=== PATIENT | male | born 1950 | race Caucasian/White ===

== ENCOUNTER → 2024-08-03 | Outpatient (CLI) | payer MEDICARE ==
[2024-08-03 11:01] LABS: African American GFR (CKD) 61 (>60 ml/min/1.73 sqM); Blood Urea Nitrogen 15 mg/dL (9-20); Non-African American GFR(CKD) 53 (>60 ml/min/1.73 sqM)
--- NOTE | 2024-08-03 13:19 | CT ---
CTA abdomen, pelvis with runoff. HISTORY: PAD and abdominal aneurysm repair. COMPARISON: None. TECHNIQUE: Multiple axial images are obtained through the abdomen and pelvis and lower extremities ac cording to the CTA protocol. Nonionic IV contrast was given without complication. FINDINGS: Inflow CTA: There is an abdominal aortic and iliac stent graph repair which extends proximally above the origins of the renal arteries and there are 2 patent renal artery stents. The [place] aneurysm is 6.0 x 6.7 cm in size. There is a calcified mural thrombus within it. There is no definite evidence of a endoleak. There is no retroperitoneal adenopathy or hemorrhage. There are iliac stents are widely patent is no evidence of aneurysm or stenosis is. Mesenteric origin s are patent. Outflow CTA: On the right, there is a severe focal stenosis of the distal right common femoral artery at the bifur cation with the profunda artery. There are scattered arteriosclerotic plaques and multiple mild-to-mo derate stenoses within the right superficial femoral artery. 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 There is three-vessel runoff. The dominant runoff vessel in the posterior tib ial artery. There are mild scattered plaques within the runoff vessels. On the left, the left superfi cial femoral artery is occluded at its origin. It is reconstituted in the region of the adductor praneeth l via numerous profunda femoral artery collaterals. The popliteal artery is diminutive throughout its course with scattered plaque but appears patent without definite focal stenosis. Runoff CTA: On the right, there is three-vessel runoff and the dominant runoff vessel is the posterior tibial art zeke. There are scattered arteriosclerotic plaques. On the left, there is two-vessel runoff via the peroneal artery and posterior tibial artery. The prox imal third of the posterior tibial artery is not well opacified but is well opacified distally into t he ankle. The anterior tibial artery is occluded proximally. The peroneal artery is the dominant runo ff vessel. Nonvascular findings: The gallbladder is normal. There is no focal mass or organomegaly involving liver, pancreas, spleen or adrenal glands. There is no solid renal mass. The bowel loops are normal in caliber. There is no free intraperitoneal air or fluid. There is marked prosthetic hypertrophy with marked thickening of the urinary bladder wall consistent with chronic bladder outlet obstruction. The osseous structures are intact. IMPRESSION: 1. Aortic iliac stent graft for abdominal aortic aneurysm as described above. [place] aneurysm is 6.0 x 6.7 cm. There is no definite evidence of endoleak. 2 patent bilateral renal artery stents. 3. Severe outflow disease on the right as described above. Large right popliteal artery aneurysm. 4. Severe outflow disease on the left involving the superficial femoral artery. 5. Three-vessel runoff disease on the right and 2 vessel runoff disease on the left as described. 6. Marked prosthetic hypertrophy and marked thickening of the urinary bladder wall consistent with ch ronic lateral obstruction.
== END | disposition home or self-care (01) ==
LOC: RADCTMAIN 09:59
PROVIDERS: ATTEND Surgery
DX: I70.213 Atherosclerosis of native arteries of extremities with intermittent claudication, bilateral legs (principal); I71.40 Abdominal aortic aneurysm, without rupture, unspecified; I72.4 Aneurysm of artery of lower extremity; N32.0 Bladder-neck obstruction
CPT/HCPCS: 82565; 84520; 75635; Q9967

== ENCOUNTER 2024-09-03 21:43 | Inpatient (IN) | payer MEDICARE ==
--- NOTE | 2024-09-03 22:07 | ED ---
General Adult HPI - General Chief complaint: Chest Pain Stated complaint: Chest Pain Time Seen by Provider: 09/03/24 21:57 Source: patient, family Mode of arrival: wheelchair Limitations: no limitations - History of Present Illness Initial comments: Dictation was produced using [employer] dictation software. please excuse any grammatical, word or spelling errors. Chief Complaint: 74-year-old male presents emergency department chest pain History of Present Illness: Patient 74-year-old male with known history of atherosclerotic coronary artery vascular disease presents to the ER for chest pressure. He has been having symptoms for the last couple days. States that it feels like a pressure that radiates to both of his arms. Denies any associate diaphoresis or nausea. He does have multiple coronary artery stents states that his symptoms today remind of of a heart attack is had in the past. Patient rates his pain as a 3 out of 10. Not pleuritic in nature. Rating her mitigating factors. The ROS documented in this emergency department record has been reviewed and confirmed by me. Those systems with pertinent positive or negative responses have been documented in the HPI. All other systems are other negative and/or noncontributory. - Related Data Allergies Allergy/AdvReac Type Severity Reaction Status Date / Time No Known Allergies Allergy Verified 09/03/24 21:53 Review of Systems ROS Statement: Those systems with pertinent positive or pertinent negative responses have been documented in the HPI. ROS Other: All systems not noted in ROS Statement are negative. 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 Past Surgical History: Heart Catheterization With Stent, Orthopedic Surgery Additional Past Surgical History / Comment(s): ATHERECTOMY TO BOTH LEGS Smoking Status: Current every day smoker General Exam - General Exam Comments Initial Comments: PHYSICAL EXAM: General Impression: Alert and oriented x3, not in acute distress HEENT: Normocephalic atraumatic, extra-ocular movements intact, pupils equal and reactive to light bilaterally, mucous membranes moist. Cardiovascular: Heart regular rate and rhythm Chest: Able to complete full sentences, no retractions, no tachypnea Abdomen: abdomen soft, non-tender, non-distended, no organomegaly Musculoskeletal: Pulses present and equal in all extremities, no peripheral edema Motor: no focal deficits noted Neurological: CN II-XII grossly intact, no focal motor or sensory deficits noted Skin: Intact with no visualized rashes Psych: Normal affect and mood Limitations: no limitations Course Vital Signs 09/03/24 09/03/24 09/03/24 21:49 23:13 23:25 Temperature 98 F Pulse Rate 70 71 84 Respiratory 20 18 18 Rate Blood Pressure 199/77 188/74 165/72 O2 Sat by Pulse 96 94 L 97 Oximetry EKG Findings - EKG Comments: EKG Findings:: My EKG interpretation: Ventricular rate 75, sinus rhythm,. 159, QRS 104, QTc 432. No CO prolongation, no QTC prolongation, no ST or T-wave changes noted. Overall, this EKG is unremarkable Medical Decision Making - Medical Decision Making Was pt. sent in by a medical professional or institution (, PA, HAMPER MAKER MACHINE, urgent care, hospital, or alf...) When possible be specific @ -No Did you speak to anyone other than the patient for history (EMS, parent, family, police, friend...)? What history was obtained from this source @ - at the bedside as described above Did you review nursing and triage notes (agree or disagree)? Why? @ -I reviewed and agree with nursing and triage notes Were old charts reviewed (outside hosp., previous admission, EMS record, old EKG, old radiological studies, urgent care reports/EKG's, alf records)? Report findings @ -No old charts were reviewed Differential Diagnosis (chest pain, altered mental status, abdominal pain women, abdominal pain men, vaginal bleeding, musculoskeletal, weakness, fever, dyspnea, syncope, headache, dizziness, GI bleed, back pain, seizure, CVA, palpatations, mental health)? @ -Differential Chest Pain: Stable Angina, Unstable Angina, STEMI, NSTEMI Aortic Dissection, Pneumothorax, Musculoskeletal, Esophageal Spasm GERD, Cholecystitis, Pancreatitis, Zoster, this is not meant to be an all-inclusive list. EKG interpreted by me (3pts min.). @ -See above EKG performed at 1131 shows no dynamic changes X-rays interpreted by me (1pt min.). @ -Pending CT interpreted by me (1pt min.). @ -None done U/S interpreted by me (1pt. min.). @ -None done What testing was considered but not performed or refused? (CT, X-rays, U/S, labs)? Why? @ -None What meds were considered but not given or refused? Why? @ -None Was smoking cessation discussed for >3mins.? @ -No Were there social determinants of health that impacted care today? How? (Homelessness, low income, unemployed, alcoholism, drug addiction, transporta tion, low edu. Level, literacy, decrease access to med. care, usp, rehab)? @ -No Was there de-escalation of care discussed even if they declined (Discuss DNR or withdrawal of care, Hospice)? DNR status @ -No What co-morbidities impacted this encounter? (DM, HTN, Smoking, COPD, CAD, Cancer, CVA, ARF, Chemo, Hep., AIDS, mental health diagnosis, sleep apnea, morbid obesity)? @ -Coronary artery disease, coronary artery stents Was patient admitted / discharged? Hospital course, mention meds given and route, prescriptions, significant lab abnormalities, going to OR and other pertinent info. @ -74-year-old male presents emergency department with chest pain. Symptoms concerning for unstable angina. Patient has coronary artery disease. Vital signs stable. EKG shows no STEMI or ischemic changes. Laboratory evaluation obtained. Troponin is 0.023. Normal troponin for comparison. Repeat EKG shows no dynamic changes. Patient's pain improved with nitroglycerin. Patient started on heparin will be admitted. Case discussed with Dr. Kaminski for admission. Did you discuss the management of the patient with other professionals (professionals i.e. , PA, HAMPER MAKER MACHINE, lab, RT, psych nurse, social insurance analyst, graining operator, teacher, first aid officer, case supervisor)? Give summary @ -As above Was critical care preformed (if so, how long)? @ -Yes, 33 minutes Undiagnosed new problem with uncertain prognosis? @ -No Drug Therapy requiring intensive monitoring for toxicity (Heparin, Nitro, Insulin, Cardizem)? @ -No Were any procedures done? @ -No Diagnosis/symptom? Acute, or Chronic, or Acute on Chronic? Uncomplicated (without systemic symptoms) or Complicated (systemic symptoms)? @ -Unstable angina Side effects of treatment? @ -No Exacerbation, Progression, or Severe Exacerbation? @ -No Poses a threat to life or bodily function? How? (Chest pain, [place], NM, pneumonia, PE, COPD, DKA, ARF, appy, cholecystitis, CVA, Diverticulitis, Homicidal, Suicidal, threat to staff... and all critical care pts) @ -yes - Lab Data Result diagrams: 09/03/24 22:17 09/03/24 22:17 Lab Results 09/03/24 09/03/24 09/03/24 Range/Units 22:17 22:17 22:17 WBC 6.1 (3.8-10.6) k/uL RBC 3.90 L (4.30-5.90) m/uL Hgb 11.3 L (13.0-17.5) gm/dL Hct 35.6 L (39.0-53.0) % MCV 91.3 (80.0-100.0) fL MCH 28.9 (25.0-35.0) pg MCHC 31.7 (31.0-37.0) g/dL RDW 15.7 H (11.5-15.5) % Plt Count 180 (150-450) k/uL MPV 7.3 Neutrophils % 64 % Lymphocytes % 25 % Monocytes % 5 % Eosinophils % 3 % Basophils % 1 % Neutrophils # 3.9 (1.3-7.7) k/uL Lymphocytes # 1.5 (1.0-4.8) k/uL Monocytes # 0.3 (0-1.0) k/uL Eosinophils # 0.2 (0-0.7) k/uL Basophils # 0.0 (0-0.2) k/uL Hypochromasia Moderate PT 10.2 (10.0-12.5) sec INR 0.9 (<1.2) APTT 26.5 (22.0-30.0) sec Sodium 139 (137-145) mmol/L Potassium 3.3 L (3.5-5.1) mmol/L Chloride 103 (98-107) mmol/L Carbon Dioxide 35 H (22-30) mmol/L Anion Gap 1 mmol/L BUN 15 (9-20) mg/dL Creatinine 1.35 H (0.66-1.25) mg/dL Est GFR (CKD-EPI)AfAm 60 (>60 ml/min/1.73 sqM) Est GFR (CKD-EPI)NonAf 52 (>60 ml/min/1.73 sqM) Glucose 142 H (74-99) mg/dL Calcium 9.0 (8.4-10.2) mg/dL Magnesium 2.2 (1.6-2.3) mg/dL Total Bilirubin 0.4 (0.2-1.3) mg/dL AST 21 (17-59) U/L ALT 12 (4-49) U/L Alkaline Phosphatase 83 (38-126) U/L Troponin I (0.000-0.034) ng/mL Total Protein 7.1 (6.3-8.2) g/dL Albumin 3.9 (3.5-5.0) g/dL 09/03/24 Range/Units 22:17 WBC (3.8-10.6) k/uL RBC (4.30-5.90) m/uL Hgb (13.0-17.5) gm/dL Hct (39.0-53.0) % MCV (80.0-100.0) fL MCH (25.0-35.0) pg MCHC (31.0-37.0) g/dL RDW (11.5-15.5) % Plt Count (150-450) k/uL MPV Neutrophils % % Lymphocytes % % Monocytes % % Eosinophils % % Basophils % % Neutrophils # (1.3-7.7) k/uL Lymphocytes # (1.0-4.8) k/uL Monocytes # (0-1.0) k/uL Eosinophils # (0-0.7) k/uL Basophils # (0-0.2) k/uL Hypochromasia PT (10.0-12.5) sec INR (<1.2) APTT (22.0-30.0) sec Sodium (137-145) mmol/L Potassium (3.5-5.1) mmol/L Chloride (98-107) mmol/L Carbon Dioxide (22-30) mmol/L Anion Gap mmol/L BUN (9-20) mg/dL Creatinine (0.66-1.25) mg/dL Est GFR (CKD-EPI)AfAm (>60 ml/min/1.73 sqM) Est GFR (CKD-EPI)NonAf (>60 ml/min/1.73 sqM) Glucose (74-99) mg/dL Calcium (8.4-10.2) mg/dL Magnesium (1.6-2.3) mg/dL Total Bilirubin (0.2-1.3) mg/dL AST (17-59) U/L ALT (4-49) U/L Alkaline Phosphatase (38-126) U/L Troponin I 0.023 (0.000-0.034) ng/mL Total Protein (6.3-8.2) g/dL Albumin (3.5-5.0) g/dL Disposition Clinical Impression: Unstable angina Disposition: ADMITTED IP TO THIS HOSP Condition: Serious Referrals: John Faulkner MD [Primary Care Provider] - 1-2 days Decision Time: 00:23
[2024-09-03 22:36] LABS: Basophils % (A) 1 %; Eosinophils # (A) 0.2 k/uL (0-0.7); Eosinophils % (A) 3 %; HCT 35.6 % (39.0-53.0); HGB 11.3 gm/dL (13.0-17.5); Hypochromasia Moderate; Lymphocytes # (A) 1.5 k/uL (1.0-4.8); Lymphocytes % (A) 25 %; MCH 28.9 pg (25.0-35.0); MCHC 31.7 g/dL (31.0-37.0); MCV 91.3 fL (80.0-100.0); Mean Platelet Volume 7.3; Monocytes # (A) 0.3 k/uL (0-1.0); Monocytes % (A) 5 %; Neutrophils # (A) 3.9 k/uL (1.3-7.7); Neutrophils % (A) 64 %; Platelet Count 180 k/uL (150-450); RDW 15.7 % (11.5-15.5); WBC 6.1 k/uL (3.8-10.6)
[2024-09-03 22:45] LABS: ALT 12 U/L (4-49); AST 21 U/L (17-59); African American GFR (CKD) 60 (>60 ml/min/1.73 sqM); Albumin 3.9 g/dL (3.5-5.0); Alkaline Phosphatase 83 U/L (38-126); Anion Gap 1 mmol/L; Blood Urea Nitrogen 15 mg/dL (9-20); Carbon Dioxide 35 mmol/L (22-30); Chloride 103 mmol/L (98-107); Glucose 142 mg/dL (74-99); Magnesium 2.2 mg/dL (1.6-2.3); Non-African American GFR(CKD) 52 (>60 ml/min/1.73 sqM); Potassium 3.3 mmol/L (3.5-5.1); Sodium 139 mmol/L (137-145); Total Bilirubin 0.4 mg/dL (0.2-1.3); Total Protein 7.1 g/dL (6.3-8.2)
[2024-09-03 22:51] LABS: INR 0.9 (<1.2); Partial Thromboplastin Time 26.5 sec (22.0-30.0); Prothrombin Time 10.2 sec (10.0-12.5)
[2024-09-03] MEDS: ASPIRIN 81 MG PO STA (23:11)
[2024-09-03] MEDS: NITROGLYCERIN SL TABS 0.4 MG TAB SUBLINGUAL STA (23:12)
[2024-09-03] MEDS ORDERED: HEPARIN SODIUM 1,000 UN/ML (10ML VL) IV PRN (23:51)
[2024-09-04] MEDS: HEPARIN SODIUM 1,000 UN/ML (10ML VL) IV ONE (00:09)
[2024-09-04] MEDS: HEPARIN SOD,PORK IN 0.45% NACL 25,000 UNIT in 0.45% NACL 1 250ML.BAG IV SCH (00:10)
--- NOTE | 2024-09-04 01:48 | XR ---
EXAM: XR Chest, 2 Views CLINICAL HISTORY: XR Reason: Chest Pain TECHNIQUE: Frontal and lateral views of the chest. COMPARISON: No relevant prior studies available. FINDINGS: Lungs: Slightly coarse interstitial markings in the lungs suggesting mild emphysema. No acute infiltrate is identified. Pleural space: Unremarkable. No pneumothorax. Heart: Unremarkable. No cardiomegaly. Mediastinum: Unremarkable. Normal mediastinal contour. Bones/joints: Mild to moderate osteophytosis throughout the mid to lower thoracic spine. No acute fracture. Upper abdomen: Previous stent graft repair of the abdominal aorta. No pneumoperitoneum under the diaphragm. IMPRESSION: Slightly coarse interstitial markings in the lungs suggesting mild emphysema. No acute infiltrate is identified.
--- NOTE | 2024-09-04 02:54 | P.HPIM ---
History of Present Illness H&P Date: 09/04/24 Patient is a 74-year-old male with a history of CAD x 3 stent placement, DVT, hyperlipidemia, and is a current smoker that came in for chest pain that began on Tuesday evening 09/02. He reported that chest pain was substernal, episodic, with an intensity of 6-7/10, pressure-like in nature (similar to his prior MIs), that radiated to both arms and the back. The pain initially occured on late night Tuesday but had resolved by Tuesday upon waking. The pain recurred on Tuesday, which prompted him to come to the ED. He denies shortness of breath, nausea, diaphoresis, palpitations, dizziness, new onset cough, abdominal pain, facial asymmetry, changes in vision, or loss of consciousness. Denies pleuritic pain. Also denying lower extremity swelling or pain. Denies pain that is tearing in nature. Patient also notes that he doesn't believe that most medications work for him and thereby hadn't been taking them for some time now. In the emergency room, EKG showed sinus rhythm with a rate of [address]-T changes with good R wave progression and QTc of 439 MS. Chest x-ray showed no acute processes. Laboratory evaluation revealed WBC 6.1, hemoglobin 11.3, platelet count 180 PT 10.2 INR 0.9 PTT 26.5 sodium potassium 3.3 bicarb 35 BUN 15 creatinine 1.35 glucose 142 troponin 0.023 calcium 9 magnesium 2.2. On admission, patient was afebrile at 98 Fahrenheit heart rate of 70 respiratory rate 20 blood pressure 199/77 O2 saturation 96% on room air ED documentation reviewed. Review of systems: Pertinent positives and negatives as discussed in HPI, a complete review of systems was performed and all other systems are negative. Family history: Mother had bone cancer and is . Father had brain cancer and is Social history: Tobacco: Current smoker half a pack per day for 50 years Alcohol: Denies alcohol use Recreational drugs: Denies illicit drug use Travel: No recent travel Occupation: Retired Physical examination: Vital signs reviewed General: non toxic, no distress, appears older then stated age, underweight Derm: no unusual rashes/lesions, warm Head: atraumatic, normocephalic, symmetric Eyes: EOMI, no lid lag, anicteric sclera, pupils equal round reactive to light ENT: Nose and ears atraumatic Neck: No cervical lymphadenopathy, trachea midline, supple Mouth: no lip lesion, mucus membranes moist Cardiovascular: S1S2 reg, 3 out of 6 holosystolic murmur best heard on the right second ICS Lungs: CTA bilateral, no rhonchi, no rales, no accessory muscle use Abdominal: soft, nontender to palpation, no guarding Ext: muscle strength 5 out of 5 in all 4 extremities grossly, no gross muscle atrophy, no contractures, positive dorsalis pedis pulse bilateral, no edema Neuro: CN II-XI grossly intact, no gross focal neuro deficits Psych: Alert, oriented, appropriate affect and mood Assessment/Plan: #. Unstable angina Patient has significant history of prior [place]. Troponin 0.023 -Continue with cardiac monitoring -Aspirin 325 p.o. OD and Lipitor 80 mg -Resume Heparin IV 12 units/h -Continue with nitroglycerin 0.4 mg lingual as needed for chest pain -Trend troponin -Consult cardiology -Discussed smoking cessation -Echocardiogram #. Hypokalemia Potassium 3.3. EKG unremarkable -Replete with potassium chloride 20 mEQ p.o. -BMP at AM #. Hyperglycemia Glucose 142. No Hx of DM. -A1c and BMP in the a.m. 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 Past Surgical History: Heart Catheterization With Stent, Orthopedic Surgery Additional Past Surgical History / Comment(s): ATHERECTOMY TO BOTH LEGS Smoking Status: Current every day smoker Medications and Allergies Allergies Allergy/AdvReac Type Severity Reaction Status Date / Time No Known Allergies Allergy Verified 09/03/24 21:53 Physical Exam Vitals: Vital Signs Temp Pulse Resp BP Pulse Ox 09/04/24 00:25 74 16 165/82 97 09/03/24 23:25 84 18 165/72 97 09/03/24 23:13 71 18 188/74 94 L 09/03/24 21:49 98 F 70 20 199/77 96 Intake and Output 09/03/24 09/03/24 09/04/24 14:59 22:59 06:59 Other: Weight 62.142 kg Results CBC & Chem 7: 09/03/24 22:17 09/03/24 22:17 Labs: Abnormal Lab Results - Last 24 Hours (Table) 09/03/24 09/03/24 Range/Units 22:17 22:17 RBC 3.90 L (4.30-5.90) m/uL Hgb 11.3 L (13.0-17.5) gm/dL Hct 35.6 L (39.0-53.0) % RDW 15.7 H (11.5-15.5) % Potassium 3.3 L (3.5-5.1) mmol/L Carbon Dioxide 35 H (22-30) mmol/L Creatinine 1.35 H (0.66-1.25) mg/dL Glucose 142 H (74-99) mg/dL
[2024-09-04] MEDS ORDERED: Potassium Replacement Protocol 1 EACH MISC MISCELLANE PRN ×2 (02:55→02:56)
[2024-09-04] MEDS: POTASSIUM CHLORIDE ER 20 MEQ TAB.ER PO SCH (04:00)
[2024-09-04] MEDS: ATORVASTATIN 80 MG TAB PO STA ×2 (05:00→11:57)
[2024-09-04 08:39] LABS: Blood Urea Nitrogen 14.4 mg/dL (9.0-27.0); Calcium 8.6 mg/dL (8.7-10.3); Carbon Dioxide 27.4 mmol/L (21.6-31.8); Chloride 104 mmol/L (96-109); Glucose 90 mg/dL (70-110); Potassium 3.4 mmol/L (3.5-5.5); Sodium 141 mmol/L (135-145)
[2024-09-04] MEDS: SODIUM CHLORIDE 0.9% 1,000 ML in EMPTY BAG 1 BAG IV SCH (11:55)
[2024-09-04] MEDS: ASPIRIN 81 MG PO STA (11:57)
[2024-09-04] MEDS: IV FLUID CONTINUATION 950 ML IV ONE (12:01)
[2024-09-04] MEDS: fentaNYL (PF) 50 MCG/ML 2 ML AMP IVP ONE (12:19)
[2024-09-04] MEDS: LIDOCAINE 1% INJ 10MG/ML (20 ML MDV) SQ ONE (12:30)
[2024-09-04] MEDS: MIDAZOLAM 2 MG/2 ML VIAL IVP ONE (12:47)
[2024-09-04] MEDS: VERAPAMIL SYRINGE (5 MG/10 ML) INTRAARTER ONE (12:47)
[2024-09-04] MEDS: HEPARIN SODIUM 1,000 UN/ML (10ML VL) IVP ONE (12:51)
[2024-09-04] MEDS: IOPAMIDOL-370 125ML BTL INJ ONE (13:03)
[2024-09-04] MEDS ORDERED: RX INFO: IV CONTRAST WAS GIVEN 1 EACH MISC MISCELLANE PRN (13:15)
--- NOTE | 2024-09-04 13:25 | P.CARDCATH ---
Date of Procedure: 09/04/24 Description of Procedure: Cardiac Catheterization: The patient is a 74-year-old male with a known history of CAD status post PCI of the LAD over 10 years ago, history of peripheral vascular disease status post percutaneous repair of abdominal aortic aneurysm, history of aortic valve disease, chronic tobacco use, noncompliance who presented with symptoms of chest discomfort and had mild troponin elevation. He was evaluated by Dr. Guido. Recommendations were made regarding cardiac catheterization, the risks and the complications were discussed with the patient who is in full understanding and agreement. Procedure Description: Patient was brought to collaborating supervising physician in fasting semi-sedated state after receiving Fentanyl and Benadryl achieiving moderate conscious sedated state. Using Xylocaine Anesthesia and modified Seldinger technique, a 6-[place] sheath was introduced in the left radial artery . Attempt to advance the wire in the right radial artery were unsuccessful. Subsequently, selective coronary angiography was performed using a 5-[place] 4 bend Jose Francisco catheter. Multiple views of the coronary artery including hemiaxial views were obtained. The right Jose Francisco catheter was used to cross the aortic valve and LVEDP was calculated. The 6 [place] pigtail was positioned in the ascending aorta and an MEDHAT aortogram was performed. Following that, catheter and sheath were removed. Hemostasis was obtained with deployment of vascular band . There was no immediate complication. Patient was returned to room in stable condition. Of note, the patient received a total of 3500 units of intravenous heparin as well as intra-arterial verapamil. Findings: Fluoroscopy: Severe calcification of the aortic valve was noted Left main: This is a large size vessel, bifurcating into LAD and left circumflex, left main has no obstructive disease LAD: This is a large size vessel, giving rise to a large diagonal branch. The LAD proximally has a stent that is patent there is a stent into the diagonal branch and extending in the LAD beyond the diagonal branch. The ostium of the diagonal branch and proximal segment has a 99% in-stent restenosis, the LAD at the bifurcation has a 95% stenosis. The distal vessel has no high-grade stenosis. Left circumflex: This is a large nondominant vessel giving rise to 3 obtuse marginal branch, the second and third 1 are the largest. The left circumflex after the takeoff of the first obtuse marginal branch has a 90% eccentric lesion, there is another plaque before the takeoff of the second obtuse marginal branch of 70%, the rest of the vessel has no high-grade stenosis. RCA: This is a large dominant vessel, bifurcating distally to PDA and PLV. Ectatic throughout its course with a 99% stenosis in the proximal segment and a 99% stenosis at the ostium of the PLV. Left Ventriculogram: Not performed. The aortogram showed a 4+ aortic regurgitation with visualization of the abdominal aortic stent extending into the iliac artery bilaterally with suggestion of obstructive disease in the right iliac Hemodynamics: There was a peak to peak gradient across the aortic valve of 56 mmHg with a mean of 54 mmHg, LVEDP was 18-20 mmHg Conclusion: 1. Severe triple-vessel disease 2. Severe aortic stenosis 3. Severe aortic regurgitation 4. Right dominance Recommendations: The patient will need to be evaluated for coronary artery bypass grafting and aortic valve replacement, the importance of compliance was discussed with the patient including smoking cessation. The findings and the recommendations were discussed with the patient and the family and they were in full understanding and agreement. Duration of sedation is 35 minutes.
[2024-09-04] MEDS: SODIUM CHLORIDE 0.9% 1,000 ML IV SCH (13:27)
--- NOTE | 2024-09-04 14:01 | P.CRDCN ---
History of Present Illness Consult date: 09/04/24 Reason for Consult (text): NSTEMI Chief complaint: NSTEMI History of present illness: Dr. Guido's addendum NSTEMI Severe aortic regurgitation Suspect severe aortic stenosis Prior CAD status post PCI 15 years ago Prior PAD status post bilateral renal artery stenting and infrarenal EVAR repair for aortic aneurysm. Plan Continue aspirin, Lipitor Plan for cardiac catheterization. Obtain echocardiogram Apparently patient is scheduled for below-knee bypass surgery for severe PAD. Would be further recommendations on surgical clearance after evaluate him for obstructive CAD and valvular heart disease. HPI Patient is a 74 year old male with past medical history of CAD X3 stent placement, DVT, HLD, current smoker started having chest pain on 09/02 evening. He reported he was feeling pressure like chest pain which radiated toward his arms and back. The chest pain went away on Tuesday morning but recurred on Tuesday evening. He tried taking some aspirin but the chest pain did not go away. After he came to the ED, he was given nitrogycerin which he reported relieved his chest pain. He denies any shortness of breath, nausea, vomiting, abdominal pain. In the ED, EKG showed sinus rhythm with rate in the 70s. No ST changes noted. Chest X ray showed no acute infiltrates. Morning labs showed WBC count of 6.1, hemoglobin 11.3, hematocrit 35.6, platelet 180, sodium 139, potassium 3.3, chlo ride 103, carbon dioxide 35, BUN 15, creatinine 1.35. Troponin has increased from 0.023 to 0.041. His blood pressure is elevated. He is saturating at 97% on room air. Review of Systems Per [facility] Past Medical History Past Medical History: Coronary Artery Disease (CAD), Deep Vein Thrombosis (DVT), Hyperlipidemia, Hypertension, Myocardial Infarction ([place]) Additional Past Medical History / Comment(s): 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 Past Surgical History: Heart Catheterization With Stent, Orthopedic Surgery Additional Past Surgical History / Comment(s): ATHERECTOMY TO BOTH LEGS Smoking Status: Current every day smoker - Past Family History Mother Family Medical History: Cancer Additional Family Medical History / Comment(s): from bone cancer Father Family Medical History: Cancer Additional Family Medical History / Comment(s): from brain cancer Medications and Allergies Home Medications Medication Instructions Recorded Confirmed Type Aspirin EC [Ecotrin Low Dose] 81 mg PO DAILY 09/04/24 09/04/24 History Metoprolol Tartrate [Lopressor] 50 mg PO DAILY 09/04/24 09/04/24 History Allergies Allergy/AdvReac Type Severity Reaction Status Date / Time No Known Allergies Allergy Verified 09/04/24 11:04 Physical Exam Vitals: Vital Signs Temp Pulse Resp BP Pulse Ox 09/04/24 08:48 98.2 F 61 18 124/56 96 09/04/24 06:58 58 L 16 154/61 94 L 09/04/24 05:16 65 18 135/86 95 09/04/24 02:45 63 14 145/75 94 L 09/04/24 00:25 74 16 165/82 97 09/03/24 23:25 84 18 165/72 97 09/03/24 23:13 71 18 188/74 94 L 09/03/24 21:49 98 F 70 20 199/77 96 Intake and Output 09/03/24 09/04/24 09/04/24 22:59 06:59 14:59 Intake Total 56.922 Balance 56.922 Intake: Intake, IV Titration 56.922 Amount Heparin Sod,Pork in 0.45% 56.922 NaCl 25,000 unit In 0.45 % NaCl 1 250ml.bag @ 12 UNITS/KG/HR 7.457 mls/hr IV .Q24H [facility] Rx#: [id number] Other: Weight 62.142 kg General: Alert and oriented, not in acute distress Cardiovascular: Holosystolic murmur grade 3, regular heart rate Respiratory: CTAB, no wheezing/rhonchi/stridor Abdominal: Non tender, nondistended, soft, normoactive bowel sounds Extremity: No LE swelling bilaterally Results 09/03/24 22:17 09/04/24 16:00 Cardiac Enzymes 09/03/24 09/03/24 09/04/24 Range/Units 22:17 22:17 00:55 AST 21 (17-59) U/L Troponin I 0.023 0.033 (0.000-0.034) ng/mL 09/04/24 Range/Units 03:55 AST (17-59) U/L Troponin I 0.041 H* (0.000-0.034) ng/mL Coagulation 09/03/24 09/04/24 Range/Units 22:17 05:58 PT 10.2 (10.0-12.5) sec APTT 26.5 44.0 H (22.0-30.0) sec CBC 09/03/24 Range/Units 22:17 WBC 6.1 (3.8-10.6) k/uL RBC 3.90 L (4.30-5.90) m/uL Hgb 11.3 L (13.0-17.5) gm/dL Hct 35.6 L (39.0-53.0) % Plt Count 180 (150-450) k/uL Comprehensive Metabolic Panel 09/03/24 09/04/24 Range/Units 22:17 03:55 Sodium 139 141 (137-145) mmol/L Potassium 3.3 L 3.4 L (3.5-5.1) mmol/L Chloride 103 104 (98-107) mmol/L Carbon Dioxide 35 H 27.4 (22-30) mmol/L BUN 15 14.4 (9-20) mg/dL Creatinine 1.35 H 1.2 (0.66-1.25) mg/dL Glucose 142 H 90 (74-99) mg/dL Calcium 9.0 8.6 L (8.4-10.2) mg/dL AST 21 (17-59) U/L ALT 12 (4-49) U/L Alkaline Phosphatase 83 (38-126) U/L Total Protein 7.1 (6.3-8.2) g/dL Albumin 3.9 (3.5-5.0) g/dL Current Medications Generic Name Dose Route Start Last Admin Trade Name Shantq PRN Reason Stop Dose Admin Aspirin 81 mg 09/05/24 09:00 Aspirin 81 Mg PO DAILY [facility] Atorvastatin Calcium 80 mg 09/04/24 21:00 Atorvastatin 80 Mg Tab PO HS [facility] Heparin Sodium (Porcine) 0 unit 09/03/24 23:51 Heparin Sodium 1,000 Un/Ml (10ml Vl) IV PER PROTOCOL PRN Low PTT Protocol Heparin Sodium/Sodium Chloride 250 mls @ 7.457 mls/hr 09/04/24 00:00 09/04/24 07:48 25,000 unit/ Sodium Chloride IV 12 units/kg/hr .Q24H [facility] 7.457 mls/hr Titration Protocol 12 UNITS/KG/HR Miscellaneous Information 1 each 10/08/24 02:55 Potassium Replacement Protocol 1 Each [facility] MISCELLANE DAILY PRN Per Protocol Protocol Miscellaneous Information 1 each 09/04/24 02:56 Potassium Replacement Protocol 1 Each [facility] MISCELLANE DAILY PRN Per Protocol Protocol Nitroglycerin 0.4 mg 09/04/24 00:17 Nitroglycerin Sl Tabs 0.4 Mg Tab SUBLINGUAL Q5M PRN Chest Pain Intake and Output 09/03/24 09/04/24 09/04/24 22:59 06:59 14:59 Intake Total 56.922 Balance 56.922 Intake: Intake, IV Titration 56.922 Amount Heparin Sod,Pork in 0.45% 56.922 NaCl 25,000 unit In 0.45 % NaCl 1 250ml.bag @ 12 UNITS/KG/HR 7.457 mls/hr IV .Q24H [facility] Rx#: [id number] Other: Weight 62.142 kg 09/03/24 22:17 09/04/24 03:55 Assessment and Plan Assessment: 1. NSTEMI - Patient's troponin elevated - Previous heart catheterization was done many years ago, facility unknown. - Patient will get a heart catheterization this afternoon by Dr. Byrd. - Order echocardiogram - Order lipid panel 2. Severe Aortic regurgitation - Holosystolic murmur noted on exam - Pending echocardiogram results 3. Peripheral vascular disease - Patient stated that he will get LE bypass vascular surgery next month 4. Hypertension - Losartan 25 mg once daily Time with Patient: Greater than 30
--- NOTE | 2024-09-04 14:58 | P.GSCN ---
History of Present Illness Consult date: 09/04/24 Reason for Consult: Triple vessel coronary artery disease, aortic stenosis/insufficiency Requesting physician: Pawel Byrd History of present illness: This is a 74-year-old gentleman who follows outpatient with Dr. Faulkner for primary care, Dr. Byrd for cardiology, and Dr. Rawls for vascular. He has a previous history of coronary artery disease with myocardial infarction and multiple stenting with the last stent greater than 10 years ago, peripheral arterial disease with endovascular abdominal aneurysm repair approximately 2 years ago at [facility], angioplasty in the right leg, hypertension, hyperlipi demia, remote history of pneumonia, current chronic tobacco dependence, occasional marijuana use, and medication noncompliance. He presented to [facility] with complaints of intermittent chest pressure with radiation to his arms and back, denies of breath, nausea, diaphoresis, or any other symptomatology. He did self administer aspirin prior to arrival, his chest pain was relieved with sublingual nitro in the emergency department. EKG demonstrated sinus rhythm. Chest x-ray demonstrated no acute process. Lab work revealed WBC 6.1, hemoglobin 11.3, creatinine 1.35 Review of Systems - Cardiovascular Reports chest pain Past Medical History Past Medical History: Coronary Artery Disease (CAD), Deep Vein Thrombosis (DVT), Hyperlipidemia, Hypertension, Myocardial Infarction ([place]), Pneumonia Additional Past Medical History / Comment(s): 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 Legally blind Past Surgical History: Heart Catheterization With Stent, Orthopedic Surgery Additional Past Surgical History / Comment(s): ATHERECTOMY TO BOTH LEGS; endovascular abdominal aneurysm repair at [facility], angioplasty to the right leg at [facility] Date of Last Stent Placement:: Greater than 10 years ago Past Psychological History: No Psychological Hx Reported Smoking Status: Current every day smoker Past Alcohol Use History: None Reported Past Drug Use History: Marijuana - Past Family History Mother Family Medical History: Cancer Additional Family Medical History / Comment(s): from bone cancer Father Family Medical History: Cancer Additional Family Medical History / Comment(s): from brain cancer Medications and Allergies Home Medications Medication Instructions Recorded Confirmed Type Aspirin EC [Ecotrin Low Dose] 81 mg PO DAILY 09/04/24 09/04/24 History Metoprolol Tartrate [Lopressor] 50 mg PO DAILY 09/04/24 09/04/24 History Allergies Allergy/AdvReac Type Severity Reaction Status Date / Time No Known Allergies Allergy Verified 09/04/24 11:04 Surgical - Exam Vital Signs Temp Pulse Resp BP Pulse Ox 98 F 70 20 199/77 96 09/03/24 21:49 09/03/24 21:49 09/03/24 21:49 09/03/24 21:49 09/03/24 21:49 CONSTITUTIONAL: Awake and alert, appears comfortable, cooperative, well- developed, well-nourished, no pain, no acute distress EYES: Pupils equal, round, reactive to light, normal ocular movement ENT: Moist mucous membranes without oral lesions present NECK: No masses, no bruits, trachea midline RESPIRATORY: Lungs sounds diminished in the bases bilaterally bilaterally. Respirations even, nonlabored. Currently on room air with oxygen saturation 96%. Strong cough. No chest wall deformities. No clubbing or cyanosis present CARDIOVASCULAR: S1, S2 present. Regular rate and rhythm, sinus rhythm on telemetry. No edema present. No calf pain or tenderness noted. No significant lower extremity varicosities noted GASTROINTESTINAL: Abdomen soft, nontender, nondistended without masses or organomegaly noted. There is no rebound or guarding present. Active bowel sounds present 4 quadrants. GENITOURINARY: Deferred INTEGUMENTARY: Skin is warm and dry NEUROLOGIC: Cranial nerves II through XII intact, normal coordination, no obvious motor or sensory deficits, speech is normal MUSKULOSKELETAL: Able to move all extremities, strength equal bilaterally, normal posture PSYCHIATRIC: Alert and oriented to person place and time CLINICAL FRAILTY SCORE 4 Results - Labs 09/03/24 22:17 09/04/24 03:55 Abnormal Lab Results - Last 24 Hours (Table) 09/03/24 09/03/24 09/04/24 Range/Units 22:17 22:17 03:55 RBC 3.90 L (4.30-5.90) m/uL Hgb 11.3 L (13.0-17.5) gm/dL Hct 35.6 L (39.0-53.0) % RDW 15.7 H (11.5-15.5) % APTT (22.0-30.0) sec Potassium 3.3 L (3.5-5.1) mmol/L Carbon Dioxide 35 H (22-30) mmol/L Creatinine 1.35 H (0.66-1.25) mg/dL Glucose 142 H (74-99) mg/dL Calcium (8.7-10.3) mg/dL Troponin I 0.041 H* (0.000-0.034) ng/mL TSH (0.465-4.680) mIU/L 09/04/24 09/04/24 09/04/24 Range/Units 03:55 03:55 05:58 RBC (4.30-5.90) m/uL Hgb (13.0-17.5) gm/dL Hct (39.0-53.0) % RDW (11.5-15.5) % APTT 44.0 H (22.0-30.0) sec Potassium 3.4 L (3.5-5.1) mmol/L Carbon Dioxide (22-30) mmol/L Creatinine (0.66-1.25) mg/dL Glucose (74-99) mg/dL Calcium 8.6 L (8.7-10.3) mg/dL Troponin I (0.000-0.034) ng/mL TSH 14.600 H (0.465-4.680) mIU/L Diabetes panel 09/03/24 09/04/24 09/04/24 Range/Units 22:17 03:55 03:55 Sodium 139 141 (137-145) mmol/L Potassium 3.3 L 3.4 L (3.5-5.1) mmol/L Chloride 103 104 (98-107) mmol/L Carbon Dioxide 35 H 27.4 (22-30) mmol/L BUN 15 14.4 (9-20) mg/dL Creatinine 1.35 H 1.2 (0.66-1.25) mg/dL Glucose 142 H 90 (74-99) mg/dL Hemoglobin A1c 6.0 (<=6.0) % Calcium 9.0 8.6 L (8.4-10.2) mg/dL AST 21 (17-59) U/L ALT 12 (4-49) U/L Alkaline Phosphatase 83 (38-126) U/L Total Protein 7.1 (6.3-8.2) g/dL Albumin 3.9 (3.5-5.0) g/dL Thyroid panel 09/04/24 Range/Units 03:55 TSH 14.600 H (0.465-4.680) mIU/L Calcium panel 09/03/24 09/04/24 Range/Units 22:17 03:55 Calcium 9.0 8.6 L (8.4-10.2) mg/dL Albumin 3.9 (3.5-5.0) g/dL Pituitary panel 09/03/24 09/04/24 09/04/24 Range/Units 22:17 03:55 03:55 Sodium 139 141 (137-145) mmol/L Potassium 3.3 L 3.4 L (3.5-5.1) mmol/L Chloride 103 104 (98-107) mmol/L Carbon Dioxide 35 H 27.4 (22-30) mmol/L BUN 15 14.4 (9-20) mg/dL Creatinine 1.35 H 1.2 (0.66-1.25) mg/dL Glucose 142 H 90 (74-99) mg/dL Calcium 9.0 8.6 L (8.4-10.2) mg/dL TSH 14.600 H (0.465-4.680) mIU/L Adrenal panel 09/03/24 09/04/24 Range/Units 22:17 03:55 Sodium 139 141 (137-145) mmol/L Potassium 3.3 L 3.4 L (3.5-5.1) mmol/L Chloride 103 104 (98-107) mmol/L Carbon Dioxide 35 H 27.4 (22-30) mmol/L BUN 15 14.4 (9-20) mg/dL Creatinine 1.35 H 1.2 (0.66-1.25) mg/dL Glucose 142 H 90 (74-99) mg/dL Calcium 9.0 8.6 L (8.4-10.2) mg/dL Total Bilirubin 0.4 (0.2-1.3) mg/dL AST 21 (17-59) U/L ALT 12 (4-49) U/L Alkaline Phosphatase 83 (38-126) U/L Total Protein 7.1 (6.3-8.2) g/dL Albumin 3.9 (3.5-5.0) g/dL - Imaging Chest x-ray: report reviewed, image reviewed Additional studies: Heart catheterization films reviewed Assessment and Plan Assessment: Coronary artery disease with myocardial infarction and multiple stenting with the last stent greater than 10 years ago, non-STEMI this admission Chest pain secondary to above Severe aortic stenosis with severe aortic insufficiency on heart catheterization as well as echocardiogram in 2021 History of peripheral arterial disease with endovascular abdominal aneurysm repair approximately 2 years ago at [facility] Angioplasty in the right leg Hypertension although patient denies Hyperlipidemia Remote history of pneumonia Current chronic tobacco dependence Occasional marijuana use Medication noncompliance Addendum: 74-year-old male with known history of aortic stenosis presents with chest pain. Initial 2 troponins were negative but the third 1 was mildly elevated. He went for cardiac catheterization today. This reveals severe triple-vessel disease. Echocardiogram is pending at this time. Patient has history of noncompliance with medical therapy. His TSH is 14. He will require medical optimization including treatment of his hypothyroidism prior to undergoing CABG and presumed valvular surgery. Again, presuming his valve needs operation he will also require dental clearance. Thank you for this consult, we look forward to working with you in the care of your patient. The patient was seen and examined; hIS chart/diagnostics were reviewed in great detail. I agree with the assessment and plan as documented by the nurse practitioner. Spent 40 minutes reviewing data and discussing the plan of care with the team. Vitaliy Deluna MD Plan: The patient was seen and examined in the Extended Stay unit waiting for a bed on the third floor. Chart/diagnostics reviewed. The usual perioperative course of open-heart surgery was discussed in detail with the patient and his , risks and benefits were reviewed, all questions were answered. Had long discussion with patient about the need for complete smoking cessation as well as compliance with medications. Patient denies history of hypertension although his blood pressures have been elevated this entire admission, and looking back at note from Dr. Rawls's office his blood pressure was elevated then as well. Preoperative testing was initiated. Echocardiogram still yet to be completed, on heart catheterization Dr. Byrd noted 4+ AI, mean gradient of 56, LVEDP 18 to 20 mmHg. Transthoracic echocardiogram done at [facility] in August 2022 demonstrated normal left ventricular systolic function with EF 60 to 65%, severe aortic stenosis with aortic valve area 0.88 cm, max velocity 4.1 m/s, peak/mean gradient 67/45 mmHg, severe aortic insufficiency and mild to moderate mitral regurgitation. The patient does report he has no teeth and in fact has complete dental implants. Recommend maximizing medical therapy with aspirin, statin, beta-aidan. Patient states he does not feel he needs to take a statin medication since his cholesterol has always been under 150. Discussed the need with significant arterial disease. Case discussed in detail with Dr. Deluna who will see the patient today. More recommendations to follow once Dr. Deluna has seen the patient. Of note the patient's TSH level is 14.6 which is quite elevated and needs to be addressed prior to any surgical intervention. Thank you Dr. Byrd for this consult. I have personally seen and examined the patient, performed the documentation and the assessment and plan as written. Number of minutes spent on the visit: 30. SERGIO AtkinsonC
[2024-09-04] MEDS: lisinopriL 5 MG TAB PO SCH (15:07)
--- NOTE | 2024-09-04 16:00 | US ---
EXAMINATION TYPE: US arterial LE multi level DATE OF EXAM: 09/04/2024 3:48 PM CLINICAL INDICATION: Male, 74 years old with history of Ankle Brachial Index (SARAH); Pre op cardiac morris rgery History of: Smoker: Current Hypertension: No Diabetic: No Hyperlipidemia: No TIA/CVA: No NC: Yes Doppler Waveforms: Right: Monophasic Left: Monophasic Right Brachial Pressure: 178 Left Brachial Pressure: deferred due to heart cath Ankle-Brachial Indices: Right: 0.92 Left: 0.59 (Vessel hardening > 1.4; Normal 0.9 - 1.4, Moderate 0.7 - 0.9, Severe 0.5-0.7) IMPRESSION: 1. Bilateral lower extremity monophasic waveforms with severe stenosis within the left posterior tibi al and dorsalis pedis arteries and moderate narrowing of the right dorsalis pedis artery [facility], Workstation: [facility], 09/04/2024 3:58 PM
--- NOTE | 2024-09-04 16:25 | US ---
EXAMINATION TYPE: US carotid duplex BILAT DATE OF EXAM: 09/04/2024 COMPARISON: NONE CLINICAL INDICATION: Male, 74 years old with history of preop cardiac surgery; preop TECHNIQUE: Grayscale, color Doppler and spectral Doppler evaluation of the bilateral carotid systems and vertebral arteries.Indirect Doppler criteria was utilized. FINDINGS: EXAM MEASUREMENTS: RIGHT: Peak Systolic Velocity (PSV) cm/sec ----- Right CCA: 66.3 ----- Right ICA: 121 ----- Right ECA: 61.9 ICA/CCA ratio: 1.8 RIGHT: End Diastole cm/sec ----- Right CCA: 11.4 ----- Right ICA: 20.1 ----- Right ECA: 4.7 LEFT: Peak Systolic Velocity (PSV) cm/sec ----- Left CCA: 93.2 ----- Left ICA: 74.2 ----- Left ECA: 48.9 ICA/CCA ratio: 0.8 LEFT: End Diastole cm/sec ----- Left CCA: 11.3 ----- Left ICA: 15.4 ----- Left ECA: 5.1 VERTEBRALS (direction of flow): Right Vertebral: Antegrade Left Vertebral: Antegrade Rhythm: Normal NERVE SPECIALIST NOTES: moderate plaque seen in bilateral CCA's, bulbs, and ICA's. IMPRESSION: 1. Moderate atheromatous plaquing present bilaterally. No significant flow-limiting stenosis based on velocities. Criteria for Assigning % of Stenosis / Diameter reduction (Estimation based on the indirect measurements of the internal carotid artery velocities (ICA PSV). 1. Normal (no stenosis)=ICA PSV < 125 cm/s: ratio < 2.0: ICA EDV<40 cm/s. 2. Less than 50% stenosis=ICA PSV < 125 cm/s: ratio < 2.0: ICA EDV<40 cm/s. 3. 50 to 69% stenosis=ICA PSV of 125 to 230 cm/s: ration 2.0 ? 4.0: ICA EDV 40-100 cm/s. 4. Greater than 70% stenosis to near occlusion= ICA PSV > 230 cm/s: ratio > 4.0: ICA EDV > 100 cm/s. 5. Near occlusion= ICA PSV velocities may be low or undetectable: variable ratio and ICA EDV. 6. Total occlusion=unable to detect flow. [facility], , 09/04/2024 4:22 PM
--- NOTE | 2024-09-04 16:25 | US ---
EXAMINATION TYPE: US vein mapping BILAT DATE OF EXAM: 09/04/2024 3:04 PM COMPARISON: NONE CLINICAL INDICATION: Male, 74 years old with history of preop cardiac surgery; preop TECHNIQUE: Grayscale and color Doppler imaging of the lower extremity venous system. SIDE PERFORMED: Bilateral FINDINGS: DUPLEX FINDINGS: Greater Saphenous: Color flow seen Lesser Saphenous: Color flow seen Measurements in mm: Right Greater Saphenous: Groin: 6.1 x 4.3 mm High Thigh: 4.2 x 3.2 mm Mid Thigh: 4.6 x 3.5 mm Above Knee: 4.0 x 2.7 mm Knee: 2.4 x 2.1 mm Below Knee: 2.4 x 1.9 mm Mid Calf: 1.6 x 1.0 mm At Ankle: 3.0 x 1.7 mm Left Greater Saphenous: Groin: 5.6 x 4.7 mm High Thigh: 4.1 x 3.2 mm Mid Thigh: 3.9 x 3.5 mm Above Knee: 2.6 x 2.2 mm Knee: 3.5 x 2.7 mm Below Knee: 2.5 x 1.9 mm Mid Calf: 2.1 x 1.3 mm At Ankle: 2.5 x 1.5 mm IMPRESSION: 1. No evidence for occlusion. 2. GSV measurements listed above. 3. Performing surgeon to determine viability as conduit. [facility], Workstation: [facility], 09/04/2024 4:23 PM
[2024-09-04 16:43] LABS: African American GFR (CKD) 69 (>60 ml/min/1.73 sqM); Anion Gap 1 mmol/L; Blood Urea Nitrogen 14 mg/dL (9-20); Calcium 8.9 mg/dL (8.4-10.2); Carbon Dioxide 35 mmol/L (22-30); Chloride 104 mmol/L (98-107); Glucose 131 mg/dL (74-99); Non-African American GFR(CKD) 59 (>60 ml/min/1.73 sqM); Potassium 3.6 mmol/L (3.5-5.1); Sodium 140 mmol/L (137-145)
[2024-09-04] MEDS: NITROGLYCERIN OINT 1 INCH/GM PACKET TOPICAL SCH (16:46)
[2024-09-04] MEDS: ALPRAZolam 0.25 MG TAB PO PRN (16:46)
[2024-09-04 16:50] LABS: NT-Pro-B-Type Natriuretic Pept 1330 pg/mL
[2024-09-04] MEDS: hydroCHLOROthiazide 25 MG TAB PO SCH (20:29)
[2024-09-04] MEDS: lisinopriL 10 MG TAB PO SCH (20:29)
[2024-09-04] MEDS: METOPROLOL TARTRATE 25 MG TAB PO SCH (20:29)
[2024-09-04] MEDS: ATORVASTATIN 80 MG TAB PO SCH (20:29)
[2024-09-04 21:36] LABS: Chol/HDL Ratio 4.51 Ratio; LDL Cholesterol,Calculated 122.3 mg/dL (0.0-131.0)
--- NOTE | 2024-09-05 06:06 | CT ---
EXAMINATION TYPE: CT chest wo con CT DLP: 224.4 mGycm, Automated exposure control for dose reduction was used. DATE OF EXAM: 09/05/2024 12:00 AM COMPARISON: No direct comparisons. CLINICAL INDICATION:Male, 74 years old with history of eval aorta for clampability; PHH, eval aorta f or clampability/ACS TECHNIQUE: Multiple axial images were obtained through the chest without IV contrast. Lack of IV or o ral contrast limits evaluation of solid and hollow organ viscera. . Coronal and sagittal reformats re viewed. FINDINGS: LUNGS/ PLEURA: No pleural effusion, pneumothorax, or focal consolidation. Minimal right lower lobe morris bsegmental linear atelectasis. Mild centrilobular and paraseptal emphysematous changes. AIRWAY: Patent and unremarkable.. HEART: Size within normal limits. No pericardial effusion. Moderate coronary arterial calcifications which is most prominent along the LAD. MEDIASTINUM: No gross evidence of adenopathy. VASCULATURE: No thoracic aortic aneurysm. Mild atherosclerotic calcification of the thoracic aorta w ith minimal calcification of the aortic branches. Conventional three-vessel aortic arch. Ascending th oracic aorta measures up to 3.7 cm. Descending thoracic aorta measures up to 2.8 cm. MUSCULOSKELETAL: Mild disc degeneration changes are present throughout the thoracolumbar spine. No ac augustus osseous and amounted. Partial anterior fusion of the T10 and T11 vertebral bodies. SOFT TISSUES/LYMPH NODES: Unremarkable. LOWER NECK: No significant findings. UPPER ABDOMEN: Partial visualization of abdominal aortic cyst stent graft with bilateral renal artery stents. Contrast is demonstrated within both renal collecting systems from prior catheterization. Le ft renal 2.9 cm cyst. IMPRESSION: 1. No acute thoracic process. 2. Mild atherosclerotic calcification of the thoracic aorta with moderate coronary arterial calcifica tions most prominent along the LAD. 3. Mild COPD changes. [facility], , 09/05/2024 6:04 AM
[2024-09-05] MEDS ORDERED: HEPARIN SODIUM,PORCINE 10,000 UNIT in SODIUM CHLORIDE 0.9% 1,000 ML IRRIGATION PRN (07:00)
[2024-09-05] MEDS ORDERED: HEPARIN SODIUM,PORCINE (1 ML) 2,500 UNIT in SODIUM CHLORIDE 0.9% 250 ML IRRIGATION PRN (07:00)
[2024-09-05 07:31] LABS: Basophils % (A) 1 %; Eosinophils # (A) 0.2 k/uL (0-0.7); Eosinophils % (A) 3 %; HCT 34.2 % (39.0-53.0); HGB 10.8 gm/dL (13.0-17.5); Hypochromasia Moderate; Lymphocytes # (A) 1.5 k/uL (1.0-4.8); Lymphocytes % (A) 26 %; MCH 28.7 pg (25.0-35.0); MCHC 31.5 g/dL (31.0-37.0); Mean Platelet Volume 7.2; Monocytes # (A) 0.3 k/uL (0-1.0); Monocytes % (A) 6 %; Neutrophils # (A) 3.5 k/uL (1.3-7.7); Neutrophils % (A) 62 %; Platelet Count 193 k/uL (150-450); RBC 3.76 m/uL (4.30-5.90); RDW 15.7 % (11.5-15.5); WBC 5.7 k/uL (3.8-10.6)
[2024-09-05 07:52] LABS: African American GFR (CKD) 60 (>60 ml/min/1.73 sqM); Anion Gap 3 mmol/L; Blood Urea Nitrogen 16 mg/dL (9-20); Calcium 9.1 mg/dL (8.4-10.2); Carbon Dioxide 29 mmol/L (22-30); Chloride 105 mmol/L (98-107); Glucose 96 mg/dL (74-99); Non-African American GFR(CKD) 52 (>60 ml/min/1.73 sqM); Potassium 4.1 mmol/L (3.5-5.1); Sodium 137 mmol/L (137-145)
[2024-09-05 07:59] LABS: Partial Thromboplastin Time 26.3 sec (22.0-30.0)
[2024-09-05 08:46] LABS: Prothrombin Time 10.9 sec (10.0-12.5)
[2024-09-05] MEDS: ASPIRIN 81 MG PO SCH (08:47)
[2024-09-05] MEDS: HEPARIN SODIUM 1,000 UN/ML (10ML VL) IV ONE (08:50)
[2024-09-05] MEDS: HEPARIN SOD,PORK IN 0.45% NACL 25,000 UNIT in 0.45% NACL 1 250ML.BAG IV SCH (08:51)
[2024-09-05] MEDS ORDERED: LOSARTAN 25 MG TAB PO SCH (09:00)
[2024-09-05] MEDS ORDERED: ASPIRIN 325 MG TAB PO SCH (09:00)
[2024-09-05 10:40] LABS: Chol/HDL Ratio 3.73 Ratio
[2024-09-05 10:45] LABS: LDL Cholesterol,Calculated 130.6 mg/dL (0.0-131.0); VLDL Calculation 18.72 mg/dL (5.00-40.00)
[2024-09-05 10:57] LABS: Hepatitis A Antibody IgM Nonreactive (Nonreactive); Hepatitis C IgG Antibody Nonreactive (Nonreactive)
[2024-09-05 10:58] LABS: Hepatitis B Core IgM Nonreactive (Nonreactive); Hepatitis B Surface Antigen Nonreactive (Nonreactive)
--- NOTE | 2024-09-05 11:42 | CA ---
Transthoracic Echo Report Name: Leonides Caldwell Age: 74 Gender: M : 1950 Exam Date: 09/05/2024 08:47 Exam Location: [facility] Ht (in): 70 Wt (lb): 137 Ordering Physician: Jonas Zamorano DO Attending/Referring Phys: Convex Grinder Marla Vera RDCS Procedure CPT: Indications: NSTEMI, aortic stenosis Cardiac Hx: Technical Quality: Fair Contrast 1: Total Dose (mL): Contrast 2: Total Dose (mL): MEASUREMENTS (Male / Female) Normal Values 2D ECHO LV Diastolic Diameter PLAX 5.1 cm 4.2 - 5.9 / 3.9 - 5.3 cm LV Systolic Diameter PLAX 3.4 cm IVS Diastolic Thickness 0.9 cm 0.6 - 1.0 / 0.6 - 0.9 cm LVPW Diastolic Thickness 1.0 cm 0.6 - 1.0 / 0.6 - 0.9 cm LV Relative Wall Thickness 0.4 LVOT Diameter 1.9 cm LV Diastolic Volume MOD BP 124.8 cm??? 67 - 155 / 56 - 104 cm??? LV Systolic Volume MOD BP 54.4 cm??? 22 - 58 / 19 - 49 cm??? LV Ejection Fraction MOD BP 56.4 % >= 55 % LV Cardiac Index MOD BP 2586.0 cm???/min???m??? LV Diastolic Volume MOD 4C 132.2 cm??? LV Systolic Volume MOD 4C 59.4 cm??? LV Ejection Fraction MOD 4C 55.1 % LV Cardiac Index MOD 4C 2675.5 cm???/min???m??? LV Diastolic Length 4C 8.8 cm LV Systolic Length 4C 8.4 cm LV Diastolic Volume MOD 2C 117.5 cm??? LV Systolic Volume MOD 2C 46.8 cm??? LV Ejection Fraction MOD 2C 60.2 % LV Cardiac Index MOD 2C 2596.0 cm???/min???m??? LV Diastolic Length 2C 8.9 cm LV Systolic Length 2C 7.8 cm LA Volume 60.9 cm??? 18 - 58 / 22 - 52 cm??? LA Volume Index 34.9 cm???/m??? 16 - 28 cm???/m??? DOPPLER AV Peak Velocity 495.8 cm/s AV Peak Gradient 98.3 mmHg AV Mean Velocity 346.0 cm/s AV Mean Gradient 54.5 mmHg AV Velocity Time Integral 112.7 cm LVOT Peak Velocity 99.3 cm/s LVOT Peak Gradient 3.9 mmHg LVOT Velocity Time Integral 21.6 cm LVOT Stroke Volume 60.4 cm??? LVOT Stroke Volume Index 34.0 ml/m??? LVOT Cardiac Index 2216.3 cm???/min???m??? AV Area Cont Eq vti 0.5 cm??? AV Area Cont Eq pk 0.6 cm??? MV Area PHT 2.5 cm??? Mitral E Point Velocity 44.6 cm/s Mitral A Point Velocity 91.8 cm/s Mitral E to A Ratio 0.5 MV Deceleration Time 308.8 ms FINDINGS Left Ventricle Left ventricular ejection fraction is estimated at 55 to 60 %. Left ventricular cavity size normal. Left ventricular wall thickness normal. No obvious regional wall motion abnormalities. Right Ventricle Normal right ventricular size and function. Unable to estimate the right ventricular systolic pressure. Right Atrium Normal right atrial size. Left Atrium Mildly increased left atrial volume. Mitral Valve Structurally normal mitral valve. No mitral stenosis, regurgitation or prolapse.mitral annular calcification. Aortic Valve Aortic valve not well visualized. Severe aortic stenosis with a mean gradient Tricuspid Valve Structurally normal tricuspid valve. No tricuspid stenosis, or prolapse.trace tricuspid regurgitation. Pulmonic Valve Pulmonic valve not well visualized. No pulmonic stenosis. No pulmonic regurgitation. Pericardium No pericardial effusion. Aorta Aortic root and proximal ascending aorta not well visualized. CONCLUSIONS 1. Normal left ventricular size and systolic function 2. Severe aortic stenosis with a mean gradient of 59 mmHg with moderate aortic regurgitation Previewed by: Dr. Pawel Byrd MD (Electronically Signed) Final Date: 05 September 2024 11:41
--- NOTE | 2024-09-05 11:57 | P.PN ---
Subjective Progress Note Date: 09/05/24 HPI: Patient is a 74-year-old male with a history of CAD x 3 stent placement, DVT, hyperlipidemia, and is a current smoker that came in for chest pain that began on Tuesday evening 09/02. He reported that chest pain was substernal, episodic, with an intensity of 6-7/10, pressure-like in nature (similar to his prior MIs), that radiated to both arms and the back. The pain initially occured on late night Tuesday but had resolved by Tuesday upon waking. The pain recurred on Tuesday evening, which prompted him to come to the ED. He denies shortness of breath, nausea, diaphoresis, palpitations, dizziness, new onset cough, abdominal pain, facial asymmetry, changes in vision, or loss of consciousness. Denies pleuritic pain. Also denying lower extremity swelling or pain. Denies pain that is tearing in nature. Patient also notes that he doesn't believe that most medications work for him and thereby hadn't been taking them for some time now. In the emergency room, EKG showed sinus rhythm with a rate of [address]-T changes with good R wave progression and QTc of 439 MS. Chest x-ray showed no acute processes. Laboratory evaluation revealed WBC 6.1, hemoglobin 11.3, platelet count 180 PT 10.2 INR 0.9 PTT 26.5 sodium potassium 3.3 bicarb 35 BUN 15 creatinine 1.35 glucose 142 troponin 0.023 calcium 9 magnesium 2.2. On admission, patient was afebrile at 98 Fahrenheit heart rate of 70 respiratory rate 20 blood pressure 199/77 O2 saturation 96% on room air Progress note 09/05/2024 patient seen and examined at bedside. No events overnight. This morning while examining the patient the patient complained of new onset centralized chest pain with pressure radiating down left arm, pain 2/10 in severity. Stat EKG and troponins were ordered, EKG sinus rhythm rate 75, no ST elevations or depressions and no T wave changes and initial troponin was measured at 0.016. He is currently being worked up for potential CABG. Review of systems: Pertinent positives and negatives as discussed in HPI, a complete review of systems was performed and all other systems are negative. Physical examination: Vital signs reviewed General: non toxic, no distress, appears older then stated age, underweight Derm: no unusual rashes/lesions, warm Head: atraumatic, normocephalic, symmetric Eyes: EOMI, no lid lag, anicteric sclera, pupils equal round reactive to light ENT: Nose and ears atraumatic Neck: No cervical lymphadenopathy, trachea midline, supple Mouth: no lip lesion, mucus membranes moist Cardiovascular: S1S2 reg, 3 out of 6 holosystolic murmur best heard on the right second ICS Lungs: CTA bilateral, no rhonchi, no rales, no accessory muscle use Abdominal: soft, nontender to palpation, no guarding Ext: muscle strength 5 out of 5 in all 4 extremities grossly, no gross muscle atrophy, no contractures, positive dorsalis pedis pulse bilateral, no edema Neuro: CN II-XI grossly intact, no gross focal neuro deficits Psych: Alert, oriented, appropriate affect and mood Labs reviewed todayWBC 5.7, hemoglobin 10.8, platelets 193, coagulation studies WNL, sodium 137, potassium 4.1, BUN 16, creatinine 1.35, cholesterol 204 Imaging reviewed todayCT chest no acute thoracic process, moderate coronary artery calcification along LAD. US LE findings of severe stenosis within left posterior tibial and dorsal medialis arteries and moderate narrowing of the right dorsalis pedis artery. Carotid ultrasound moderate atheromatous plaquing present bilaterally, no significant flow-limiting stenosis. Echocardiogram finding of normal LV function 55 to 60%, severe aortic stenosis with moderate a ortic regurgitation Assessment/Plan: #Multivessel CAD #Severe aortic stenosis #Severe aortic regurgitation # NSTEMI, type I Hypertension Nicotine dependence Dyslipidemia S/P cardiac catheterization findings of multivessel CAD, no stent placed Completing workup for CABG and aortic valve replacement -Aspirin 81 mg daily and Lipitor 80 mg -Continue heparin IV drip, monitor APTT, monitor for bleeding -Continue with nitroglycerin 0.4 mg lingual as needed for chest pain Peak troponin 0.041 -Echocardiogram findings of normal LV function 55 to 60%, severe aortic stenosis with moderate aortic regurgitation Cardiology following, on lisinopril 10 twice daily, metoprolol 25 twice daily, hydrochlorothiazide 25 daily -On nitro patch 1 inch topical every 8 hours -Discussed smoking cessation and this admission - Cardiothoracic surgery note reviewed, continued preop testing #. Hyperglycemia Prediabetes Glucose 142. No Hx of DM. A1c 6.0 #. Hypokalemia, resolved Hypothyroidism -Started on levothyroxine 100 mcg daily, recheck TSH in 4 to 6 weeks DVT prophylaxis: IV heparin CODE STATUS: Full code Anticipated discharge place: Home, pending clinical course I have seen and evaluated the patient today. Discussed with the resident and agree with the residents finding and plan as documented in the resident's note. Changes highlighted in blue font. Objective - Vital Signs Vital signs: Vital Signs Temp 98.1 F 09/05/24 08:00 Pulse 68 09/05/24 08:00 Resp 16 09/05/24 08:00 BP 126/66 09/05/24 08:00 Pulse Ox 96 09/05/24 08:00 FiO2 Intake & Output 09/04/24 09/05/24 09/05/24 18:59 06:59 18:59 Intake Total 256.922 20 10 Output Total 350 1000 Balance -93.078 -980 10 Weight 62.142 kg Intake: IV 200 20 10 Invasive Line 1 20 10 Intake, IV Titration 56.922 Amount Heparin Sod,Pork in 0.45% 56.922 NaCl 25,000 unit In 0.45 % NaCl 1 250ml.bag @ 12 UNITS/KG/HR 7.457 mls/hr IV .Q24H [facility] Rx#: [id number] Oral 0 Output: Urine 350 1000 Other: Voiding Method Urinal Urinal - Labs CBC & Chem 7: 09/05/24 06:48 09/05/24 06:48 Labs: Abnormal Lab Results - Last 24 Hours (Table) 09/04/24 09/04/24 09/04/24 Range/Units 03:55 03:55 16:00 RBC (4.30-5.90) m/uL Hgb (13.0-17.5) gm/dL Hct (39.0-53.0) % RDW (11.5-15.5) % Carbon Dioxide 35 H (22-30) mmol/L Creatinine (0.66-1.25) mg/dL Glucose 131 H (74-99) mg/dL Triglycerides 272.00 H (0.00-149.00) mg/dL Cholesterol 227.00 H (0.00-200.00) mg/dL VLDL Cholesterol, Calc 54.40 H (5.00-40.00) mg/dL Free T4 0.76 L (0.80-1.80) ng/dL 09/05/24 09/05/24 Range/Units 06:48 06:48 RBC 3.76 L (4.30-5.90) m/uL Hgb 10.8 L (13.0-17.5) gm/dL Hct 34.2 L (39.0-53.0) % RDW 15.7 H (11.5-15.5) % Carbon Dioxide (22-30) mmol/L Creatinine 1.35 H (0.66-1.25) mg/dL Glucose (74-99) mg/dL Triglycerides (0.00-149.00) mg/dL Cholesterol 204.00 H (0.00-200.00) mg/dL VLDL Cholesterol, Calc (5.00-40.00) mg/dL Free T4 (0.80-1.80) ng/dL
[2024-09-05] MEDS: LEVOTHYROXINE 100 MCG TAB PO SCH (12:30)
--- NOTE | 2024-09-05 13:39 | P.PN ---
Subjective Progress Note Date: 09/05/24 Principal diagnosis: Triple vessel coronary artery disease, aortic stenosis/insufficiency. Past medical history significant for coronary artery disease with myocardial infarction and multiple stenting with the last stent greater than 10 years ago, peripheral arterial disease with endovascular abdominal aneurysm repair approximately 2 years ago at [facility], angioplasty in the right leg, hypertension, hyperlipidemia, remote history of pneumonia, current chronic tobacco dependence, occasional marijuana use, and medication noncompliance. The patient was seen and examined in follow-up today September 05, 2024 at his bedside on the third floor cardiac stepdown unit. The patient's is present at his bedside. Patient is currently sitting up to the bedside edge, is awake, alert, oriented x 3 and is in no acute apparent distress. Denies any complaints of chest pressure or chest pain at this time. The patient underwent a cardiac catheterization yesterday which revealed severe triple-vessel disease, severe aortic valve stenosis and severe aortic valve regurgitation. Due to the findings on the cardiac catheterization a consult was placed to Dr. Vitaliy Deluna from cardiothoracic surgery. Preoperative workup has been initiated as well as preoperative teaching. A transthoracic 2D echocardiogram has been completed which shows a left ventricular ejection fraction estimated at 55 to 60%, severe aortic stenosis with a mean gradient of 59 mmHg with moderate aortic valve regurgitation, trace tricuspid valve regurgitation, and no pericardial effusion. A clinical frailty score was calculated yesterday which equaled a score of 4. Once the patient's preoperative testing has been obtained and reviewed a date for surgery will be provided. A 5 m walk test has been completed with the patient, time 1: 3.08 Seconds, time 2: 4.00 Seconds, time 3: 3.26 Seconds. The patient reports he continues to smoke about half a pack of cigarettes per day, and discussed the importance of smoking cessation. Once his preoperative testing has been completed and collected and STS risk or will be calculated and discussed with the patient. Objective - Vital Signs Vital signs: Vital Signs Temp 98.1 F 09/05/24 08:00 Pulse 68 09/05/24 08:00 Resp 16 09/05/24 08:00 BP 126/66 09/05/24 08:00 Pulse Ox 96 09/05/24 08:00 FiO2 Intake & Output 09/04/24 09/05/24 09/05/24 18:59 06:59 18:59 Intake Total 256.922 20 10 Output Total 350 1000 Balance -93.078 -980 10 Weight 62.142 kg Intake: IV 200 20 10 Invasive Line 1 20 10 Intake, IV Titration 56.922 Amount Heparin Sod,Pork in 0.45% 56.922 NaCl 25,000 unit In 0.45 % NaCl 1 250ml.bag @ 12 UNITS/KG/HR 7.457 mls/hr IV .Q24H [facility] Rx#: [id number] Oral 0 Output: Urine 350 1000 Other: Voiding Method Urinal Urinal - Exam CONSTITUTIONAL: Sitting up to the bedside edge, appears comfortable, cooperative, no apparent acute distress. HEENT: Neck is supple, no JVD, no lymphadenopathy. RESPIRATORY: Lungs sounds essentially clear throughout, diminished to his bilateral bases. Respirations are symmetrical and nonlabored. Currently on room air with oxygen saturations 96%. Able to achieve 1500 mL on his incentive spirometry. Strong cough. CARDIOVASCULAR: Regular rhythm and rate. S1 and S2 present, negative for S3, or gallop positive systolic murmur 3/6. Palpable peripheral pulses bilaterally. Right no calf pain or tenderness noted. GASTROINTESTINAL: Abdomen soft, nontender, nondistended. Active bowel sounds present 4 quadrants. Tolerating diet. Passing flatus. No guarding or rigidity. GENITOURINARY: Continues to void. INTEGUMENTARY: Skin is warm and dry with no evidence of clubbing or cyanosis. NEUROLOGIC: Cranial nerves II through XII intact. No focal deficits. MUSKULOSKELETAL: Able to move all extremities, strength equal bilaterally. PSYCHIATRIC: Alert and oriented to person place and time, appropriate affect, intact judgment and insight. - Labs CBC & Chem 7: 09/05/24 06:48 09/05/24 06:48 Labs: Abnormal Lab Results - Last 24 Hours (Table) 09/04/24 09/04/24 09/04/24 Range/Units 03:55 03:55 16:00 RBC (4.30-5.90) m/uL Hgb (13.0-17.5) gm/dL Hct (39.0-53.0) % RDW (11.5-15.5) % Carbon Dioxide 35 H (22-30) mmol/L Creatinine (0.66-1.25) mg/dL Glucose 131 H (74-99) mg/dL Triglycerides 272.00 H (0.00-149.00) mg/dL Cholesterol 227.00 H (0.00-200.00) mg/dL VLDL Cholesterol, Calc 54.40 H (5.00-40.00) mg/dL Free T4 0.76 L (0.80-1.80) ng/dL 09/05/24 09/05/24 Range/Units 06:48 06:48 RBC 3.76 L (4.30-5.90) m/uL Hgb 10.8 L (13.0-17.5) gm/dL Hct 34.2 L (39.0-53.0) % RDW 15.7 H (11.5-15.5) % Carbon Dioxide (22-30) mmol/L Creatinine 1.35 H (0.66-1.25) mg/dL Glucose (74-99) mg/dL Triglycerides (0.00-149.00) mg/dL Cholesterol 204.00 H (0.00-200.00) mg/dL VLDL Cholesterol, Calc (5.00-40.00) mg/dL Free T4 (0.80-1.80) ng/dL - Imaging and Cardiology CT scan - chest: report reviewed, image reviewed Transthoracic 2D echocardiogram reviewed by Dr. Vitaliy Deluna. Assessment and Plan Assessment: Coronary artery disease with myocardial infarction and multiple stenting with the last stent greater than 10 years ago, non-STEMI this admission Chest pain secondary to above Severe aortic stenosis with severe aortic insufficiency on heart catheterization as well as echocardiogram, mean gradient 59 mmHg Hypothyroid, with an admission TSH level of 14.6 and a free T4 hypothyroid 0.76 History of peripheral arterial disease with endovascular abdominal aneurysm repair approximately 2 years ago at [facility] Angioplasty in the right leg Hypertension although patient denies Hyperlipidemia Remote history of pneumonia Current chronic tobacco dependence Occasional marijuana use Medication noncompliance Plan: Preoperative teaching and preoperative testing in progress. Importance of risk modification including smoking cessation has been discussed and reinforced with the patient. Preoperative FEV1 shows a predicted value of 49% 1.53 L. Pulmonary critical care medicine has been consulted for pr eoperative pulmonary evaluation. CT scan facial has been ordered for dental clearance. Once the facial CT scan has been completed we will consult dentist for preoperative clearance. A 5 m walk test was completed with the patient, time 1: 3.08 Seconds, time 2: 4.00 Seconds, time 3: 3.26 Seconds. The patient tolerated the walk well. Once the patient's preoperative testing has been obtained an STS risk or will be calculated and discussed with the patient and timing of surgery will be discussed with the patient. The patient was started on levothyroxine 100 mcg p.o. daily, as his TSH level was 14.6 and his free T4 was 0.76. Continue to maximize medical therapy with aspirin, statin and beta-aidan. Heparin drip management per cardiology recommendations. Medical management and other comorbidities per internal medicine and cardiology recommendations. More recommendations and timing of surgery to follow based on patient's clinical course and as his preoperative testing has been completed. Time with Patient: Greater than 30
--- NOTE | 2024-09-05 13:50 | CT ---
EXAMINATION TYPE: CT facial bones wo con CT DLP: 371.2 mGycm, Automated exposure control for dose reduction was used. DATE OF EXAM: 09/05/2024 1:43 PM COMPARISON: None. CLINICAL INDICATION:Male, 74 years old with history of preop valve surgery; PHH, Pre op valve sx TECHNIQUE: Multiple unenhanced axial CT images were obtained of the facial bones soft tissue and bone windows. Coronal and axial reformatted images were also provided in soft tissue and bone windows an d submitted for interpretation. Panorex was performed. FINDINGS: Dental amalgam creates streak artifact which was violation. There is no evidence of fracture, subluxation, dislocation, or significant soft tissue swelling. Post surgical changes from dental work with no visible teeth identified. No lucency of the mandible or max illa identified to suggest infection. . Bilateral aphakia. Mild nasal septal deviation to the left. T he temporal-mandibular joints appear symmetric. The visualized portion of the paranasal sinuses appea r clear. Bilateral carotid bulb calcifications. IMPRESSION: 1. No acute facial bone fracture. 2. Postsurgical changes from dental work with no visible teeth identified. [facility], , 09/05/2024 1:48 PM
--- NOTE | 2024-09-05 14:33 | P.CNPUL ---
History of Present Illness Consult date: 09/05/24 Requesting physician: Griselda Kaminski Reason for consult: other Chief complaint: Coronary artery disease, aortic stenosis. History of present illness: Pulmonary consult dated September 05, 2024. 74-year-old male who presented to the hospital, on September 03, via the emergency room. The patient presented with complaints of chest pain. The patient does have a history of atherosclerotic cardiovascular disease, and for a couple days prior to admission, was complaining of chest pressure. The chest pain/pressure, apparently radiated to both arms. He did not have any associated diaphoresis, or nausea. The patient apparently has had a heart attack in the past, and the pain that he was having, seemed similar. Today, we talked to Dr. Deluna about this patient, and apparently this patient will stay in the hospital, and have surgery, sometime early next week. The patient also has a history of sig nificant tobacco use for about 50 years. He was smoking up until the time he came into the hospital. His primary care physician is Dr. John Faulkner. He is currently on room air. The patient is getting IV heparin. The cardiac catheterization, showed severe triple-vessel disease, severe aortic stenosis and severe aortic regurgitation. The patient is currently in the process of being evaluated for open heart surgery. Laboratory data includes a white count 5.7, hemoglobin 10.8, macro 34.2, and a platelet count of 193,000. The patient's PTT is 45. Sodium 137, potassium 4.1, chlorides 105, CO2 29, BUN 16, creatinine 1.35. N-terminal proBNP was 1330. His troponin was 0.016. Chest CT showed no acute thoracic process, changes of mild COPD, and atherosclerotic calcification of thoracic aorta, with moderate coronary arterial calcifications, most prominent in the LAD. Review of Systems REVIEW OF SYSTEMS: CONSTITUTIONAL: [Negative.] NEUROLOGIC: [ Negative.] HEENT: [ Negative.] CARDIAC: Chest pain/pressure. PULMONARY: [Negative.] GI: [Negative.] : [Negative.] RHEUMATOLOGIC: [ Negative.] IMMUNOLOGIC: [ Negative.] ENDOCRINE: [Negative. ] DERMATOLOGIC: [Negative.] Past Medical History Past Medical History: Coronary Artery Disease (CAD), Deep Vein Thrombosis (DVT), Hyperlipidemia, Hypertension, Myocardial Infarction ([place]) Additional Past Medical History / Comment(s): 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 Last Myocardial Infarction Date:: 11/28/2013 History of Any Multi-Drug Resistant Organisms: None Reported Past Surgical History: Heart Catheterization With Stent, Orthopedic Surgery Additional Past Surgical History / Comment(s): ATHERECTOMY TO BOTH LEGS Past Anesthesia/Blood Transfusion Reactions: No Reported Reaction Date of Last Stent Placement:: Greater than 10 years ago Smoking Status: Current every day smoker - Past Family History Mother Family Medical History: Cancer Additional Family Medical History / Comment(s): from bone cancer Father Family Medical History: Cancer Additional Family Medical History / Comment(s): from brain cancer Medications and Allergies Home Medications Medication Instructions Recorded Confirmed Type Aspirin EC [Ecotrin Low Dose] 81 mg PO DAILY 09/04/24 09/04/24 History Metoprolol Tartrate [Lopressor] 50 mg PO DAILY 09/04/24 09/04/24 History Allergies Allergy/AdvReac Type Severity Reaction Status Date / Time No Known Allergies Allergy Verified 09/04/24 11:04 Physical Exam Osteopathic Statement: *. No significant issues noted on an osteopathic structural exam other than those noted in the History and Physical/Consult. Vitals: Vital Signs Temp Pulse Resp BP Pulse Ox 09/05/24 08:00 98.1 F 68 16 126/66 96 09/05/24 04:00 97.9 F 56 L 17 174/79 95 09/05/24 02:00 97.6 F 54 L 17 149/69 95 09/04/24 20:00 97.7 F 62 18 160/74 94 L 09/04/24 17:00 65 17 188/74 97 09/04/24 16:00 62 17 175/72 96 09/04/24 15:20 97.5 F L 59 L 17 187/75 97 09/04/24 14:36 62 16 178/76 Intake and Output 09/04/24 09/05/24 09/05/24 22:59 06:59 14:59 Intake Total 10 10 20 Output Total 400 600 150 Balance -390 -590 -130 Intake: IV 10 10 20 Invasive Line 1 10 10 20 Oral 0 Output: Urine 400 600 150 Other: Voiding Method Urinal Urinal Urinal Weight 62.142 kg No acute distress, oriented 3. The patient is currently on room air. HEENT examination is grossly unremarkable. Mucous membranes are moist. No oral lesions. Neck supple. Full range of motion. No adenopathy thyromegaly or neck vein distention. Cardiovascular examination reveals regular rhythm rate. S1-S2 normal. No S3 or S4. A 2/6 systolic murmur is noted, consistent with aortic stenosis. Heart sounds are distant. Lungs reveal clear breath sounds. Breath sounds are equal bilaterally. No adventitious lung sounds including wheezes rhonchi or crackles. Abdomen soft bowel sounds are heard. No masses or tenderness. Extremities are intact. No cyanosis clubbing or edema. Skin is without rash or lesion. Neurologic examination is brief but nonfocal. Results - Laboratory Findings CBC and BMP: 09/05/24 06:48 09/05/24 06:48 PT/INR, D-dimer PT 10.9 sec (10.0-12.5) 09/05/24 06:48 INR 1.0 (<1.2) 09/05/24 06:48 Abnormal lab findings: Abnormal Labs 09/03/24 09/03/24 09/04/24 22:17 22:17 03:55 RBC 3.90 L Hgb 11.3 L Hct 35.6 L RDW 15.7 H APTT Potassium 3.3 L Carbon Dioxide 35 H Creatinine 1.35 H Glucose 142 H Calcium Troponin I 0.041 H* Triglycerides Cholesterol VLDL Cholesterol, Calc TSH Free T4 09/04/24 09/04/24 09/04/24 03:55 03:55 03:55 RBC Hgb Hct RDW APTT Potassium 3.4 L Carbon Dioxide Creatinine Glucose Calcium 8.6 L Troponin I Triglycerides 272.00 H Cholesterol 227.00 H VLDL Cholesterol, Calc 54.40 H TSH 14.600 H Free T4 09/04/24 09/04/24 09/04/24 03:55 05:58 16:00 RBC Hgb Hct RDW APTT 44.0 H Potassium Carbon Dioxide 35 H Creatinine Glucose 131 H Calcium Troponin I Triglycerides Cholesterol VLDL Cholesterol, Calc TSH Free T4 0.76 L 09/05/24 09/05/24 09/05/24 06:48 06:48 13:07 RBC 3.76 L Hgb 10.8 L Hct 34.2 L RDW 15.7 H APTT 45.0 H Potassium Carbon Dioxide Creatinine 1.35 H Glucose Calcium Troponin I Triglycerides Cholesterol 204.00 H VLDL Cholesterol, Calc TSH Free T4 - Diagnostic Findings Chest x-ray: image reviewed CT scan - chest: image reviewed Assessment and Plan Assessment: Severe triple-vessel coronary artery disease. Severe aortic stenosis. Severe aortic regurgitation. Non-ST segment elevation myocardial infarction. History of hypertension. Chronic nicotine dependence, rule out COPD. Hyperlipidemia. Hypothyroidism. Plan: Plan dated September 05, 2024. The patient will likely have open heart surgery, both CABG and aortic valve replacement, sometime early next week according to the cardiothoracic surgeon. The patient will need a pulmonary function test. He was a heavy smoker up until his admission to the hospital. Has been smoking for at least 50 years. Additional recommendations and suggestions are forthcoming. Prognosis is guarded. Time with Patient: Greater than 30
[2024-09-05] MEDS: LEVOTHYROXINE 125 MCG TAB PO SCH (15:21)
--- NOTE | 2024-09-05 15:51 | P.PN ---
Subjective Progress Note Date: 09/05/24 HPI The patient is a 74-year-old male with a known history of CAD status post PCI of the LAD over 10 years ago, history of peripheral vascular disease status post percutaneous repair of abdominal aortic aneurysm, history of aortic valve disease, chronic tobacco use, noncompliance who presented with symptoms of chest discomfort and had mild troponin elevation SUBJECTIVE: Patient is status post chronic catheterization. Right radial access site appears to be intact with good pulse but no swelling or hematoma. Patient denies having any active chest pain chest pressure shortness of breath. He is hemodynamically stable. He denies any lightheadedness dizziness. PHYSICAL EXAMINATION Vital signs reviewed. Head: Normocephalic. Eyes: Sclerae nonicteric. Neck: no jugular venous distention. Lungs: Clear to auscultation. Heart: Regular rate and rhythm, 5/6 systolic murmur, delayed carotid upstrokes. Abdomen: Soft nontender, bowel sounds present, Extremities: No edema, Neuro: Alert, oriented, no focal neurological deficits. Detailed neuro exam was not performed. ASSESSMENT Severe aortic stenosis Severe aortic regurgitation Triple-vessel disease Severe PAD Prior history of infrarenal aortic endovascular repair with EVAR History of bilateral renal stenting PLAN Continue IV heparin drip Continue aspirin, atorvastatin Continue lisinopril 10 mg twice daily. Continue metoprolol 25 mg twice daily On HCTZ 25 mg daily. I will discontinue it because of uptrending creatinine If blood pressure is high tomorrow, would recommend increasing lisinopril instead of adding diuretic. Plan for early cardiothoracic surgery. He awaits dental clearance. As per CT surgery team, the plan is to operate on Tuesday Toby Guido MD, FACC, RPVI Thank you for allowing [facility] to participate in this patient's care. Please contact us in case of any followup questions. Objective - Vital Signs Vital signs: Vital Signs Temp 98.1 F 09/05/24 08:00 Pulse 68 09/05/24 08:00 Resp 16 09/05/24 08:00 BP 126/66 09/05/24 08:00 Pulse Ox 96 09/05/24 08:00 FiO2 Intake & Output 09/04/24 09/05/24 09/05/24 18:59 06:59 18:59 Intake Total 256.922 20 360 Output Total 350 1000 150 Balance -93.078 -980 210 Weight 62.142 kg Intake: IV 200 20 20 Invasive Line 1 20 20 Intake, IV Titration 56.922 100 Amount Heparin Sod,Pork in 0.45% 56.922 NaCl 25,000 unit In 0.45 % NaCl 1 250ml.bag @ 12 UNITS/KG/HR 7.457 mls/hr IV .Q24H [facility] Rx#: [id number] Heparin Sod,Pork in 0.45% 100 NaCl 25,000 unit In 0.45 % NaCl 1 250ml.bag @ 12 UNITS/KG/HR 7.457 mls/hr IV .Q24H [facility] Rx#: [id number] Oral 0 240 Output: Urine 350 1000 150 Other: Voiding Method Urinal Urinal - Labs CBC & Chem 7: 09/05/24 06:48 09/05/24 06:48 Labs: Abnormal Lab Results - Last 24 Hours (Table) 09/04/24 09/04/24 09/04/24 Range/Units 03:55 03:55 16:00 RBC (4.30-5.90) m/uL Hgb (13.0-17.5) gm/dL Hct (39.0-53.0) % RDW (11.5-15.5) % APTT (22.0-30.0) sec Carbon Dioxide 35 H (22-30) mmol/L Creatinine (0.66-1.25) mg/dL Glucose 131 H (74-99) mg/dL Triglycerides 272.00 H (0.00-149.00) mg/dL Cholesterol 227.00 H (0.00-200.00) mg/dL VLDL Cholesterol, Calc 54.40 H (5.00-40.00) mg/dL Free T4 0.76 L (0.80-1.80) ng/dL 09/05/24 09/05/24 09/05/24 Range/Units 06:48 06:48 13:07 RBC 3.76 L (4.30-5.90) m/uL Hgb 10.8 L (13.0-17.5) gm/dL Hct 34.2 L (39.0-53.0) % RDW 15.7 H (11.5-15.5) % APTT 45.0 H (22.0-30.0) sec Carbon Dioxide (22-30) mmol/L Creatinine 1.35 H (0.66-1.25) mg/dL Glucose (74-99) mg/dL Triglycerides (0.00-149.00) mg/dL Cholesterol 204.00 H (0.00-200.00) mg/dL VLDL Cholesterol, Calc (5.00-40.00) mg/dL Free T4 (0.80-1.80) ng/dL
[2024-09-06 06:37] LABS: Basophils % (A) 0 %; Eosinophils # (A) 0.2 k/uL (0-0.7); Eosinophils % (A) 3 %; Hypochromasia Moderate; Lymphocytes # (A) 1.9 k/uL (1.0-4.8); Lymphocytes % (A) 36 %; MCH 28.5 pg (25.0-35.0); MCHC 31.5 g/dL (31.0-37.0); MCV 90.3 fL (80.0-100.0); Mean Platelet Volume 7.4; Monocytes # (A) 0.3 k/uL (0-1.0); Monocytes % (A) 5 %; Neutrophils # (A) 2.7 k/uL (1.3-7.7); Neutrophils % (A) 52 %; Platelet Count 200 k/uL (150-450); RBC 3.87 m/uL (4.30-5.90); RDW 15.5 % (11.5-15.5); WBC 5.2 k/uL (3.8-10.6)
[2024-09-06 06:48] LABS: INR 0.9 (<1.2); Partial Thromboplastin Time 34.8 sec (22.0-30.0); Prothrombin Time 10.3 sec (10.0-12.5)
[2024-09-06] MEDS: HEPARIN SODIUM 1,000 UN/ML (10ML VL) IV PRN (07:00)
[2024-09-06 07:49] LABS: African American GFR (CKD) 55 (>60 ml/min/1.73 sqM); Anion Gap 3 mmol/L; Blood Urea Nitrogen 17 mg/dL (9-20); Calcium 9.4 mg/dL (8.4-10.2); Carbon Dioxide 32 mmol/L (22-30); Chloride 101 mmol/L (98-107); Glucose 98 mg/dL (74-99); Non-African American GFR(CKD) 47 (>60 ml/min/1.73 sqM); Potassium 3.9 mmol/L (3.5-5.1); Sodium 136 mmol/L (137-145)
--- NOTE | 2024-09-06 09:18 | P.PN ---
Subjective Progress Note Date: 09/06/24 Principal diagnosis: Triple vessel coronary artery disease, aortic stenosis/insufficiency. Past medical history significant for coronary artery disease with myocardial infarction and multiple stenting with the last stent greater than 10 years ago, peripheral arterial disease with endovascular abdominal aneurysm repair approximately 2 years ago at [facility], angioplasty in the right leg, hypertension, hyperlipidemia, remote history of pneumonia, current chronic tobacco dependence, occasional marijuana use, and medication noncompliance. The patient was seen and examined in follow-up today September 06, 2024 at his bedside on the third floor cardiac stepdown unit. The patient is currently up ambulating in his room, is awake, alert, oriented x 3 and is in no acute apparen t distress. He denies any further complaints of chest pressure or pain at this time. Heparin drip continues to infuse per protocol. A bedside FEV1 was completed yesterday which showed a based of 1.43 which was 49% of predicted value. A 5 m walk test was completed with the patient yesterday and the patient tolerated well without complaints. CAT scan facial bones without contrast was completed yesterday, dental consult pending. Preoperative teaching has been reinforced with the patient. Oxygen saturations are 97% on room air and he is achieving 1500 mL on his incentive spirometry with much encouragement. Remote telemetry showing normal sinus rhythm heart rate 73 bpm. An STS risk or was calculated and discussed with the patient. Laboratory and chest x-ray results reviewed. Objective - Vital Signs Vital signs: Vital Signs Temp 98.2 F 09/06/24 08:00 Pulse 64 09/06/24 08:00 Resp 16 09/06/24 08:00 BP 129/70 09/06/24 08:00 Pulse Ox 95 09/06/24 08:00 FiO2 Intake & Output 09/05/24 09/06/24 09/06/24 18:59 06:59 18:59 Intake Total 720 20 165.297 Output Total 150 Balance 570 20 165.297 Weight 60.4 kg Intake: IV 20 20 Invasive Line 1 20 20 Intake, IV Titration 100 165.297 Amount Heparin Sod,Pork in 0.45% 100 165.297 NaCl 25,000 unit In 0.45 % NaCl 1 250ml.bag @ 12 UNITS/KG/HR 7.457 mls/hr IV .Q24H [facility] Rx#: [id number] Oral 600 Output: Urine 150 Other: Voiding Method Urinal Urinal # Bowel Movements 1 - Exam CONSTITUTIONAL: Sitting up to the bedside edge, appears comfortable, cooperative, no apparent acute distress. HEENT: Neck is supple, no JVD, no lymphadenopathy. RESPIRATORY: Lungs sounds essentially clear throughout, diminished to his bilateral bases. Respirations are symmetrical and nonlabored. Currently on room air with oxygen saturations 97%. Able to achieve 1500 mL on his incentive spirometry. Strong cough. CARDIOVASCULAR: Regular rhythm and rate. S1 and S2 present, negative for S3, or gallop positive systolic murmur 3/6. Palpable peripheral pulses bilaterally. Right no calf pain or tenderness noted. GASTROINTESTINAL: Abdomen soft, nontender, nondistended. Active bowel sounds present 4 quadrants. Tolerating diet. Passing flatus. No guarding or rigidity. GENITOURINARY: Continues to void. INTEGUMENTARY: Skin is warm and dry with no evidence of clubbing or cyanosis. NEUROLOGIC: Cranial nerves II through XII intact. No focal deficits. MUSKULOSKELETAL: Able to move all extremities, strength equal bilaterally. PSYCHIATRIC: Alert and oriented to person place and time, appropriate affect, intact judgment and insight. - Allied health notes Allied health notes reviewed: nursing - Labs CBC & Chem 7: 09/06/24 06:13 09/06/24 06:13 Labs: Abnormal Lab Results - Last 24 Hours (Table) 09/05/24 09/05/24 09/06/24 Range/Units 06:48 13:07 06:13 RBC (4.30-5.90) m/uL Hgb (13.0-17.5) gm/dL Hct (39.0-53.0) % APTT 45.0 H (22.0-30.0) sec Sodium 136 L (137-145) mmol/L Carbon Dioxide 32 H (22-30) mmol/L Creatinine 1.45 H (0.66-1.25) mg/dL Cholesterol 204.00 H (0.00-200.00) mg/dL 09/06/24 09/06/24 Range/Units 06:13 06:13 RBC 3.87 L (4.30-5.90) m/uL Hgb 11.0 L (13.0-17.5) gm/dL Hct 35.0 L (39.0-53.0) % APTT 34.8 H (22.0-30.0) sec Sodium (137-145) mmol/L Carbon Dioxide (22-30) mmol/L Creatinine (0.66-1.25) mg/dL Cholesterol (0.00-200.00) mg/dL - Imaging and Cardiology Chest x-ray: report reviewed, image reviewed Assessment and Plan Assessment: Coronary artery disease with myocardial infarction and multiple stenting with the last stent greater than 10 years ago, non-STEMI this admission Chest pain secondary to above Severe aortic stenosis with severe aortic insufficiency on heart catheterization as well as echocardiogram, mean gradient 59 mmHg Hypothyroid, with an admission TSH level of 14.6 and a free T4 hypothyroid 0.76 History of peripheral arterial disease with endovascular abdominal aneurysm repair approximately 2 years ago at [facility] Angioplasty in the right leg Hypertension although patient denies Hyperlipidemia Remote history of pneumonia Current chronic tobacco dependence Occasional marijuana use Medication noncompliance Plan: Preoperative teaching and preoperative testing in progress. Importance of risk modification including smoking cessation has been discussed and reinforced with the patient. Preoperative FEV1 shows 1.53, predicted value of 49%. Pulmonary critical care medicine consult noted and appreciated. CT scan facial has been ordered for dental clearance. Dental consult pending. A 5 m walk test was completed yesterday September 05, 2024, time 1: 3.08 Seconds, time 2: 4.00 Seconds, time 3: 3.26 Seconds. The patient tolerated the walk well. An STS risk or was calculated and discussed with the patient. A clinical frailty score was also calculated which the score showed 4. 1030 The patient was started on levothyroxine 100 mcg p.o. daily, as his TSH level was 14.6 and his free T4 was 0.76. Continue to maximize medical therapy with aspirin, statin and beta-aidan. Heparin drip management per cardiology recommendations. Medical management and other comorbidities per internal medicine and cardiology recommendations. The patient will be scheduled for aortic valve replacement, myocardial revascularization with left intramammary artery, endoscopic vein harvest, po ssible left radial artery harvest, exclusion left atrial appendage and intraoperative transesophageal echocardiogram completed by Dr. Vitaliy Deluna for Tuesday, September 10, 2024, pending dental clearance.. More recommendations to follow based on patient's clinical course. Time with Patient: Greater than 30
--- NOTE | 2024-09-06 12:25 | P.GSCN ---
History of Present Illness Consult date: 09/06/24 (pt) Reason for Consult: Radiographically, patient is edentulous with 6 dental implants. All implants look good radiographically with no infection present. Ok to proceed with surgery from the dental aspect. Thank you for your referral. Past Medical History Past Medical History: Coronary Artery Disease (CAD), Deep Vein Thrombosis (DVT), Hyperlipidemia, Hypertension, Myocardial Infarction ([place]) Additional Past Medical History / Comment(s): 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 Last Myocardial Infarction Date:: 11/28/2013 History of Any Multi-Drug Resistant Organisms: None Reported Past Surgical History: Heart Catheterization With Stent, Orthopedic Surgery Additional Past Surgical History / Comment(s): ATHERECTOMY TO BOTH LEGS Past Anesthesia/Blood Transfusion Reactions: No Reported Reaction Date of Last Stent Placement:: Greater than 10 years ago Smoking Status: Current every day smoker - Past Family History Mother Family Medical History: Cancer Additional Family Medical History / Comment(s): from bone cancer Father Family Medical History: Cancer Additional Family Medical History / Comment(s): from brain cancer Medications and Allergies Home Medications Medication Instructions Recorded Confirmed Type Aspirin EC [Ecotrin Low Dose] 81 mg PO DAILY 09/04/24 09/04/24 History Metoprolol Tartrate [Lopressor] 50 mg PO DAILY 09/04/24 09/04/24 History Allergies Allergy/AdvReac Type Severity Reaction Status Date / Time No Known Allergies Allergy Verified 09/04/24 11:04 Surgical - Exam Vital Signs Temp Pulse Resp BP Pulse Ox 98 F 70 20 199/77 96 09/03/24 21:49 09/03/24 21:49 09/03/24 21:49 09/03/24 21:49 09/03/24 21:49 Results - Labs 09/06/24 06:13 09/06/24 06:13 Abnormal Lab Results - Last 24 Hours (Table) 09/05/24 09/06/24 09/06/24 Range/Units 13:07 06:13 06:13 RBC 3.87 L (4.30-5.90) m/uL Hgb 11.0 L (13.0-17.5) gm/dL Hct 35.0 L (39.0-53.0) % APTT 45.0 H (22.0-30.0) sec Sodium 136 L (137-145) mmol/L Carbon Dioxide 32 H (22-30) mmol/L Creatinine 1.45 H (0.66-1.25) mg/dL 09/06/24 Range/Units 06:13 RBC (4.30-5.90) m/uL Hgb (13.0-17.5) gm/dL Hct (39.0-53.0) % APTT 34.8 H (22.0-30.0) sec Sodium (137-145) mmol/L Carbon Dioxide (22-30) mmol/L Creatinine (0.66-1.25) mg/dL Microbiology - Last 24 Hours (Table) 09/05/24 00:15 Nasal Screen MRSA/MSSA - Final Nasal Swab Diabetes panel 09/06/24 Range/Units 06:13 Sodium 136 L (137-145) mmol/L Potassium 3.9 (3.5-5.1) mmol/L Chloride 101 (98-107) mmol/L Carbon Dioxide 32 H (22-30) mmol/L BUN 17 (9-20) mg/dL Creatinine 1.45 H (0.66-1.25) mg/dL Glucose 98 (74-99) mg/dL Calcium 9.4 (8.4-10.2) mg/dL Calcium panel 09/06/24 Range/Units 06:13 Calcium 9.4 (8.4-10.2) mg/dL Pituitary panel 09/06/24 Range/Units 06:13 Sodium 136 L (137-145) mmol/L Potassium 3.9 (3.5-5.1) mmol/L Chloride 101 (98-107) mmol/L Carbon Dioxide 32 H (22-30) mmol/L BUN 17 (9-20) mg/dL Creatinine 1.45 H (0.66-1.25) mg/dL Glucose 98 (74-99) mg/dL Calcium 9.4 (8.4-10.2) mg/dL Adrenal panel 09/06/24 Range/Units 06:13 Sodium 136 L (137-145) mmol/L Potassium 3.9 (3.5-5.1) mmol/L Chloride 101 (98-107) mmol/L Carbon Dioxide 32 H (22-30) mmol/L BUN 17 (9-20) mg/dL Creatinine 1.45 H (0.66-1.25) mg/dL Glucose 98 (74-99) mg/dL Calcium 9.4 (8.4-10.2) mg/dL
--- NOTE | 2024-09-06 13:08 | P.PN ---
Subjective Progress Note Date: 09/06/24 Principal diagnosis: HPI: [This gentleman has severe aortic stenosis and triple-vessel disease who underwent cardiac catheterization by Dr. Byrd was seen by cardiac surgery. He is going to have a bypass surgery and aortic valve replacement on Tuesday. He has mildly elevated creatinine I will discontinue lisinopril and add hydralazine. Will continue intravenous heparin. Discussed with patient regarding surgery. He was already seen by Dr. Deluna vitals are stable]. PHYSICIAL EXAM: [Vitals are stable no JVD S1-S2 with ejection systolic murmur second heart sound is not well heard lungs reveal diminished air entry abdomen is soft lower extremities reveal diminished pulses Central nervous system grossly no focal deficits.]. IMPRESSION: 1. [Severe aortic stenosis]. 2. [Triple-vessel CAD]. 3. [Chronic kidney disease]. 4. [Hypertension]. 5. [Hypercholesterolemia]. RECOMMENDATIONS: [Will discontinue lisinopril and hydralazine continue intravenous heparin for possible bypass surgery and aortic valve replacement on Tuesday. Discussed with patient]. Objective - Vital Signs Vital signs: Vital Signs Temp 97.7 F 09/06/24 12:00 Pulse 64 09/06/24 08:00 Resp 16 09/06/24 12:00 BP 119/55 09/06/24 12:00 Pulse Ox 97 09/06/24 12:00 FiO2 Intake & Output 09/05/24 09/06/24 09/06/24 18:59 06:59 18:59 Intake Total 720 20 415.297 Output Total 150 Balance 570 20 415.297 Weight 60.4 kg Intake: IV 20 20 10 Invasive Line 1 20 20 10 Intake, IV Titration 100 165.297 Amount Heparin Sod,Pork in 0.45% 100 165.297 NaCl 25,000 unit In 0.45 % NaCl 1 250ml.bag @ 12 UNITS/KG/HR 7.457 mls/hr IV .Q24H [facility] Rx#: [id number] Oral 600 240 Output: Urine 150 Other: Voiding Method Urinal Urinal Urinal # Bowel Movements 1 - Labs CBC & Chem 7: 09/06/24 06:13 09/06/24 06:13 Labs: Abnormal Lab Results - Last 24 Hours (Table) 09/05/24 09/06/24 09/06/24 Range/Units 13:07 06:13 06:13 RBC 3.87 L (4.30-5.90) m/uL Hgb 11.0 L (13.0-17.5) gm/dL Hct 35.0 L (39.0-53.0) % APTT 45.0 H (22.0-30.0) sec Sodium 136 L (137-145) mmol/L Carbon Dioxide 32 H (22-30) mmol/L Creatinine 1.45 H (0.66-1.25) mg/dL 09/06/24 Range/Units 06:13 RBC (4.30-5.90) m/uL Hgb (13.0-17.5) gm/dL Hct (39.0-53.0) % APTT 34.8 H (22.0-30.0) sec Sodium (137-145) mmol/L Carbon Dioxide (22-30) mmol/L Creatinine (0.66-1.25) mg/dL Microbiology - Last 24 Hours (Table) 09/05/24 00:15 Nasal Screen MRSA/MSSA - Final Nasal Swab
--- NOTE | 2024-09-06 13:14 | P.PN ---
Subjective Progress Note Date: 09/06/24 Principal diagnosis: Coronary disease, aortic stenosis. Pulmonary consult dated September 05, 2024. 74-year-old male who presented to the hospital, on September 03, via the emergency room. The patient presented with complaints of chest pain. The patient does have a history of atherosclerotic cardiovascular disease, and for a couple days prior to admission, was complaining of chest pressure. The chest pain/pressure, apparently radiated to both arms. He did not have any associated diaphoresis, or nausea. The patient apparently has had a heart attack in the past, and the pain that he was having, seemed similar. Today, we talked to Dr. Deluna about this patient, and apparently this patient will stay in the hospital, and have surgery, sometime early next week. The patient also has a history of significant tobacco use for about 50 years. He was smoking up until the time he came into the hospital. His primary care physician is Dr. John Faulkner. He is currently on room air. The patient is getting IV heparin. The cardiac catheterization, showed severe triple-vessel disease, severe aortic stenosis and severe aortic regurgitation. The patient is currently in the process of being evaluated for open heart surgery. Laboratory data includes a white count 5.7, hemoglobin 10.8, macro 34.2, and a platelet count of 193,000. The patient's PTT is 45. Sodium 137, potassium 4.1, chlorides 105, CO2 29, BUN 16, creatinine 1.35. N-terminal proBNP was 1330. His troponin was 0.016. Chest CT showed no acute thoracic process, changes of mild COPD, and atherosclerotic calcification of thoracic aorta, with moderate coronary arterial calcifications, most prominent in the LAD. Progress note dated September 06, 2024. The patient is seen today in room 373. He is on room air. He is getting IV heparin. On his bedside spirometry, his FEV1 was 1.52 L, which would put him at low increased operative risk, for open heart surgery. Current labs include a white count 5.2, hemoglobin 11, hematocrit 35, and a normal platelet count. Sodium 136, potassium 3.9, chlorides 101, CO2 32, BUN 17, creatinine 1.45. Objective - Vital Signs Vital signs: Vital Signs Temp 97.7 F 09/06/24 12:00 Pulse 64 09/06/24 08:00 Resp 16 09/06/24 12:00 BP 119/55 09/06/24 12:00 Pulse Ox 97 09/06/24 12:00 FiO2 Intake & Output 09/05/24 09/06/24 09/06/24 18:59 06:59 18:59 Intake Total 720 20 415.297 Output Total 150 Balance 570 20 415.297 Weight 60.4 kg Intake: IV 20 20 10 Invasive Line 1 20 20 10 Intake, IV Titration 100 165.297 Amount Heparin Sod,Pork in 0.45% 100 165.297 NaCl 25,000 unit In 0.45 % NaCl 1 250ml.bag @ 12 UNITS/KG/HR 7.457 mls/hr IV .Q24H [facility] Rx#: [id number] Oral 600 240 Output: Urine 150 Other: Voiding Method Urinal Urinal Urinal # Bowel Movements 1 - Exam No acute distress, oriented 3. The patient is currently on room air. HEENT examination is grossly unremarkable. Mucous membranes are moist. No oral lesions. Neck supple. Full range of motion. No adenopathy thyromegaly or neck vein distention. Cardiovascular examination reveals regular rhythm rate. S1-S2 normal. No S3 or S4. A 2/6 systolic murmur is noted, consistent with aortic stenosis. Heart sounds are distant. Lungs reveal clear breath sounds. Breath sounds are equal bilaterally. No adventitious lung sounds including wheezes rhonchi or crackles. Abdomen soft bowel sounds are heard. No masses or tenderness. Extremities are intact. No cyanosis clubbing or edema. Skin is without rash or lesion. Neurologic examination is brief but nonfocal. - Labs CBC & Chem 7: 09/06/24 06:13 09/06/24 06:13 Labs: Abnormal Lab Results - Last 24 Hours (Table) 09/05/24 09/06/24 09/06/24 Range/Units 13:07 06:13 06:13 RBC 3.87 L (4.30-5.90) m/uL Hgb 11.0 L (13.0-17.5) gm/dL Hct 35.0 L (39.0-53.0) % APTT 45.0 H (22.0-30.0) sec Sodium 136 L (137-145) mmol/L Carbon Dioxide 32 H (22-30) mmol/L Creatinine 1.45 H (0.66-1.25) mg/dL 09/06/24 Range/Units 06:13 RBC (4.30-5.90) m/uL Hgb (13.0-17.5) gm/dL Hct (39.0-53.0) % APTT 34.8 H (22.0-30.0) sec Sodium (137-145) mmol/L Carbon Dioxide (22-30) mmol/L Creatinine (0.66-1.25) mg/dL Microbiology - Last 24 Hours (Table) 09/05/24 00:15 Nasal Screen MRSA/MSSA - Final Nasal Swab Assessment and Plan Assessment: Severe triple-vessel coronary artery disease. Severe aortic stenosis. Severe aortic regurgitation. Non-ST segment elevation myocardial infarction. History of hypertension. Chronic nicotine dependence, rule out COPD. Hyperlipidemia. Hypothyroidism. Plan: Plan dated September 05, 2024. The patient will likely have open heart surgery, both CABG and aortic valve replacement, sometime early next week according to the cardiothoracic surgeon. The patient will need a pulmonary function test. He was a heavy smoker up until his admission to the hospital. Has been smoking for at least 50 years. Additional recommendations and suggestions are forthcoming. Prognosis is guarded. Plan dated September 06, 2024. The patient had bedside spirometry which revealed an FEV1 that was 1.52 L. Based on this by itself, the patient is at low increased operative risk for general anesthesia. Labs, x-rays, medications are reviewed. We will continue to follow, make recommendations along the way. The patient was smoking up until the time he came into the hospital. Apparently they are planning surgery 1 day next week. We will continue to follow. Time with Patient: Less than 30
--- NOTE | 2024-09-06 14:11 | P.PN ---
Subjective Progress Note Date: 09/06/24 HPI: Patient is a 74-year-old male with a history of CAD x 3 stent placement, DVT, hyperlipidemia, and is a current smoker that came in for chest pain that began on Tuesday evening 09/02. He reported that chest pain was substernal, episodic, with an intensity of 6-7/10, pressure-like in nature (similar to his prior MIs), that radiated to both arms and the back. The pain initially occured on late night Tuesday but had resolved by Tuesday morning upon waking. The pain recurred on Tuesday evening, which prompted him to come to the ED. He denies shortness of breath, nausea, diaphoresis, palpitations, dizziness, new onset cough, abdominal pain, facial asymmetry, changes in vision, or loss of consciousness. Denies pleuritic pain. Also denying lower extremity swelling or pain. Denies pain that is tearing in nature. Patient also notes that he doesn't believe that most medications work for him and thereby hadn't been taking them for some time now. In the emergency room, EKG showed sinus rhythm with a rate of [address]-T changes with good R wave progression and QTc of 439 MS. Chest x-ray showed no acute processes. Laboratory evaluation revealed WBC 6.1, hemoglobin 11.3, platelet count 180 PT 10.2 INR 0.9 PTT 26.5 sodium potassium 3.3 bicarb 35 BUN 15 creatinine 1.35 glucose 142 troponin 0.023 calcium 9 magnesium 2.2. On admission, patient was afebrile at 98 Fahrenheit heart rate of 70 respiratory rate 20 blood pressure 199/77 O2 saturation 96% on room air Progress note 09/06/2024 patient seen and examined at bedside. No events overnight. Patient resting well no complaints of chest pain, palpitations. Awaiting plan CABG Aortic valve replacement on Tuesday. Review of systems: Pertinent positives and negatives as discussed in HPI, a complete review of systems was performed and all other systems are negative. Physical examination: Vital signs reviewed General: non toxic, no distress, appears older then stated age, underweight Derm: no unusual rashes/lesions, warm Head: atraumatic, normocephalic, symmetric Eyes: EOMI, no lid lag, anicteric sclera, pupils equal round reactive to light ENT: Nose and ears atraumatic Neck: No cervical lymphadenopathy, trachea midline, supple Mouth: no lip lesion, mucus membranes moist Cardiovascular: S1S2 reg, 3 out of 6 holosystolic murmur best heard on the right second ICS Lungs: CTA bilateral, no rhonchi, no rales, no accessory muscle use Abdominal: soft, nontender to palpation, no guarding Ext: muscle strength 5 out of 5 in all 4 extremities grossly, no gross muscle atrophy, no contractures, positive dorsalis pedis pulse bilateral, no edema Neuro: CN II-XI grossly intact, no gross focal neuro deficits Psych: Alert, oriented, appropriate affect and mood Labs reviewed today WBC 5.2, hemoglobin 11.0, platelets 200, APTT 55.8, sodium 136, potassium 3.9, bicarb 32, BUN 17, creatinine 1.45 Imaging reviewed todaynone Assessment/Plan: #Multivessel CAD #Severe aortic stenosis #Severe aortic regurgitation # NSTEMI, type I Hypertension Nicotine dependence Dyslipidemia S/P cardiac catheterization findings of multivessel CAD, no stent placed Completing workup for CABG and aortic valve replacement -Aspirin 81 mg daily and Lipitor 80 mg -Continue heparin IV drip, monitor APTT, monitor for bleeding -Continue with nitroglycerin 0.4 mg lingual as needed for chest pain Peak troponin 0.041 -Echocardiogram findings of normal LV function 55 to 60%, severe aortic stenosis with moderate aortic regurgitation Cardiology following, on lisinopril 10 twice daily, metoprolol 25 twice daily, hydrochlorothiazide 25 daily -On nitro patch 1 inch topical every 8 hours -Discussed smoking cessation and this admission - Cardiothoracic surgery note reviewed, continued preop testing, plan CABG Aortic valve replacement on Tuesday #. Hyperglycemia Prediabetes Glucose 142. No Hx of DM. A1c 6.0 #. Hypokalemia, resolved Hypothyroidism -Started on levothyroxine 100 mcg daily, recheck TSH in 4 to 6 weeks DVT prophylaxis: IV heparin CODE STATUS: Full code Anticipated discharge place: Home, pending clinical course I saw and evaluated the patient during the ruth and critical portions of this encounter along side the resident. The assessment and plan was discussed with the resident as below. Patient with no complaints. Plans for CABG on Tuesday. NSTEMI: ASA 81 mg PO QD. Lipitor 80 mg PO QHS. Heparin drip at 15 units/kg/hr. Monitor Coags. Metoprolol 25 mg PO BID. Telemetry monitoring. Plans for CABG Tuesday. Severe /AR: Plans for AC replacement Tuesday. CARMELO versus CKD: Unknown baseline. Stable. Hypertension: Metoprolol as above. Hydralazine 50 mg PO TID. HCTZ 25 mg PO QD. Nicotine dependence: Offer nicotine patch. Dyslipidemia: Lipitor as above. Hypothyroidism: TSH 14.6. FT4 0.76. Started on Synthroid 100 mcg PO QD. Repeat TSH/FT3+4 in 6 weeks. Objective - Vital Signs Vital signs: Vital Signs Temp 97.7 F 09/06/24 12:00 Pulse 64 09/06/24 08:00 Resp 16 09/06/24 12:00 BP 119/55 09/06/24 12:00 Pulse Ox 97 09/06/24 12:00 FiO2 Intake & Output 09/05/24 09/06/24 09/06/24 18:59 06:59 18:59 Intake Total 720 20 425.297 Output Total 150 Balance 570 20 425.297 Weight 60.4 kg Intake: IV 20 20 20 Invasive Line 1 20 20 20 Intake, IV Titration 100 165.297 Amount Heparin Sod,Pork in 0.45% 100 165.297 NaCl 25,000 unit In 0.45 % NaCl 1 250ml.bag @ 12 UNITS/KG/HR 7.457 mls/hr IV .Q24H [facility] Rx#: [id number] Oral 600 240 Output: Urine 150 Other: Voiding Method Urinal Urinal Urinal # Bowel Movements 1 - Labs CBC & Chem 7: 09/06/24 06:13 09/06/24 06:13 Labs: Abnormal Lab Results - Last 24 Hours (Table) 09/06/24 09/06/24 09/06/24 Range/Units 06:13 06:13 06:13 RBC 3.87 L (4.30-5.90) m/uL Hgb 11.0 L (13.0-17.5) gm/dL Hct 35.0 L (39.0-53.0) % APTT 34.8 H (22.0-30.0) sec Sodium 136 L (137-145) mmol/L Carbon Dioxide 32 H (22-30) mmol/L Creatinine 1.45 H (0.66-1.25) mg/dL 09/06/24 Range/Units 12:49 RBC (4.30-5.90) m/uL Hgb (13.0-17.5) gm/dL Hct (39.0-53.0) % APTT 55.8 H (22.0-30.0) sec Sodium (137-145) mmol/L Carbon Dioxide (22-30) mmol/L Creatinine (0.66-1.25) mg/dL Microbiology - Last 24 Hours (Table) 09/05/24 00:15 Nasal Screen MRSA/MSSA - Final Nasal Swab
--- NOTE | 2024-09-06 15:47 | US ---
EXAMINATION TYPE: Pre-Operative Non-Invasive Evaluation of the hand for Potential Radial Artery Eddie , Measurements only DATE OF EXAM: 09/06/2024 3:26 PM CLINICAL INDICATION: Male, 74 years old with history of Preop Cardiac surgery; open heart in 4 days SIDE PERFORMED: Left TECHNIQUE: Grayscale color Doppler imaging of the radial artery(s) FINDINGS: Dominant hand: Right Duplex Findings: Radial Artery: Color flow seen Measurements in mm, transverse view: Left Radial: Proximal: 3.0 x 4.0mm Mid: 3.0 x 3.0mm Distal: internal thrombus with no flow seen IMPRESSION: 1. Left radial artery measurements listed above. There is internal thrombus with no flow within the d istal left radial artery. 2. Performing surgeon to determine viability as conduit. [facility], , 09/06/2024 3:45 PM
[2024-09-06] MEDS: hydrALAZINE HCL 50 MG TAB PO SCH (15:54)
[2024-09-07 06:45] LABS: HCT 35.5 % (39.0-53.0); HGB 11.2 gm/dL (13.0-17.5); Hypochromasia Slight; MCH 28.1 pg (25.0-35.0); MCHC 31.6 g/dL (31.0-37.0); MCV 88.9 fL (80.0-100.0); Mean Platelet Volume 7.7; Platelet Count 224 k/uL (150-450); RDW 15.5 % (11.5-15.5); WBC 6.9 k/uL (3.8-10.6)
[2024-09-07 07:01] LABS: ALT 15 U/L (4-49); AST 29 U/L (17-59); African American GFR (CKD) 53 (>60 ml/min/1.73 sqM); Albumin 4.1 g/dL (3.5-5.0); Alkaline Phosphatase 81 U/L (38-126); Anion Gap 5 mmol/L; Blood Urea Nitrogen 28 mg/dL (9-20); Calcium 9.5 mg/dL (8.4-10.2); Carbon Dioxide 26 mmol/L (22-30); Chloride 103 mmol/L (98-107); Glucose 105 mg/dL (74-99); Non-African American GFR(CKD) 46 (>60 ml/min/1.73 sqM); Sodium 134 mmol/L (137-145); Total Bilirubin 0.8 mg/dL (0.2-1.3); Total Protein 7.2 g/dL (6.3-8.2)
--- NOTE | 2024-09-07 07:46 | P.PN ---
Subjective Progress Note Date: 09/07/24 Principal diagnosis: Triple vessel coronary artery disease, aortic stenosis/insufficiency. Past medical history significant for coronary artery disease with myocardial infarction and multiple stenting with the last stent greater than 10 years ago, peripheral arterial disease with endovascular abdominal aneurysm repair approximately 2 years ago at [facility], angioplasty in the right leg, hypertension, hyperlipidemia, remote history of pneumonia, current chronic tobacco dependence, occasional marijuana use, and medication noncompliance. The patient was seen and examined in follow-up today September 07, 2024 at his bedside on the third floor cardiac stepdown unit. Currently the patient is lying in bed, is awake, alert, oriented x 3 and is in no acute apparent distress. Denies any complaints of shortness of breath at this time, does report he had a short episode of chest pressure yesterday, but denies any complaints of chest pain or chest pressure since. He remains on heparin drip per protocol. His creatinine is trending up and is 1.49 today, yesterday it was 1.45. On September 04, 2024 the patient's TSH level was 14.600 and his free T4 is 0.76, he has been started on levothyroxine 100 mcg p.o. daily. Oxygen saturations are 97% on room air and he is achieving 1500 mL on his incentive spirometry with encouragement. Remote telemetry is showing normal sinus rhythm heart rate 79 bpm. He remains hemodynamically stable and is currently on no inotropic or pressor support. We received dental clearance yesterday for cardiac surgery. He is tentatively scheduled for Tuesday, September 10, 2024, aortic valve replacement, myocardial revascularization with left internal mammary artery, possible left radial artery endoscopic harvest, endoscopic vein harvest, exclusion left atrial appendage and intraoperative transesophageal echocardiogram to be performed by Dr. Vitaliy Deluna. Preoperative teaching has been reinforced with the patient. Laboratory results were reviewed. Objective - Vital Signs Vital signs: Vital Signs Temp 97.7 F 09/06/24 12:00 Pulse 82 09/07/24 04:59 Resp 18 09/07/24 04:59 BP 137/66 09/07/24 04:59 Pulse Ox 97 09/07/24 04:59 FiO2 Intake & Output 09/06/24 09/07/24 09/07/24 18:59 06:59 18:59 Intake Total 507.943 20 Balance 507.943 20 Weight 60.3 kg Intake: IV 20 20 Invasive Line 1 20 20 Intake, IV Titration 247.943 Amount Heparin Sod,Pork in 0.45% 247.943 NaCl 25,000 unit In 0.45 % NaCl 1 250ml.bag @ 12 UNITS/KG/HR 7.457 mls/hr IV .Q24H [facility]ATER[facility] Rx#: [id number] Oral 240 Other: Voiding Method Urinal Urinal # Voids 1 - Exam CONSTITUTIONAL: Sitting up to the bedside edge, appears comfortable, cooperative, no apparent acute distress. HEENT: Neck is supple, no JVD, no lymphadenopathy. RESPIRATORY: Lungs sounds essentially clear throughout, diminished to his bilateral bases. Respirations are symmetrical and nonlabored. Currently on room air with oxygen saturations 97%. Able to achieve 1500 mL on his incentive spirometry. Strong cough. CARDIOVASCULAR: Regular rhythm and rate. S1 and S2 present, negative for S3, or gallop positive systolic murmur 3/6. Palpable peripheral pulses bilaterally. Right no calf pain or tenderness noted. GASTROINTESTINAL: Abdomen soft, nontender, nondistended. Active bowel sounds present 4 quadrants. Tolerating diet. Passing flatus. No guarding or rigidity. Bowel movement yesterday September 06, 2024. GENITOURINARY: Continues to void. INTEGUMENTARY: Skin is warm and dry with no evidence of clubbing or cyanosis. NEUROLOGIC: Cranial nerves II through XII intact. No focal deficits. MUSKULOSKELETAL: Able to move all extremities, strength equal bilaterally. PSYCHIATRIC: Alert and oriented to person place and time, appropriate affect, intact judgment and insight. - Allied health notes Allied health notes reviewed: nursing - Labs CBC & Chem 7: 09/07/24 06:25 09/07/24 06:25 Labs: Abnormal Lab Results - Last 24 Hours (Table) 09/06/24 09/06/24 09/07/24 Range/Units 06:13 12:49 06:25 RBC 4.00 L (4.30-5.90) m/uL Hgb 11.2 L (13.0-17.5) gm/dL Hct 35.5 L (39.0-53.0) % APTT 55.8 H (22.0-30.0) sec Sodium 136 L (137-145) mmol/L Carbon Dioxide 32 H (22-30) mmol/L BUN (9-20) mg/dL Creatinine 1.45 H (0.66-1.25) mg/dL Glucose (74-99) mg/dL 09/07/24 09/07/24 Range/Units 06:25 06:25 RBC (4.30-5.90) m/uL Hgb (13.0-17.5) gm/dL Hct (39.0-53.0) % APTT 42.2 H (22.0-30.0) sec Sodium 134 L (137-145) mmol/L Carbon Dioxide (22-30) mmol/L BUN 28 H (9-20) mg/dL Creatinine 1.49 H (0.66-1.25) mg/dL Glucose 105 H (74-99) mg/dL Microbiology - Last 24 Hours (Table) 09/05/24 00:15 Nasal Screen MRSA/MSSA - Final Nasal Swab Assessment and Plan Assessment: Coronary artery disease with myocardial infarction and multiple stenting with the last stent greater than 10 years ago, non-STEMI this admission Chest pain secondary to above Severe aortic stenosis with severe aortic insufficiency on heart catheterization as well as echocardiogram, mean gradient 59 mmHg Hypothyroid, with an admission TSH level of 14.6 and a free T4 hypothyroid 0.76 History of peripheral arterial disease with endovascular abdominal aneurysm repair approximately 2 years ago at [facility] Angioplasty in the right leg Hypertension although patient denies Hyperlipidemia Remote history of pneumonia Current chronic tobacco dependence Occasional marijuana use Medication noncompliance Chronic kidney disease, creatinine today 1.49 Plan: Preoperative teaching in progress, reinforced with patient. Importance of risk modification including smoking cessation has been discussed and reinforced with the patient. Preoperative FEV1 shows 1.53, predicted value of 49%. Pulmonary critical care medicine following. Dental consult noted and appreciated. Dental clearance has been obtained. A 5 m walk test was completed September 05, 2024, time 1: 3.08 Seconds, time 2: 4.00 Seconds, time 3: 3.26 Seconds. The patient tolerated the walk well. An STS risk or was calculated and discussed with the patient. A clinical frailty score was also calculated which the score showed 4. The patient was started on levothyroxine 100 mcg p.o. daily, as his TSH level was 14.600 and his free T4 was 0.76. Continue to maximize medical therapy with aspirin, statin and beta-aidan. Heparin drip management per cardiology recommendations. Medical management and other comorbidities per internal medicine and cardiology recommendations. The patient is scheduled for aortic valve replacement, myocardial revascularization with left intramammary artery, endoscopic vein harvest, possible left radial artery harvest, exclusion left atrial appendage and intraoperative transesophageal echocardiogram completed by Dr. Vitaliy Deluna for Tuesday, September 10, 2024. Lisinopril has been discontinued by cardiology, and has been started on hydralazine 50 mg 3 times daily. More recommendations to follow based on patient's clinical course. Time with Patient: Greater than 30
[2024-09-07] MEDS: HEPARIN SODIUM 1,000 UN/ML (10ML VL) IV ONE (08:52)
--- NOTE | 2024-09-07 10:58 | P.PN ---
Subjective Progress Note Date: 09/07/24 Principal diagnosis: HPI: [This gentleman has severe aortic stenosis and triple-vessel disease who underwent cardiac catheterization by Dr. Byrd was seen by cardiac surgery. He is going to have a bypass surgery and aortic valve replacement on Tuesday. He has mildly elevated creatinine I will discontinue lisinopril and add hydralazine. Will continue intravenous heparin. Discussed with patient regarding surgery. He was already seen by Dr. Deluna vitals are stable]. PHYSICIAL EXAM: [Vitals are stable no JVD S1-S2 with ejection systolic murmur second heart sound is not well heard lungs reveal diminished air entry abdomen is soft lower extremities reveal diminished pulses Central nervous system grossly no focal deficits.]. IMPRESSION: 1. [Severe aortic stenosis]. 2. [Triple-vessel CAD]. 3. [Chronic kidney disease]. 4. [Hypertension]. 5. [Hypercholesterolemia]. RECOMMENDATIONS: [This gentleman is doing better he has no chest pain or shortness of breath creatinine has not gone up significantly. We will continue to give him heparin avoid lisinopril stay with hydralazine BP control is good surgery is scheduled for Tuesday. He will have a bypass surgery and aortic valve replacement. Will continue IV heparin for now. Blood pressure is good]. Objective - Vital Signs Vital signs: Vital Signs Temp 98.5 F 09/07/24 08:00 Pulse 88 09/07/24 08:00 Resp 16 09/07/24 08:00 BP 129/67 09/07/24 08:00 Pulse Ox 96 09/07/24 08:00 FiO2 Intake & Output 09/06/24 09/07/24 09/07/24 18:59 06:59 18:59 Intake Total 507.943 20 250 Balance 507.943 20 250 Weight 60.3 kg Intake: IV 20 20 10 Invasive Line 1 20 20 10 Intake, IV Titration 247.943 Amount Heparin Sod,Pork in 0.45% 247.943 NaCl 25,000 unit In 0.45 % NaCl 1 250ml.bag @ 12 UNITS/KG/HR 7.457 mls/hr IV .Q24H [facility]ATERINA Rx#: [id number] Oral 240 240 Other: Voiding Method Urinal Urinal Urinal # Voids 1 - Labs CBC & Chem 7: 09/07/24 06:25 09/07/24 06:25 Labs: Abnormal Lab Results - Last 24 Hours (Table) 09/06/24 09/07/24 09/07/24 Range/Units 12:49 06:25 06:25 RBC 4.00 L (4.30-5.90) m/uL Hgb 11.2 L (13.0-17.5) gm/dL Hct 35.5 L (39.0-53.0) % APTT 55.8 H (22.0-30.0) sec Sodium 134 L (137-145) mmol/L BUN 28 H (9-20) mg/dL Creatinine 1.49 H (0.66-1.25) mg/dL Glucose 105 H (74-99) mg/dL 09/07/24 Range/Units 06:25 RBC (4.30-5.90) m/uL Hgb (13.0-17.5) gm/dL Hct (39.0-53.0) % APTT 42.2 H (22.0-30.0) sec Sodium (137-145) mmol/L BUN (9-20) mg/dL Creatinine (0.66-1.25) mg/dL Glucose (74-99) mg/dL Microbiology - Last 24 Hours (Table) 09/05/24 00:15 Nasal Screen MRSA/MSSA - Final Nasal Swab
--- NOTE | 2024-09-07 11:48 | P.PN ---
Subjective Progress Note Date: 09/07/24 Principal diagnosis: Coronary disease, aortic stenosis. Pulmonary consult dated September 05, 2024. 74-year-old male who presented to the hospital, on September 03, via the emergency room. The patient presented with complaints of chest pain. The patient does have a history of atherosclerotic cardiovascular disease, and for a couple days prior to admission, was complaining of chest pressure. The chest pain/pressure, apparently radiated to both arms. He did not have any associated diaphoresis, or nausea. The patient apparently has had a heart attack in the past, and the pain that he was having, seemed similar. Today, we talked to Dr. Deluna about this patient, and apparently this patient will stay in the hospital, and have surgery, sometime early next week. The patient also has a history of significant tobacco use for about 50 years. He was smoking up until the time he came into the hospital. His primary care physician is Dr. John Faulkner. He is currently on room air. The patient is getting IV heparin. The cardiac catheterization, showed severe triple-vessel disease, severe aortic stenosis and severe aortic regurgitation. The patient is currently in the process of being evaluated for open heart surgery. Laboratory data includes a white count 5.7, hemoglobin 10.8, macro 34.2, and a platelet count of 193,000. The patient's PTT is 45. Sodium 137, potassium 4.1, chlorides 105, CO2 29, BUN 16, creatinine 1.35. N-terminal proBNP was 1330. His troponin was 0.016. Chest CT showed no acute thoracic process, changes of mild COPD, and atherosclerotic calcification of thoracic aorta, with moderate coronary arterial calcifications, most prominent in the LAD. Progress note dated September 06, 2024. The patient is seen today in room 373. He is on room air. He is getting IV heparin. On his bedside spirometry, his FEV1 was 1.52 L, which would put him at low increased operative risk, for open heart surgery. Current labs include a white count 5.2, hemoglobin 11, hematocrit 35, and a normal platelet count. Sodium 136, potassium 3.9, chlorides 101, CO2 32, BUN 17, creatinine 1.45. Progress note dated and September 07, 2024. 74-year-old male seen today in room 373. He is currently on room air. He continues on IV heparin. The patient is likely to have a open heart procedure next week, may be on September 10Tuesday. Currently, he is resting comfortably, without any issues or problems. White count 6.9, hemoglobin 9.2, hematocrit 35.5, platelet count is normal. PTT is 42.2. Sodium 134, potassium 4, chlorides 103, CO2 26, BUN 28, creatinine 1.49. Objective - Vital Signs Vital signs: Vital Signs Temp 98.5 F 09/07/24 08:00 Pulse 88 09/07/24 08:00 Resp 16 09/07/24 08:00 BP 129/67 09/07/24 08:00 Pulse Ox 96 09/07/24 08:00 FiO2 Intake & Output 09/06/24 09/07/24 09/07/24 18:59 06:59 18:59 Intake Total 507.943 20 250 Balance 507.943 20 250 Weight 60.3 kg Intake: IV 20 20 10 Invasive Line 1 20 20 10 Intake, IV Titration 247.943 Amount Heparin Sod,Pork in 0.45% 247.943 NaCl 25,000 unit In 0.45 % NaCl 1 250ml.bag @ 12 UNITS/KG/HR 7.457 mls/hr IV .Q24H [facility] Rx#: [id number] Oral 240 240 Other: Voiding Method Urinal Urinal Urinal # Voids 1 - Exam No acute distress, oriented 3. The patient is currently on room air. HEENT examination is grossly unremarkable. Mucous membranes are moist. No oral lesions. Neck supple. Full range of motion. No adenopathy thyromegaly or neck vein distention. Cardiovascular examination reveals regular rhythm rate. S1-S2 normal. No S3 or S4. A 2/6 systolic murmur is noted, consistent with aortic stenosis. Heart sounds are distant. Lungs reveal clear breath sounds. Breath sounds are equal bilaterally. No adventitious lung sounds including wheezes rhonchi or crackles. Abdomen soft bowel sounds are heard. No masses or tenderness. Extremities are intact. No cyanosis clubbing or edema. Skin is without rash or lesion. Neurologic examination is brief but nonfocal. - Labs CBC & Chem 7: 09/07/24 06:25 09/07/24 06:25 Labs: Abnormal Lab Results - Last 24 Hours (Table) 09/06/24 09/07/24 09/07/24 Range/Units 12:49 06:25 06:25 RBC 4.00 L (4.30-5.90) m/uL Hgb 11.2 L (13.0-17.5) gm/dL Hct 35.5 L (39.0-53.0) % APTT 55.8 H (22.0-30.0) sec Sodium 134 L (137-145) mmol/L BUN 28 H (9-20) mg/dL Creatinine 1.49 H (0.66-1.25) mg/dL Glucose 105 H (74-99) mg/dL 09/07/24 Range/Units 06:25 RBC (4.30-5.90) m/uL Hgb (13.0-17.5) gm/dL Hct (39.0-53.0) % APTT 42.2 H (22.0-30.0) sec Sodium (137-145) mmol/L BUN (9-20) mg/dL Creatinine (0.66-1.25) mg/dL Glucose (74-99) mg/dL Microbiology - Last 24 Hours (Table) 09/05/24 00:15 Nasal Screen MRSA/MSSA - Final Nasal Swab Assessment and Plan Assessment: Severe triple-vessel coronary artery disease. Severe aortic stenosis. Severe aortic regurgitation. Non-ST segment elevation myocardial infarction. History of hypertension. Chronic nicotine dependence, rule out COPD. Hyperlipidemia. Hypothyroidism. Plan: Plan dated September 05, 2024. The patient will likely have open heart surgery, both CABG and aortic valve replacement, sometime early next week according to the cardiothoracic surgeon. The patient will need a pulmonary function test. He was a heavy smoker up until his admission to the hospital. Has been smoking for at least 50 years. Additional recommendations and suggestions are forthcoming. Prognosis is guarded. Plan dated September 06, 2024. The patient had bedside spirometry which revealed an FEV1 that was 1.52 L. Based on this by itself, the patient is at low increased operative risk for general anesthesia. Labs, x-rays, medications are reviewed. We will continue to follow, make recommendations along the way. The patient was smoking up until the time he came into the hospital. Apparently they are planning surgery 1 day next week. We will continue to follow. Plan dated September 07, 2024. The patient is seen today in room 373. He is resting comfortably. Lung function were analyzed. The patient continues on IV heparin. He is on room air. He is not receiving any IV fluids. Labs, x-rays, and all medications are reviewed. Prognosis is guarded. Time with Patient: Less than 30
--- NOTE | 2024-09-07 17:20 | P.PN ---
Subjective Progress Note Date: 09/07/24 Patient is a 74-year-old male with a history of CAD x 3 stent placement, DVT, hyperlipidemia, and is a current smoker that came in for chest pain that began on Tuesday evening 09/02. He reported that chest pain was substernal, episodic, with an intensity of 6-7/10, pressure-like in nature (similar to his prior MIs), that radiated to both arms and the back. The pain initially occured on late ht Tuesday but had resolved by Tuesday morning upon waking. The pain recurred on Tuesday evening, which prompted him to come to the ED. He denies shortness of breath, nausea, diaphoresis, palpitations, dizziness, new onset cough, abdominal pain, facial asymmetry, changes in vision, or loss of consciousness. Denies pleuritic pain. Also denying lower extremity swelling or pain. Denies pain that is tearing in nature. Patient also notes that he doesn't believe that most medications work for him and thereby hadn't been taking them for some time now. In the emergency room, EKG showed sinus rhythm with a rate of [address]-T changes with good R wave progression and QTc of 439 MS. Chest x-ray showed no acute processes. Laboratory evaluation revealed WBC 6.1, hemoglobin 11.3, platelet count 180 PT 10.2 INR 0.9 PTT 26.5 sodium potassium 3.3 bicarb 35 BUN 15 creatinine 1.35 glucose 142 troponin 0.023 calcium 9 magnesium 2.2. On admission, patient was afebrile at 98 Fahrenheit heart rate of 70 respiratory rate 20 blood pressure 199/77 O2 saturation 96% on room air Progress note 09/07/2024 patient seen and examined. Sitting up at bedside. No events overnight. Patient resting well no complaints of chest pain, palpitations. Awaiting plan CABG and aortic valve replacement on Tuesday. Review of systems: Pertinent positives and negatives as discussed in HPI, a complete review of systems was performed and all other systems are negative. Physical examination: Vital signs reviewed General: non toxic, no distress, appears older then stated age, underweight Derm: no unusual rashes/lesions, warm Head: atraumatic, normocephalic, symmetric Eyes: EOMI, no lid lag, anicteric sclera, pupils equal round reactive to light ENT: Nose and ears atraumatic Neck: No cervical lymphadenopathy, trachea midline, supple Mouth: no lip lesion, mucus membranes moist Cardiovascular: S1S2 reg, 3 out of 6 holosystolic murmur best heard on the right second ICS Lungs: CTA bilateral, no rhonchi, no rales, no accessory muscle use Abdominal: soft, nontender to palpation, no guarding Ext: muscle strength 5 out of 5 in all 4 extremities grossly, no gross muscle atrophy, no contractures, positive dorsalis pedis pulse bilateral, no edema Neuro: CN II-XI grossly intact, no gross focal neuro deficits Psych: Alert, oriented, appropriate affect and mood Labs reviewed today WBC 6.9, hemoglobin 11.2, platelets 15.5, APTT 49.4, sodium 134, potassium 4.0, bicarb 26, BUN 28, creatinine 1.49, glucose 105 Imaging reviewed todaynone Assessment/Plan: #Multivessel CAD #Severe aortic stenosis #Severe aortic regurgitation # NSTEMI, type I Hypertension Nicotine dependence Dyslipidemia S/P cardiac catheterization findings of multivessel CAD, no stent placed Completing workup for CABG and aortic valve replacement -Aspirin 81 mg daily and Lipitor 80 mg -Continue heparin IV drip, monitor APTT, monitor for bleeding -Continue with nitroglycerin 0.4 mg lingual as needed for chest pain Peak troponin 0.041 -Echocardiogram findings of normal LV function 55 to 60%, severe aortic stenosis with moderate aortic regurgitation Cardiology note reviewed, hydralazine 50 3 times daily, metoprolol 25 twice daily -On nitro patch 1 inch topical every 8 hours -Discussed smoking cessation during this admission - Cardiothoracic surgery note reviewed, continued preop testing, plan CABG A ortic valve replacement on Tuesday #. Hyperglycemia Prediabetes Initial glucose 142. No Hx of DM. A1c 6.0 #Hypothyroidism -Started on levothyroxine 100 mcg daily Recheck TSH in 4 to 6 weeks #CKD stage IIIa Initial creatinine 1.35 => 1.49 # Hypokalemia, resolved DVT prophylaxis: IV heparin CODE STATUS: Full code Anticipated discharge place: Home, pending clinical course I have seen and evaluated the patient today. Discussed with the resident and agree with the residents finding and plan as documented in the resident's note. Changes highlighted in blue font. Objective - Vital Signs Vital signs: Vital Signs Temp 98.7 F 09/07/24 12:00 Pulse 72 09/07/24 13:52 Resp 14 09/07/24 13:52 BP 113/60 09/07/24 12:00 Pulse Ox 97 09/07/24 12:00 FiO2 Intake & Output 09/06/24 09/07/24 09/07/24 18:59 06:59 18:59 Intake Total 507.943 20 492.714 Balance 507.943 20 492.714 Weight 60.3 kg Intake: IV 20 20 20 Invasive Line 1 20 20 20 Intake, IV Titration 247.943 232.714 Amount Heparin Sod,Pork in 0.45% 247.943 232.714 NaCl 25,000 unit In 0.45 % NaCl 1 250ml.bag @ 12 UNITS/KG/HR 7.457 mls/hr IV .Q24H [facility] Rx#: [id number] Oral 240 240 Other: Voiding Method Urinal Urinal Urinal # Voids 1 - Labs CBC & Chem 7: 09/07/24 06:25 09/07/24 06:25 Labs: Abnormal Lab Results - Last 24 Hours (Table) 09/07/24 09/07/24 09/07/24 Range/Units 06:25 06:25 06:25 RBC 4.00 L (4.30-5.90) m/uL Hgb 11.2 L (13.0-17.5) gm/dL Hct 35.5 L (39.0-53.0) % APTT 42.2 H (22.0-30.0) sec Sodium 134 L (137-145) mmol/L BUN 28 H (9-20) mg/dL Creatinine 1.49 H (0.66-1.25) mg/dL Glucose 105 H (74-99) mg/dL 09/07/24 Range/Units 14:49 RBC (4.30-5.90) m/uL Hgb (13.0-17.5) gm/dL Hct (39.0-53.0) % APTT 49.4 H (22.0-30.0) sec Sodium (137-145) mmol/L BUN (9-20) mg/dL Creatinine (0.66-1.25) mg/dL Glucose (74-99) mg/dL
[2024-09-07] MEDS: NITROGLYCERIN SL TABS 0.4 MG TAB SUBLINGUAL PRN (17:30)
[2024-09-07] MEDS: RANOLAZINE 500 MG TAB.ER.12H PO SCH (21:11)
[2024-09-08 07:41] LABS: Basophils % (A) 0 %; Eosinophils % (A) 1 %; HCT 36.4 % (39.0-53.0); HGB 11.6 gm/dL (13.0-17.5); Hypochromasia Slight; Lymphocytes # (A) 1.6 k/uL (1.0-4.8); Lymphocytes % (A) 24 %; MCH 28.4 pg (25.0-35.0); MCHC 31.9 g/dL (31.0-37.0); MCV 88.8 fL (80.0-100.0); Mean Platelet Volume 7.2; Monocytes # (A) 0.4 k/uL (0-1.0); Monocytes % (A) 5 %; Neutrophils # (A) 4.4 k/uL (1.3-7.7); Neutrophils % (A) 67 %; Platelet Count 255 k/uL (150-450); RDW 15.6 % (11.5-15.5); WBC 6.6 k/uL (3.8-10.6)
[2024-09-08 08:00] LABS: ALT 28 U/L (4-49); AST 36 U/L (17-59); African American GFR (CKD) 39 (>60 ml/min/1.73 sqM); Albumin 4.1 g/dL (3.5-5.0); Alkaline Phosphatase 80 U/L (38-126); Anion Gap 9 mmol/L; Blood Urea Nitrogen 31 mg/dL (9-20); Calcium 9.6 mg/dL (8.4-10.2); Carbon Dioxide 27 mmol/L (22-30); Chloride 99 mmol/L (98-107); Glucose 108 mg/dL (74-99); Non-African American GFR(CKD) 34 (>60 ml/min/1.73 sqM); Potassium 3.8 mmol/L (3.5-5.1); Sodium 135 mmol/L (137-145); Total Bilirubin 0.9 mg/dL (0.2-1.3); Total Protein 7.2 g/dL (6.3-8.2)
[2024-09-08] MEDS: SODIUM CHLORIDE 0.9% 1,000 ML IV SCH (10:00)
--- NOTE | 2024-09-08 10:07 | US ---
EXAMINATION TYPE: Pre-Operative Non-Invasive Evaluation of the hand for Potential Radial Artery Eddie , Measurements only DATE OF EXAM: 09/08/2024 9:33 AM CLINICAL INDICATION: Male, 74 years old with history of preop Cardiac surgery; Open heart compare to previous SIDE PERFORMED: Bilateral TECHNIQUE: Grayscale color Doppler imaging of the radial artery(s) FINDINGS: Dominant hand: Right Duplex Findings: Radial Artery: Color flow seen Measurements in mm, transverse view: Right Radial Proximal:2.9 x 2.7 mm Mid: 1.7 x 2.0 mm Distal: 2.0 x 1.8 mm Left Radial: Proximal: 2.9 x 2.2 mm Mid: 2.8 x 2.1 mm Distal: 3.6 x 2.7 mm Flow visualized in left distal radial artery on today's study. IMPRESSION: 1. Bilateral Radial artery measurements listed above. 2. Performing surgeon to determine viability as conduit. [facility], , 09/08/2024 10:04 AM
--- NOTE | 2024-09-08 11:48 | P.PN ---
Subjective Progress Note Date: 09/08/24 Principal diagnosis: Coronary disease, aortic stenosis. Pulmonary consult dated September 05, 2024. 74-year-old male who presented to the hospital, on September 03, via the emergency room. The patient presented with complaints of chest pain. The patient does have a history of atherosclerotic cardiovascular disease, and for a couple days prior to admission, was complaining of chest pressure. The chest pain/pressure, apparently radiated to both arms. He did not have any associated diaphoresis, or nausea. The patient apparently has had a heart attack in the past, and the pain that he was having, seemed similar. Today, we talked to Dr. Deluna about this patient, and apparently this patient will stay in the hospital, and have surgery, sometime early next week. The patient also has a history of significant tobacco use for about 50 years. He was smoking up until the time he came into the hospital. His primary care physician is Dr. John Faulkner. He is currently on room air. The patient is getting IV heparin. The cardiac catheterization, showed severe triple-vessel disease, severe aortic stenosis and severe aortic regurgitation. The patient is currently in the process of being evaluated for open heart surgery. Laboratory data includes a white count 5.7, hemoglobin 10.8, macro 34.2, and a platelet count of 193,000. The patient's PTT is 45. Sodium 137, potassium 4.1, chlorides 105, CO2 29, BUN 16, creatinine 1.35. N-terminal proBNP was 1330. His troponin was 0.016. Chest CT showed no acute thoracic process, changes of mild COPD, and atherosclerotic calcification of thoracic aorta, with moderate coronary arterial calcifications, most prominent in the LAD. Progress note dated September 06, 2024. The patient is seen today in room 373. He is on room air. He is getting IV heparin. On his bedside spirometry, his FEV1 was 1.52 L, which would put him at low increased operative risk, for open heart surgery. Current labs include a white count 5.2, hemoglobin 11, hematocrit 35, and a normal platelet count. Sodium 136, potassium 3.9, chlorides 101, CO2 32, BUN 17, creatinine 1.45. Progress note dated and September 07, 2024. 74-year-old male seen today in room 373. He is currently on room air. He continues on IV heparin. The patient is likely to have a open heart procedure next week, may be on September 10Tuesday. Currently, he is resting comfortably, without any issues or problems. White count 6.9, hemoglobin 9.2, hematocrit 35.5, platelet count is normal. PTT is 42.2. Sodium 134, potassium 4, chlorides 103, CO2 26, BUN 28, creatinine 1.49. Progress note dated September 08, 2024. 74-year-old male with a history of coronary disease, and aortic stenosis. The patient is being evaluated for possible bypass grafting, and aortic valve replacement, early next week. Currently is on 2 L of oxygen. He is getting saline at 75 cc an hour. He is also on IV heparin. He has no specific complaints today. Current labs include a white count 6.6, hemoglobin 11.6, hematocrit 36.4, and a platelet count of 255,000. Sodium 135, potassium 3.8, chlorides 99, CO2 27, BUN 31, creatinine 1.93. His PTT is 49.6. His troponin is 0.028. Objective - Vital Signs Vital signs: Vital Signs Temp 99.5 F 09/08/24 08:00 Pulse 94 09/08/24 08:00 Resp 18 09/08/24 08:00 BP 120/74 09/08/24 08:00 Pulse Ox 97 09/08/24 08:00 FiO2 Intake & Output 09/07/24 09/08/24 09/08/24 18:59 06:59 18:59 Intake Total 492.714 10 Output Total 150 Balance 492.714 -140 Weight 59.5 kg Intake: IV 20 10 Invasive Line 1 20 10 Intake, IV Titration 232.714 Amount Heparin Sod,Pork in 0.45% 232.714 NaCl 25,000 unit In 0.45 % NaCl 1 250ml.bag @ 12 UNITS/KG/HR 7.457 mls/hr IV .Q24H [facility] Rx#: [id number] Oral 240 Output: Urine 150 Other: Voiding Method Urinal Urinal Urinal # Voids 1 - Exam No acute distress, oriented 3. The patient is currently on 2 L. HEENT examination is grossly unremarkable. Mucous membranes are moist. No oral lesions. Neck supple. Full range of motion. No adenopathy thyromegaly or neck vein distention. Cardiovascular examination reveals regular rhythm rate. S1-S2 normal. No S3 or S4. A 2/6 systolic murmur is noted, consistent with aortic stenosis. Heart sounds are distant. Lungs reveal clear breath sounds. Breath sounds are equal bilaterally. No adventitious lung sounds including wheezes rhonchi or crackles. Abdomen soft bowel sounds are heard. No masses or tenderness. Extremities are intact. No cyanosis clubbing or edema. Skin is without rash or lesion. Neurologic examination is brief but nonfocal. - Labs CBC & Chem 7: 09/08/24 06:49 09/08/24 06:49 Labs: Abnormal Lab Results - Last 24 Hours (Table) 09/07/24 09/08/24 09/08/24 Range/Units 14:49 06:49 06:49 RBC (4.30-5.90) m/uL Hgb (13.0-17.5) gm/dL Hct (39.0-53.0) % RDW (11.5-15.5) % APTT 49.4 H 49.6 H (22.0-30.0) sec Sodium 135 L (137-145) mmol/L BUN 31 H (9-20) mg/dL Creatinine 1.93 H (0.66-1.25) mg/dL Glucose 108 H (74-99) mg/dL 09/08/24 Range/Units 06:49 RBC 4.10 L (4.30-5.90) m/uL Hgb 11.6 L (13.0-17.5) gm/dL Hct 36.4 L (39.0-53.0) % RDW 15.6 H (11.5-15.5) % APTT (22.0-30.0) sec Sodium (137-145) mmol/L BUN (9-20) mg/dL Creatinine (0.66-1.25) mg/dL Glucose (74-99) mg/dL Assessment and Plan Assessment: Severe triple-vessel coronary artery disease. Severe aortic stenosis. Severe aortic regurgitation. Non-ST segment elevation myocardial infarction. History of hypertension. Chronic nicotine dependence, rule out COPD. Hyperlipidemia. Hypothyroidism. Plan: Plan dated September 05, 2024. The patient will likely have open heart surgery, both CABG and aortic valve rep lacement, sometime early next week according to the cardiothoracic surgeon. The patient will need a pulmonary function test. He was a heavy smoker up until his admission to the hospital. Has been smoking for at least 50 years. Additional recommendations and suggestions are forthcoming. Prognosis is guarded. Plan dated September 06, 2024. The patient had bedside spirometry which revealed an FEV1 that was 1.52 L. Based on this by itself, the patient is at low increased operative risk for gen eral anesthesia. Labs, x-rays, medications are reviewed. We will continue to follow, make recommendations along the way. The patient was smoking up until the time he came into the hospital. Apparently they are planning surgery 1 day next week. We will continue to follow. Plan dated September 07, 2024. The patient is seen today in room 373. He is resting comfortably. Lung function were analyzed. The patient continues on IV heparin. He is on room air. He is not receiving any IV fluids. Labs, x-rays, and all medications are reviewed. Prognosis is guarded. Plan dated September 08, 2024. The patient is again seen in room 373. He is resting comfortably in bed. The patient remains on O2 2 L. Yesterday he was on room air. Kidney function continues to deteriorate a bit. This may have an impact on when he has his bypass surgery. The patient is getting saline at 75 cc an hour, and IV heparin. We will continue to follow make recommendations along the way. Labs, chest x- ray, and medications are reviewed. Prognosis is guarded. Dictation was produced using [employer] software. Please excuse any grammatical, word or spelling errors. Time with Patient: Less than 30
--- NOTE | 2024-09-08 12:42 | US ---
EXAMINATION TYPE: US renals and bladder DATE OF EXAM: 09/08/2024 COMPARISON: NONE CLINICAL INDICATION: Male, 74 years old with history of CARMELO; CARMELO TECHNIQUE: Grayscale and color Doppler imaging of the bilateral kidneys and urinary bladder: FINDINGS: EXAM MEASUREMENTS: Right Kidney: 9.6 x 3.1 x 3.6 cm Left Kidney: 9.3 x 3.6 x 3.2 cm Incidental finding gallstone visualized 1 cm. Right Kidney: .7 x .9 cm echogenic area lower pole Left Kidney: Multiple anechoic areas largest upper pole 2.9 x 2.7 x 3.1 cm. Bladder: Anechoic prominent 4.3 cm prostate visualized. Bilateral Jets seen: right only. There is no evidence for hydronephrosis at this point in time. No masses are identified. The urinar y bladder is anechoic. IMPRESSION: 1. 9 mm calcification lower pole right kidney, no left renal calcifications. 2.Multiple cortical cys ts, left greater than right as described above 3. No hydronephrosis. 4. Enlarged prostate 5. Gallstone. [facility], , 09/08/2024 12:39 PM
--- NOTE | 2024-09-08 12:43 | P.PN ---
Subjective Progress Note Date: 09/08/24 Principal diagnosis: Triple vessel coronary artery disease, aortic stenosis/insufficiency. Past medical history significant for coronary artery disease with myocardial infarction and multiple stenting with the last stent greater than 10 years ago, peripheral arterial disease with endovascular abdominal aneurysm repair approximately 2 years ago at [facility], angioplasty in the right leg, hypertension, hyperlipidemia, remote history of pneumonia, current chronic tobacco dependence, occasional marijuana use, and medication noncompliance. The patient was seen and examined in follow-up today September 08, 2024 at his bedside on the third floor cardiac stepdown unit. Currently the patient is sitting up to the bedside edge, is awake, alert, oriented x 3 and is in no acute apparent distress. The patient's nurse states that the patient last evening had an episode of chest pain and was associated with an emesis. He denies any chest pain or chest pressure this morning or complaints of shortness of breath. He is currently scheduled for aortic valve replacement, myocardial revascularization surgery with left internal mammary artery, possible left radial artery endoscopi c harvest, endoscopic vein harvest, exclusion left atrial appendage and intraoperative transesophageal echocardiogram to be performed by Dr. Vitaliy Deluna on Tuesday, September 10, 2024. Preoperative teaching has been reinforced with the patient. Laboratory results were reviewed. The patient's creatinine continues to trend up and is 1.93 today, his hydrochlorothiazide has been discontinued and he has been started on some hydration 0.9% normal saline at 75 mL/h. A renal ultrasound has been ordered. Oxygen saturations are 95% on 2 L nasal cannula and he is achieving 3000 mL on his incentive spirometry with encouragement. Remote telemetry is showing normal sinus rhythm heart rate 92 bpm. The patient was also started on Ranexa due to his complaints of chest pain last evening. Heparin drip remains infusing per protocol. Objective - Vital Signs Vital signs: Vital Signs Temp 99.5 F 09/08/24 08:00 Pulse 94 09/08/24 08:00 Resp 18 09/08/24 08:00 BP 120/74 09/08/24 08:00 Pulse Ox 97 09/08/24 08:00 FiO2 Intake & Output 09/07/24 09/08/24 09/08/24 18:59 06:59 18:59 Intake Total 492.714 10 Output Total 150 Balance 492.714 -140 Weight 59.5 kg Intake: IV 20 10 Invasive Line 1 20 10 Intake, IV Titration 232.714 Amount Heparin Sod,Pork in 0.45% 232.714 NaCl 25,000 unit In 0.45 % NaCl 1 250ml.bag @ 12 UNITS/KG/HR 7.457 mls/hr IV .Q24H [facility] Rx#: [id number] Oral 240 Output: Urine 150 Other: Voiding Method Urinal Urinal Urinal # Voids 1 - Exam CONSTITUTIONAL: Sitting up to the bedside edge, appears comfortable, cooperative, no apparent acute distress. HEENT: Neck is supple, no JVD, no lymphadenopathy. RESPIRATORY: Lungs sounds essentially clear throughout, diminished to his bilateral bases. Respirations are symmetrical and nonlabored. Currently on 2 L nasal cannula with oxygen saturations 95%. Able to achieve 3000 mL on his incentive spirometry. Strong cough. CARDIOVASCULAR: Regular rhythm and rate. S1 and S2 present, negative for S3, or gallop positive systolic murmur 3/6. Palpable peripheral pulses bilaterally. Right no calf pain or tenderness noted. GASTROINTESTINAL: Abdomen soft, nontender, nondistended. Active bowel sounds present 4 quadrants. Tolerating diet. Passing flatus. No guarding or rigi dity. Bowel movement yesterday September 07, 2024. GENITOURINARY: Continues to void. INTEGUMENTARY: Skin is warm and dry with no evidence of clubbing or cyanosis. NEUROLOGIC: Cranial nerves II through XII intact. No focal deficits. MUSKULOSKELETAL: Able to move all extremities, strength equal bilaterally. PSYCHIATRIC: Alert and oriented to person place and time, appropriate affect, intact judgment and insight. - Allied health notes Allied health notes reviewed: nursing - Labs CBC & Chem 7: 09/08/24 06:49 09/08/24 06:49 Labs: Abnormal Lab Results - Last 24 Hours (Table) 09/07/24 09/08/24 09/08/24 Range/Units 14:49 06:49 06:49 RBC (4.30-5.90) m/uL Hgb (13.0-17.5) gm/dL Hct (39.0-53.0) % RDW (11.5-15.5) % APTT 49.4 H 49.6 H (22.0-30.0) sec Sodium 135 L (137-145) mmol/L BUN 31 H (9-20) mg/dL Creatinine 1.93 H (0.66-1.25) mg/dL Glucose 108 H (74-99) mg/dL 09/08/24 Range/Units 06:49 RBC 4.10 L (4.30-5.90) m/uL Hgb 11.6 L (13.0-17.5) gm/dL Hct 36.4 L (39.0-53.0) % RDW 15.6 H (11.5-15.5) % APTT (22.0-30.0) sec Sodium (137-145) mmol/L BUN (9-20) mg/dL Creatinine (0.66-1.25) mg/dL Glucose (74-99) mg/dL Assessment and Plan Assessment: Coronary artery disease with myocardial infarction and multiple stenting with the last stent greater than 10 years ago, non-STEMI this admission Chest pain secondary to above Severe aortic stenosis with severe aortic insufficiency on heart catheterization as well as echocardiogram, mean gradient 59 mmHg Hypothyroid, with an admission TSH level of 14.6 and a free T4 hypothyroid 0.76 History of peripheral arterial disease with endovascular abdominal aneurysm repair approximately 2 years ago at [facility] Angioplasty in the right leg Hypertension although patient denies Hyperlipidemia Remote history of pneumonia Current chronic tobacco dependence Occasional marijuana use Medication noncompliance Chronic kidney disease, creatinine today 1.93 Plan: Preoperative teaching in progress, reinforced with patient. Importance of risk modification including smoking cessation has been discussed and reinforced with the patient. Preoperative FEV1 shows 1.53, predicted value of 49%. Pulmonary critical care medicine following. Dental consult noted and appreciated. Dental clearance has been obtained. A 5 m walk test was completed September 05, 2024, time 1: 3.08 Seconds, time 2: 4.00 Seconds, time 3: 3.26 Seconds. The patient tolerated the walk well. An STS risk or was calculated and discussed with the patient. A clinical frailty score was also calculated which the score showed 4. Continue levothyroxine 100 mcg p.o. daily, as his TSH level was 14.600 and his free T4 was 0.76 on admission. Continue to maximize medical therapy with aspirin, statin and beta-aidan. Heparin drip management per cardiology recommendations. Ranexa 500 mg p.o. every 12 hours has been added by cardiology. Medical management and other comorbidities per internal medicine and cardiology recommendations. The patient is scheduled for aortic valve replacement, myocardial revascularization with left intramammary artery, endoscopic vein harvest, possible left radial artery harvest, exclusion left atrial appendage and intraoperative transesophageal echocardiogram completed by Dr. Vitaliy Deluna for Tuesday, September 10, 2024. Lisinopril has been discontinued by cardiology, and has been started on hydralazine 50 mg 3 times daily. Hydrochlorothiazide has been discontinued, continue to monitor daily labs and trending of his creatinine. He has been started on some IV fluids 0.9% normal saline at 75 mL/h. Renal ultrasound results pending. More recommendations to follow based on patient's clinical course. Time with Patient: Greater than 30
--- NOTE | 2024-09-08 12:51 | P.PN ---
Subjective Progress Note Date: 09/08/24 Patient is a 74-year-old male with a history of CAD x 3 stent placement, DVT, hyperlipidemia, and is a current smoker that came in for chest pain that began on Tuesday evening 09/02. He reported that chest pain was substernal, episodic, with an intensity of 6-7/10, pressure-like in nature (similar to his prior MIs), that radiated to both arms and the back. The pain initially occured on late ht Tuesday but had resolved by Tuesday morning upon waking. The pain recurred on Tuesday evening, which prompted him to come to the ED. He denies shortness of breath, nausea, diaphoresis, palpitations, dizziness, new onset cough, abdominal pain, facial asymmetry, changes in vision, or loss of consciousness. Denies pleuritic pain. Also denying lower extremity swelling or pain. Denies pain that is tearing in nature. Patient also notes that he doesn't believe that most medications work for him and thereby hadn't been taking them for some time now. In the emergency room, EKG showed sinus rhythm with a rate of [address]-T changes with good R wave progression and QTc of 439 MS. Chest x-ray showed no acute processes. Laboratory evaluation revealed WBC 6.1, hemoglobin 11.3, platelet count 180 PT 10.2 INR 0.9 PTT 26.5 sodium potassium 3.3 bicarb 35 BUN 15 creatinine 1.35 glucose 142 troponin 0.023 calcium 9 magnesium 2.2. On admission, patient was afebrile at 98 Fahrenheit heart rate of 70 respiratory rate 20 blood pressure 199/77 O2 saturation 96% on room air Progress note 09/08/2024 No events overnight. Patient seen and examined. Sitting up at bedside. Patient resting well no complaints of chest pain, palpitations, nausea or vomiting at this time. Awaiting plan CABG and aortic valve replacement next week, dependent on improvement of renal function. Review of systems: Pertinent positives and negatives as discussed in HPI, a complete review of systems was performed and all other systems are negative. Physical examination: Vital signs reviewed General: non toxic, no distress, appears older then stated age, underweight Derm: no unusual rashes/lesions, warm Head: atraumatic, normocephalic, symmetric Eyes: EOMI, no lid lag, anicteric sclera, pupils equal round reactive to light ENT: Nose and ears atraumatic Neck: No cervical lymphadenopathy, trachea midline, supple Mouth: no lip lesion, mucus membranes moist Cardiovascular: S1S2 reg, 3 out of 6 holosystolic murmur best heard on the right second ICS Lungs: CTA bilateral, no rhonchi, no rales, no accessory muscle use Abdominal: soft, nontender to palpation, no guarding Ext: muscle strength 5 out of 5 in all 4 extremities grossly, no gross muscle atrophy, no contractures, positive dorsalis pedis pulse bilateral, no edema Neuro: CN II-XI grossly intact, no gross focal neuro deficits Psych: Alert, oriented, appropriate affect and mood Labs reviewed today WBC 6.6, hemoglobin 11.6, platelets 255, APTT 49.6, sodium 135, potassium 3.8, bicarb 27, BUN 31, creatinine 1.93, glucose 108 Imaging reviewed todaynone Assessment/Plan: #Multivessel CAD #Severe aortic stenosis #Severe aortic regurgitation # NSTEMI, type I Hypertension Nicotine dependence Dyslipidemia S/P cardiac catheterization findings of multivessel CAD, no stent placed Completing workup for CABG and aortic valve replacement -Aspirin 81 mg daily and Lipitor 80 mg -Continue heparin IV drip, monitor APTT, monitor for bleeding -Continue with nitroglycerin 0.4 mg lingual as needed for chest pain Peak troponin 0.041 -Echocardiogram findings of normal LV function 55 to 60%, severe aortic stenosis with moderate aortic regurgitation Cardiology note reviewed, hydralazine 50 3 times daily, metoprolol 25 twice daily -On nitro patch 1 inch topical every 8 hours -Discussed smoking cessation during this admission -Discussed management with cardiothoracic surgery, plan CABG Aortic valve replacement, possibly Tuesday depending on CARMELO improvement. # Hyperglycemia Prediabetes Initial glucose 142. No Hx of DM. A1c 6.0 #Hypothyroidism -Started on levothyroxine 100 mcg daily Recheck TSH in 4 to 6 weeks # CARMELO with CKD stage IIIa -Possibly intrarenal versus prerenal -Possibly contrast-induced nephropathy Initial creatinine 1.35 => 1.49 => 1.93 Begin IV NS at 75 cc/h Ordered UA, US of kidney bladder, urine creatinine and sodium Will consider nephrology consult if CARMELO worsens # Hypokalemia, resolved DVT prophylaxis: IV heparin CODE STATUS: Full code Anticipated discharge place: Home, pending clinical course I have seen and evaluated the patient today. Discussed with the resident and agree with the residents finding and plan as documented in the resident's note. Changes highlighted in blue font. Objective - Vital Signs Vital signs: Vital Signs Temp 99.5 F 09/08/24 08:00 Pulse 94 09/08/24 08:00 Resp 18 09/08/24 08:00 BP 120/74 09/08/24 08:00 Pulse Ox 97 09/08/24 08:00 FiO2 Intake & Output 09/07/24 09/08/24 09/08/24 18:59 06:59 18:59 Intake Total 492.714 10 Output Total 150 Balance 492.714 -140 Weight 59.5 kg Intake: IV 20 10 Invasive Line 1 20 10 Intake, IV Titration 232.714 Amount Heparin Sod,Pork in 0.45% 232.714 NaCl 25,000 unit In 0.45 % NaCl 1 250ml.bag @ 12 UNITS/KG/HR 7.457 mls/hr IV .Q24H [facility] Rx#: [id number] Oral 240 Output: Urine 150 Other: Voiding Method Urinal Urinal Urinal # Voids 1 - Labs CBC & Chem 7: 09/08/24 06:49 09/08/24 06:49 Labs: Abnormal Lab Results - Last 24 Hours (Table) 09/07/24 09/08/24 09/08/24 Range/Units 14:49 06:49 06:49 RBC (4.30-5.90) m/uL Hgb (13.0-17.5) gm/dL Hct (39.0-53.0) % RDW (11.5-15.5) % APTT 49.4 H 49.6 H (22.0-30.0) sec Sodium 135 L (137-145) mmol/L BUN 31 H (9-20) mg/dL Creatinine 1.93 H (0.66-1.25) mg/dL Glucose 108 H (74-99) mg/dL 09/08/24 Range/Units 06:49 RBC 4.10 L (4.30-5.90) m/uL Hgb 11.6 L (13.0-17.5) gm/dL Hct 36.4 L (39.0-53.0) % RDW 15.6 H (11.5-15.5) % APTT (22.0-30.0) sec Sodium (137-145) mmol/L BUN (9-20) mg/dL Creatinine (0.66-1.25) mg/dL Glucose (74-99) mg/dL
[2024-09-08 16:16] LABS: Appearance,Urine Clear (Clear); Bilirubin,Urine Negative (Negative); Blood,Urine Negative (Negative); Color,Urine Yellow; Glucose,Urine (UA) Negative (Negative); Ketones,Urine Negative (Negative); Leukocyte Esterase,Urine Negative (Negative); Nitrite,Urine Negative (Negative); PH, Urine 5.5 (5.0-8.0); Protein,Urine Trace (Negative); Specific Gravity,Urine 1.022 (1.001-1.035); Urobilinogen,Urine <2.0 mg/dL (<2.0)
--- NOTE | 2024-09-08 18:10 | P.PN ---
Subjective Progress Note Date: 09/08/24 HPI: This gentleman has severe aortic stenosis and triple-vessel disease who underwent cardiac catheterization by Dr. Byrd was seen by cardiac surgery. He is going to have a bypass surgery and aortic valve replacement on Tuesday. He has mildly elevated creatinine I will discontinue lisinopril and add hy dralazine. Will continue intravenous heparin. Discussed with patient regarding surgery. He was already seen by Dr. Deluna vitals are stable. PHYSICIAL EXAM: Alert oriented Regular pulses, systolic murmur audible in the aortic area with muffled S2 with systolic murmur radiating to the carotids Delayed carotid upstroke. Pulses parvus at tardus No significant lower extremity edema or elevated JVD Diminished breath sounds due to poor inspiratory effort. However no crackles wheezing or rhonchi Abdomen is nondistended nontender No focal neurological deficit. Detailed neuroexam was not performed IMPRESSION: Severe aortic stenosis Severe aortic regurgitation Triple-vessel disease Severe PAD Prior history of infrarenal aortic endovascular repair with [facility] History of bilateral renal stenting RECOMMENDATIONS: [This gentleman is doing better he has no chest pain or shortness of breath creatinine has not gone up significantly. We will continue to give him heparin avoid lisinopril stay with hydralazine BP control is good surgery is scheduled for Tuesday. He will have a bypass surgery and aortic valve replacement. Will continue IV heparin for now. Blood pressure is good]. ASSESSMENT PLAN Continue IV heparin drip Continue aspirin, atorvastatin Continue metoprolol 25 mg twice daily, hydralazine Schedule surgery on Tuesday Objective - Vital Signs Vital signs: Vital Signs Temp 97.7 F 09/08/24 16:00 Pulse 74 09/08/24 16:00 Resp 18 09/08/24 16:00 BP 133/70 09/08/24 16:00 Pulse Ox 96 09/08/24 16:00 FiO2 Intake & Output 09/07/24 09/08/24 09/08/24 18:59 06:59 18:59 Intake Total 492.714 10 706.19 Output Total 150 Balance 492.714 -140 706.19 Weight 59.5 kg Intake: IV 20 10 Invasive Line 1 20 10 Intake, IV Titration 232.714 226.19 Amount Heparin Sod,Pork in 0.45% 232.714 226.19 NaCl 25,000 unit In 0.45 % NaCl 1 250ml.bag @ 12 UNITS/KG/HR 7.457 mls/hr IV .Q24H [facility] Rx#: [id number] Oral 240 480 Output: Urine 150 Other: Voiding Method Urinal Urinal Urinal # Voids 1 - Labs CBC & Chem 7: 09/08/24 06:49 09/08/24 06:49 Labs: Abnormal Lab Results - Last 24 Hours (Table) 09/08/24 09/08/24 09/08/24 Range/Units 06:49 06:49 06:49 RBC 4.10 L (4.30-5.90) m/uL Hgb 11.6 L (13.0-17.5) gm/dL Hct 36.4 L (39.0-53.0) % RDW 15.6 H (11.5-15.5) % APTT 49.6 H (22.0-30.0) sec Sodium 135 L (137-145) mmol/L BUN 31 H (9-20) mg/dL Creatinine 1.93 H (0.66-1.25) mg/dL Glucose 108 H (74-99) mg/dL Urine Protein (Negative) 09/08/24 Range/Units 14:00 RBC (4.30-5.90) m/uL Hgb (13.0-17.5) gm/dL Hct (39.0-53.0) % RDW (11.5-15.5) % APTT (22.0-30.0) sec Sodium (137-145) mmol/L BUN (9-20) mg/dL Creatinine (0.66-1.25) mg/dL Glucose (74-99) mg/dL Urine Protein Trace H (Negative)
[2024-09-08] MEDS: MUPIROCIN 2% OINT 22 GM TUBE NASAL SCH (20:07)
[2024-09-09 07:23] LABS: HCT 32.2 % (39.0-53.0); HGB 10.2 gm/dL (13.0-17.5); Hypochromasia Slight; MCH 28.4 pg (25.0-35.0); MCHC 31.8 g/dL (31.0-37.0); MCV 89.3 fL (80.0-100.0); Mean Platelet Volume 7.1; Platelet Count 233 k/uL (150-450); RDW 15.5 % (11.5-15.5); WBC 4.9 k/uL (3.8-10.6)
[2024-09-09 07:41] LABS: Partial Thromboplastin Time 52.3 sec (22.0-30.0); Prothrombin Time 10.7 sec (10.0-12.5)
[2024-09-09 07:46] LABS: ALT 24 U/L (4-49); AST 30 U/L (17-59); African American GFR (CKD) 43 (>60 ml/min/1.73 sqM); Albumin 3.5 g/dL (3.5-5.0); Alkaline Phosphatase 65 U/L (38-126); Anion Gap 4 mmol/L; Blood Urea Nitrogen 27 mg/dL (9-20); Calcium 9.1 mg/dL (8.4-10.2); Carbon Dioxide 29 mmol/L (22-30); Chloride 102 mmol/L (98-107); Glucose 92 mg/dL (74-99); Magnesium 1.9 mg/dL (1.6-2.3); Non-African American GFR(CKD) 37 (>60 ml/min/1.73 sqM); Potassium 3.9 mmol/L (3.5-5.1); Sodium 135 mmol/L (137-145); Total Bilirubin 0.8 mg/dL (0.2-1.3); Total Protein 6.3 g/dL (6.3-8.2)
--- NOTE | 2024-09-09 10:19 | P.PN ---
Subjective Progress Note Date: 09/09/24 Principal diagnosis: Triple vessel coronary artery disease, aortic stenosis/insufficiency. Past medical history significant for coronary artery disease with myocardial infarction and multiple stenting with the last stent greater than 10 years ago, peripheral arterial disease with endovascular abdominal aneurysm repair approximately 2 years ago at [facility], angioplasty in the right leg, hypertension, hyperlipidemia, remote history of pneumonia, current chronic tobacco dependence, occasional marijuana use, and medication noncompliance. The patient was seen and examined in follow-up today September 09, 2024 at his bedside on the third floor cardiac stepdown unit. He is currently sitting up to the bedside edge, is awake, alert, oriented x 3 and is in no acute apparent di stress. The patient denies any further complaints of chest pain, chest pressure, nausea or vomiting. Denies any complaints of shortness of breath. Oxygen saturations are 98% on room air and he is achieving 3000 mL on his incentive spirometry with encouragement. Laboratory results reviewed this m orning, his creatinine is trending down and is 1.78 this morning, he continues on 0.9% normal saline at 75 mL/h. Remote telemetry is showing normal sinus rhythm heart rate 72 bpm. He reports he has been up ambulating in the hallway with standby assistance from nursing and therapy staff and tolerating well. Heparin drip remains infusing per protocol. He is scheduled for aortic valve replacement, myocardial revascularization surgery with left internal mammary artery, possible left radial artery endoscopic harvest, endoscopic vein harvest, exclusion left atrial appendage and intraoperative transesophageal echocardiogram to be performed by Dr. Vitaliy Deluna tomorrow Tuesday, September 10, 2024. Preoperative teaching has been reinforced with the patient and his questions have been answered to the best of my ability. He continues on aspirin, statin, beta-aidan and Ranexa. Objective - Vital Signs Vital signs: Vital Signs Temp 98.4 F 09/09/24 08:00 Pulse 72 09/09/24 08:00 Resp 18 09/09/24 08:00 BP 121/59 09/09/24 08:00 Pulse Ox 96 09/09/24 08:00 FiO2 Intake & Output 09/08/24 09/09/24 09/09/24 18:59 06:59 18:59 Intake Total 706.19 20 Balance 706.19 20 Intake: IV 20 Invasive Line 1 10 Invasive Line 2 10 Intake, IV Titration 226.19 Amount Heparin Sod,Pork in 0.45% 226.19 NaCl 25,000 unit In 0.45 % NaCl 1 250ml.bag @ 12 UNITS/KG/HR 7.457 mls/hr IV .Q24H [facility] Rx#: [id number] Oral 480 Other: Voiding Method Urinal Toilet # Voids 1 - Exam CONSTITUTIONAL: Sitting up to the bedside edge, appears comfortable, cooperative, no apparent acute distress. HEENT: Neck is supple, no JVD, no lymphadenopathy. RESPIRATORY: Lungs sounds essentially clear throughout, diminished to his bilateral bases. Respirations are symmetrical and nonlabored. Currently on room air with oxygen saturations 95%. Able to achieve 3000 mL on his incentive sp irometry. Strong cough. CARDIOVASCULAR: Regular rhythm and rate. S1 and S2 present, negative for S3, or gallop positive systolic murmur 3/6. Palpable peripheral pulses bilaterally. Right no calf pain or tenderness noted. GASTROINTESTINAL: Abdomen soft, nontender, nondistended. Active bowel sounds present 4 quadrants. Tolerating diet. Passing flatus. No guarding or rigidity. Bowel movement September 07, 2024. GENITOURINARY: Continues to void. INTEGUMENTARY: Skin is warm and dry with no evidence of clubbing or cyanosis. NEUROLOGIC: Cranial nerves II through XII intact. No focal deficits. MUSKULOSKELETAL: Able to move all extremities, strength equal bilaterally. PSYCHIATRIC: Alert and oriented to person place and time, appropriate affect, intact judgment and insight. - Allied health notes Allied health notes reviewed: nursing - Labs CBC & Chem 7: 09/09/24 06:25 09/09/24 06:25 Labs: Abnormal Lab Results - Last 24 Hours (Table) 09/08/24 09/09/24 09/09/24 Range/Units 14:00 06:25 06:25 RBC 3.60 L (4.30-5.90) m/uL Hgb 10.2 L (13.0-17.5) gm/dL Hct 32.2 L (39.0-53.0) % APTT (22.0-30.0) sec Sodium (137-145) mmol/L BUN (9-20) mg/dL Creatinine (0.66-1.25) mg/dL Urine Protein Trace H (Negative) Crossmatch See Detail 09/09/24 09/09/24 Range/Units 06:25 06:25 RBC (4.30-5.90) m/uL Hgb (13.0-17.5) gm/dL Hct (39.0-53.0) % APTT 52.3 H (22.0-30.0) sec Sodium 135 L (137-145) mmol/L BUN 27 H (9-20) mg/dL Creatinine 1.78 H (0.66-1.25) mg/dL Urine Protein (Negative) Crossmatch Assessment and Plan Assessment: Coronary artery disease with myocardial infarction and multiple stenting with t he last stent greater than 10 years ago, non-STEMI this admission Chest pain secondary to above Severe aortic stenosis with severe aortic insufficiency on heart catheterization as well as echocardiogram, mean gradient 59 mmHg Hypothyroid, with an admission TSH level of 14.6 and a free T4 hypothyroid 0.76 History of peripheral arterial disease with endovascular abdominal aneurysm repair approximately 2 years ago at [facility] Angioplasty in the right leg Hypertension although patient denies Hyperlipidemia Remote history of pneumonia Current chronic tobacco dependence Occasional marijuana use Medication noncompliance Chronic kidney disease, creatinine today 1.93 Plan: Preoperative teaching in progress, reinforced with patient. Importance of risk modification including smoking cessation has been discussed and reinforced with the patient. Preoperative FEV1 shows 1.53, predicted value of 49%. Pulmonary critical care medicine following. Dental consult noted and appreciated. Dental clearance has been obtained. A 5 m walk test was completed September 05, 2024, time 1: 3.08 Seconds, time 2: 4.00 Seconds, time 3: 3.26 Seconds. The patient tolerated the walk well. An STS risk or was calculated and discussed with the patient. A clinical frailty score was also calculated which the score showed 4. Continue levothyroxine 100 mcg p.o. daily, as his TSH level was 14.600 and his free T4 was 0.76 on admission. Continue to maximize medical therapy with aspirin, statin, Ranexa and beta- aidan. Heparin drip management per cardiology recommendations. Medical management and other comorbidities per internal medicine and cardiology recommendations. The patient is scheduled for aortic valve replacement, myocardial revascularization with left intramammary artery, endoscopic vein harvest, possible left radial artery harvest, exclusion left atrial appendage and intraoperative transesophageal echocardiogram completed by Dr. Vitaliy Deluna tomorrow Tuesday, September 10, 2024. Lisinopril has been discontinued by cardiology, continue hydralazine 50 mg 3 times daily. Hydrochlorothiazide has been discontinued, continue to monitor daily labs and trending of his creatinine, creatinine 1.78 today and is trending down. He is currently on IV fluids 0.9% normal saline at 75 mL/h. More recommendations to follow based on patient's clinical course. Time with Patient: Greater than 30
--- NOTE | 2024-09-09 11:31 | P.PN ---
Subjective Progress Note Date: 09/09/24 Pulmonary consult dated September 05, 2024. 74-year-old male who presented to the hospital, on September 03, via the emergency room. The patient presented with complaints of chest pain. The patient does have a history of atherosclerotic cardiovascular disease, and for a couple days prior to admission, was complaining of chest pressure. The chest pain/pressure, apparently radiated to both arms. He did not have any associated diaphoresis, or nausea. The patient apparently has had a heart attack in the past, and the pain that he was having, seemed similar. Today, we talked to Dr. Deluna about this patient, and apparently this patient will stay in the hospital, and have surgery, sometime early next week. The patient also has a history of significant tobacco use for about 50 years. He was smoking up until the time he came into the hospital. His primary care physician is Dr. John Faulkner. He is currently on room air. The patient is getting IV heparin. The cardiac catheterization, showed severe triple-vessel disease, severe aortic stenosis and severe aortic regurgitation. The patient is currently in the process of being evaluated for open heart surgery. Laboratory data includes a white count 5.7, hemoglobin 10.8, macro 34.2, and a platelet count of 193,000. The patient's PTT is 45. Sodium 137, potassium 4.1, chlorides 105, CO2 29, BUN 16, creatinine 1.35. N-terminal proBNP was 1330. His troponin was 0.016. Chest CT showed no acute thoracic process, changes of mild COPD, and atherosclerotic calcification of thoracic aorta, with moderate coronary arterial calcifications, most prominent in the LAD. Progress note dated September 06, 2024. The patient is seen today in room 373. He is on room air. He is getting IV heparin. On his bedside spirometry, his FEV1 was 1.52 L, which would put him at low increased operative risk, for open heart surgery. Current labs include a white count 5.2, hemoglobin 11, hematocrit 35, and a normal platelet count. Sodium 136, potassium 3.9, chlorides 101, CO2 32, BUN 17, creatinine 1.45. Progress note dated and September 07, 2024. 74-year-old male seen today in room 373. He is currently on room air. He continues on IV heparin. The patient is likely to have a open heart procedure next week, may be on September 10Tuesday. Currently, he is resting comfortably, without any issues or problems. White count 6.9, hemoglobin 9.2, hematocrit 35.5, platelet count is normal. PTT is 42.2. Sodium 134, potassium 4, chlorides 103, CO2 26, BUN 28, creatinine 1.49. Progress note dated September 08, 2024. 74-year-old male with a history of coronary disease, and aortic stenosis. The patient is being evaluated for possible bypass grafting, and aortic valve replacement, early next week. Currently is on 2 L of oxygen. He is getting bibi ine at 75 cc an hour. He is also on IV heparin. He has no specific complaints today. Current labs include a white count 6.6, hemoglobin 11.6, hematocrit 36.4, and a platelet count of 255,000. Sodium 135, potassium 3.8, chlorides 99, CO2 27, BUN 31, creatinine 1.93. His PTT is 49.6. His troponin is 0.028. The patient is seen today September 09, 2024 in follow-up on the selective care unit. He is currently resting comfortably in bed. Awake and alert in no acute distress. He is maintaining O2 saturations in the 90s on room air. He denies any shortness of breath, cough or congestion. He denies any chest pain. He is continued on a heparin drip. Practicing with the incentive spirometer. White count 4.9. Hemoglobin 10.2. Platelets 233. PTT 52.3. Sodium 135. Potassium 3.9. Bicarb 29. BUN 27. Creatinine 1.78. Objective - Vital Signs Vital signs: Vital Signs Temp 98.4 F 09/09/24 08:00 Pulse 72 09/09/24 08:00 Resp 18 09/09/24 08:00 BP 121/59 09/09/24 08:00 Pulse Ox 96 09/09/24 08:00 FiO2 Intake & Output 09/08/24 09/09/24 09/09/24 18:59 06:59 18:59 Intake Total 706.19 20 267.291 Balance 706.19 20 267.291 Intake: IV 20 Invasive Line 1 10 Invasive Line 2 10 Intake, IV Titration 226.19 149.291 Amount Heparin Sod,Pork in 0.45% 226.19 149.291 NaCl 25,000 unit In 0.45 % NaCl 1 250ml.bag @ 12 UNITS/KG/HR 7.457 mls/hr IV .Q24H [facility] Rx#: [id number] Oral 480 118 Other: Voiding Method Urinal Toilet Toilet # Voids 1 - Exam GENERAL EXAM: Alert, active, 74-year-old male, on room air, comfortable in no apparent distress. HEAD: Normocephalic. EYES: Normal reaction of pupils, equal size. NOSE: Clear with pink turbinates. THROAT: No erythema or exudates. NECK: No masses, no JVD. CHEST: No chest wall deformity. LUNGS: Equal air entry with no crackles, wheeze, rhonchi or dullness. CVS: S1 and S2 normal with no audible murmur, regular rhythm. ABDOMEN: No hepatosplenomegaly, normal bowel sounds, no guarding or rigidity. SPINE: No scoliosis or deformity SKIN: No rashes CENTRAL NERVOUS SYSTEM: No focal deficits, tone is normal in all 4 extremities. EXTREMITIES: There is no peripheral edema. No clubbing, no cyanosis. Peripheral pulses are intact. - Labs CBC & Chem 7: 09/09/24 06:25 09/09/24 06:25 Labs: Abnormal Lab Results - Last 24 Hours (Table) 09/08/24 09/09/24 09/09/24 Range/Units 14:00 06:25 06:25 RBC 3.60 L (4.30-5.90) m/uL Hgb 10.2 L (13.0-17.5) gm/dL Hct 32.2 L (39.0-53.0) % APTT (22.0-30.0) sec Sodium (137-145) mmol/L BUN (9-20) mg/dL Creatinine (0.66-1.25) mg/dL Urine Protein Trace H (Negative) Crossmatch See Detail 09/09/24 09/09/24 Range/Units 06:25 06:25 RBC (4.30-5.90) m/uL Hgb (13.0-17.5) gm/dL Hct (39.0-53.0) % APTT 52.3 H (22.0-30.0) sec Sodium 135 L (137-145) mmol/L BUN 27 H (9-20) mg/dL Creatinine 1.78 H (0.66-1.25) mg/dL Urine Protein (Negative) Crossmatch Assessment and Plan Assessment: Severe triple-vessel coronary artery disease. Coronary artery bypass grafting tomorrow 09/10/2024 Severe aortic stenosis. Plan is for aortic valve replacement tomorrow 09/10/2024 Severe aortic regurgitation Non-ST segment elevation myocardial infarction. Remains on a heparin drip Hypertension Chronic nicotine dependence, rule out COPD. FEV1 shows 1.53 L, 49% of predicted Hyperlipidemia Hypothyroidism Plan: Patient was seen and evaluated Labs and medications reviewed Continues on a heparin drip Plan is for surgery tomorrow Working with the incentive spirometer We will continue to follow I have personally seen and examined the patient, performed the documentation and the assessment and plan as written. Number of minutes spent on the visit: 10. Dictation was produced using [employer] dictation software. Please excuse any grammatical, word or spelling errors.
--- NOTE | 2024-09-09 11:31 | P.PN ---
Subjective Progress Note Date: 09/09/24 HPI: This gentleman has severe aortic stenosis and triple-vessel disease who underwent cardiac catheterization by Dr. Byrd was seen by cardiac surgery. He is going to have a bypass surgery and aortic valve replacement on Tuesday. He has mildly elevated creatinine I will discontinue lisinopril and add hy dralazine. Will continue intravenous heparin. Discussed with patient regarding surgery. He was already seen by Dr. Deluna vitals are stable. Resting comfortably in the bed. He denies any chest pain chest pressure shortness of breath September 09, 2024 Heart rate 72 bpm, BP 121/60, hemoglobin 10.2, creatinine 1.78, sodium 135 He denies any chest pain chest pressure shortness of breath. PHYSICIAL EXAM: Alert oriented Regular pulses, systolic murmur audible in the aortic area with muffled S2 with systolic murmur radiating to the carotids Delayed carotid upstroke. Pulses parvus at tardus No significant lower extremity edema or elevated JVD Diminished breath sounds due to poor inspiratory effort. However no crackles wheezing or rhonchi Abdomen is nondistended nontender No focal neurological deficit. Detailed neuroexam was not performed IMPRESSION: Severe aortic stenosis Severe aortic regurgitation Triple-vessel disease Severe PAD Prior history of infrarenal aortic endovascular repair with EVAR History of bilateral renal stenting PLAN Continue IV heparin drip Continue aspirin, atorvastatin Continue metoprolol 25 mg twice daily, hydralazine Schedule surgery on Tuesday Objective - Vital Signs Vital signs: Vital Signs Temp 98.4 F 09/09/24 08:00 Pulse 72 09/09/24 08:00 Resp 18 09/09/24 08:00 BP 121/59 09/09/24 08:00 Pulse Ox 96 09/09/24 08:00 FiO2 Intake & Output 09/08/24 09/09/24 09/09/24 18:59 06:59 18:59 Intake Total 706.19 20 267.291 Balance 706.19 20 267.291 Intake: IV 20 Invasive Line 1 10 Invasive Line 2 10 Intake, IV Titration 226.19 149.291 Amount Heparin Sod,Pork in 0.45% 226.19 149.291 NaCl 25,000 unit In 0.45 % NaCl 1 250ml.bag @ 12 UNITS/KG/HR 7.457 mls/hr IV .Q24H [facility] Rx#: [id number] Oral 480 118 Other: Voiding Method Urinal Toilet Toilet # Voids 1 - Labs CBC & Chem 7: 09/09/24 06:25 09/09/24 06:25 Labs: Abnormal Lab Results - Last 24 Hours (Table) 09/08/24 09/09/24 09/09/24 Range/Units 14:00 06:25 06:25 RBC 3.60 L (4.30-5.90) m/uL Hgb 10.2 L (13.0-17.5) gm/dL Hct 32.2 L (39.0-53.0) % APTT (22.0-30.0) sec Sodium (137-145) mmol/L BUN (9-20) mg/dL Creatinine (0.66-1.25) mg/dL Urine Protein Trace H (Negative) Crossmatch See Detail 09/09/24 09/09/24 Range/Units 06:25 06:25 RBC (4.30-5.90) m/uL Hgb (13.0-17.5) gm/dL Hct (39.0-53.0) % APTT 52.3 H (22.0-30.0) sec Sodium 135 L (137-145) mmol/L BUN 27 H (9-20) mg/dL Creatinine 1.78 H (0.66-1.25) mg/dL Urine Protein (Negative) Crossmatch
--- NOTE | 2024-09-09 12:14 | P.PN ---
Subjective Progress Note Date: 09/09/24 Patient is a 74-year-old male with a history of CAD x 3 stent placement, DVT, hyperlipidemia, and is a current smoker that came in for chest pain that began on Tuesday evening 09/02. He reported that chest pain was substernal, episodic, with an intensity of 6-7/10, pressure-like in nature (similar to his prior MIs), that radiated to both arms and the back. The pain initially occured on late ght Tuesday but had resolved by Tuesday upon waking. The pain recurred on Tuesday evening, which prompted him to come to the ED. He denies shortness of breath, nausea, diaphoresis, palpitations, dizziness, new onset cough, abdominal pain, facial asymmetry, changes in vision, or loss of consciousness. Denies pleuritic pain. Also denying lower extremity swelling or pain. Denies pain that is tearing in nature. Patient also notes that he doesn't believe that most medications work for him and thereby hadn't been taking them for some time now. In the emergency room, EKG showed sinus rhythm with a rate of [address]-T changes with good R wave progression and QTc of 439 MS. Chest x-ray showed no acute processes. Laboratory evaluation revealed WBC 6.1, hemoglobin 11.3, platelet count 180 PT 10.2 INR 0.9 PTT 26.5 sodium potassium 3.3 bicarb 35 BUN 15 creatinine 1.35 glucose 142 troponin 0.023 calcium 9 magnesium 2.2. On admission, patient was afebrile at 98 Fahrenheit heart rate of 70 respiratory rate 20 blood pressure 199/77 O2 saturation 96% on room air Subjective: No acute events overnight. Denies any chest pain. Making adequate urine. Review of systems: Pertinent positives and negatives as discussed in HPI, a complete review of systems was performed and all other systems are negative. Physical examination: Vital signs reviewed General: non toxic, no distress, appears older then stated age, underweight Derm: no unusual rashes/lesions, warm Head: atraumatic, normocephalic, symmetric Eyes: EOMI, no lid lag, anicteric sclera, pupils equal round reactive to light ENT: Nose and ears atraumatic Neck: No cervical lymphadenopathy, trachea midline, supple Mouth: no lip lesion, mucus membranes moist Cardiovascular: S1S2 reg, 3 out of 6 holosystolic murmur best heard on the right second ICS Lungs: CTA bilateral, no rhonchi, no rales, no accessory muscle use Abdominal: soft, nontender to palpation, no guarding Ext: muscle strength 5 out of 5 in all 4 extremities grossly, no gross muscle atrophy, no contractures, positive dorsalis pedis pulse bilateral, no edema Neuro: CN II-XI grossly intact, no gross focal neuro deficits Psych: Alert, oriented, appropriate affect and mood Labs reviewed today WBC 4.9, hemoglobin 10.2, sodium 135, creatinine 1.70, magnesium 1.9, urinalysis showed trace protein Imaging reviewed todayrenal ultrasound did not show any hydronephrosis Assessment/Plan: #Multivessel CAD #Severe aortic stenosis #Severe aortic regurgitation # NSTEMI, type I Hypertension Nicotine dependence Dyslipidemia CABG and aortic valve replacement tomorrow -Cardiothoracic surgery note reviewed, plan for procedure as stated above -Aspirin 81 mg daily and Lipitor 80 mg -Continue heparin IV drip, monitor APTT, monitor for bleeding -Continue with nitroglycerin 0.4 mg lingual as needed for chest pain Peak troponin 0.041 -Echocardiogram findings of normal LV function 55 to 60%, severe aortic stenosis with moderate aortic regurgitation Cardiology note reviewed, continue hydralazine 50 3 times daily, metoprolol 25 twice daily -On nitro patch 1 inch topical every 8 hours -Discussed smoking cessation during this admission -Pulmonology note reviewed, plan as above # Hyperglycemia Prediabetes Initial glucose 142. No Hx of DM. A1c 6.0 #Hypothyroidism -Continue on levothyroxine 100 mcg daily Recheck TSH in 4 to 6 weeks # CARMELO with CKD stage IIIa -Renal function improving, continue normal saline at 75 cc an hour # Hypokalemia, resolved DVT prophylaxis: IV heparin CODE STATUS: Full code Anticipated discharge place: Home, pending clinical course Objective - Vital Signs Vital signs: Vital Signs Temp 98.4 F 09/09/24 08:00 Pulse 72 09/09/24 08:00 Resp 18 09/09/24 08:00 BP 121/59 09/09/24 08:00 Pulse Ox 96 09/09/24 08:00 FiO2 Intake & Output 09/08/24 09/09/24 09/09/24 18:59 06:59 18:59 Intake Total 706.19 20 267.291 Balance 706.19 20 267.291 Intake: IV 20 Invasive Line 1 10 Invasive Line 2 10 Intake, IV Titration 226.19 149.291 Amount Heparin Sod,Pork in 0.45% 226.19 149.291 NaCl 25,000 unit In 0.45 % NaCl 1 250ml.bag @ 12 UNITS/KG/HR 7.457 mls/hr IV .Q24H [facility] Rx#: [id number] Oral 480 118 Other: Voiding Method Urinal Toilet Toilet # Voids 1 - Labs CBC & Chem 7: 09/09/24 06:25 09/09/24 06:25 Labs: Abnormal Lab Results - Last 24 Hours (Table) 09/08/24 09/09/24 09/09/24 Range/Units 14:00 06:25 06:25 RBC 3.60 L (4.30-5.90) m/uL Hgb 10.2 L (13.0-17.5) gm/dL Hct 32.2 L (39.0-53.0) % APTT (22.0-30.0) sec Sodium (137-145) mmol/L BUN (9-20) mg/dL Creatinine (0.66-1.25) mg/dL Urine Protein Trace H (Negative) Crossmatch See Detail 09/09/24 09/09/24 Range/Units 06:25 06:25 RBC (4.30-5.90) m/uL Hgb (13.0-17.5) gm/dL Hct (39.0-53.0) % APTT 52.3 H (22.0-30.0) sec Sodium 135 L (137-145) mmol/L BUN 27 H (9-20) mg/dL Creatinine 1.78 H (0.66-1.25) mg/dL Urine Protein (Negative) Crossmatch
[2024-09-10 04:32] LABS: HCT 29.6 % (39.0-53.0); HGB 9.8 gm/dL (13.0-17.5); MCH 29.2 pg (25.0-35.0); MCHC 33.2 g/dL (31.0-37.0); MCV 87.9 fL (80.0-100.0); Mean Platelet Volume 7.8; Platelet Count 205 k/uL (150-450); RBC 3.37 m/uL (4.30-5.90); WBC 5.7 k/uL (3.8-10.6)
[2024-09-10] MEDS ORDERED: INSULIN REGULAR 100 UNIT in SODIUM CHLORIDE 0.9% 100 ML IV SCH (05:00)
[2024-09-10] MEDS ORDERED: NOREPINEPHRINE 4 MG in SODIUM CHLORIDE 0.9% 250 ML IV SCH (05:00)
[2024-09-10 05:01] LABS: African American GFR (CKD) 51 (>60 ml/min/1.73 sqM); Anion Gap 4 mmol/L; Blood Urea Nitrogen 20 mg/dL (9-20); Carbon Dioxide 25 mmol/L (22-30); Chloride 104 mmol/L (98-107); Glucose 88 mg/dL (74-99); Non-African American GFR(CKD) 44 (>60 ml/min/1.73 sqM); Sodium 133 mmol/L (137-145)
[2024-09-10] MEDS: ATORVASTATIN 10 MG TAB PO ONE (05:33)
[2024-09-10] MEDS: ASPIRIN 325 MG TAB PO ONE (05:33)
[2024-09-10] MEDS: METOPROLOL TARTRATE 12.5 MG TAB PO ONE (05:34)
[2024-09-10] MEDS ORDERED: CARDIOPLEGIC SOLN (K+ 16 MEQ/L 1,000 ML with SOD BICARB SYR 8.4% (1 MEQ/ML) 20 ML, LIDO... PERFUSION NR (06:00)
[2024-09-10 06:18] LABS: Glucose,Whole Blood 108 mg/dL (70-110)
[2024-09-10] MEDS: IV FLUID CONTINUATION 1,000 ML IV ONE (06:19)
[2024-09-10] MEDS ORDERED: PHENYLEPHRINE 10 MG/ML VIAL ONE (08:00)
[2024-09-10] MEDS ORDERED: INSULIN REGULAR 100 UNIT/ML VIAL (IV) ONE (08:00)
[2024-09-10] MEDS ORDERED: PROTAMINE SULFATE 10 MG/ML 25 ML VIAL IV ONE (08:00)
[2024-09-10] MEDS ORDERED: LIDOCAINE 2% SYG (PF) 100 MG/5 ML ONE (08:00)
[2024-09-10] MEDS ORDERED: VECURONIUM 10 MG VIAL IV ONE (08:00)
[2024-09-10] MEDS ORDERED: TRANEXAMIC 1,000 MG/100ML-NACL PREMIX BAG ONE (08:00)
[2024-09-10] MEDS ORDERED: ePHEDrine 50 MG/ML 1 ML VIAL ONE (08:00)
[2024-09-10] MEDS ORDERED: NITROGLYCERIN-D5W PMX 50 MG/250 ML BOTTLE IV ONE (08:00)
[2024-09-10] MEDS ORDERED: ALBUMIN HUMAN 5% (25gm) 500 ML VIAL IVPB ONE (08:00)
[2024-09-10] MEDS ORDERED: fentaNYL (PF) 50 MCG/ML 50 ML VIAL ONE (08:00)
[2024-09-10] MEDS ORDERED: CALCIUM CHLORIDE 100 MG/ML 10 ML SYRINGE ONE (08:00)
[2024-09-10] MEDS ORDERED: HEPARIN SODIUM,PORCINE 5,000 UNIT/ML 1 ML VIAL ONE (08:00)
[2024-09-10] MEDS ORDERED: MIDAZOLAM HCL 10 MG/10 ML VIAL ONE (08:00)
[2024-09-10 08:47] LABS: ABG Base Excess -2.1 mmol/L; ABG Glucose Whole Blood 87 mg/dL (75-99); ABG HCO3 23 mmol/L (21-25); ABG Ionized Calcium 4.7 mg/dL (4.5-5.3); ABG Lactic Acid Whole Blood 1.1 mmol/L (0.5-1.6); ABG Oxygen Saturation >99.4 % (94-97); ABG PCO2 39 mmHg (35-45); ABG PH 7.38 (7.35-7.45); ABG Potassium Whole Blood 3.5 mmol/L (3.4-4.5); ABG Sodium Whole Blood 135 mmol/L (135-146); Allen Test Performed? Yes
[2024-09-10] MEDS: SODIUM CHLORIDE 0.9% 500 ML 500 ML with HEPARIN SODIUM,PORCINE (1 ML) 5,000 UNIT IV ONE (09:25)
[2024-09-10] MEDS: PAPAVERINE 360 MG in SODIUM CHLORIDE 0.9% 90 ML IV ONE (09:25)
[2024-09-10] MEDS: ceFAZolin 1,000 MG in SODIUM CHLORIDE 0.9% 1,000 ML IRRIGATION ONE (09:26)
[2024-09-10] MEDS: DILTIAZEM 125 MG in SODIUM CHLORIDE 0.9% 100 ML IV SCH (09:26)
[2024-09-10 12:18] LABS: ABG Base Excess -2.4 mmol/L; ABG Glucose Whole Blood 143 mg/dL (75-99); ABG HCO3 24 mmol/L (21-25); ABG Ionized Calcium 4.9 mg/dL (4.5-5.3); ABG Lactic Acid Whole Blood 0.8 mmol/L (0.5-1.6); ABG Oxygen Saturation 99.4 % (94-97); ABG PCO2 46 mmHg (35-45); ABG PH 7.32 (7.35-7.45); ABG PO2 346 mmHg (83-108); ABG Potassium Whole Blood 4.1 mmol/L (3.4-4.5); ABG Sodium Whole Blood 133 mmol/L (135-146); ABG TCO2 23 mmol/L (19-24); Allen Test Performed? Yes
[2024-09-10 12:53] LABS: ABG Base Excess 1.3 mmol/L; ABG Glucose Whole Blood 123 mg/dL (75-99); ABG HCO3 26 mmol/L (21-25); ABG Ionized Calcium 4.4 mg/dL (4.5-5.3); ABG Lactic Acid Whole Blood 1.7 mmol/L (0.5-1.6); ABG Oxygen Saturation >99.4 % (94-97); ABG PCO2 42 mmHg (35-45); ABG PH 7.41 (7.35-7.45); ABG Potassium Whole Blood 4.5 mmol/L (3.4-4.5); ABG Sodium Whole Blood 135 mmol/L (135-146); Allen Test Performed? Yes
[2024-09-10 13:31] LABS: ABG Base Excess 4.4 mmol/L; ABG Glucose Whole Blood 117 mg/dL (75-99); ABG HCO3 28 mmol/L (21-25); ABG Ionized Calcium 4.2 mg/dL (4.5-5.3); ABG Oxygen Saturation >99.4 % (94-97); ABG PCO2 36 mmHg (35-45); ABG PH 7.49 (7.35-7.45); ABG Potassium Whole Blood 4.1 mmol/L (3.4-4.5); ABG Sodium Whole Blood 135 mmol/L (135-146); Allen Test Performed? Yes
[2024-09-10 13:35] LABS: ABG Base Excess 4.2 mmol/L; ABG Glucose Whole Blood 117 mg/dL (75-99); ABG HCO3 28 mmol/L (21-25); ABG Ionized Calcium 4.3 mg/dL (4.5-5.3); ABG Oxygen Saturation >99.4 % (94-97); ABG PCO2 35 mmHg (35-45); ABG PH 7.51 (7.35-7.45); ABG Potassium Whole Blood 4.3 mmol/L (3.4-4.5); ABG Sodium Whole Blood 135 mmol/L (135-146); Allen Test Performed? Yes
[2024-09-10 14:13] LABS: ABG Base Excess 3.2 mmol/L; ABG Glucose Whole Blood 111 mg/dL (75-99); ABG HCO3 26 mmol/L (21-25); ABG Hematocrit 26 % (34.0-46.0); ABG Ionized Calcium 4.4 mg/dL (4.5-5.3); ABG Oxygen Saturation >99.4 % (94-97); ABG PCO2 31 mmHg (35-45); ABG PH 7.53 (7.35-7.45); ABG Potassium Whole Blood 4.4 mmol/L (3.4-4.5); ABG Sodium Whole Blood 135 mmol/L (135-146); Allen Test Performed? Yes
[2024-09-10 15:08] LABS: ABG Hematocrit 23 % (34.0-46.0); ABG PO2 >420 mmHg (83-108)
[2024-09-10 15:09] LABS: ABG Hematocrit 24 % (34.0-46.0)
[2024-09-10 15:09] LABS: ABG Hematocrit 23 % (34.0-46.0); ABG PO2 >420 mmHg (83-108)
[2024-09-10 15:10] LABS: ABG Hematocrit 23 % (34.0-46.0); ABG Lactic Acid Whole Blood 2.1 mmol/L (0.5-1.6); ABG PO2 >420 mmHg (83-108)
[2024-09-10 15:11] LABS: ABG Hematocrit 24 % (34.0-46.0); ABG Lactic Acid Whole Blood 2.1 mmol/L (0.5-1.6); ABG PO2 >420 mmHg (83-108)
[2024-09-10 15:12] LABS: ABG PO2 >420 mmHg (83-108)
--- NOTE | 2024-09-10 15:22 | P.ANPRN ---
Procedure Note - Anesthesia - Invasive Line Right Arterial Line Time Out Performed: Yes Date of Procedure: 09/10/24 Time of Procedure: 07:44 Location of Patient: PreOp Preparation: Sterile Prep, Sterile Dressing Arterial Line Location: Briachial Ultrasound Used: No Purpose - Visualization and Identification of Vasculature: No Image Stored and Saved: No Narrative: Invasive line placement per sterile protocol utilized.
--- NOTE | 2024-09-10 15:22 | P.ANPRN ---
Procedure Note - Anesthesia - Invasive Line Right Central Line Time Out Performed: Yes Date of Procedure: 09/10/24 Time of Procedure: 07:31 Location of Patient: EP Preparation: Sterile Prep Central Line Location: Internal Jugular Ultrasound Used: No Purpose - Visualization and Identification of Vasculature: No Image Stored and Saved: No Narrative: Invasive line placement per sterile protocol utilized.
[2024-09-10 15:23] LABS: ABG Base Excess -0.6 mmol/L; ABG Glucose Whole Blood 114 mg/dL (75-99); ABG HCO3 24 mmol/L (21-25); ABG Hematocrit 27 % (34.0-46.0); ABG Ionized Calcium 4.9 mg/dL (4.5-5.3); ABG Oxygen Saturation >99.4 % (94-97); ABG PCO2 40 mmHg (35-45); ABG PH 7.39 (7.35-7.45); ABG Potassium Whole Blood 3.9 mmol/L (3.4-4.5); ABG Sodium Whole Blood 137 mmol/L (135-146); Allen Test Performed? Yes
--- NOTE | 2024-09-10 15:23 | P.ANPRN ---
Procedure Note - Anesthesia - Invasive Line Right [place] Sor[place] Time Out Performed: Yes Date of Procedure: 12/11/23 Time of Procedure: 07:36 Location of Patient: PreOp Preparation: Sterile Prep, Sterile Dressing Central Line Location: Internal Jugular Ultrasound Used: No Purpose - Visualization and Identification of Vasculature: No Image Stored and Saved: No Narrative: Invasive line placement per sterile protocol utilized.
[2024-09-10 15:25] LABS: ABG Lactic Acid Whole Blood 2.3 mmol/L (0.5-1.6); ABG PO2 >420 mmHg (83-108)
--- NOTE | 2024-09-10 16:34 | P.PN ---
Subjective Progress Note Date: 09/10/24 Subjective: Patient seen and examined at bedside. Underwent CABG and aortic valve replacement today. Pertinent positives and negatives as discussed above, a complete review of systems was performed and all other systems are negative. Vitals Signs Reviewed. General: Intubated sedated Derm: Warm, dry Head: Atraumatic, normocephalic, symmetric Eyes: EOMI, no lid lag, anicteric sclera Mouth: No lip lesion, mucus membranes moist Cardiovascular: S1S2 reg, no murmur Lungs: Bilateral rhonchi, mechanically ventilated Abdominal: Soft, no guarding, nondistended Neuro: Sedated Psych: Unable to assess Data Reviewed Today: Pertinent Labs: Hemoglobin 9.8, sodium 133, potassium 4, creatinine 1.53 Imaging: No new imaging Assessment and Plan: Multivessel CAD Severe aortic stenosis Severe aortic regurgitation NSTEMI, type I Hypertension Nicotine dependence Dyslipidemia -CABG and aortic valve replacement today -Cardiothoracic surgery following -Cardiology and ICU following -Wean pressors and wean sedation, and mechanical ventilation Hyperglycemia Prediabetes -Insulin drip for tight glucose control while patient is intubated -Will switch to subcu insulin once patient is able to tolerate oral intake likely in 48 hours Hypothyroidism -Continue on levothyroxine 100 mcg daily Recheck TSH in 4 to 6 weeks CARMELO with CKD stage IIIa, resolving -Repeat renal function tomorrow Hypokalemia, resolved DVT ppx: Per cardiothoracic surgery Code status: Full code Anticipated discharge place: Pending clinical course Anticipated discharge time: Pending clinical course Objective - Vital Signs Vital signs: Vital Signs Temp 97.3 F L 09/10/24 06:15 Pulse 58 L 09/10/24 06:15 Resp 16 09/10/24 06:15 BP 161/71 09/10/24 06:15 Pulse Ox 94 L 09/10/24 05:30 FiO2 Intake & Output 09/09/24 09/10/24 09/10/24 18:59 06:59 18:59 Intake Total 630.653 6290 Output Total 725 Balance 441.808 563 Weight 61.8 kg Intake: IV 4 Intake, IV Titration 205.808 Amount Heparin Sod,Pork in 0.45% 205.808 NaCl 25,000 unit In 0.45 % NaCl 1 250ml.bag @ 12 UNITS/KG/HR 7.457 mls/hr IV .Q24H [facility] Rx#: [id number] Oral 236 Blood Product 1284 Platelet Pheresis Pas 354 Psoralen Unit [id number] Rc As-1 Unit 310 [id number] Rc As-1 Unit 310 [id number] Rc As-1 Unit 310 [id number] Output: Urine 225 Estimated Blood Loss 500 Other: Voiding Method Toilet Toilet # Voids 2 1 - Labs CBC & Chem 7: 09/10/24 03:53 09/10/24 03:53 Labs: Abnormal Lab Results - Last 24 Hours (Table) 09/09/24 09/10/24 09/10/24 Range/Units 06:25 03:53 03:53 RBC 3.37 L (4.30-5.90) m/uL Hgb 9.8 L (13.0-17.5) gm/dL Hct 29.6 L (39.0-53.0) % RDW 16.0 H (11.5-15.5) % APTT 55.5 H (22.0-30.0) sec ABG pH (7.35-7.45) ABG pCO2 (35-45) mmHg ABG pO2 (83-108) mmHg ABG HCO3 (21-25) mmol/L ABG O2 Saturation (94-97) % ABG Hematocrit (34.0-46.0) % ABG Sodium (135-146) mmol/L ABG Ionized Calcium (4.5-5.3) mg/dL ABG Glucose (75-99) mg/dL ABG Lactic Acid (0.5-1.6) mmol/L Hemoglobin (13.0-17.5) gm/dL Sodium (137-145) mmol/L Creatinine (0.66-1.25) mg/dL Arterial Blood Glucose (75-99) mg/dL Crossmatch See Detail 09/10/24 09/10/24 09/10/24 Range/Units 03:53 08:52 12:24 RBC (4.30-5.90) m/uL Hgb (13.0-17.5) gm/dL Hct (39.0-53.0) % RDW (11.5-15.5) % APTT (22.0-30.0) sec ABG pH 7.32 L (7.35-7.45) ABG pCO2 46 H (35-45) mmHg ABG pO2 >420 H 346 H (83-108) mmHg ABG HCO3 (21-25) mmol/L ABG O2 Saturation >99.4 H 99.4 H (94-97) % ABG Hematocrit 23 L 24 L (34.0-46.0) % ABG Sodium 133 L (135-146) mmol/L ABG Ionized Calcium (4.5-5.3) mg/dL ABG Glucose 143 H (75-99) mg/dL ABG Lactic Acid (0.5-1.6) mmol/L Hemoglobin 7.5 L 7.9 L (13.0-17.5) gm/dL Sodium 133 L (137-145) mmol/L Creatinine 1.53 H (0.66-1.25) mg/dL Arterial Blood Glucose 143 H (75-99) mg/dL Crossmatch 09/10/24 09/10/24 09/10/24 Range/Units 12:58 13:37 13:40 RBC (4.30-5.90) m/uL Hgb (13.0-17.5) gm/dL Hct (39.0-53.0) % RDW (11.5-15.5) % APTT (22.0-30.0) sec ABG pH 7.49 H 7.51 H (7.35-7.45) ABG pCO2 (35-45) mmHg ABG pO2 >420 H >420 H >420 H (83-108) mmHg ABG HCO3 26 H 28 H 28 H (21-25) mmol/L ABG O2 Saturation >99.4 H >99.4 H >99.4 H (94-97) % ABG Hematocrit 23 L 23 L 24 L (34.0-46.0) % ABG Sodium (135-146) mmol/L ABG Ionized Calcium 4.4 L 4.2 L 4.3 L (4.5-5.3) mg/dL ABG Glucose 123 H 117 H 117 H (75-99) mg/dL ABG Lactic Acid 1.7 H 2.1 H 2.1 H (0.5-1.6) mmol/L Hemoglobin 7.4 L 7.5 L 7.7 L (13.0-17.5) gm/dL Sodium (137-145) mmol/L Creatinine (0.66-1.25) mg/dL Arterial Blood Glucose 123 H 117 H 117 H (75-99) mg/dL Crossmatch 09/10/24 09/10/24 Range/Units 14:18 15:20 RBC (4.30-5.90) m/uL Hgb (13.0-17.5) gm/dL Hct (39.0-53.0) % RDW (11.5-15.5) % APTT (22.0-30.0) sec ABG pH 7.53 H (7.35-7.45) ABG pCO2 31 L (35-45) mmHg ABG pO2 >420 H >420 H (83-108) mmHg ABG HCO3 26 H (21-25) mmol/L ABG O2 Saturation >99.4 H >99.4 H (94-97) % ABG Hematocrit 26 L 27 L (34.0-46.0) % ABG Sodium (135-146) mmol/L ABG Ionized Calcium 4.4 L (4.5-5.3) mg/dL ABG Glucose 111 H 114 H (75-99) mg/dL ABG Lactic Acid 2.0 H 2.3 H* (0.5-1.6) mmol/L Hemoglobin 8.5 L 8.8 L (13.0-17.5) gm/dL Sodium (137-145) mmol/L Creatinine (0.66-1.25) mg/dL Arterial Blood Glucose 111 H 114 H (75-99) mg/dL Crossmatch
[2024-09-10 16:37] LABS: Glucose,Whole Blood 132 mg/dL (70-110)
--- NOTE | 2024-09-10 16:40 | P.OP ---
Date of Procedure: 09/10/24 Preoperative Diagnosis: Severe aortic stenosis, aortic valvular insufficiency, severe three-vessel coronary artery disease, unstable angina Postoperative Diagnosis: Same Procedure(s) Performed: Aortic valve replacement with 23 mm Barcenas Inspiris bovine pericardial valve, CABG x 4 with ARANA to LAD, sequential left radial artery graft to first and second obtuse marginal coronary arteries, saphenous vein graft to posterior descending coronary artery, ligation of the left atrial appendage with 35 mm AtriCure clip, endovascular harvest bilateral greater saphenous veins, open harvest left radial artery. Implants: 23 mm Barcenas Inspiris bovine pericardial valve Anesthesia: GETA Surgeon: Vitaliy Deluna Marker Shipments #1: Lee Batista Estimated Blood Loss (ml): 250 IV fluids (ml): 2,000 Urine output (ml): 100 Pathology: other Condition: critical Disposition: ICU Indications for Procedure: 74-year-old male with known history of severe aortic valvular disease for several years recently referred to cardiology for evaluation for surgery for a popliteal aneurysm. He presented with severe chest pain. He was admitted and was noted to have markedly elevated TSH and low T3. He underwent cardiac catheterization demonstrating severe three-vessel coronary artery disease. Echocardiography confirmed critical aortic valvular stenosis as well as significant aortic insufficiency. Patient continued to have episodes of chest pain on an almost nightly basis while undergoing workup and stabilization. Operative Findings: Aortic valve was heavily calcified and tricuspid. LAD target was a large vessel with some distal disease. Circumflex targets were good. The diagonal target was very small and diseased. It was not grafted. PDA target was reasonable. Initial gradient across the aortic valve was 68 mmHg. Post aortic valve replacement, gradient across the aortic valve was 6 mmHg. Saphenous vein was extremely small and very sclerotic in the thighs. Lower leg vein was adequate bilaterally. Description of Procedure: Patient was brought to the operating room and placed supine on the operating table. General anesthesia was induced. LUCIA probe was placed. The anterior torso bilateral lower extremities and left upper extremity were sterilely prepped and draped. Initial vein harvest was the left greater saphenous vein from ankle to groin. On evaluating this vein on the back table, a short but relatively small usable piece was present in the lower leg and no significant usable vein was present in the thigh. We then harvested the right greater saphenous vein which appeared similar. The left radial artery was harvested open and was a good although somewhat small conduit. The distal portion where the cardiac catheterization was performed did have injury and thrombus and was excised. 19 cm of usable radial artery was obtained. The chest was opened and the internal mammary artery harvested on a vascularized pedicle. It was a good conduit. The left pleural space was drained with a 32 Romanian chest tube. Once the conduits were readied, standard sternal retractor was placed and the pericardium was opened in the midline. Patient was systemically heparinized and cannulated for cardiopulmonary bypass. 7 mm soft flow cannula was placed in the distal ascending aorta. Two-stage venous cannula was placed through the right atrial appendage into the inferior vena cava. Antegrade and retrograde cardioplegia lines were placed in standard fashion. The patient was placed on cardiopulmonary bypass and stabilized. 35 mm AtriCure clip was placed at the base of the left atrial appendage. 4-0 Prolene pursestring was placed in the right superior pulmonary vein. Aorta was crossclamped and the heart arrested with cold crystalloid antegrade cardioplegia followed by retrograde cardioplegia. Intermittent doses of retrograde cardioplegia were given at appropriate time intervals. We also gave cardioplegia down the right coronary graft once it was completed. We began by grafting the posterior descending coronary artery with saphenous vein from the left lower extremity. PDA was a 1.75 mm vessel. It was opened and the anastomosis constructed in end-to-side fashion with running 7-0 Prolene suture. On completion of the anastomosis, the it was probed and noted to be patent. Suture was tied with good result and hemostasis. The graft was flushed with cold blood cardioplegia. Vein was adequate length to reach the ascending aorta. Next the lateral wall of the heart was exposed. 2 obtuse marginal arteries were grafted in sequential fashion with the left radial artery. We began with the second obtuse marginal opening it. It easily excepted a 1.5 mm probe and was a 1.75 to 2 mm vessel. Radial artery was anastomosed in end-to-side fashion with running 7-0 Prolene suture. Next we performed a [id number] anastomosis to the first obtuse marginal coronary artery. It was a 1.5 to 1.75 mm vessel. It was opened a little more proximally and easily took a 1.5 mm probe distally. Upon completion of the anastomosis it was probed and noted to be patent and the suture was tied and the graft was flushed with cold blood cardioplegia and noted to flow well and fill both vessels well. Radial artery was of adequate length to reach the ascending aorta. Next the ARANA was tunneled into the mediastinum and cut to appropriate length to reach the mid LAD. This was opened and easily excepted a 2 mm probe distally toward the apex. There was some scattered disease present in the distal vessel. This did not appear to be hemodynamically significant. End-to-side anastomosis of the ARANA to the LAD was performed with running 8-0 Prolene suture. On completion of the anastomosis it was briefly opened and noted to be hemostatic. It was probed prior to tying the suture. DEMARIO pedicle was tacked surrounding epicardium with 6-0 silk sutures. Left atrial vent was placed through the pursestring in the right superior pulmonary vein. Next the aorta was opened transversely. The aortic valve was visualized. It was a tricuspid and heavily calcified valve. The valve leaflets were excised and the annulus decalcified in standard fashion. Circumferential valve sutures of 2 oh pledgeted Tycron were placed for a supra annular implantation. The annulus was sized and a 23 mm Inspiris valve was chosen and brought up onto the field. The valve sutures were passed through the sewing ring of the valve and it was seated without difficulty. Sutures were tied and cut and the valve was noted to a seated well. Coronary ostia were free. Copious irrigation of been performed during debridement and on placement of sutures and on completion of the valve implantation. The aorta was now closed with a running 2 layer closure of 4-0 Prolene suture. Proximal anastomoses were constructed to 4 mm punch holes with 6-0 Prolene suture. The left atrial vent was removed and the aortic vent was placed to suction. The patient was placed in Trendelenburg. Cross-clamp was removed. Retrograde cardioplegia line was removed. The vein and radial artery graft were de-aired by needle holes in the inflow open. Inflow was opened to the ARANA graft. Distal anastomoses were checked and noted to be hemostatic. Atrial and ventricular pacing wires were placed and the patient was initially paced but returned to a normal sinus rhythm later in the case. De-airing was monitored under LUCIA and performed with a 16 Angiocath through the apex of the left ventricle. This was oversewn with a 6-0 Prolene suture. Aortic vent line was then removed and the site reinforced with a 4 -O pledgeted Prolene suture. Once fully warmed and stabilized, patient was weaned from cardiopulmonary bypass initially without inotropic support. His cardiac index was a little low, the left ventricle was quite hypertrophic and the ventricular cavity appeared relatively small. Ventricular wall were moving well. It was decided to load the patient with Primacor and start a Primacor drip. This significantly improved his hemodynamics. Good blood pressure was maintained throughout. Heparin was reversed with protamine and the patient was decannulated in standard fashion. Aortic cannulation site was reinforced with a 4 -0 pledgeted Prolene suture. Good hemostasis was noted throughout. Mediastinum was drained with a 36 Romanian chest tube. Chest was irrigated with antibiotic solution. Sternum was closed with 8 sternal wires. Fascia was closed with 0 Ethibond. Subcutaneous and subcuticular layers were closed with layers of Vicryl suture and the arm leg and chest. Dry sterile dressings were applied and the patient was transferred to the CVICU in stable condition. He did receive 2 units of packed red blood cells and 1 round of platelets.
[2024-09-10] MEDS ORDERED: DEXTROSE 5% IN WATER 100 ML with AMIODARONE 150 MG IV PRN (16:52)
[2024-09-10] MEDS ORDERED: Phosphorus Replacement Protoco 1 EACH MISC MISCELLANE PRN (16:52)
[2024-09-10] MEDS ORDERED: hydrALAZINE HCL 20 MG/ML 1 ML VIAL IVP PRN (16:52)
[2024-09-10] MEDS ORDERED: CALCIUM GLUCONATE IN NACL 2 GM in SALINE 1 100ML.BAG IVPB PRN (16:52)
[2024-09-10] MEDS ORDERED: DEXTROSE 50% SYRINGE 50 ML IVP PRN (16:52)
[2024-09-10] MEDS ORDERED: BENZOCAINE/MENTHOL LOZENG 1 EACH LOZENGE MUCOUS MEM PRN (16:52)
[2024-09-10] MEDS ORDERED: Magnesium Replacement Protocol 1 EACH MISC MISCELLANE PRN (16:52)
[2024-09-10] MEDS ORDERED: IPRATROPIUM-ALBUTEROL 3 ML NEB INHALATION PRN (16:52)
[2024-09-10] MEDS ORDERED: Potassium Replacement Protocol 1 EACH MISC MISCELLANE PRN (16:52)
--- NOTE | 2024-09-10 16:52 | P.PN ---
Subjective Progress Note Date: 09/10/24 74-year-old male who presented to the hospital, on September 03, via the emergency room. The patient presented with complaints of chest pain. The patient does have a history of atherosclerotic cardiovascular disease, and for a couple days prior to admission, was complaining of chest pressure. The chest pain/pressure, apparently radiated to both arms. He did not have any associated diaphoresis, or nausea. The patient apparently has had a heart attack in the past, and the pain that he was having, seemed similar. Today, we talked to Dr. Deluna about this patient, and apparently this patient will stay in the hospital, and have surgery, sometime early next week. The patient also has a history of s ignificant tobacco use for about 50 years. He was smoking up until the time he came into the hospital. His primary care physician is Dr. John Faulkner. He is currently on room air. The patient is getting IV heparin. The cardiac catheterization, showed severe triple-vessel disease, severe aortic stenosis and severe aortic regurgitation. The patient is currently in the process of being evaluated for open heart surgery. Laboratory data includes a white count 5.7, hemoglobin 10.8, macro 34.2, and a platelet count of 193,000. The patient's PTT is 45. Sodium 137, potassium 4.1, chlorides 105, CO2 29, BUN 16, creatinine 1.35. N-terminal proBNP was 1330. His troponin was 0.016. Chest CT showed no acute thoracic process, changes of mild COPD, and atherosclerotic calcification of thoracic aorta, with moderate coronary arterial calcifications, most prominent in the LAD. Progress note dated September 06, 2024. The patient is seen today in room 373. He is on room air. He is getting IV heparin. On his bedside spirometry, his FEV1 was 1.52 L, which would put him at low increased operative risk, for open heart surgery. Current labs include a white count 5.2, hemoglobin 11, hematocrit 35, and a normal platelet count. Sodium 136, potassium 3.9, chlorides 101, CO2 32, BUN 17, creatinine 1.45. Progress note dated and September 07, 2024. 74-year-old male seen today in room 373. He is currently on room air. He continues on IV heparin. The patient is likely to have a open heart procedure next week, may be on September 10Tuesday. Currently, he is resting comfortably, without any issues or problems. White count 6.9, hemoglobin 9.2, hematocrit 35.5, platelet count is normal. PTT is 42.2. Sodium 134, potassium 4, chlorides 103, CO2 26, BUN 28, creatinine 1.49. Progress note dated September 08, 2024. 74-year-old male with a history of coronary disease, and aortic stenosis. The patient is being evaluated for possible bypass grafting, and aortic valve replacement, early next week. Currently is on 2 L of oxygen. He is getting saline at 75 cc an hour. He is also on IV heparin. He has no specific complaints today. Current labs include a white count 6.6, hemoglobin 11.6, hematocrit 36.4, and a platelet count of 255,000. Sodium 135, potassium 3.8, chlorides 99, CO2 27, BUN 31, creatinine 1.93. His PTT is 49.6. His troponin is 0.028. The patient is seen today September 09, 2024 in follow-up on the selective care unit. He is currently resting comfortably in bed. Awake and alert in no acute distress. He is maintaining O2 saturations in the 90s on room air. He denies any shortness of breath, cough or congestion. He denies any chest pain. He is continued on a heparin drip. Practicing with the incentive spirometer. White count 4.9. Hemoglobin 10.2. Platelets 233. PTT 52.3. Sodium 135. Potassium 3.9. Bicarb 29. BUN 27. Creatinine 1.78. He had 09/10/2024, the patient is being seen immediately after evaluate to the intensive care unit. Currently intubated and mechanically ventilated. The patient underwent aortic valve replacement with a 23 mm Barcenas bovine pericardial valve and CABG x 4 with ARANA to LAD sequential left radial artery g raft to first and second obtuse marginal coronary arteries and PDA. The patient also underwent a ligation of the left atrial appendage. Intraoperatively, the patient received a total of 3 units have packed RBC and 1 unit of platelet. The patient is currently hemodynamically stable on milrinone which is running at 0.375 mcg/kg/min. Cardiac output is at 6.6 with an index of 3.7. PA pressures are 28/15. Urine output is adequate. The patient is well sedated on propofol which is running at 20 mcg/kg/min. He is on the mechanical ventilator assist- control mode with rate of 20, tidal volume of 500, FiO2 of 100% with a PEEP of 5. Blood gas and chest x-ray are still pending for now. The preop hemoglobin was 9.8. The patient also had a creatinine of 1.5 preoperatively. Afebrile. Has a left pleural and mediastinal chest tube without any evidence of air leak and output is minimal at this point. Objective - Vital Signs Vital signs: Vital Signs Temp 97.3 F L 09/10/24 06:15 Pulse 58 L 09/10/24 06:15 Resp 16 09/10/24 06:15 BP 161/71 09/10/24 06:15 Pulse Ox 94 L 09/10/24 05:30 FiO2 100 09/10/24 16:38 Intake & Output 09/09/24 09/10/24 09/10/24 18:59 06:59 18:59 Intake Total 555.359 5965 Output Total 725 Balance 441.808 563 Weight 61.8 kg Intake: IV 4 Intake, IV Titration 205.808 Amount Heparin Sod,Pork in 0.45% 205.808 NaCl 25,000 unit In 0.45 % NaCl 1 250ml.bag @ 12 UNITS/KG/HR 7.457 mls/hr IV .Q24H [facility] Rx#: [id number] Oral 236 Blood Product 1284 Platelet Pheresis Pas 354 Psoralen Unit [id number] Rc As-1 Unit 310 [id number] Rc As-1 Unit 310 [id number] As-1 Unit 310 [id number] Output: Urine 225 Estimated Blood Loss 500 Other: Voiding Method Toilet Toilet # Voids 2 1 - Exam GENERAL EXAM: Alert, active, 74-year-old male, sedated on propofol, currently intubated on mechanical ventilator. HEAD: Normocephalic. EYES: Normal reaction of pupils, equal size. NOSE: Clear with pink turbinates. THROAT: No erythema or exudates. NECK: No masses, no JVD. The patient has a Cordis in the right neck along with a [place]-Soraya catheter in place. CHEST: No chest wall deformity. The patient has a mediastinal and left pleural chest tube LUNGS: Equal air entry with no crackles, wheeze, rhonchi or dullness. CVS: S1 and S2 normal with no audible murmur, regular rhythm. ABDOMEN: No hepatosplenomegaly, normal bowel sounds, no guarding or rigidity. SPINE: No scoliosis or deformity SKIN: No rashes CENTRAL NERVOUS SYSTEM: No focal deficits, tone is normal in all 4 extremities. EXTREMITIES: There is no peripheral edema. No clubbing, no cyanosis. Peripheral pulses are intact. - Labs CBC & Chem 7: 09/10/24 03:53 09/10/24 03:53 Labs: Abnormal Lab Results - Last 24 Hours (Table) 09/09/24 09/10/24 09/10/24 Range/Units 06:25 03:53 03:53 RBC 3.37 L (4.30-5.90) m/uL Hgb 9.8 L (13.0-17.5) gm/dL Hct 29.6 L (39.0-53.0) % RDW 16.0 H (11.5-15.5) % APTT 55.5 H (22.0-30.0) sec ABG pH (7.35-7.45) ABG pCO2 (35-45) mmHg ABG pO2 (83-108) mmHg ABG HCO3 (21-25) mmol/L ABG O2 Saturation (94-97) % ABG Hematocrit (34.0-46.0) % ABG Sodium (135-146) mmol/L ABG Ionized Calcium (4.5-5.3) mg/dL ABG Glucose (75-99) mg/dL ABG Lactic Acid (0.5-1.6) mmol/L Hemoglobin (13.0-17.5) gm/dL Sodium (137-145) mmol/L Creatinine (0.66-1.25) mg/dL POC Glucose (mg/dL) (70-110) mg/dL Arterial Blood Glucose (75-99) mg/dL Crossmatch See Detail 09/10/24 09/10/24 09/10/24 Range/Units 03:53 08:52 12:24 RBC (4.30-5.90) m/uL Hgb (13.0-17.5) gm/dL Hct (39.0-53.0) % RDW (11.5-15.5) % APTT (22.0-30.0) sec ABG pH 7.32 L (7.35-7.45) ABG pCO2 46 H (35-45) mmHg ABG pO2 >420 H 346 H (83-108) mmHg ABG HCO3 (21-25) mmol/L ABG O2 Saturation >99.4 H 99.4 H (94-97) % ABG Hematocrit 23 L 24 L (34.0-46.0) % ABG Sodium 133 L (135-146) mmol/L ABG Ionized Calcium (4.5-5.3) mg/dL ABG Glucose 143 H (75-99) mg/dL ABG Lactic Acid (0.5-1.6) mmol/L Hemoglobin 7.5 L 7.9 L (13.0-17.5) gm/dL Sodium 133 L (137-145) mmol/L Creatinine 1.53 H (0.66-1.25) mg/dL POC Glucose (mg/dL) (70-110) mg/dL Arterial Blood Glucose 143 H (75-99) mg/dL Crossmatch 09/10/24 09/10/24 09/10/24 Range/Units 12:58 13:37 13:40 RBC (4.30-5.90) m/uL Hgb (13.0-17.5) gm/dL Hct (39.0-53.0) % RDW (11.5-15.5) % APTT (22.0-30.0) sec ABG pH 7.49 H 7.51 H (7.35-7.45) ABG pCO2 (35-45) mmHg ABG pO2 >420 H >420 H >420 H (83-108) mmHg ABG HCO3 26 H 28 H 28 H (21-25) mmol/L ABG O2 Saturation >99.4 H >99.4 H >99.4 H (94-97) % ABG Hematocrit 23 L 23 L 24 L (34.0-46.0) % ABG Sodium (135-146) mmol/L ABG Ionized Calcium 4.4 L 4.2 L 4.3 L (4.5-5.3) mg/dL ABG Glucose 123 H 117 H 117 H (75-99) mg/dL ABG Lactic Acid 1.7 H 2.1 H 2.1 H (0.5-1.6) mmol/L Hemoglobin 7.4 L 7.5 L 7.7 L (13.0-17.5) gm/dL Sodium (137-145) mmol/L Creatinine (0.66-1.25) mg/dL POC Glucose (mg/dL) (70-110) mg/dL Arterial Blood Glucose 123 H 117 H 117 H (75-99) mg/dL Crossmatch 09/10/24 09/10/24 09/10/24 Range/Units 14:18 15:20 16:35 RBC (4.30-5.90) m/uL Hgb (13.0-17.5) gm/dL Hct (39.0-53.0) % RDW (11.5-15.5) % APTT (22.0-30.0) sec ABG pH 7.53 H (7.35-7.45) ABG pCO2 31 L (35-45) mmHg ABG pO2 >420 H >420 H (83-108) mmHg ABG HCO3 26 H (21-25) mmol/L ABG O2 Saturation >99.4 H >99.4 H (94-97) % ABG Hematocrit 26 L 27 L (34.0-46.0) % ABG Sodium (135-146) mmol/L ABG Ionized Calcium 4.4 L (4.5-5.3) mg/dL ABG Glucose 111 H 114 H (75-99) mg/dL ABG Lactic Acid 2.0 H 2.3 H* (0.5-1.6) mmol/L Hemoglobin 8.5 L 8.8 L (13.0-17.5) gm/dL Sodium (137-145) mmol/L Creatinine (0.66-1.25) mg/dL POC Glucose (mg/dL) 132 H (70-110) mg/dL Arterial Blood Glucose 111 H 114 H (75-99) mg/dL Crossmatch Assessment and Plan Plan: The patient underwent four-vessel bypass surgery. The patient is post ARANA to LAD status and sequential radial to first and second obtuse marginal branch and PDA. Currently postop day #0. The patient is currently on milrinone for hemodynamic and blood pressure support the current cardiac rhythm is sinus. The patient, is hemodynamically stable on milrinone. Severe aortic stenosis status post aortic valve replacement Postthoracotomy, currently intubated on mechanical ventilator. The patient has a mediastinal left pleural chest tube in place. No evidence of any air leak. Awaiting follow-up chest x-ray Status post Non-ST segment elevation myocardial infarction. Hypertension Chronic nicotine dependence, rule out COPD. FEV1 shows 1.53 L, 49% of predicted Acute on chronic kidney injury, with acute component improving preoperatively. Hyperlipidemia Hypothyroidism Right popliteal artery aneurysm History of peripheral arterial disease with endovascular abdominal aneurysm repair approximately 2 years ago at [facility] Angioplasty in the right leg Current chronic tobacco dependence Occasional marijuana use Medication noncompliance Plan: Obtain a chest x-ray and a blood gas and do the necessary ventilator changes. I kept the patient at rate of 20 increase the PEEP up to 10 and FiO2 is currently is at 100%. Will gradually wean down FiO2 as tolerated to maintain saturation above 90%. Will likely need an insulin drip for blood sugar control monitor hemodynamics Obtain labs Keep the patient on propofol for now Monitor hemodynamic parameters, cardiac output and index Monitor urine output Monitor chest tube output We will continue to follow Condition is obviously critical and this evaluation was done more than 30 minutes. Working progress. Possible weaning and extubation today based on his progress. Time with Patient: Greater than 30
[2024-09-10] MEDS: NITROGLYCERIN-D5W PMX 50 MG in DEXTROSE/WATER 1 250ML.BAG IV SCH (17:00)
[2024-09-10 17:01] LABS: Basophils % (A) 0 %; Eosinophils % (A) 0 %; HCT 26.7 % (39.0-53.0); HGB 8.6 gm/dL (13.0-17.5); Hypochromasia Slight; Lymphocytes # (A) 0.6 k/uL (1.0-4.8); Lymphocytes % (A) 9 %; MCH 28.8 pg (25.0-35.0); MCHC 32.1 g/dL (31.0-37.0); MCV 89.7 fL (80.0-100.0); Mean Platelet Volume 8.4; Monocytes # (A) 0.2 k/uL (0-1.0); Monocytes % (A) 4 %; Neutrophils # (A) 5.1 k/uL (1.3-7.7); Neutrophils % (A) 85 %; Platelet Count 125 k/uL (150-450); RBC 2.97 m/uL (4.30-5.90); RDW 15.7 % (11.5-15.5)
[2024-09-10] MEDS: MILRINONE-D5W PMX 20 MG in DEXTROSE/WATER 1 100ML.BAG IV SCH (17:01)
[2024-09-10 17:04] LABS: ABG Base Excess -1.9 mmol/L; ABG HCO3 23 mmol/L (21-25); ABG PCO2 38 mmHg (35-45); ABG PH 7.39 (7.35-7.45); ABG PO2 300 mmHg (83-108); ABG TCO2 24 mmol/L (19-24); Allen Test Performed? Yes
[2024-09-10 17:05] LABS: Ionized Calcium 4.7 mg/dL (4.5-5.3)
[2024-09-10 17:10] LABS: INR 1.2 (<1.2); Partial Thromboplastin Time 34.1 sec (22.0-30.0); Prothrombin Time 12.6 sec (10.0-12.5)
[2024-09-10 17:13] LABS: ALT 13 U/L (4-49); AST 33 U/L (17-59); African American GFR (CKD) 58 (>60 ml/min/1.73 sqM); Albumin 3.1 g/dL (3.5-5.0); Alkaline Phosphatase 37 U/L (38-126); Anion Gap 10 mmol/L; Blood Urea Nitrogen 17 mg/dL (9-20); Calcium 8.5 mg/dL (8.4-10.2); Carbon Dioxide 23 mmol/L (22-30); Chloride 105 mmol/L (98-107); Glucose 112 mg/dL (74-99); Magnesium 4.4 mg/dL (1.6-2.3); Non-African American GFR(CKD) 50 (>60 ml/min/1.73 sqM); Potassium 3.9 mmol/L (3.5-5.1); Sodium 138 mmol/L (137-145); Total Bilirubin 1.4 mg/dL (0.2-1.3); Total Protein 4.9 g/dL (6.3-8.2)
[2024-09-10] MEDS: SODIUM CHLORIDE 0.9% 1,000 ML IV SCH (17:14)
[2024-09-10] MEDS: INSULIN REGULAR 100 UNIT in SODIUM CHLORIDE 0.9% 100 ML IV SCH (17:23)
[2024-09-10] MEDS: AMIODARONE 360 MG in DEXTROSE 5% IN WATER 200 ML IV ONE (17:51)
[2024-09-10 18:06] LABS: Glucose,Whole Blood 151 mg/dL (70-110)
--- NOTE | 2024-09-10 18:13 | XR ---
EXAMINATION TYPE: XR chest 1V portable DATE OF EXAM: 09/10/2024 5:18 PM CLINICAL INDICATION: Male, 74 years old with history of Post Operative Cardiac Surgery; [facility] COMPARISON: Chest radiographs from 09/03/2024 TECHNIQUE: XR chest 1V portable Frontal view of the chest. FINDINGS: Lungs/Pleura: There is no evidence of pleural effusion, focal consolidation, or pneumothorax. Pulmonary vascularity: Unremarkable. Heart/mediastinum: Cardiomediastinal silhouette is unremarkable. Post aortic valve repair changes. L eft atrial appendage occlusion device is present. Musculoskeletal: No acute osseous pathology. Other findings: Subcutaneous emphysema scattered throughout the visualized thorax. Lines/Tubes: Endotracheal tube with distal tip 5.4 cm above the clemente. Nasogastric tube with its distal tip and side-port projecting under the diaphragm. There is a [place]-Soraya catheter with tip projecting over the spine. Drainage tubes with tips projecting over the mediastinum. Left thoracotomy tube is present without evidence of pneumothorax. Stent graft in the abdomen partially visualized. IMPRESSION: Postsurgical changes. No evidence for postop complication. [facility], Workstation: [id number], 09/10/2024 6:10 PM
[2024-09-10] MEDS: ACETAMINOPHEN IV (For NPO) 1,000 MG in EMPTY BAG 1 BAG IVPB SCH (18:21)
[2024-09-10] MEDS: ALBUMIN HUMAN 5% 250 ML in EMPTY BAG 1 BAG IVPB PRN (18:55)
[2024-09-10] MEDS: CLEVIDIPINE BUTYRATE 25 MG in EMPTY BAG 1 BAG IV SCH (18:56)
[2024-09-10 19:06] LABS: Glucose,Whole Blood 161 mg/dL (70-110)
[2024-09-10] MEDS: IPRATROPIUM-ALBUTEROL 3 ML NEB INHALATION SCH (19:25)
[2024-09-10 19:53] LABS: Glucose,Whole Blood 165 mg/dL (70-110)
[2024-09-10 20:03] LABS: Basophils % (A) 0 %; Eosinophils % (A) 0 %; HCT 23.8 % (39.0-53.0); HGB 7.7 gm/dL (13.0-17.5); Hypochromasia Slight; Lymphocytes # (A) 0.5 k/uL (1.0-4.8); Lymphocytes % (A) 12 %; MCH 28.7 pg (25.0-35.0); MCHC 32.3 g/dL (31.0-37.0); MCV 88.9 fL (80.0-100.0); Mean Platelet Volume 9.4; Monocytes # (A) 0.2 k/uL (0-1.0); Monocytes % (A) 6 %; Neutrophils # (A) 3.2 k/uL (1.3-7.7); Neutrophils % (A) 81 %; Platelet Count 107 k/uL (150-450); Poikilocytosis Slight; RBC 2.67 m/uL (4.30-5.90); RDW 15.9 % (11.5-15.5); WBC 3.9 k/uL (3.8-10.6)
[2024-09-10] MEDS: DEXMEDETOMIDINE/0.9% NACL(PMX) 400 MCG in EMPTY BAG 1 BAG IV SCH (20:14)
[2024-09-10 20:40] LABS: African American GFR (CKD) 54 (>60 ml/min/1.73 sqM); Anion Gap 5 mmol/L; Blood Urea Nitrogen 18 mg/dL (9-20); Calcium 8.5 mg/dL (8.4-10.2); Carbon Dioxide 21 mmol/L (22-30); Chloride 108 mmol/L (98-107); Glucose 138 mg/dL (74-99); Non-African American GFR(CKD) 47 (>60 ml/min/1.73 sqM); Potassium 3.7 mmol/L (3.5-5.1); Sodium 134 mmol/L (137-145)
[2024-09-10 20:59] LABS: Glucose,Whole Blood 153 mg/dL (70-110)
[2024-09-10] MEDS: POTASSIUM CHLORIDE 10 MEQ in WATER FOR INJECTION 1 100ML.BAG IVPB SCH (21:02)
[2024-09-10] MEDS: MUPIROCIN 2% OINT 22 GM TUBE NASAL SCH (22:00)
[2024-09-10 22:03] LABS: Glucose,Whole Blood 143 mg/dL (70-110)
[2024-09-10 22:46] LABS: Glucose,Whole Blood 134 mg/dL (70-110)
[2024-09-10 22:56] LABS: Anisocytosis Slight; Basophils % (A) 0 %; Eosinophils % (A) 0 %; Lymphocytes # (A) 0.3 k/uL (1.0-4.8); Lymphocytes % (A) 12 %; MCH 29.5 pg (25.0-35.0); MCHC 34.1 g/dL (31.0-37.0); MCV 86.6 fL (80.0-100.0); Mean Platelet Volume 10.8; Monocytes # (A) 0.2 k/uL (0-1.0); Monocytes % (A) 6 %; Neutrophils # (A) 2.3 k/uL (1.3-7.7); Neutrophils % (A) 81 %; Poikilocytosis Moderate; RBC 2.06 m/uL (4.30-5.90); RDW 16.5 % (11.5-15.5); WBC 2.9 k/uL (3.8-10.6)
[2024-09-10 23:07] LABS: HGB 6.1 gm/dL (13.0-17.5)
[2024-09-10 23:08] LABS: HCT 17.8 % (39.0-53.0)
[2024-09-10 23:25] LABS: Anisocytosis (M) Present; Ovalocytes Present; Platelet Count 83 k/uL (150-450); Poikilocytosis (M) Present
[2024-09-10] MEDS: AMIODARONE 450 MG in DEXTROSE 5% IN WATER 250 ML IV SCH (23:43)
[2024-09-11] LABS: Glucose,Whole Blood 122 mg/dL (70-110)
[2024-09-11] MEDS: HEPARIN SODIUM,PORCINE 5,000 UNIT/ML 1 ML VIAL SQ SCH (00:33)
[2024-09-11 00:59] LABS: Glucose,Whole Blood 116 mg/dL (70-110)
[2024-09-11 01:59] LABS: Glucose,Whole Blood 112 mg/dL (70-110)
[2024-09-11 02:58] LABS: Glucose,Whole Blood 119 mg/dL (70-110)
[2024-09-11 04:06] LABS: Glucose,Whole Blood 135 mg/dL (70-110)
[2024-09-11 05:04] LABS: Glucose,Whole Blood 128 mg/dL (70-110)
[2024-09-11 05:09] LABS: ABG Base Excess -0.2 mmol/L; ABG HCO3 23 mmol/L (21-25); ABG PCO2 33 mmHg (35-45); ABG PH 7.47 (7.35-7.45); ABG PO2 149 mmHg (83-108); ABG TCO2 24 mmol/L (19-24)
[2024-09-11 05:11] LABS: Basophils % (A) 0 %; Eosinophils % (A) 0 %; Lymphocytes # (A) 0.6 k/uL (1.0-4.8); Lymphocytes % (A) 20 %; MCH 29.6 pg (25.0-35.0); MCHC 33.7 g/dL (31.0-37.0); MCV 87.9 fL (80.0-100.0); Mean Platelet Volume 8.4; Monocytes # (A) 0.2 k/uL (0-1.0); Monocytes % (A) 5 %; Neutrophils # (A) 2.3 k/uL (1.3-7.7); Neutrophils % (A) 73 %; Platelet Count 105 k/uL (150-450); Poikilocytosis Slight; RBC 2.26 m/uL (4.30-5.90); RDW 15.7 % (11.5-15.5); WBC 3.2 k/uL (3.8-10.6)
[2024-09-11 05:20] LABS: Allen Test Performed? no
[2024-09-11 05:23] LABS: HCT 19.9 % (39.0-53.0); HGB 6.7 gm/dL (13.0-17.5)
[2024-09-11 05:33] LABS: Ionized Calcium 4.5 mg/dL (4.5-5.3)
[2024-09-11 05:42] LABS: ALT 11 U/L (4-49); AST 37 U/L (17-59); African American GFR (CKD) 53 (>60 ml/min/1.73 sqM); Albumin 3.5 g/dL (3.5-5.0); Alkaline Phosphatase 24 U/L (38-126); Anion Gap 7 mmol/L; Blood Urea Nitrogen 19 mg/dL (9-20); Calcium 8.4 mg/dL (8.4-10.2); Carbon Dioxide 24 mmol/L (22-30); Chloride 106 mmol/L (98-107); Glucose 109 mg/dL (74-99); Magnesium 3.2 mg/dL (1.6-2.3); Non-African American GFR(CKD) 45 (>60 ml/min/1.73 sqM); Potassium 3.4 mmol/L (3.5-5.1); Sodium 137 mmol/L (137-145); Total Bilirubin 1.6 mg/dL (0.2-1.3)
[2024-09-11] MEDS: LEVOTHYROXINE 100 MCG TAB PO SCH (05:43)
[2024-09-11 06:09] LABS: Glucose,Whole Blood 116 mg/dL (70-110)
[2024-09-11] MEDS: POTASSIUM CHLORIDE 20 MEQ in WATER FOR INJECTION 1 100ML.BAG IVPB SCH (06:24)
[2024-09-11 07:00] LABS: Glucose,Whole Blood 117 mg/dL (70-110)
[2024-09-11] MEDS: IPRATROPIUM-ALBUTEROL 3 ML NEB INHALATION SCH (07:18)
[2024-09-11] MEDS: CLOPIDOGREL 75 MG TAB PO SCH (07:40)
[2024-09-11] MEDS: ATORVASTATIN 40 MG TAB PO SCH (07:40)
[2024-09-11 07:42] LABS: ABG Base Excess -1.8 mmol/L; ABG HCO3 23 mmol/L (21-25); ABG Oxygen Saturation 99.1 % (94-97); ABG PCO2 40 mmHg (35-45); ABG PH 7.37 (7.35-7.45); ABG PO2 115 mmHg (83-108); ABG TCO2 25 mmol/L (19-24); Allen Test Performed? Yes
[2024-09-11] MEDS: PANTOPRAZOLE 40 MG/10 ML VIAL IVP SCH (07:50)
[2024-09-11] MEDS: ASPIRIN 325 MG TAB PO SCH (07:52)
[2024-09-11] MEDS: AMIODARONE 200 MG TAB PO SCH (07:52)
--- NOTE | 2024-09-11 08:03 | XR ---
EXAMINATION TYPE: XR chest 1V portable DATE OF EXAM: 09/11/2024 5:45 AM CLINICAL INDICATION: Male, 74 years old with history of Post Operative Cardiac Surgery; [facility] COMPARISON: Chest radiograph from one day prior. TECHNIQUE: XR chest 1V portable Frontal view of the chest. FINDINGS: Lungs/Pleura: There is no evidence of pleural effusion, focal consolidation, or pneumothorax. Pulmonary vascularity: Unremarkable. Heart/mediastinum: Cardiomediastinal silhouette is unremarkable. Post aortic valve repair changes. L eft atrial appendage occlusion device is present. Musculoskeletal: No acute osseous pathology. Other findings: Subcutaneous emphysema scattered throughout the visualized thorax. Lines/Tubes: Endotracheal tube with distal tip 4.1 cm above the clemente. Nasogastric tube with its distal tip and side-port projecting under the diaphragm. There is a [place]-Soraya catheter with tip projecting over the spine. Drainage tubes with tips projecting over the mediastinum. Left thoracotomy tube is present without evidence of pneumothorax. IMPRESSION: Stable exam, Postsurgical changes. No evidence for postop complication. [facility], , 09/11/2024 8:01 AM
[2024-09-11] MEDS: ACETAMINOPHEN IV (For NPO) 1,000 MG in EMPTY BAG 1 BAG IVPB STA (08:38)
--- NOTE | 2024-09-11 08:45 | P.PN ---
Subjective Progress Note Date: 09/11/24 Principal diagnosis: Triple vessel coronary artery disease, aortic stenosis/insufficiency. Past medical history significant for coronary artery disease with myocardial infarction and multiple stenting with the last stent greater than 10 years ago, peripheral arterial disease with endovascular abdominal aneurysm repair approximately 2 years ago at [facility], angioplasty in the right leg, hypertension, hyperlipidemia, remote history of pneumonia, current chronic tobacco dependence, occasional marijuana use, and medication noncompliance. POD #1 Aortic valve replacement with 23 mm Barcenas Inspiris bovine pericardial valve, CABG x 4 with ARANA to LAD, sequential left radial artery graft to first and second obtuse marginal coronary arteries, saphenous vein graft to posterior descending coronary artery, ligation of the left atrial appendage with 35 mm AtriCure clip, endovascular harvest bilateral greater saphenous veins, open harvest left radial artery. Intraoperative transesophageal echocardiogram performed by anesthesia. Postoperative acute blood loss anemia, expected given hemodilution, cardiopulmonary bypass and given his preoperative anemia. The patient was seen and examined in follow-up today September 11, 2024 at his bedside in the intensive care unit. The patient remains intubated with mechanical ventilator support, he is awake and alert and following verbal commands and moving all 4 extremities appropriately. The patient is being actively weaned from mechanical ventilation, oxygen saturations on current mechanical ventilator settings are 100%. Primacor drips remains infusing at 0.2 mcg/kg/min, right IJ cordis and Edgewood-Soraya catheter remains in place with current hemodynamic showing a cardiac output of 4.8, cardiac index 2.7, PA pressures 27/14, CVP 10 mmHg and SVR 916. Amiodarone drip is infusing at 0.5 mcg/min for atrial fibrillation prophylaxis, currently his bedside telemetry is showing sinus bradycardia heart rate 57 bpm. He was transfused for 1 unit of packed red blood cells for hemoglobin of 6.1, and his hemoglobin this morning is 6.7 and will be transfused for 1 unit of packed red blood cells. Mediastinal and left pleural chest tubes remain in place to low continuous wall suction -20 cm H2O. No air leak is present. Mediastinal chest tube draining thin serosanguineous drainage with 160 mL output in the last 8 hours and 450 mL output since surgery. Left pleural chest tube draining 350 mL in the last 8 hours and 530 mL output since surgery. The patient denies any complaints of pain at this time, when asked if having pain he is shaking his head no. Laboratory and chest x-ray results were reviewed. Objective - Vital Signs Vital signs: Vital Signs Temp 97.7 F 09/11/24 04:00 Pulse 77 09/11/24 07:40 Resp 20 09/11/24 07:00 BP 105/61 09/11/24 05:15 Pulse Ox 100 09/11/24 07:00 FiO2 40 09/11/24 07:25 Intake & Output 09/10/24 09/11/24 09/11/24 18:59 06:59 18:59 Intake Total 5160.575 1534.060 79 Output Total 1215 1305 65 Balance 444.072 9000.060 14 Weight 77.1 kg Intake: IV 295.0 2681.5 79 ACETAMINOPHEN IV (For NPO 100 ) 1,000 mg In Empty Bag 1 bag @ 400 mls/hr IVPB Q6HR [facility] Rx#:[id number] Albumin Human 25% 50 ml 250 In Empty Bag 1 bag @ 100 mls/hr IVPB ONCE ONE Rx#: [id number] Albumin Human 25% 50 ml 250 In Empty Bag 1 bag @ 100 mls/hr IVPB ONCE ONE Rx#: [id number] Albumin Human 5% 500 ml 500 In Empty Bag 1 bag @ 250 mls/hr IVPB ONCE ONE Rx#: [id number] Albumin Human 5% 500 ml 500 In Empty Bag 1 bag @ 250 mls/hr IVPB ONCE ONE Rx#: [id number] Albumin Human 5% 500 ml 250 In Empty Bag 1 bag @ 250 mls/hr IVPB ONCE ONE Rx#: [id number] Nitroglycerin-D5w Pmx 50 3.0 1.5 mg In Dextrose/Water 1 250ml.bag @ 5 MCG/MIN 1.5 mls/hr IV .Q24H [facility] Rx#: [id number] Sodium Chloride 0.9% 1, 100 600 50 000 ml @ 50 mls/hr IV . Q20H [facility] Rx#:[id number] co/ci 70 222 20 pressure bag 18 108 9 Intake, IV Titration 5.081 157.560 Amount Dexmedetomidine/0.9% NaCl 5.356 (Pmx) 400 mcg In Empty Bag 1 bag @ Titrate IV . Q0M [facility] Rx#:[id number] Insulin Regular 100 unit 0.909 32.101 In Sodium Chloride 0.9% 100 ml @ Per Protocol IV .Q0M [facility] Rx#:[id number] Milrinone-D5w Pmx 20 mg 63.525 In Dextrose/Water 1 100ml .bag @ Per Protocol IV . Q0M [facility] Rx#:[id number] propofoL 1,000 mg In 4.172 56.578 Empty Bag 1 bag @ Titrate IV .Q0M [facility] Rx#: [id number] Blood Product 1284 310 Platelet Pheresis Pas 354 Psoralen Unit [id number] As-1 Unit 310 [id number] Rc As-1 Unit 310 [id number] Rc As-1 Unit 310 [id number] As-1 Unit 310 [id number] Output: Chest Tube Drainage 310 670 20 Mediastinal 250 200 10 left plueral 60 470 10 Gastric Drainage 180 0 Urine 405 455 45 Estimated Blood Loss 500 Other: Voiding Method Indwelling Catheter ABP, PAP, CO, CI - Last Documented Arterial Blood Pressure 131/45 Pulmonary Artery Pressure 27/14 Cardiac Output 4.8 Cardiac Index 2.7 - Exam CONSTITUTIONAL: Laying in bed in the intensive care unit, remains intubated with mechanical ventilator support,, appears comfortable, cooperative, no apparent acute distress. HEENT: Neck is supple, no JVD, no lymphadenopathy. Right IJ Cordis and Edgewood- Soraya catheter in place and functioning. RESPIRATORY: Lungs sounds essentially clear throughout, diminished to his bilateral bases. Respirations are symmetrical and nonlabored with mechanical ventilator support. Oxygen saturations 100% on current mechanical ventilator support. Strong cough. CARDIOVASCULAR: Regular rhythm and rate. S1 and S2 present, negative for S3, gallop or murmur. Sternum is stable. Palpable peripheral pulses bilaterally. No calf pain or tenderness noted. Heart hugger in place. Knee-high FIDELIA hose and sequential compression devices in place to his bilateral lower extremities. GASTROINTESTINAL: Abdomen soft, nontender, nondistended. Hypoactive bowel sounds present 4 quadrants. OG tube is in place to low continuous wall suction -20 cm H2O. No guarding or rigidity. GENITOURINARY: Stubbs present draining clear, yellow urine. Urine output 250 mLin the last 8 hours. INTEGUMENTARY: Skin is warm and dry with no evidence of clubbing or cyanosis. Midline sternal incision clean dry and well approximated, covered with dry intact dressing. Bilateral lower extremity EVH sites well approximated without redness or drainage. Left arm radial artery harvest site clean, dry and approximated. No drainage or redness is present. NEUROLOGIC: Cranial nerves II through XII intact. No focal deficits. MUSKULOSKELETAL: Able to move all extremities, strength equal bilaterally, generalized weakness. PSYCHIATRIC: Alert and oriented to person place and time, appropriate affect, intact judgment and insight. INVASIVE LINES AND TUBES: Mediastinal/left pleural chest tubes present and connected to low continuous wall suction, no air leaks present. Mediastinal tube with 160 mL of thin serosanguineous drainage overnight, 450 mL output in the last 24 hours. Left pleural chest tube with 350 mL of thin serosanguineous drainage overnight, 530 mL output in the last 24 hours. Atrial and ventricular epicardial pacemaker wires present, connected to generator, VVI backup rate 50 bpm. Right internal jugular Edgewood/Cordis, right radial arterial line present. Last CO 4.8, CI 2.7, PA 27/14, CVP 10 mmHg and SVR 916. - Allied health notes Allied health notes reviewed: nursing - Labs CBC & Chem 7: 09/11/24 05:00 09/11/24 05:00 Labs: Abnormal Lab Results - Last 24 Hours (Table) 09/09/24 09/10/24 09/10/24 Range/Units 06:25 08:52 12:24 WBC (3.8-10.6) k/uL RBC (4.30-5.90) m/uL Hgb (13.0-17.5) gm/dL Hct (39.0-53.0) % RDW (11.5-15.5) % Plt Count (150-450) k/uL Lymphocytes # (1.0-4.8) k/uL PT (10.0-12.5) sec INR (<1.2) APTT (22.0-30.0) sec ABG pH 7.32 L (7.35-7.45) ABG pCO2 46 H (35-45) mmHg ABG pO2 >420 H 346 H (83-108) mmHg ABG HCO3 (21-25) mmol/L ABG Total CO2 (19-24) mmol/L ABG O2 Saturation >99.4 H 99.4 H (94-97) % ABG Hematocrit 23 L 24 L (34.0-46.0) % ABG Sodium 133 L (135-146) mmol/L ABG Ionized Calcium (4.5-5.3) mg/dL ABG Glucose 143 H (75-99) mg/dL ABG Lactic Acid (0.5-1.6) mmol/L Hemoglobin 7.5 L 7.9 L (13.0-17.5) gm/dL Sodium (137-145) mmol/L Potassium (3.5-5.1) mmol/L Chloride (98-107) mmol/L Carbon Dioxide (22-30) mmol/L Creatinine (0.66-1.25) mg/dL Glucose (74-99) mg/dL POC Glucose (mg/dL) (70-110) mg/dL Magnesium (1.6-2.3) mg/dL Total Bilirubin (0.2-1.3) mg/dL Alkaline Phosphatase (38-126) U/L Total Protein (6.3-8.2) g/dL Albumin (3.5-5.0) g/dL Arterial Blood Glucose 143 H (75-99) mg/dL Crossmatch See Detail 09/10/24 09/10/24 09/10/24 Range/Units 12:58 13:37 13:40 WBC (3.8-10.6) k/uL RBC (4.30-5.90) m/uL Hgb (13.0-17.5) gm/dL Hct (39.0-53.0) % RDW (11.5-15.5) % Plt Count (150-450) k/uL Lymphocytes # (1.0-4.8) k/uL PT (10.0-12.5) sec INR (<1.2) APTT (22.0-30.0) sec ABG pH 7.49 H 7.51 H (7.35-7.45) ABG pCO2 (35-45) mmHg ABG pO2 >420 H >420 H >420 H (83-108) mmHg ABG HCO3 26 H 28 H 28 H (21-25) mmol/L ABG Total CO2 (19-24) mmol/L ABG O2 Saturation >99.4 H >99.4 H >99.4 H (94-97) % ABG Hematocrit 23 L 23 L 24 L (34.0-46.0) % ABG Sodium (135-146) mmol/L ABG Ionized Calcium 4.4 L 4.2 L 4.3 L (4.5-5.3) mg/dL ABG Glucose 123 H 117 H 117 H (75-99) mg/dL ABG Lactic Acid 1.7 H 2.1 H 2.1 H (0.5-1.6) mmol/L Hemoglobin 7.4 L 7.5 L 7.7 L (13.0-17.5) gm/dL Sodium (137-145) mmol/L Potassium (3.5-5.1) mmol/L Chloride (98-107) mmol/L Carbon Dioxide (22-30) mmol/L Creatinine (0.66-1.25) mg/dL Glucose (74-99) mg/dL POC Glucose (mg/dL) (70-110) mg/dL Magnesium (1.6-2.3) mg/dL Total Bilirubin (0.2-1.3) mg/dL Alkaline Phosphatase (38-126) U/L Total Protein (6.3-8.2) g/dL Albumin (3.5-5.0) g/dL Arterial Blood Glucose 123 H 117 H 117 H (75-99) mg/dL Crossmatch 09/10/24 09/10/24 09/10/24 Range/Units 14:18 15:20 16:35 WBC (3.8-10.6) k/uL RBC (4.30-5.90) m/uL Hgb (13.0-17.5) gm/dL Hct (39.0-53.0) % RDW (11.5-15.5) % Plt Count (150-450) k/uL Lymphocytes # (1.0-4.8) k/uL PT (10.0-12.5) sec INR (<1.2) APTT (22.0-30.0) sec ABG pH 7.53 H (7.35-7.45) ABG pCO2 31 L (35-45) mmHg ABG pO2 >420 H >420 H (83-108) mmHg ABG HCO3 26 H (21-25) mmol/L ABG Total CO2 (19-24) mmol/L ABG O2 Saturation >99.4 H >99.4 H (94-97) % ABG Hematocrit 26 L 27 L (34.0-46.0) % ABG Sodium (135-146) mmol/L ABG Ionized Calcium 4.4 L (4.5-5.3) mg/dL ABG Glucose 111 H 114 H (75-99) mg/dL ABG Lactic Acid 2.0 H 2.3 H* (0.5-1.6) mmol/L Hemoglobin 8.5 L 8.8 L (13.0-17.5) gm/dL Sodium (137-145) mmol/L Potassium (3.5-5.1) mmol/L Chloride (98-107) mmol/L Carbon Dioxide (22-30) mmol/L Creatinine (0.66-1.25) mg/dL Glucose (74-99) mg/dL POC Glucose (mg/dL) 132 H (70-110) mg/dL Magnesium (1.6-2.3) mg/dL Total Bilirubin (0.2-1.3) mg/dL Alkaline Phosphatase (38-126) U/L Total Protein (6.3-8.2) g/dL Albumin (3.5-5.0) g/dL Arterial Blood Glucose 111 H 114 H (75-99) mg/dL Crossmatch 09/10/24 09/10/24 09/10/24 Range/Units 16:36 16:36 16:36 WBC (3.8-10.6) k/uL RBC 2.97 L (4.30-5.90) m/uL Hgb 8.6 L (13.0-17.5) gm/dL Hct 26.7 L (39.0-53.0) % RDW 15.7 H (11.5-15.5) % Plt Count 125 L (150-450) k/uL Lymphocytes # 0.6 L (1.0-4.8) k/uL PT 12.6 H (10.0-12.5) sec INR 1.2 H (<1.2) APTT 34.1 H (22.0-30.0) sec ABG pH (7.35-7.45) ABG pCO2 (35-45) mmHg ABG pO2 (83-108) mmHg ABG HCO3 (21-25) mmol/L ABG Total CO2 (19-24) mmol/L ABG O2 Saturation (94-97) % ABG Hematocrit (34.0-46.0) % ABG Sodium (135-146) mmol/L ABG Ionized Calcium (4.5-5.3) mg/dL ABG Glucose (75-99) mg/dL ABG Lactic Acid (0.5-1.6) mmol/L Hemoglobin (13.0-17.5) gm/dL Sodium (137-145) mmol/L Potassium (3.5-5.1) mmol/L Chloride (98-107) mmol/L Carbon Dioxide (22-30) mmol/L Creatinine 1.39 H (0.66-1.25) mg/dL Glucose 112 H (74-99) mg/dL POC Glucose (mg/dL) (70-110) mg/dL Magnesium 4.4 H (1.6-2.3) mg/dL Total Bilirubin 1.4 H (0.2-1.3) mg/dL Alkaline Phosphatase 37 L (38-126) U/L Total Protein 4.9 L (6.3-8.2) g/dL Albumin 3.1 L (3.5-5.0) g/dL Arterial Blood Glucose (75-99) mg/dL Crossmatch 09/10/24 09/10/24 09/10/24 Range/Units 17:00 18:05 19:05 WBC (3.8-10.6) k/uL RBC (4.30-5.90) m/uL Hgb (13.0-17.5) gm/dL Hct (39.0-53.0) % RDW (11.5-15.5) % Plt Count (150-450) k/uL Lymphocytes # (1.0-4.8) k/uL PT (10.0-12.5) sec INR (<1.2) APTT (22.0-30.0) sec ABG pH (7.35-7.45) ABG pCO2 (35-45) mmHg ABG pO2 300 H (83-108) mmHg ABG HCO3 (21-25) mmol/L ABG Total CO2 (19-24) mmol/L ABG O2 Saturation 100.0 H (94-97) % ABG Hematocrit (34.0-46.0) % ABG Sodium (135-146) mmol/L ABG Ionized Calcium (4.5-5.3) mg/dL ABG Glucose (75-99) mg/dL ABG Lactic Acid (0.5-1.6) mmol/L Hemoglobin 8.6 L (13.0-17.5) gm/dL Sodium (137-145) mmol/L Potassium (3.5-5.1) mmol/L Chloride (98-107) mmol/L Carbon Dioxide (22-30) mmol/L Creatinine (0.66-1.25) mg/dL Glucose (74-99) mg/dL POC Glucose (mg/dL) 151 H 161 H (70-110) mg/dL Magnesium (1.6-2.3) mg/dL Total Bilirubin (0.2-1.3) mg/dL Alkaline Phosphatase (38-126) U/L Total Protein (6.3-8.2) g/dL Albumin (3.5-5.0) g/dL Arterial Blood Glucose (75-99) mg/dL Crossmatch 09/10/24 09/10/24 09/10/24 Range/Units 19:50 19:50 19:51 WBC (3.8-10.6) k/uL RBC 2.67 L (4.30-5.90) m/uL Hgb 7.7 L (13.0-17.5) gm/dL Hct 23.8 L (39.0-53.0) % RDW 15.9 H (11.5-15.5) % Plt Count 107 L (150-450) k/uL Lymphocytes # 0.5 L (1.0-4.8) k/uL PT (10.0-12.5) sec INR (<1.2) APTT (22.0-30.0) sec ABG pH (7.35-7.45) ABG pCO2 (35-45) mmHg ABG pO2 (83-108) mmHg ABG HCO3 (21-25) mmol/L ABG Total CO2 (19-24) mmol/L ABG O2 Saturation (94-97) % ABG Hematocrit (34.0-46.0) % ABG Sodium (135-146) mmol/L ABG Ionized Calcium (4.5-5.3) mg/dL ABG Glucose (75-99) mg/dL ABG Lactic Acid (0.5-1.6) mmol/L Hemoglobin (13.0-17.5) gm/dL Sodium 134 L (137-145) mmol/L Potassium (3.5-5.1) mmol/L Chloride 108 H (98-107) mmol/L Carbon Dioxide 21 L (22-30) mmol/L Creatinine 1.46 H (0.66-1.25) mg/dL Glucose 138 H (74-99) mg/dL POC Glucose (mg/dL) 165 H (70-110) mg/dL Magnesium (1.6-2.3) mg/dL Total Bilirubin (0.2-1.3) mg/dL Alkaline Phosphatase (38-126) U/L Total Protein (6.3-8.2) g/dL Albumin (3.5-5.0) g/dL Arterial Blood Glucose (75-99) mg/dL Crossmatch 09/10/24 09/10/24 09/10/24 Range/Units 20:58 22:01 22:44 WBC (3.8-10.6) k/uL RBC (4.30-5.90) m/uL Hgb (13.0-17.5) gm/dL Hct (39.0-53.0) % RDW (11.5-15.5) % Plt Count (150-450) k/uL Lymphocytes # (1.0-4.8) k/uL PT (10.0-12.5) sec INR (<1.2) APTT (22.0-30.0) sec ABG pH (7.35-7.45) ABG pCO2 (35-45) mmHg ABG pO2 (83-108) mmHg ABG HCO3 (21-25) mmol/L ABG Total CO2 (19-24) mmol/L ABG O2 Saturation (94-97) % ABG Hematocrit (34.0-46.0) % ABG Sodium (135-146) mmol/L ABG Ionized Calcium (4.5-5.3) mg/dL ABG Glucose (75-99) mg/dL ABG Lactic Acid (0.5-1.6) mmol/L Hemoglobin (13.0-17.5) gm/dL Sodium (137-145) mmol/L Potassium (3.5-5.1) mmol/L Chloride (98-107) mmol/L Carbon Dioxide (22-30) mmol/L Creatinine (0.66-1.25) mg/dL Glucose (74-99) mg/dL POC Glucose (mg/dL) 153 H 143 H 134 H (70-110) mg/dL Magnesium (1.6-2.3) mg/dL Total Bilirubin (0.2-1.3) mg/dL Alkaline Phosphatase (38-126) U/L Total Protein (6.3-8.2) g/dL Albumin (3.5-5.0) g/dL Arterial Blood Glucose (75-99) mg/dL Crossmatch 09/10/24 09/10/24 09/11/24 Range/Units 22:45 23:59 00:58 WBC 2.9 L (3.8-10.6) k/uL RBC 2.06 L (4.30-5.90) m/uL Hgb 6.1 L* D (13.0-17.5) gm/dL Hct 17.8 L* (39.0-53.0) % RDW 16.5 H (11.5-15.5) % Plt Count 83 L (150-450) k/uL Lymphocytes # 0.3 L (1.0-4.8) k/uL PT (10.0-12.5) sec INR (<1.2) APTT (22.0-30.0) sec ABG pH (7.35-7.45) ABG pCO2 (35-45) mmHg ABG pO2 (83-108) mmHg ABG HCO3 (21-25) mmol/L ABG Total CO2 (19-24) mmol/L ABG O2 Saturation (94-97) % ABG Hematocrit (34.0-46.0) % ABG Sodium (135-146) mmol/L ABG Ionized Calcium (4.5-5.3) mg/dL ABG Glucose (75-99) mg/dL ABG Lactic Acid (0.5-1.6) mmol/L Hemoglobin (13.0-17.5) gm/dL Sodium (137-145) mmol/L Potassium (3.5-5.1) mmol/L Chloride (98-107) mmol/L Carbon Dioxide (22-30) mmol/L Creatinine (0.66-1.25) mg/dL Glucose (74-99) mg/dL POC Glucose (mg/dL) 122 H 116 H (70-110) mg/dL Magnesium (1.6-2.3) mg/dL Total Bilirubin (0.2-1.3) mg/dL Alkaline Phosphatase (38-126) U/L Total Protein (6.3-8.2) g/dL Albumin (3.5-5.0) g/dL Arterial Blood Glucose (75-99) mg/dL Crossmatch 09/11/24 09/11/24 09/11/24 Range/Units 01:57 02:53 04:04 WBC (3.8-10.6) k/uL RBC (4.30-5.90) m/uL Hgb (13.0-17.5) gm/dL Hct (39.0-53.0) % RDW (11.5-15.5) % Plt Count (150-450) k/uL Lymphocytes # (1.0-4.8) k/uL PT (10.0-12.5) sec INR (<1.2) APTT (22.0-30.0) sec ABG pH (7.35-7.45) ABG pCO2 (35-45) mmHg ABG pO2 (83-108) mmHg ABG HCO3 (21-25) mmol/L ABG Total CO2 (19-24) mmol/L ABG O2 Saturation (94-97) % ABG Hematocrit (34.0-46.0) % ABG Sodium (135-146) mmol/L ABG Ionized Calcium (4.5-5.3) mg/dL ABG Glucose (75-99) mg/dL ABG Lactic Acid (0.5-1.6) mmol/L Hemoglobin (13.0-17.5) gm/dL Sodium (137-145) mmol/L Potassium (3.5-5.1) mmol/L Chloride (98-107) mmol/L Carbon Dioxide (22-30) mmol/L Creatinine (0.66-1.25) mg/dL Glucose (74-99) mg/dL POC Glucose (mg/dL) 112 H 119 H 135 H (70-110) mg/dL Magnesium (1.6-2.3) mg/dL Total Bilirubin (0.2-1.3) mg/dL Alkaline Phosphatase (38-126) U/L Total Protein (6.3-8.2) g/dL Albumin (3.5-5.0) g/dL Arterial Blood Glucose (75-99) mg/dL Crossmatch 09/11/24 09/11/24 09/11/24 Range/Units 05:00 05:00 05:03 WBC 3.2 L (3.8-10.6) k/uL RBC 2.26 L (4.30-5.90) m/uL Hgb 6.7 L* (13.0-17.5) gm/dL Hct 19.9 L* (39.0-53.0) % RDW 15.7 H (11.5-15.5) % Plt Count 105 L (150-450) k/uL Lymphocytes # 0.6 L (1.0-4.8) k/uL PT (10.0-12.5) sec INR (<1.2) APTT (22.0-30.0) sec ABG pH (7.35-7.45) ABG pCO2 (35-45) mmHg ABG pO2 (83-108) mmHg ABG HCO3 (21-25) mmol/L ABG Total CO2 (19-24) mmol/L ABG O2 Saturation (94-97) % ABG Hematocrit (34.0-46.0) % ABG Sodium (135-146) mmol/L ABG Ionized Calcium (4.5-5.3) mg/dL ABG Glucose (75-99) mg/dL ABG Lactic Acid (0.5-1.6) mmol/L Hemoglobin (13.0-17.5) gm/dL Sodium (137-145) mmol/L Potassium 3.4 L (3.5-5.1) mmol/L Chloride (98-107) mmol/L Carbon Dioxide (22-30) mmol/L Creatinine 1.51 H (0.66-1.25) mg/dL Glucose 109 H (74-99) mg/dL POC Glucose (mg/dL) 128 H (70-110) mg/dL Magnesium 3.2 H (1.6-2.3) mg/dL Total Bilirubin 1.6 H (0.2-1.3) mg/dL Alkaline Phosphatase 24 L (38-126) U/L Total Protein 5.0 L (6.3-8.2) g/dL Albumin (3.5-5.0) g/dL Arterial Blood Glucose (75-99) mg/dL Crossmatch 09/11/24 09/11/24 09/11/24 Range/Units 05:06 06:07 06:55 WBC (3.8-10.6) k/uL RBC (4.30-5.90) m/uL Hgb (13.0-17.5) gm/dL Hct (39.0-53.0) % RDW (11.5-15.5) % Plt Count (150-450) k/uL Lymphocytes # (1.0-4.8) k/uL PT (10.0-12.5) sec INR (<1.2) APTT (22.0-30.0) sec ABG pH 7.47 H (7.35-7.45) ABG pCO2 33 L (35-45) mmHg ABG pO2 149 H (83-108) mmHg ABG HCO3 (21-25) mmol/L ABG Total CO2 (19-24) mmol/L ABG O2 Saturation 100.0 H (94-97) % ABG Hematocrit (34.0-46.0) % ABG Sodium (135-146) mmol/L ABG Ionized Calcium (4.5-5.3) mg/dL ABG Glucose (75-99) mg/dL ABG Lactic Acid (0.5-1.6) mmol/L Hemoglobin 6.7 L* (13.0-17.5) gm/dL Sodium (137-145) mmol/L Potassium (3.5-5.1) mmol/L Chloride (98-107) mmol/L Carbon Dioxide (22-30) mmol/L Creatinine (0.66-1.25) mg/dL Glucose (74-99) mg/dL POC Glucose (mg/dL) 116 H 117 H (70-110) mg/dL Magnesium (1.6-2.3) mg/dL Total Bilirubin (0.2-1.3) mg/dL Alkaline Phosphatase (38-126) U/L Total Protein (6.3-8.2) g/dL Albumin (3.5-5.0) g/dL Arterial Blood Glucose (75-99) mg/dL Crossmatch 09/11/24 Range/Units 07:39 WBC (3.8-10.6) k/uL RBC (4.30-5.90) m/uL Hgb (13.0-17.5) gm/dL Hct (39.0-53.0) % RDW (11.5-15.5) % Plt Count (150-450) k/uL Lymphocytes # (1.0-4.8) k/uL PT (10.0-12.5) sec INR (<1.2) APTT (22.0-30.0) sec ABG pH (7.35-7.45) ABG pCO2 (35-45) mmHg ABG pO2 115 H (83-108) mmHg ABG HCO3 (21-25) mmol/L ABG Total CO2 25 H (19-24) mmol/L ABG O2 Saturation 99.1 H (94-97) % ABG Hematocrit (34.0-46.0) % ABG Sodium (135-146) mmol/L ABG Ionized Calcium (4.5-5.3) mg/dL ABG Glucose (75-99) mg/dL ABG Lactic Acid (0.5-1.6) mmol/L Hemoglobin 7.0 L* (13.0-17.5) gm/dL Sodium (137-145) mmol/L Potassium (3.5-5.1) mmol/L Chloride (98-107) mmol/L Carbon Dioxide (22-30) mmol/L Creatinine (0.66-1.25) mg/dL Glucose (74-99) mg/dL POC Glucose (mg/dL) (70-110) mg/dL Magnesium (1.6-2.3) mg/dL Total Bilirubin (0.2-1.3) mg/dL Alkaline Phosphatase (38-126) U/L Total Protein (6.3-8.2) g/dL Albumin (3.5-5.0) g/dL Arterial Blood Glucose (75-99) mg/dL Crossmatch - Imaging and Cardiology Chest x-ray: report reviewed, image reviewed Assessment and Plan Assessment: Coronary artery disease with myocardial infarction and multiple stenting with the last stent greater than 10 years ago, non-STEMI this admission, status post four-vessel coronary artery bypass grafting surgery Chest pain secondary to above Severe aortic stenosis with severe aortic insufficiency on heart catheterization as well as echocardiogram, mean gradient 59 mmHg, status post aortic valve replacement with 23 mm Barcenas Inspiris bovine pericardial valve Hypothyroid, with an admission TSH level of 14.6 and a free T4 hypothyroid 0.76 History of peripheral arterial disease with endovascular abdominal aneurysm repair approximately 2 years ago at [facility] Angioplasty in the right leg Hypertension although patient denies Hyperlipidemia Remote history of pneumonia Current chronic tobacco dependence Occasional marijuana use Medication noncompliance Chronic kidney disease, creatinine today 1.51 Postoperative acute blood loss anemia, expected given hemodilution, cardiopulmonary bypass and his preoperative anemia Plan: Continue aspirin, statin, Plavix and beta-aidan. Metoprolol tartrate 12.5 mg p.o. twice daily with hold parameters. Discontinue nitroglycerin drip. Hemoglobin is 6.7 this a.m., we will transfuse for 1 unit of packed red blood ce lls. Start amlodipine 2.5 mg p.o. daily with hold parameters for radial artery spasm prophylaxis. Discontinue amiodarone drip, start amiodarone 200 mg p.o. twice daily for atrial fibrillation prophylaxis, no postoperative atrial fibrillation has been reported, currently sinus rhythm. Once extubated wean oxygen as tolerated. Encourage incentive spirometry use 10 times every hour while awake. Bronchodilators per pulmonology. Increase activity as tolerated, PT/OT/cardiac rehab consulted. Will monitor daily labs and chest x-rays. Electrolyte replacement per protocol. GI/DVT prophylaxis. Pain control per current medication regimen. Avoid Toradol due to renal function. Insulin management per internal medicine. Patient is not a diabetic, preoperative hemoglobin A1c was 6.0%, needs tight blood sugar control. Should remain on continuous IV insulin for 48 hours, then may transition to subc utaneous per protocol Keep right IJ cordis/Edgewood-Soraya catheter for another 24 hours, continue to carlos tor hemodynamics. Continue Primacor drip at 0.1 mcg/kg/min for another 24 hours. Continue chest tubes for another 24 hours, monitor output. Continue Stubbs catheter for another 24 hours, continue to monitor and record strict accurate intake and output. Continue levothyroxine 100 mcg p.o. daily. The importance of risk modification including smoking cessation has been reinforced with the patient, he will be given the number to [id number] upon discharge. More recommendations to follow based on patient's clinical course. Time with Patient: Greater than 30
[2024-09-11 08:59] LABS: Glucose,Whole Blood 107 mg/dL (70-110)
[2024-09-11] MEDS ORDERED: METOPROLOL TARTRATE 12.5 MG TAB PO SCH (09:00)
[2024-09-11 09:48] LABS: Glucose,Whole Blood 100 mg/dL (70-110)
[2024-09-11] MEDS: amLODIPine 2.5 MG TAB PO SCH (10:49)
[2024-09-11] MEDS: METOPROLOL TARTRATE 12.5 MG TAB PO SCH (10:49)
--- NOTE | 2024-09-11 10:53 | P.PN ---
Subjective Progress Note Date: 09/11/24 Subjective: Patient seen and examined at bedside. No acute events overnight. Extubated this morning. Doing well. Denies any pain or shortness of breath. Did have some emesis. Pertinent positives and negatives as discussed above, a complete review of systems was performed and all other systems are negative. Vitals Signs Reviewed. General: Not in acute distress Derm: Warm, dry, chest tubes in place Head: Atraumatic, normocephalic, symmetric Eyes: EOMI, no lid lag, anicteric sclera Mouth: No lip lesion, mucus membranes moist Cardiovascular: S1S2 reg, no murmur Lungs: Bilateral rhonchi, supplemental oxygen Abdominal: Soft, no guarding, nondistended Neuro: No focal deficits Psych: Alert and cooperative Data Reviewed Today: Pertinent Labs: WBC 3.2, hemoglobin 6.7, platelet 105, sodium 137, potassium 3.4, creatinine 1.51, blood sugars range between 100 219 Imaging: Chest x-ray independently interpreted, shows bilateral interstitial opacities from recent surgery. Assessment and Plan: Multivessel CAD status post CABG Severe aortic stenosis status post replacement Severe aortic regurgitation Acute NSTEMI, present on admission Acute blood loss anemia, anticipated outcome of surgery Pancytopenia Hypertension Nicotine dependence Dyslipidemia -Cardiothoracic surgery note reviewed, continue chest tubes and Stubbs catheter for another 24 hours, amiodarone 200 twice daily, amlodipine 2.5 daily, aspirin 325 daily, atorvastatin 40 daily, Plavix 75 daily, metoprolol 12.5 twice daily -[employer] following -Patient is status post 5 units of PRBCs and 1 unit of platelets -Continue to monitor CBC Hyperglycemia Prediabetes -Insulin drip for tight glucose control -Will switch to subcu insulin once patient is able to tolerate oral intake likely in 48 hours Hypothyroidism -Continue on levothyroxine 100 mcg daily -Recheck TSH in 4 to 6 weeks CARMELO with CKD stage IIIa, resolving -Repeat renal function tomorrow Hypokalemia -Potassium being replaced IV Thank you for allowing us to participate in the care of this pleasant patient. Do not hesitate to contact us with questions. Someone can be reached from the [facility] hospitalist group all hours of the day at [phone] or via perfect serve. Objective - Vital Signs Vital signs: Vital Signs Temp 36.1 F L 09/11/24 10:00 Pulse 69 09/11/24 10:00 Resp 15 09/11/24 10:00 BP 134/62 09/11/24 10:00 Pulse Ox 92 L 09/11/24 10:00 FiO2 40 09/11/24 08:00 Intake & Output 09/10/24 09/11/24 09/11/24 18:59 06:59 18:59 Intake Total 0761.559 6116.060 880.095 Output Total 1215 1305 330 Balance 289.300 5444.060 550.095 Weight 77.1 kg Intake: IV 295.0 2681.5 406 ACETAMINOPHEN IV (For NPO 100 100 ) 1,000 mg In Empty Bag 1 bag @ 400 mls/hr IVPB Q6HR KATERINA Rx#:[id number] Albumin Human 25% 50 ml 250 In Empty Bag 1 bag @ 100 mls/hr IVPB ONCE ONE Rx#: [id number] Albumin Human 25% 50 ml 250 In Empty Bag 1 bag @ 100 mls/hr IVPB ONCE ONE Rx#: [id number] Albumin Human 5% 500 ml 500 In Empty Bag 1 bag @ 250 mls/hr IVPB ONCE ONE Rx#: [id number] Albumin Human 5% 500 ml 500 In Empty Bag 1 bag @ 250 mls/hr IVPB ONCE ONE Rx#: [id number] Albumin Human 5% 500 ml 250 In Empty Bag 1 bag @ 250 mls/hr IVPB ONCE ONE Rx#: [id number] Nitroglycerin-D5w Pmx 50 3.0 1.5 mg In Dextrose/Water 1 250ml.bag @ 5 MCG/MIN 1.5 mls/hr IV .Q24H KATERINA Rx#: [id number] Sodium Chloride 0.9% 1, 100 600 200 000 ml @ 30 mls/hr IV . Q24H [facility]ATERINA Rx#:[id number] co/ci 70 222 70 pressure bag 18 108 36 Intake, IV Titration 5.081 157.560 164.095 Amount Dexmedetomidine/0.9% NaCl 5.356 (Pmx) 400 mcg In Empty Bag 1 bag @ Titrate IV . Q0M KATERNIA Rx#:[id number] Insulin Regular 100 unit 0.909 32.101 5.69 In Sodium Chloride 0.9% 100 ml @ Per Protocol IV .Q0M [facility]ATERINA Rx#:[id number] Milrinone-D5w Pmx 20 mg 63.525 8.405 In Dextrose/Water 1 100ml .bag @ Per Protocol IV . Q0M KATERINA Rx#:[id number] Potassium Chloride 20 meq 100 In Water For Injection 1 100ml.bag @ 50 mls/hr IVPB Q2H KATERINA Rx#: [id number] ceFAZolin 2 gm In Sodium 50 Chloride 0.9% 50 ml @ 100 mls/hr IVPB Q8HR KATERINA Rx# :[id number] propofoL 1,000 mg In 4.172 56.578 Empty Bag 1 bag @ Titrate IV .Q0M KATERINA Rx#: [id number] Blood Product 1284 310 310 Platelet Pheresis Pas 354 Psoralen Unit [id number] Rc As-1 Unit 310 [id number] Rc As-1 Unit 310 [id number] Rc As-1 Unit 310 [id number] Rc As-1 Unit 310 [id number] Rc As-1 Unit 310 [id number] Output: Chest Tube Drainage 310 670 180 Mediastinal 250 200 60 left plueral 60 470 120 Gastric Drainage 180 0 Urine 405 455 150 Estimated Blood Loss 500 Other: Voiding Method Indwelling Catheter Indwelling Catheter ABP, PAP, CO, CI - Last Documented Arterial Blood Pressure 137/42 Pulmonary Artery Pressure 29/11 Cardiac Output 5.7 Cardiac Index 3.2 - Labs CBC & Chem 7: 09/11/24 05:00 09/11/24 05:00 Labs: Abnormal Lab Results - Last 24 Hours (Table) 09/09/24 09/10/24 09/10/24 Range/Units 06:25 08:52 12:24 WBC (3.8-10.6) k/uL RBC (4.30-5.90) m/uL Hgb (13.0-17.5) gm/dL Hct (39.0-53.0) % RDW (11.5-15.5) % Plt Count (150-450) k/uL Lymphocytes # (1.0-4.8) k/uL PT (10.0-12.5) sec INR (<1.2) APTT (22.0-30.0) sec ABG pH 7.32 L (7.35-7.45) ABG pCO2 46 H (35-45) mmHg ABG pO2 >420 H 346 H (83-108) mmHg ABG HCO3 (21-25) mmol/L ABG Total CO2 (19-24) mmol/L ABG O2 Saturation >99.4 H 99.4 H (94-97) % ABG Hematocrit 23 L 24 L (34.0-46.0) % ABG Sodium 133 L (135-146) mmol/L ABG Ionized Calcium (4.5-5.3) mg/dL ABG Glucose 143 H (75-99) mg/dL ABG Lactic Acid (0.5-1.6) mmol/L Hemoglobin 7.5 L 7.9 L (13.0-17.5) gm/dL Sodium (137-145) mmol/L Potassium (3.5-5.1) mmol/L Chloride (98-107) mmol/L Carbon Dioxide (22-30) mmol/L Creatinine (0.66-1.25) mg/dL Glucose (74-99) mg/dL POC Glucose (mg/dL) (70-110) mg/dL Magnesium (1.6-2.3) mg/dL Total Bilirubin (0.2-1.3) mg/dL Alkaline Phosphatase (38-126) U/L Total Protein (6.3-8.2) g/dL Albumin (3.5-5.0) g/dL Arterial Blood Glucose 143 H (75-99) mg/dL Crossmatch See Detail 09/10/24 09/10/24 09/10/24 Range/Units 12:58 13:37 13:40 WBC (3.8-10.6) k/uL RBC (4.30-5.90) m/uL Hgb (13.0-17.5) gm/dL Hct (39.0-53.0) % RDW (11.5-15.5) % Plt Count (150-450) k/uL Lymphocytes # (1.0-4.8) k/uL PT (10.0-12.5) sec INR (<1.2) APTT (22.0-30.0) sec ABG pH 7.49 H 7.51 H (7.35-7.45) ABG pCO2 (35-45) mmHg ABG pO2 >420 H >420 H >420 H (83-108) mmHg ABG HCO3 26 H 28 H 28 H (21-25) mmol/L ABG Total CO2 (19-24) mmol/L ABG O2 Saturation >99.4 H >99.4 H >99.4 H (94-97) % ABG Hematocrit 23 L 23 L 24 L (34.0-46.0) % ABG Sodium (135-146) mmol/L ABG Ionized Calcium 4.4 L 4.2 L 4.3 L (4.5-5.3) mg/dL ABG Glucose 123 H 117 H 117 H (75-99) mg/dL ABG Lactic Acid 1.7 H 2.1 H 2.1 H (0.5-1.6) mmol/L Hemoglobin 7.4 L 7.5 L 7.7 L (13.0-17.5) gm/dL Sodium (137-145) mmol/L Potassium (3.5-5.1) mmol/L Chloride (98-107) mmol/L Carbon Dioxide (22-30) mmol/L Creatinine (0.66-1.25) mg/dL Glucose (74-99) mg/dL POC Glucose (mg/dL) (70-110) mg/dL Magnesium (1.6-2.3) mg/dL Total Bilirubin (0.2-1.3) mg/dL Alkaline Phosphatase (38-126) U/L Total Protein (6.3-8.2) g/dL Albumin (3.5-5.0) g/dL Arterial Blood Glucose 123 H 117 H 117 H (75-99) mg/dL Crossmatch 09/10/24 09/10/24 09/10/24 Range/Units 14:18 15:20 16:35 WBC (3.8-10.6) k/uL RBC (4.30-5.90) m/uL Hgb (13.0-17.5) gm/dL Hct (39.0-53.0) % RDW (11.5-15.5) % Plt Count (150-450) k/uL Lymphocytes # (1.0-4.8) k/uL PT (10.0-12.5) sec INR (<1.2) APTT (22.0-30.0) sec ABG pH 7.53 H (7.35-7.45) ABG pCO2 31 L (35-45) mmHg ABG pO2 >420 H >420 H (83-108) mmHg ABG HCO3 26 H (21-25) mmol/L ABG Total CO2 (19-24) mmol/L ABG O2 Saturation >99.4 H >99.4 H (94-97) % ABG Hematocrit 26 L 27 L (34.0-46.0) % ABG Sodium (135-146) mmol/L ABG Ionized Calcium 4.4 L (4.5-5.3) mg/dL ABG Glucose 111 H 114 H (75-99) mg/dL ABG Lactic Acid 2.0 H 2.3 H* (0.5-1.6) mmol/L Hemoglobin 8.5 L 8.8 L (13.0-17.5) gm/dL Sodium (137-145) mmol/L Potassium (3.5-5.1) mmol/L Chloride (98-107) mmol/L Carbon Dioxide (22-30) mmol/L Creatinine (0.66-1.25) mg/dL Glucose (74-99) mg/dL POC Glucose (mg/dL) 132 H (70-110) mg/dL Magnesium (1.6-2.3) mg/dL Total Bilirubin (0.2-1.3) mg/dL Alkaline Phosphatase (38-126) U/L Total Protein (6.3-8.2) g/dL Albumin (3.5-5.0) g/dL Arterial Blood Glucose 111 H 114 H (75-99) mg/dL Crossmatch 09/10/24 09/10/24 09/10/24 Range/Units 16:36 16:36 16:36 WBC (3.8-10.6) k/uL RBC 2.97 L (4.30-5.90) m/uL Hgb 8.6 L (13.0-17.5) gm/dL Hct 26.7 L (39.0-53.0) % RDW 15.7 H (11.5-15.5) % Plt Count 125 L (150-450) k/uL Lymphocytes # 0.6 L (1.0-4.8) k/uL PT 12.6 H (10.0-12.5) sec INR 1.2 H (<1.2) APTT 34.1 H (22.0-30.0) sec ABG pH (7.35-7.45) ABG pCO2 (35-45) mmHg ABG pO2 (83-108) mmHg ABG HCO3 (21-25) mmol/L ABG Total CO2 (19-24) mmol/L ABG O2 Saturation (94-97) % ABG Hematocrit (34.0-46.0) % ABG Sodium (135-146) mmol/L ABG Ionized Calcium (4.5-5.3) mg/dL ABG Glucose (75-99) mg/dL ABG Lactic Acid (0.5-1.6) mmol/L Hemoglobin (13.0-17.5) gm/dL Sodium (137-145) mmol/L Potassium (3.5-5.1) mmol/L Chloride (98-107) mmol/L Carbon Dioxide (22-30) mmol/L Creatinine 1.39 H (0.66-1.25) mg/dL Glucose 112 H (74-99) mg/dL POC Glucose (mg/dL) (70-110) mg/dL Magnesium 4.4 H (1.6-2.3) mg/dL Total Bilirubin 1.4 H (0.2-1.3) mg/dL Alkaline Phosphatase 37 L (38-126) U/L Total Protein 4.9 L (6.3-8.2) g/dL Albumin 3.1 L (3.5-5.0) g/dL Arterial Blood Glucose (75-99) mg/dL Crossmatch 09/10/24 09/10/24 09/10/24 Range/Units 17:00 18:05 19:05 WBC (3.8-10.6) k/uL RBC (4.30-5.90) m/uL Hgb (13.0-17.5) gm/dL Hct (39.0-53.0) % RDW (11.5-15.5) % Plt Count (150-450) k/uL Lymphocytes # (1.0-4.8) k/uL PT (10.0-12.5) sec INR (<1.2) APTT (22.0-30.0) sec ABG pH (7.35-7.45) ABG pCO2 (35-45) mmHg ABG pO2 300 H (83-108) mmHg ABG HCO3 (21-25) mmol/L ABG Total CO2 (19-24) mmol/L ABG O2 Saturation 100.0 H (94-97) % ABG Hematocrit (34.0-46.0) % ABG Sodium (135-146) mmol/L ABG Ionized Calcium (4.5-5.3) mg/dL ABG Glucose (75-99) mg/dL ABG Lactic Acid (0.5-1.6) mmol/L Hemoglobin 8.6 L (13.0-17.5) gm/dL Sodium (137-145) mmol/L Potassium (3.5-5.1) mmol/L Chloride (98-107) mmol/L Carbon Dioxide (22-30) mmol/L Creatinine (0.66-1.25) mg/dL Glucose (74-99) mg/dL POC Glucose (mg/dL) 151 H 161 H (70-110) mg/dL Magnesium (1.6-2.3) mg/dL Total Bilirubin (0.2-1.3) mg/dL Alkaline Phosphatase (38-126) U/L Total Protein (6.3-8.2) g/dL Albumin (3.5-5.0) g/dL Arterial Blood Glucose (75-99) mg/dL Crossmatch 09/10/24 09/10/24 09/10/24 Range/Units 19:50 19:50 19:51 WBC (3.8-10.6) k/uL RBC 2.67 L (4.30-5.90) m/uL Hgb 7.7 L (13.0-17.5) gm/dL Hct 23.8 L (39.0-53.0) % RDW 15.9 H (11.5-15.5) % Plt Count 107 L (150-450) k/uL Lymphocytes # 0.5 L (1.0-4.8) k/uL PT (10.0-12.5) sec INR (<1.2) APTT (22.0-30.0) sec ABG pH (7.35-7.45) ABG pCO2 (35-45) mmHg ABG pO2 (83-108) mmHg ABG HCO3 (21-25) mmol/L ABG Total CO2 (19-24) mmol/L ABG O2 Saturation (94-97) % ABG Hematocrit (34.0-46.0) % ABG Sodium (135-146) mmol/L ABG Ionized Calcium (4.5-5.3) mg/dL ABG Glucose (75-99) mg/dL ABG Lactic Acid (0.5-1.6) mmol/L Hemoglobin (13.0-17.5) gm/dL Sodium 134 L (137-145) mmol/L Potassium (3.5-5.1) mmol/L Chloride 108 H (98-107) mmol/L Carbon Dioxide 21 L (22-30) mmol/L Creatinine 1.46 H (0.66-1.25) mg/dL Glucose 138 H (74-99) mg/dL POC Glucose (mg/dL) 165 H (70-110) mg/dL Magnesium (1.6-2.3) mg/dL Total Bilirubin (0.2-1.3) mg/dL Alkaline Phosphatase (38-126) U/L Total Protein (6.3-8.2) g/dL Albumin (3.5-5.0) g/dL Arterial Blood Glucose (75-99) mg/dL Crossmatch 09/10/24 09/10/24 09/10/24 Range/Units 20:58 22:01 22:44 WBC (3.8-10.6) k/uL RBC (4.30-5.90) m/uL Hgb (13.0-17.5) gm/dL Hct (39.0-53.0) % RDW (11.5-15.5) % Plt Count (150-450) k/uL Lymphocytes # (1.0-4.8) k/uL PT (10.0-12.5) sec INR (<1.2) APTT (22.0-30.0) sec ABG pH (7.35-7.45) ABG pCO2 (35-45) mmHg ABG pO2 (83-108) mmHg ABG HCO3 (21-25) mmol/L ABG Total CO2 (19-24) mmol/L ABG O2 Saturation (94-97) % ABG Hematocrit (34.0-46.0) % ABG Sodium (135-146) mmol/L ABG Ionized Calcium (4.5-5.3) mg/dL ABG Glucose (75-99) mg/dL ABG Lactic Acid (0.5-1.6) mmol/L Hemoglobin (13.0-17.5) gm/dL Sodium (137-145) mmol/L Potassium (3.5-5.1) mmol/L Chloride (98-107) mmol/L Carbon Dioxide (22-30) mmol/L Creatinine (0.66-1.25) mg/dL Glucose (74-99) mg/dL POC Glucose (mg/dL) 153 H 143 H 134 H (70-110) mg/dL Magnesium (1.6-2.3) mg/dL Total Bilirubin (0.2-1.3) mg/dL Alkaline Phosphatase (38-126) U/L Total Protein (6.3-8.2) g/dL Albumin (3.5-5.0) g/dL Arterial Blood Glucose (75-99) mg/dL Crossmatch 09/10/24 09/10/24 09/11/24 Range/Units 22:45 23:59 00:58 WBC 2.9 L (3.8-10.6) k/uL RBC 2.06 L (4.30-5.90) m/uL Hgb 6.1 L* D (13.0-17.5) gm/dL Hct 17.8 L* (39.0-53.0) % RDW 16.5 H (11.5-15.5) % Plt Count 83 L (150-450) k/uL Lymphocytes # 0.3 L (1.0-4.8) k/uL PT (10.0-12.5) sec INR (<1.2) APTT (22.0-30.0) sec ABG pH (7.35-7.45) ABG pCO2 (35-45) mmHg ABG pO2 (83-108) mmHg ABG HCO3 (21-25) mmol/L ABG Total CO2 (19-24) mmol/L ABG O2 Saturation (94-97) % ABG Hematocrit (34.0-46.0) % ABG Sodium (135-146) mmol/L ABG Ionized Calcium (4.5-5.3) mg/dL ABG Glucose (75-99) mg/dL ABG Lactic Acid (0.5-1.6) mmol/L Hemoglobin (13.0-17.5) gm/dL Sodium (137-145) mmol/L Potassium (3.5-5.1) mmol/L Chloride (98-107) mmol/L Carbon Dioxide (22-30) mmol/L Creatinine (0.66-1.25) mg/dL Glucose (74-99) mg/dL POC Glucose (mg/dL) 122 H 116 H (70-110) mg/dL Magnesium (1.6-2.3) mg/dL Total Bilirubin (0.2-1.3) mg/dL Alkaline Phosphatase (38-126) U/L Total Protein (6.3-8.2) g/dL Albumin (3.5-5.0) g/dL Arterial Blood Glucose (75-99) mg/dL Crossmatch 09/11/24 09/11/24 09/11/24 Range/Units 01:57 02:53 04:04 WBC (3.8-10.6) k/uL RBC (4.30-5.90) m/uL Hgb (13.0-17.5) gm/dL Hct (39.0-53.0) % RDW (11.5-15.5) % Plt Count (150-450) k/uL Lymphocytes # (1.0-4.8) k/uL PT (10.0-12.5) sec INR (<1.2) APTT (22.0-30.0) sec ABG pH (7.35-7.45) ABG pCO2 (35-45) mmHg ABG pO2 (83-108) mmHg ABG HCO3 (21-25) mmol/L ABG Total CO2 (19-24) mmol/L ABG O2 Saturation (94-97) % ABG Hematocrit (34.0-46.0) % ABG Sodium (135-146) mmol/L ABG Ionized Calcium (4.5-5.3) mg/dL ABG Glucose (75-99) mg/dL ABG Lactic Acid (0.5-1.6) mmol/L Hemoglobin (13.0-17.5) gm/dL Sodium (137-145) mmol/L Potassium (3.5-5.1) mmol/L Chloride (98-107) mmol/L Carbon Dioxide (22-30) mmol/L Creatinine (0.66-1.25) mg/dL Glucose (74-99) mg/dL POC Glucose (mg/dL) 112 H 119 H 135 H (70-110) mg/dL Magnesium (1.6-2.3) mg/dL Total Bilirubin (0.2-1.3) mg/dL Alkaline Phosphatase (38-126) U/L Total Protein (6.3-8.2) g/dL Albumin (3.5-5.0) g/dL Arterial Blood Glucose (75-99) mg/dL Crossmatch 09/11/24 09/11/24 09/11/24 Range/Units 05:00 05:00 05:03 WBC 3.2 L (3.8-10.6) k/uL RBC 2.26 L (4.30-5.90) m/uL Hgb 6.7 L* (13.0-17.5) gm/dL Hct 19.9 L* (39.0-53.0) % RDW 15.7 H (11.5-15.5) % Plt Count 105 L (150-450) k/uL Lymphocytes # 0.6 L (1.0-4.8) k/uL PT (10.0-12.5) sec INR (<1.2) APTT (22.0-30.0) sec ABG pH (7.35-7.45) ABG pCO2 (35-45) mmHg ABG pO2 (83-108) mmHg ABG HCO3 (21-25) mmol/L ABG Total CO2 (19-24) mmol/L ABG O2 Saturation (94-97) % ABG Hematocrit (34.0-46.0) % ABG Sodium (135-146) mmol/L ABG Ionized Calcium (4.5-5.3) mg/dL ABG Glucose (75-99) mg/dL ABG Lactic Acid (0.5-1.6) mmol/L Hemoglobin (13.0-17.5) gm/dL Sodium (137-145) mmol/L Potassium 3.4 L (3.5-5.1) mmol/L Chloride (98-107) mmol/L Carbon Dioxide (22-30) mmol/L Creatinine 1.51 H (0.66-1.25) mg/dL Glucose 109 H (74-99) mg/dL POC Glucose (mg/dL) 128 H (70-110) mg/dL Magnesium 3.2 H (1.6-2.3) mg/dL Total Bilirubin 1.6 H (0.2-1.3) mg/dL Alkaline Phosphatase 24 L (38-126) U/L Total Protein 5.0 L (6.3-8.2) g/dL Albumin (3.5-5.0) g/dL Arterial Blood Glucose (75-99) mg/dL Crossmatch 09/11/24 09/11/24 09/11/24 Range/Units 05:06 06:07 06:55 WBC (3.8-10.6) k/uL RBC (4.30-5.90) m/uL Hgb (13.0-17.5) gm/dL Hct (39.0-53.0) % RDW (11.5-15.5) % Plt Count (150-450) k/uL Lymphocytes # (1.0-4.8) k/uL PT (10.0-12.5) sec INR (<1.2) APTT (22.0-30.0) sec ABG pH 7.47 H (7.35-7.45) ABG pCO2 33 L (35-45) mmHg ABG pO2 149 H (83-108) mmHg ABG HCO3 (21-25) mmol/L ABG Total CO2 (19-24) mmol/L ABG O2 Saturation 100.0 H (94-97) % ABG Hematocrit (34.0-46.0) % ABG Sodium (135-146) mmol/L ABG Ionized Calcium (4.5-5.3) mg/dL ABG Glucose (75-99) mg/dL ABG Lactic Acid (0.5-1.6) mmol/L Hemoglobin 6.7 L* (13.0-17.5) gm/dL Sodium (137-145) mmol/L Potassium (3.5-5.1) mmol/L Chloride (98-107) mmol/L Carbon Dioxide (22-30) mmol/L Creatinine (0.66-1.25) mg/dL Glucose (74-99) mg/dL POC Glucose (mg/dL) 116 H 117 H (70-110) mg/dL Magnesium (1.6-2.3) mg/dL Total Bilirubin (0.2-1.3) mg/dL Alkaline Phosphatase (38-126) U/L Total Protein (6.3-8.2) g/dL Albumin (3.5-5.0) g/dL Arterial Blood Glucose (75-99) mg/dL Crossmatch 09/11/24 Range/Units 07:39 WBC (3.8-10.6) k/uL RBC (4.30-5.90) m/uL Hgb (13.0-17.5) gm/dL Hct (39.0-53.0) % RDW (11.5-15.5) % Plt Count (150-450) k/uL Lymphocytes # (1.0-4.8) k/uL PT (10.0-12.5) sec INR (<1.2) APTT (22.0-30.0) sec ABG pH (7.35-7.45) ABG pCO2 (35-45) mmHg ABG pO2 115 H (83-108) mmHg ABG HCO3 (21-25) mmol/L ABG Total CO2 25 H (19-24) mmol/L ABG O2 Saturation 99.1 H (94-97) % ABG Hematocrit (34.0-46.0) % ABG Sodium (135-146) mmol/L ABG Ionized Calcium (4.5-5.3) mg/dL ABG Glucose (75-99) mg/dL ABG Lactic Acid (0.5-1.6) mmol/L Hemoglobin 7.0 L* (13.0-17.5) gm/dL Sodium (137-145) mmol/L Potassium (3.5-5.1) mmol/L Chloride (98-107) mmol/L Carbon Dioxide (22-30) mmol/L Creatinine (0.66-1.25) mg/dL Glucose (74-99) mg/dL POC Glucose (mg/dL) (70-110) mg/dL Magnesium (1.6-2.3) mg/dL Total Bilirubin (0.2-1.3) mg/dL Alkaline Phosphatase (38-126) U/L Total Protein (6.3-8.2) g/dL Albumin (3.5-5.0) g/dL Arterial Blood Glucose (75-99) mg/dL Crossmatch
[2024-09-11] MEDS: ONDANSETRON 4 MG/2 ML VIAL IVP PRN (11:09)
[2024-09-11 11:54] LABS: Glucose,Whole Blood 135 mg/dL (70-110)
[2024-09-11 12:00] LABS: HCT 27.1 % (39.0-53.0); MCV 91.1 fL (80.0-100.0); RBC 2.98 m/uL (4.30-5.90); WBC 6.4 k/uL (3.8-10.6)
[2024-09-11 12:01] LABS: Hypochromasia Slight; Mean Platelet Volume 8.2; Platelet Count 108 k/uL (150-450); Poikilocytosis Slight; RDW 15.5 % (11.5-15.5)
[2024-09-11 12:05] LABS: HGB 8.9 gm/dL (13.0-17.5)
[2024-09-11 13:14] LABS: Glucose,Whole Blood 149 mg/dL (70-110)
[2024-09-11] MEDS: CLEVIDIPINE BUTYRATE 25 MG in EMPTY BAG 1 BAG IV SCH (13:16)
--- NOTE | 2024-09-11 13:33 | P.PN ---
Subjective Progress Note Date: 09/11/24 74-year-old male who presented to the hospital, on September 03, via the emergency room. The patient presented with complaints of chest pain. The patient does have a history of atherosclerotic cardiovascular disease, and for a couple days prior to admission, was complaining of chest pressure. The chest pain/pressure, apparently radiated to both arms. He did not have any associated diaphoresis, or nausea. The patient apparently has had a heart attack in the past, and the pain that he was having, seemed similar. Today, we talked to Dr. Deluna about this patient, and apparently this patient will stay in the hospital, and have surgery, sometime early next week. The patient also has a history of s ignificant tobacco use for about 50 years. He was smoking up until the time he came into the hospital. His primary care physician is Dr. John Faulkner. He is currently on room air. The patient is getting IV heparin. The cardiac catheterization, showed severe triple-vessel disease, severe aortic stenosis and severe aortic regurgitation. The patient is currently in the process of being evaluated for open heart surgery. Laboratory data includes a white count 5.7, hemoglobin 10.8, macro 34.2, and a platelet count of 193,000. The patient's PTT is 45. Sodium 137, potassium 4.1, chlorides 105, CO2 29, BUN 16, creatinine 1.35. N-terminal proBNP was 1330. His troponin was 0.016. Chest CT showed no acute thoracic process, changes of mild COPD, and atherosclerotic calcification of thoracic aorta, with moderate coronary arterial calcifications, most prominent in the LAD. Progress note dated September 06, 2024. The patient is seen today in room 373. He is on room air. He is getting IV heparin. On his bedside spirometry, his FEV1 was 1.52 L, which would put him at low increased operative risk, for open heart surgery. Current labs include a white count 5.2, hemoglobin 11, hematocrit 35, and a normal platelet count. Sodium 136, potassium 3.9, chlorides 101, CO2 32, BUN 17, creatinine 1.45. Progress note dated and September 07, 2024. 74-year-old male seen today in room 373. He is currently on room air. He continues on IV heparin. The patient is likely to have a open heart procedure next week, may be on September 10Tuesday. Currently, he is resting comfortably, without any issues or problems. White count 6.9, hemoglobin 9.2, hematocrit 35.5, platelet count is normal. PTT is 42.2. Sodium 134, potassium 4, chlorides 103, CO2 26, BUN 28, creatinine 1.49. Progress note dated September 08, 2024. 74-year-old male with a history of coronary disease, and aortic stenosis. The patient is being evaluated for possible bypass grafting, and aortic valve replacement, early next week. Currently is on 2 L of oxygen. He is getting saline at 75 cc an hour. He is also on IV heparin. He has no specific complaints today. Current labs include a white count 6.6, hemoglobin 11.6, hematocrit 36.4, and a platelet count of 255,000. Sodium 135, potassium 3.8, chlorides 99, CO2 27, BUN 31, creatinine 1.93. His PTT is 49.6. His troponin is 0.028. The patient is seen today September 09, 2024 in follow-up on the selective care unit. He is currently resting comfortably in bed. Awake and alert in no acute distress. He is maintaining O2 saturations in the 90s on room air. He denies any shortness of breath, cough or congestion. He denies any chest pain. He is continued on a heparin drip. Practicing with the incentive spirometer. White count 4.9. Hemoglobin 10.2. Platelets 233. PTT 52.3. Sodium 135. Potassium 3.9. Bicarb 29. BUN 27. Creatinine 1.78. He had 09/10/2024, the patient is being seen immediately after evaluate to the intensive care unit. Currently intubated and mechanically ventilated. The patient underwent aortic valve replacement with a 23 mm Barcenas bovine pericardial valve and CABG x 4 with ARANA to LAD sequential left radial artery g raft to first and second obtuse marginal coronary arteries and PDA. The patient also underwent a ligation of the left atrial appendage. Intraoperatively, the patient received a total of 3 units have packed RBC and 1 unit of platelet. The patient is currently hemodynamically stable on milrinone which is running at 0.375 mcg/kg/min. Cardiac output is at 6.6 with an index of 3.7. PA pressures are 28/15. Urine output is adequate. The patient is well sedated on propofol which is running at 20 mcg/kg/min. He is on the mechanical ventilator assist- control mode with rate of 20, tidal volume of 500, FiO2 of 100% with a PEEP of 5. Blood gas and chest x-ray are still pending for now. The preop hemoglobin was 9.8. The patient also had a creatinine of 1.5 preoperatively. Afebrile. Has a left pleural and mediastinal chest tube without any evidence of air leak and output is minimal at this point. 74-year-old male who presented to the hospital, on September 03, via the emergency room. The patient presented with complaints of chest pain. The patient does have a history of atherosclerotic cardiovascular disease, and for a couple days prior to admission, was complaining of chest pressure. The chest pain/pressure, apparently radiated to both arms. He did not have any associated diaphoresis, or nausea. The patient apparently has had a heart attack in the past, and the pain that he was having, seemed similar. Today, we talked to Dr. Deluna about this patient, and apparently this patient will stay in the hospital, and have surgery, sometime early next week. The patient also has a history of significant tobacco use for about 50 years. He was smoking up until the time he came into the hospital. His primary care physician is Dr. John Faulkner. He is currently on room air. The patient is getting IV heparin. The cardiac catheterization, showed severe triple-vessel disease, severe aortic stenosis and severe aortic regurgitation. The patient is currently in the process of being evaluated for open heart surgery. Laboratory data includes a white count 5.7, hemoglobin 10.8, macro 34.2, and a platelet count of 193,000. The patient's PTT is 45. Sodium 137, potassium 4.1, chlorides 105, CO2 29, BUN 16, creatinine 1.35. N-terminal proBNP was 1330. His troponin was 0.016. Chest CT showed no acute thoracic process, changes of mild COPD, and atherosclerotic calcification of thoracic aorta, with moderate coronary arterial calcifications, most prominent in the LAD. Progress note dated September 06, 2024. The patient is seen today in room 373. He is on room air. He is getting IV heparin. On his bedside spirometry, his FEV1 was 1.52 L, which would put him at low increased operative risk, for open heart surgery. Current labs include a white count 5.2, hemoglobin 11, hematocrit 35, and a normal platelet count. Sodium 136, potassium 3.9, chlorides 101, CO2 32, BUN 17, creatinine 1.45. Progress note dated and September 07, 2024. 74-year-old male seen today in room 373. He is currently on room air. He continues on IV heparin. The patient is likely to have a open heart procedure next week, may be on September 10Tuesday. Currently, he is resting comfortably, without any issues or problems. White count 6.9, hemoglobin 9.2, hematocrit 35.5, platelet count is normal. PTT is 42.2. Sodium 134, potassium 4, chlorides 103, CO2 26, BUN 28, creatinine 1.49. Progress note dated September 08, 2024. 74-year-old male with a history of coronary disease, and aortic stenosis. The patient is being evaluated for possible bypass grafting, and aortic valve repl acement, early next week. Currently is on 2 L of oxygen. He is getting saline at 75 cc an hour. He is also on IV heparin. He has no specific complaints today. Current labs include a white count 6.6, hemoglobin 11.6, hematocrit 36.4, and a platelet count of 255,000. Sodium 135, potassium 3.8, chlorides 99, CO2 27, BUN 31, creatinine 1.93. His PTT is 49.6. His troponin is 0.028. The patient is seen today September 09, 2024 in follow-up on the selective care unit. He is currently resting comfortably in bed. Awake and alert in no acute distress. He is maintaining O2 saturations in the 90s on room air. He denies any shortness of breath, cough or congestion. He denies any chest pain. He is continued on a heparin drip. Practicing with the incentive spirometer. White count 4.9. Hemoglobin 10.2. Platelets 233. PTT 52.3. Sodium 135. Potassium 3.9. Bicarb 29. BUN 27. Creatinine 1.78. He had 09/10/2024, the patient is being seen immediately after evaluate to the intensive care unit. Currently intubated and mechanically ventilated. The patient underwent aortic valve replacement with a 23 mm Barcenas bovine pericardial valve and CABG x 4 with ARANA to LAD sequential left radial artery graft to first and second obtuse marginal coronary arteries and PDA. The patient also underwent a ligation of the left atrial appendage. Intraoperatively, the patient received a total of 3 units have packed RBC and 1 unit of platelet. The patient is currently hemodynamically stable on milrinone which is running at 0.375 mcg/kg/min. Cardiac output is at 6.6 with an index of 3.7. PA pressures are 28/15. Urine output is adequate. The patient is well sedated on propofol which is running at 20 mcg/kg/min. He is on the mechanical ventilator assist-control mode with rate of 20, tidal volume of 500, FiO2 of 100% with a PEEP of 5. Blood gas and chest x-ray are still pending for now. The preop hemoglobin was 9.8. The patient also had a creatinine of 1.5 preoperatively. Afebrile. Has a left pleural and mediastinal chest tube without any evidence of air leak and output is minimal at this point. On 09/11/2024, the patient is postop day #1. Overnight, the patient had some increased bleeding from his chest tubes. Based on that, the extubation process was delayed till early this morning. The patient is currently postop day #1. The patient underwent aortic valve replacement and four-vessel bypass surgery. The patient currently is hemodynamically stable. There was a drop in hemoglobin down to 6.1 along with bleeding from the chest tubes. The patient got trans fused with a unit of packed RBC and hemoglobin currently is at 6.7 and he will receive another unit of packed RBC. Meanwhile, he is hemodynamically stable. Cardiac output from this morning is at 5.7 with an index of 3.2. PA pressures are 30/10. Milrinone is running at 0.1 mcg/kg/min. Blood pressure was elevated and the patient was started on Cleviprex drip at 1 mg an hour. Output from the mediastinal chest tube has been 160 cc over the past 8 hours and 450 cc since surgery. Output from the left lower chest tube has been 350 cc over the past 8 hours and 500 cc since surgery. The patient was extubated this morning and currently is on oxygen at 4 L/min nasal cannula. Chest x-ray shows adequate positioning of the left-sided and mediastinal chest tube. Woodland-Soraya catheter remains in place. Postsurgical changes are noted. No evidence of any pneumothorax. And no other significant abnormalities have been noted. The patient's hemoglobin currently is at 8.5 following the transfusion of second unit of packed RBC. Hemoglobin is at 8.9, white cell count is 6.4, the electrolytes from earlier today showed a BUN of 19 with a creatinine of 1.5 and a sodium level of 137 with a potassium level of 4.2 and a bicarb of 24. Communicating. No significant respiratory distress. Chest pain is under adequate control. No focal neurological deficits. Objective - Vital Signs Vital signs: Vital Signs Temp 36.1 F L 09/11/24 10:00 Pulse 69 09/11/24 10:00 Resp 15 09/11/24 10:00 BP 134/62 09/11/24 10:00 Pulse Ox 92 L 09/11/24 10:00 FiO2 40 09/11/24 08:00 Intake & Output 09/10/24 09/11/24 09/11/24 18:59 06:59 18:59 Intake Total 7168.809 5373.060 880.095 Output Total 1215 1305 330 Balance 195.543 7018.060 550.095 Weight 77.1 kg Intake: IV 295.0 2681.5 406 ACETAMINOPHEN IV (For NPO 100 100 ) 1,000 mg In Empty Bag 1 bag @ 400 mls/hr IVPB Q6HR [facility] Rx#:[id number] Albumin Human 25% 50 ml 250 In Empty Bag 1 bag @ 100 mls/hr IVPB ONCE ONE Rx#: [id number] Albumin Human 25% 50 ml 250 In Empty Bag 1 bag @ 100 mls/hr IVPB ONCE ONE Rx#: [id number] Albumin Human 5% 500 ml 500 In Empty Bag 1 bag @ 250 mls/hr IVPB ONCE ONE Rx#: [id number] Albumin Human 5% 500 ml 500 In Empty Bag 1 bag @ 250 mls/hr IVPB ONCE ONE Rx#: [id number] Albumin Human 5% 500 ml 250 In Empty Bag 1 bag @ 250 mls/hr IVPB ONCE ONE Rx#: [id number] Nitroglycerin-D5w Pmx 50 3.0 1.5 mg In Dextrose/Water 1 250ml.bag @ 5 MCG/MIN 1.5 mls/hr IV .Q24H ON LICENSE OF [facility] Rx#: [id number] Sodium Chloride 0.9% 1, 100 600 200 000 ml @ 30 mls/hr IV . Q24H [facility] Rx#:[id number] co/ci 70 222 70 pressure bag 18 108 36 Intake, IV Titration 5.081 157.560 164.095 Amount Dexmedetomidine/0.9% NaCl 5.356 (Pmx) 400 mcg In Empty Bag 1 bag @ Titrate IV . Q0M [facility] Rx#:[id number] Insulin Regular 100 unit 0.909 32.101 5.69 In Sodium Chloride 0.9% 100 ml @ Per Protocol IV .Q0M [facility] Rx#:[id number] Milrinone-D5w Pmx 20 mg 63.525 8.405 In Dextrose/Water 1 100ml .bag @ Per Protocol IV . Q0M [facility] Rx#:[id number] Potassium Chloride 20 meq 100 In Water For Injection 1 100ml.bag @ 50 mls/hr IVPB Q2H [facility] Rx#: [id number] ceFAZolin 2 gm In Sodium 50 Chloride 0.9% 50 ml @ 100 mls/hr IVPB Q8HR [facility] Rx# :[id number] propofoL 1,000 mg In 4.172 56.578 Empty Bag 1 bag @ Titrate IV .Q0M [facility] Rx#: [id number] Blood Product 1284 310 310 Platelet Pheresis Pas 354 Psoralen Unit [id number] Rc As-1 Unit 310 [id number] Rc As-1 Unit 310 [id number] Rc As-1 Unit 310 [id number] Rc As-1 Unit 310 [id number] Rc As-1 Unit 310 [id number] Output: Chest Tube Drainage 310 670 180 Mediastinal 250 200 60 left plueral 60 470 120 Gastric Drainage 180 0 Urine 405 455 150 Estimated Blood Loss 500 Other: Voiding Method Indwelling Catheter Indwelling Catheter ABP, PAP, CO, CI - Last Documented Arterial Blood Pressure 137/42 Pulmonary Artery Pressure 29/11 Cardiac Output 5.7 Cardiac Index 3.2 - Exam GENERAL EXAM: Alert, active, 74-year-old male, awake and alert and 40s of oxygen by nasal cannula HEAD: Normocephalic. EYES: Normal reaction of pupils, equal size. NOSE: Clear with pink turbinates. THROAT: No erythema or exudates. NECK: No masses, no JVD. The patient has a Cordis in the right neck along with a Woodland-Soraya catheter in place. CHEST: No chest wall deformity. The patient has a mediastinal and left pleural chest tube LUNGS: Equal air entry with no crackles, wheeze, rhonchi or dullness. CVS: S1 and S2 normal with no audible murmur, regular rhythm. ABDOMEN: No hepatosplenomegaly, normal bowel sounds, no guarding or rigidity. SPINE: No scoliosis or deformity SKIN: No rashes CENTRAL NERVOUS SYSTEM: No focal deficits, tone is normal in all 4 extremities. EXTREMITIES: There is no peripheral edema. No clubbing, no cyanosis. Peripheral pulses are intact. - Labs CBC & Chem 7: 09/11/24 11:55 09/11/24 11:55 Labs: Abnormal Lab Results - Last 24 Hours (Table) 09/09/24 09/10/24 09/10/24 Range/Units 06:25 08:52 12:24 WBC (3.8-10.6) k/uL RBC (4.30-5.90) m/uL Hgb (13.0-17.5) gm/dL Hct (39.0-53.0) % RDW (11.5-15.5) % Plt Count (150-450) k/uL Lymphocytes # (1.0-4.8) k/uL PT (10.0-12.5) sec INR (<1.2) APTT (22.0-30.0) sec ABG pH 7.32 L (7.35-7.45) ABG pCO2 46 H (35-45) mmHg ABG pO2 >420 H 346 H (83-108) mmHg ABG HCO3 (21-25) mmol/L ABG Total CO2 (19-24) mmol/L ABG O2 Saturation >99.4 H 99.4 H (94-97) % ABG Hematocrit 23 L 24 L (34.0-46.0) % ABG Sodium 133 L (135-146) mmol/L ABG Ionized Calcium (4.5-5.3) mg/dL ABG Glucose 143 H (75-99) mg/dL ABG Lactic Acid (0.5-1.6) mmol/L Hemoglobin 7.5 L 7.9 L (13.0-17.5) gm/dL Sodium (137-145) mmol/L Potassium (3.5-5.1) mmol/L Chloride (98-107) mmol/L Carbon Dioxide (22-30) mmol/L Creatinine (0.66-1.25) mg/dL Glucose (74-99) mg/dL POC Glucose (mg/dL) (70-110) mg/dL Magnesium (1.6-2.3) mg/dL Total Bilirubin (0.2-1.3) mg/dL Alkaline Phosphatase (38-126) U/L Total Protein (6.3-8.2) g/dL Albumin (3.5-5.0) g/dL Arterial Blood Glucose 143 H (75-99) mg/dL Crossmatch See Detail 09/10/24 09/10/24 09/10/24 Range/Units 12:58 13:37 13:40 WBC (3.8-10.6) k/uL RBC (4.30-5.90) m/uL Hgb (13.0-17.5) gm/dL Hct (39.0-53.0) % RDW (11.5-15.5) % Plt Count (150-450) k/uL Lymphocytes # (1.0-4.8) k/uL PT (10.0-12.5) sec INR (<1.2) APTT (22.0-30.0) sec ABG pH 7.49 H 7.51 H (7.35-7.45) ABG pCO2 (35-45) mmHg ABG pO2 >420 H >420 H >420 H (83-108) mmHg ABG HCO3 26 H 28 H 28 H (21-25) mmol/L ABG Total CO2 (19-24) mmol/L ABG O2 Saturation >99.4 H >99.4 H >99.4 H (94-97) % ABG Hematocrit 23 L 23 L 24 L (34.0-46.0) % ABG Sodium (135-146) mmol/L ABG Ionized Calcium 4.4 L 4.2 L 4.3 L (4.5-5.3) mg/dL ABG Glucose 123 H 117 H 117 H (75-99) mg/dL ABG Lactic Acid 1.7 H 2.1 H 2.1 H (0.5-1.6) mmol/L Hemoglobin 7.4 L 7.5 L 7.7 L (13.0-17.5) gm/dL Sodium (137-145) mmol/L Potassium (3.5-5.1) mmol/L Chloride (98-107) mmol/L Carbon Dioxide (22-30) mmol/L Creatinine (0.66-1.25) mg/dL Glucose (74-99) mg/dL POC Glucose (mg/dL) (70-110) mg/dL Magnesium (1.6-2.3) mg/dL Total Bilirubin (0.2-1.3) mg/dL Alkaline Phosphatase (38-126) U/L Total Protein (6.3-8.2) g/dL Albumin (3.5-5.0) g/dL Arterial Blood Glucose 123 H 117 H 117 H (75-99) mg/dL Crossmatch 09/10/24 09/10/24 09/10/24 Range/Units 14:18 15:20 16:35 WBC (3.8-10.6) k/uL RBC (4.30-5.90) m/uL Hgb (13.0-17.5) gm/dL Hct (39.0-53.0) % RDW (11.5-15.5) % Plt Count (150-450) k/uL Lymphocytes # (1.0-4.8) k/uL PT (10.0-12.5) sec INR (<1.2) APTT (22.0-30.0) sec ABG pH 7.53 H (7.35-7.45) ABG pCO2 31 L (35-45) mmHg ABG pO2 >420 H >420 H (83-108) mmHg ABG HCO3 26 H (21-25) mmol/L ABG Total CO2 (19-24) mmol/L ABG O2 Saturation >99.4 H >99.4 H (94-97) % ABG Hematocrit 26 L 27 L (34.0-46.0) % ABG Sodium (135-146) mmol/L ABG Ionized Calcium 4.4 L (4.5-5.3) mg/dL ABG Glucose 111 H 114 H (75-99) mg/dL ABG Lactic Acid 2.0 H 2.3 H* (0.5-1.6) mmol/L Hemoglobin 8.5 L 8.8 L (13.0-17.5) gm/dL Sodium (137-145) mmol/L Potassium (3.5-5.1) mmol/L Chloride (98-107) mmol/L Carbon Dioxide (22-30) mmol/L Creatinine (0.66-1.25) mg/dL Glucose (74-99) mg/dL POC Glucose (mg/dL) 132 H (70-110) mg/dL Magnesium (1.6-2.3) mg/dL Total Bilirubin (0.2-1.3) mg/dL Alkaline Phosphatase (38-126) U/L Total Protein (6.3-8.2) g/dL Albumin (3.5-5.0) g/dL Arterial Blood Glucose 111 H 114 H (75-99) mg/dL Crossmatch 09/10/24 09/10/24 09/10/24 Range/Units 16:36 16:36 16:36 WBC (3.8-10.6) k/uL RBC 2.97 L (4.30-5.90) m/uL Hgb 8.6 L (13.0-17.5) gm/dL Hct 26.7 L (39.0-53.0) % RDW 15.7 H (11.5-15.5) % Plt Count 125 L (150-450) k/uL Lymphocytes # 0.6 L (1.0-4.8) k/uL PT 12.6 H (10.0-12.5) sec INR 1.2 H (<1.2) APTT 34.1 H (22.0-30.0) sec ABG pH (7.35-7.45) ABG pCO2 (35-45) mmHg ABG pO2 (83-108) mmHg ABG HCO3 (21-25) mmol/L ABG Total CO2 (19-24) mmol/L ABG O2 Saturation (94-97) % ABG Hematocrit (34.0-46.0) % ABG Sodium (135-146) mmol/L ABG Ionized Calcium (4.5-5.3) mg/dL ABG Glucose (75-99) mg/dL ABG Lactic Acid (0.5-1.6) mmol/L Hemoglobin (13.0-17.5) gm/dL Sodium (137-145) mmol/L Potassium (3.5-5.1) mmol/L Chloride (98-107) mmol/L Carbon Dioxide (22-30) mmol/L Creatinine 1.39 H (0.66-1.25) mg/dL Glucose 112 H (74-99) mg/dL POC Glucose (mg/dL) (70-110) mg/dL Magnesium 4.4 H (1.6-2.3) mg/dL Total Bilirubin 1.4 H (0.2-1.3) mg/dL Alkaline Phosphatase 37 L (38-126) U/L Total Protein 4.9 L (6.3-8.2) g/dL Albumin 3.1 L (3.5-5.0) g/dL Arterial Blood Glucose (75-99) mg/dL Crossmatch 09/10/24 09/10/24 09/10/24 Range/Units 17:00 18:05 19:05 WBC (3.8-10.6) k/uL RBC (4.30-5.90) m/uL Hgb (13.0-17.5) gm/dL Hct (39.0-53.0) % RDW (11.5-15.5) % Plt Count (150-450) k/uL Lymphocytes # (1.0-4.8) k/uL PT (10.0-12.5) sec INR (<1.2) APTT (22.0-30.0) sec ABG pH (7.35-7.45) ABG pCO2 (35-45) mmHg ABG pO2 300 H (83-108) mmHg ABG HCO3 (21-25) mmol/L ABG Total CO2 (19-24) mmol/L ABG O2 Saturation 100.0 H (94-97) % ABG Hematocrit (34.0-46.0) % ABG Sodium (135-146) mmol/L ABG Ionized Calcium (4.5-5.3) mg/dL ABG Glucose (75-99) mg/dL ABG Lactic Acid (0.5-1.6) mmol/L Hemoglobin 8.6 L (13.0-17.5) gm/dL Sodium (137-145) mmol/L Potassium (3.5-5.1) mmol/L Chloride (98-107) mmol/L Carbon Dioxide (22-30) mmol/L Creatinine (0.66-1.25) mg/dL Glucose (74-99) mg/dL POC Glucose (mg/dL) 151 H 161 H (70-110) mg/dL Magnesium (1.6-2.3) mg/dL Total Bilirubin (0.2-1.3) mg/dL Alkaline Phosphatase (38-126) U/L Total Protein (6.3-8.2) g/dL Albumin (3.5-5.0) g/dL Arterial Blood Glucose (75-99) mg/dL Crossmatch 09/10/24 09/10/24 09/10/24 Range/Units 19:50 19:50 19:51 WBC (3.8-10.6) k/uL RBC 2.67 L (4.30-5.90) m/uL Hgb 7.7 L (13.0-17.5) gm/dL Hct 23.8 L (39.0-53.0) % RDW 15.9 H (11.5-15.5) % Plt Count 107 L (150-450) k/uL Lymphocytes # 0.5 L (1.0-4.8) k/uL PT (10.0-12.5) sec INR (<1.2) APTT (22.0-30.0) sec ABG pH (7.35-7.45) ABG pCO2 (35-45) mmHg ABG pO2 (83-108) mmHg ABG HCO3 (21-25) mmol/L ABG Total CO2 (19-24) mmol/L ABG O2 Saturation (94-97) % ABG Hematocrit (34.0-46.0) % ABG Sodium (135-146) mmol/L ABG Ionized Calcium (4.5-5.3) mg/dL ABG Glucose (75-99) mg/dL ABG Lactic Acid (0.5-1.6) mmol/L Hemoglobin (13.0-17.5) gm/dL Sodium 134 L (137-145) mmol/L Potassium (3.5-5.1) mmol/L Chloride 108 H (98-107) mmol/L Carbon Dioxide 21 L (22-30) mmol/L Creatinine 1.46 H (0.66-1.25) mg/dL Glucose 138 H (74-99) mg/dL POC Glucose (mg/dL) 165 H (70-110) mg/dL Magnesium (1.6-2.3) mg/dL Total Bilirubin (0.2-1.3) mg/dL Alkaline Phosphatase (38-126) U/L Total Protein (6.3-8.2) g/dL Albumin (3.5-5.0) g/dL Arterial Blood Glucose (75-99) mg/dL Crossmatch 09/10/24 09/10/24 09/10/24 Range/Units 20:58 22:01 22:44 WBC (3.8-10.6) k/uL RBC (4.30-5.90) m/uL Hgb (13.0-17.5) gm/dL Hct (39.0-53.0) % RDW (11.5-15.5) % Plt Count (150-450) k/uL Lymphocytes # (1.0-4.8) k/uL PT (10.0-12.5) sec INR (<1.2) APTT (22.0-30.0) sec ABG pH (7.35-7.45) ABG pCO2 (35-45) mmHg ABG pO2 (83-108) mmHg ABG HCO3 (21-25) mmol/L ABG Total CO2 (19-24) mmol/L ABG O2 Saturation (94-97) % ABG Hematocrit (34.0-46.0) % ABG Sodium (135-146) mmol/L ABG Ionized Calcium (4.5-5.3) mg/dL ABG Glucose (75-99) mg/dL ABG Lactic Acid (0.5-1.6) mmol/L Hemoglobin (13.0-17.5) gm/dL Sodium (137-145) mmol/L Potassium (3.5-5.1) mmol/L Chloride (98-107) mmol/L Carbon Dioxide (22-30) mmol/L Creatinine (0.66-1.25) mg/dL Glucose (74-99) mg/dL POC Glucose (mg/dL) 153 H 143 H 134 H (70-110) mg/dL Magnesium (1.6-2.3) mg/dL Total Bilirubin (0.2-1.3) mg/dL Alkaline Phosphatase (38-126) U/L Total Protein (6.3-8.2) g/dL Albumin (3.5-5.0) g/dL Arterial Blood Glucose (75-99) mg/dL Crossmatch 09/10/24 09/10/24 09/11/24 Range/Units 22:45 23:59 00:58 WBC 2.9 L (3.8-10.6) k/uL RBC 2.06 L (4.30-5.90) m/uL Hgb 6.1 L* D (13.0-17.5) gm/dL Hct 17.8 L* (39.0-53.0) % RDW 16.5 H (11.5-15.5) % Plt Count 83 L (150-450) k/uL Lymphocytes # 0.3 L (1.0-4.8) k/uL PT (10.0-12.5) sec INR (<1.2) APTT (22.0-30.0) sec ABG pH (7.35-7.45) ABG pCO2 (35-45) mmHg ABG pO2 (83-108) mmHg ABG HCO3 (21-25) mmol/L ABG Total CO2 (19-24) mmol/L ABG O2 Saturation (94-97) % ABG Hematocrit (34.0-46.0) % ABG Sodium (135-146) mmol/L ABG Ionized Calcium (4.5-5.3) mg/dL ABG Glucose (75-99) mg/dL ABG Lactic Acid (0.5-1.6) mmol/L Hemoglobin (13.0-17.5) gm/dL Sodium (137-145) mmol/L Potassium (3.5-5.1) mmol/L Chloride (98-107) mmol/L Carbon Dioxide (22-30) mmol/L Creatinine (0.66-1.25) mg/dL Glucose (74-99) mg/dL POC Glucose (mg/dL) 122 H 116 H (70-110) mg/dL Magnesium (1.6-2.3) mg/dL Total Bilirubin (0.2-1.3) mg/dL Alkaline Phosphatase (38-126) U/L Total Protein (6.3-8.2) g/dL Albumin (3.5-5.0) g/dL Arterial Blood Glucose (75-99) mg/dL Crossmatch 09/11/24 09/11/24 09/11/24 Range/Units 01:57 02:53 04:04 WBC (3.8-10.6) k/uL RBC (4.30-5.90) m/uL Hgb (13.0-17.5) gm/dL Hct (39.0-53.0) % RDW (11.5-15.5) % Plt Count (150-450) k/uL Lymphocytes # (1.0-4.8) k/uL PT (10.0-12.5) sec INR (<1.2) APTT (22.0-30.0) sec ABG pH (7.35-7.45) ABG pCO2 (35-45) mmHg ABG pO2 (83-108) mmHg ABG HCO3 (21-25) mmol/L ABG Total CO2 (19-24) mmol/L ABG O2 Saturation (94-97) % ABG Hematocrit (34.0-46.0) % ABG Sodium (135-146) mmol/L ABG Ionized Calcium (4.5-5.3) mg/dL ABG Glucose (75-99) mg/dL ABG Lactic Acid (0.5-1.6) mmol/L Hemoglobin (13.0-17.5) gm/dL Sodium (137-145) mmol/L Potassium (3.5-5.1) mmol/L Chloride (98-107) mmol/L Carbon Dioxide (22-30) mmol/L Creatinine (0.66-1.25) mg/dL Glucose (74-99) mg/dL POC Glucose (mg/dL) 112 H 119 H 135 H (70-110) mg/dL Magnesium (1.6-2.3) mg/dL Total Bilirubin (0.2-1.3) mg/dL Alkaline Phosphatase (38-126) U/L Total Protein (6.3-8.2) g/dL Albumin (3.5-5.0) g/dL Arterial Blood Glucose (75-99) mg/dL Crossmatch 09/11/24 09/11/24 09/11/24 Range/Units 05:00 05:00 05:03 WBC 3.2 L (3.8-10.6) k/uL RBC 2.26 L (4.30-5.90) m/uL Hgb 6.7 L* (13.0-17.5) gm/dL Hct 19.9 L* (39.0-53.0) % RDW 15.7 H (11.5-15.5) % Plt Count 105 L (150-450) k/uL Lymphocytes # 0.6 L (1.0-4.8) k/uL PT (10.0-12.5) sec INR (<1.2) APTT (22.0-30.0) sec ABG pH (7.35-7.45) ABG pCO2 (35-45) mmHg ABG pO2 (83-108) mmHg ABG HCO3 (21-25) mmol/L ABG Total CO2 (19-24) mmol/L ABG O2 Saturation (94-97) % ABG Hematocrit (34.0-46.0) % ABG Sodium (135-146) mmol/L ABG Ionized Calcium (4.5-5.3) mg/dL ABG Glucose (75-99) mg/dL ABG Lactic Acid (0.5-1.6) mmol/L Hemoglobin (13.0-17.5) gm/dL Sodium (137-145) mmol/L Potassium 3.4 L (3.5-5.1) mmol/L Chloride (98-107) mmol/L Carbon Dioxide (22-30) mmol/L Creatinine 1.51 H (0.66-1.25) mg/dL Glucose 109 H (74-99) mg/dL POC Glucose (mg/dL) 128 H (70-110) mg/dL Magnesium 3.2 H (1.6-2.3) mg/dL Total Bilirubin 1.6 H (0.2-1.3) mg/dL Alkaline Phosphatase 24 L (38-126) U/L Total Protein 5.0 L (6.3-8.2) g/dL Albumin (3.5-5.0) g/dL Arterial Blood Glucose (75-99) mg/dL Crossmatch 09/11/24 09/11/24 09/11/24 Range/Units 05:06 06:07 06:55 WBC (3.8-10.6) k/uL RBC (4.30-5.90) m/uL Hgb (13.0-17.5) gm/dL Hct (39.0-53.0) % RDW (11.5-15.5) % Plt Count (150-450) k/uL Lymphocytes # (1.0-4.8) k/uL PT (10.0-12.5) sec INR (<1.2) APTT (22.0-30.0) sec ABG pH 7.47 H (7.35-7.45) ABG pCO2 33 L (35-45) mmHg ABG pO2 149 H (83-108) mmHg ABG HCO3 (21-25) mmol/L ABG Total CO2 (19-24) mmol/L ABG O2 Saturation 100.0 H (94-97) % ABG Hematocrit (34.0-46.0) % ABG Sodium (135-146) mmol/L ABG Ionized Calcium (4.5-5.3) mg/dL ABG Glucose (75-99) mg/dL ABG Lactic Acid (0.5-1.6) mmol/L Hemoglobin 6.7 L* (13.0-17.5) gm/dL Sodium (137-145) mmol/L Potassium (3.5-5.1) mmol/L Chloride (98-107) mmol/L Carbon Dioxide (22-30) mmol/L Creatinine (0.66-1.25) mg/dL Glucose (74-99) mg/dL POC Glucose (mg/dL) 116 H 117 H (70-110) mg/dL Magnesium (1.6-2.3) mg/dL Total Bilirubin (0.2-1.3) mg/dL Alkaline Phosphatase (38-126) U/L Total Protein (6.3-8.2) g/dL Albumin (3.5-5.0) g/dL Arterial Blood Glucose (75-99) mg/dL Crossmatch 09/11/24 Range/Units 07:39 WBC (3.8-10.6) k/uL RBC (4.30-5.90) m/uL Hgb (13.0-17.5) gm/dL Hct (39.0-53.0) % RDW (11.5-15.5) % Plt Count (150-450) k/uL Lymphocytes # (1.0-4.8) k/uL PT (10.0-12.5) sec INR (<1.2) APTT (22.0-30.0) sec ABG pH (7.35-7.45) ABG pCO2 (35-45) mmHg ABG pO2 115 H (83-108) mmHg ABG HCO3 (21-25) mmol/L ABG Total CO2 25 H (19-24) mmol/L ABG O2 Saturation 99.1 H (94-97) % ABG Hematocrit (34.0-46.0) % ABG Sodium (135-146) mmol/L ABG Ionized Calcium (4.5-5.3) mg/dL ABG Glucose (75-99) mg/dL ABG Lactic Acid (0.5-1.6) mmol/L Hemoglobin 7.0 L* (13.0-17.5) gm/dL Sodium (137-145) mmol/L Potassium (3.5-5.1) mmol/L Chloride (98-107) mmol/L Carbon Dioxide (22-30) mmol/L Creatinine (0.66-1.25) mg/dL Glucose (74-99) mg/dL POC Glucose (mg/dL) (70-110) mg/dL Magnesium (1.6-2.3) mg/dL Total Bilirubin (0.2-1.3) mg/dL Alkaline Phosphatase (38-126) U/L Total Protein (6.3-8.2) g/dL Albumin (3.5-5.0) g/dL Arterial Blood Glucose (75-99) mg/dL Crossmatch Assessment and Plan Plan: The patient underwent four-vessel bypass surgery. The patient is post ARANA to LAD status and sequential radial to first and second obtuse marginal branch and PDA. Currently postop day # 1. The patient is currently on milrinone for hemodynamic and blood pressure support the current cardiac rhythm is sinus. The patient, is hemodynamically stable on milrinone. The milrinone dose is being titrated and currently the patient is on 0.1 mcg/kg/min. Adequate cardiac outpu t and index. The patient was noted to be hypertensive and the patient will be started on oral medication meanwhile the patient remains on Cleviprex at 1 mg/h. Severe aortic stenosis status post aortic valve replacement, postop day #1 Postthoracotomy, following cardiac surgery. The patient has a mediastinal left pleural chest tube in place. No evidence of any air leak. The patient has been extubated to 4 L of oxygen by nasal cannula. No significant output from the chest tubes and the output is dropped considerably. Postoperative hemoglobin drop/anemia, expected outcome of surgery and there is blood loss through the chest tube drainage. Patient has been transfused with a total of units of packed RBC and hemoglobin currently stable Status post Non-ST segment elevation myocardial infarction. Hypertension Chronic nicotine dependence, rule out COPD. FEV1 shows 1.53 L, 49% of predicted Acute on chronic kidney injury, with acute component improving preoperatively. Hyperlipidemia Hypothyroidism Right popliteal artery aneurysm History of peripheral arterial disease with endovascular abdominal aneurysm repair approximately 2 years ago at [facility] Angioplasty in the right leg Current chronic tobacco dependence Occasional marijuana use Medication noncompliance Plan: Extubated to 4 L of oxygen by nasal cannula this morning Monitor output from the chest tubes Keep them are known for another 24 hours Wean off the Cleviprex and start oral antihypertensive medications Monitor hemoglobin and the patient has been transfused with a total of 2 units of packed RBCs Monitor hemodynamic parameters, cardiac output and index Monitor urine output Monitor chest tube output, keep the chest tube for now Keep the [place]Soraya catheter for today We will continue to follow Condition is obviously critical and this evaluation was done more than 30 good kirk. Working progress. Possible weaning and extubation today based on his progress. Time with Patient: Greater than 30
[2024-09-11 13:56] LABS: Glucose,Whole Blood 151 mg/dL (70-110)
--- NOTE | 2024-09-11 15:02 | P.PN ---
Subjective Progress Note Date: 09/11/24 HPI: This gentleman has severe aortic stenosis and triple-vessel disease who underwent cardiac catheterization by Dr. Byrd was seen by cardiac surgery. He is going to have a bypass surgery and aortic valve replacement on Tuesday. He has mildly elevated creatinine I will discontinue lisinopril and add h ydralazine. Will continue intravenous heparin. Discussed with patient regarding surgery. He was already seen by Dr. Deluna vitals are stable. Resting comfortably in the bed. He denies any chest pain chest pressure shortness of breath September 09, 2024 Heart rate 72 bpm, BP 121/60, hemoglobin 10.2, creatinine 1.78, sodium 135 He denies any chest pain chest pressure shortness of breath. September 11, 2024 Patient was seen this morning in the ICU. Patient is postop day 1. He reports doing well no acute complaints. Patient presented to the ED with chest pain on 09/03. He had a cardiac catheterization showed severe triple-vessel disease, severe aortic stenosis and severe aortic regurgitation. Patient had a aortic valve replacement yesterday afternoon with a 23 mm Barcenas bovine pericardial valve and CABG x 4 with/ARANA to LAD sequential left radial artery graft to first and second obtuse marginal coronary arteries and PDA. Ligation of left atrial appendage was also performed. Patient was extubated early this morning. He denies any fever, chills, shortness of breath, chest pain, belly pain, diarrhea, leg swelling. His left pleural chest tube output was 530 cc over the past 24 h ours. His mediastinal chest tube output was 450 cc over the past 24 hours. Chest x-ray that was obtained this morning showed stable exam, postsurgical changes, no evidence for postop complication. CBC showed hemoglobin of 6.7 white blood cell count of 3.2 hematocrit of 19.9, platelet 105. 1 unit of blood was given this morning. Repeat CBC showed a hemoglobin of 8.9. ABG showed pO2 of 115, pCO2 of 40, pH of 7.37. Morning CMP showed sodium of 137, potassium 3.4, chloride 106, carbon dioxide 24, BUN 19, creatinine 1.51, glucose 109. Patient's most recent blood pressure was 148/68, pulmonary artery pressure of 34/7, central venous pressure of 11, cardiac output of 6.4, cardiac index of 3.6, O2 saturation at 94% on nasal cannula at 4 L/min. Physical examination: General: The patient is awake and alert, in no distress, and does not appear acutely ill. Eye: Pupils are equal, round and reactive to light, extra-ocular movements are intact; there is normal conjunctiva bilaterally. Ears, nose, mouth and throat: There are moist mucous membranes and no oral lesi ons. TM and canals were not examined Neck: The neck is supple, there is no thyromegaly, lymphadenopathy, tenderness or JVD. Cardiovascular: S1S2 is normal, There is a regular rate and rhythm. No murmur, rub or gallop is appreciated. Respiratory: Lungs are clear to auscultation bilaterally, respirations are non-labored, breath sounds are equal. Left pleural chest tube and mediastinal chest tube are in place. Gastrointestinal: Soft, non-distended, non-tender abdomen without masses or organomegaly noted. There is no rebound or guarding present. Bowel sounds are unremarkable. Musculoskeletal: Normal ROM, no tenderness, There is no pedal edema. There is no calf tenderness or swelling. No cords were appreciated. Neurological: Did not perform detailed neurological examination. Speech is normal. Skin: Skin is warm and dry and no rashes or lesions are noted. Psychiatric: Cooperative, appropriate mood & affect, normal judgment. IMPRESSION: POD#1 s/p aortic valve replacement with 23 mm Barcenas Inspiris bovine pericardial valve, CABG x 4 with ARANA to LAD, sequential left radial artery graft to first and second obtuse marginal coronary arteries, saphenous vein graft to posterior descending coronary artery, ligation of the left atrial appendage with 35 mm AtriCure clip, endovascular harvest bilateral greater saphenous veins, open harvest of left radial artery. Severe aortic stenosis Severe aortic regurgitation Triple-vessel disease Severe PAD Prior history of infrarenal aortic endovascular repair with EVAR History of bilateral renal stenting Plan: Patient's hemoglobin was less than 7 this morning, 1 unit of blood was given. Repeat CBC performed and noon showed hemoglobin of 8.9. Continue amlodipine 5 mg p.o. daily, aspirin 325 mg p.o. daily, atorvastatin 40 mg p.o. daily, clopidogrel 75 mg p.o. daily, metoprolol 12.5 mg p.o. twice daily. Patient had atrial fibrillation intraoperatively. Continue with amiodarone 200 mg p.o. twice daily. Encourage incentive spirometry. Patient is on clevidipine 25 mg IV. We will continue to monitor the patient. Objective - Vital Signs Vital signs: Vital Signs Temp 36.2 F L 09/11/24 12:00 Pulse 72 09/11/24 12:00 Resp 22 09/11/24 12:00 BP 141/60 09/11/24 12:00 Pulse Ox 93 L 09/11/24 12:00 FiO2 40 09/11/24 08:00 Intake & Output 09/10/24 09/11/24 09/11/24 18:59 06:59 18:59 Intake Total 0364.152 1736.060 1212.821 Output Total 1215 1305 765 Balance 140.033 1965.060 447.821 Weight 77.1 kg Intake: IV 295.0 2681.5 544 ACETAMINOPHEN IV (For NPO 100 100 ) 1,000 mg In Empty Bag 1 bag @ 400 mls/hr IVPB Q6HR [facility] Rx#:[id number] Albumin Human 25% 50 ml 250 In Empty Bag 1 bag @ 100 mls/hr IVPB ONCE ONE Rx#: [id number] Albumin Human 25% 50 ml 250 In Empty Bag 1 bag @ 100 mls/hr IVPB ONCE ONE Rx#: [id number] Albumin Human 5% 500 ml 500 In Empty Bag 1 bag @ 250 mls/hr IVPB ONCE ONE Rx#: [id number] Albumin Human 5% 500 ml 500 In Empty Bag 1 bag @ 250 mls/hr IVPB ONCE ONE Rx#: [id number] Albumin Human 5% 500 ml 250 In Empty Bag 1 bag @ 250 mls/hr IVPB ONCE ONE Rx#: [id number] Nitroglycerin-D5w Pmx 50 3.0 1.5 mg In Dextrose/Water 1 250ml.bag @ 5 MCG/MIN 1.5 mls/hr IV .Q24H [facility] Rx#: [id number] Sodium Chloride 0.9% 1, 100 600 300 000 ml @ 30 mls/hr IV . Q24H [facility] Rx#:[id number] co/ci 70 222 90 pressure bag 18 108 54 Intake, IV Titration 5.081 157.560 358.821 Amount Amiodarone 450 mg In 194.726 Dextrose 5% in Water 250 ml @ 0.5 MG/MIN 16.667 mls/hr IV .Q15H [facility] Rx#: [id number] Dexmedetomidine/0.9% NaCl 5.356 (Pmx) 400 mcg In Empty Bag 1 bag @ Titrate IV . Q0M [facility] Rx#:[id number] Insulin Regular 100 unit 0.909 32.101 5.69 In Sodium Chloride 0.9% 100 ml @ Per Protocol IV .Q0M [facility] Rx#:[id number] Milrinone-D5w Pmx 20 mg 63.525 8.405 In Dextrose/Water 1 100ml .bag @ Per Protocol IV . Q0M [facility] Rx#:[id number] Potassium Chloride 20 meq 100 In Water For Injection 1 100ml.bag @ 50 mls/hr IVPB Q2H [facility] Rx#: [id number] ceFAZolin 2 gm In Sodium 50 Chloride 0.9% 50 ml @ 100 mls/hr IVPB Q8HR [facility] Rx# :[id number] propofoL 1,000 mg In 4.172 56.578 Empty Bag 1 bag @ Titrate IV .Q0M [facility] Rx#: [id number] Blood Product 1284 310 310 Platelet Pheresis Pas 354 Psoralen Unit [id number] Rc As-1 Unit 310 [id number] Rc As-1 Unit 310 [id number] Rc As-1 Unit 310 [id number] Rc As-1 Unit 310 [id number] Rc As-1 Unit 310 [id number] Output: Chest Tube Drainage 310 670 350 Mediastinal 250 200 130 left plueral 60 470 220 Gastric Drainage 180 0 Urine 405 455 415 Estimated Blood Loss 500 Other: Voiding Method Indwelling Catheter Indwelling Catheter ABP, PAP, CO, CI - Last Documented Arterial Blood Pressure 156/71 Pulmonary Artery Pressure 43/14 Cardiac Output 7.8 Cardiac Index 4.4 - Labs CBC & Chem 7: 09/11/24 11:55 09/11/24 11:55 Labs: Abnormal Lab Results - Last 24 Hours (Table) 09/09/24 09/10/24 09/10/24 Range/Units 06:25 08:52 12:24 WBC (3.8-10.6) k/uL RBC (4.30-5.90) m/uL Hgb (13.0-17.5) gm/dL Hct (39.0-53.0) % RDW (11.5-15.5) % Plt Count (150-450) k/uL Lymphocytes # (1.0-4.8) k/uL PT (10.0-12.5) sec INR (<1.2) APTT (22.0-30.0) sec ABG pH 7.32 L (7.35-7.45) ABG pCO2 46 H (35-45) mmHg ABG pO2 >420 H 346 H (83-108) mmHg ABG HCO3 (21-25) mmol/L ABG Total CO2 (19-24) mmol/L ABG O2 Saturation >99.4 H 99.4 H (94-97) % ABG Hematocrit 23 L 24 L (34.0-46.0) % ABG Sodium 133 L (135-146) mmol/L ABG Ionized Calcium (4.5-5.3) mg/dL ABG Glucose 143 H (75-99) mg/dL ABG Lactic Acid (0.5-1.6) mmol/L Hemoglobin 7.5 L 7.9 L (13.0-17.5) gm/dL Sodium (137-145) mmol/L Potassium (3.5-5.1) mmol/L Chloride (98-107) mmol/L Carbon Dioxide (22-30) mmol/L Creatinine (0.66-1.25) mg/dL Glucose (74-99) mg/dL POC Glucose (mg/dL) (70-110) mg/dL Magnesium (1.6-2.3) mg/dL Total Bilirubin (0.2-1.3) mg/dL Alkaline Phosphatase (38-126) U/L Total Protein (6.3-8.2) g/dL Albumin (3.5-5.0) g/dL Arterial Blood Glucose 143 H (75-99) mg/dL Crossmatch See Detail 09/10/24 09/10/24 09/10/24 Range/Units 12:58 13:37 13:40 WBC (3.8-10.6) k/uL RBC (4.30-5.90) m/uL Hgb (13.0-17.5) gm/dL Hct (39.0-53.0) % RDW (11.5-15.5) % Plt Count (150-450) k/uL Lymphocytes # (1.0-4.8) k/uL PT (10.0-12.5) sec INR (<1.2) APTT (22.0-30.0) sec ABG pH 7.49 H 7.51 H (7.35-7.45) ABG pCO2 (35-45) mmHg ABG pO2 >420 H >420 H >420 H (83-108) mmHg ABG HCO3 26 H 28 H 28 H (21-25) mmol/L ABG Total CO2 (19-24) mmol/L ABG O2 Saturation >99.4 H >99.4 H >99.4 H (94-97) % ABG Hematocrit 23 L 23 L 24 L (34.0-46.0) % ABG Sodium (135-146) mmol/L ABG Ionized Calcium 4.4 L 4.2 L 4.3 L (4.5-5.3) mg/dL ABG Glucose 123 H 117 H 117 H (75-99) mg/dL ABG Lactic Acid 1.7 H 2.1 H 2.1 H (0.5-1.6) mmol/L Hemoglobin 7.4 L 7.5 L 7.7 L (13.0-17.5) gm/dL Sodium (137-145) mmol/L Potassium (3.5-5.1) mmol/L Chloride (98-107) mmol/L Carbon Dioxide (22-30) mmol/L Creatinine (0.66-1.25) mg/dL Glucose (74-99) mg/dL POC Glucose (mg/dL) (70-110) mg/dL Magnesium (1.6-2.3) mg/dL Total Bilirubin (0.2-1.3) mg/dL Alkaline Phosphatase (38-126) U/L Total Protein (6.3-8.2) g/dL Albumin (3.5-5.0) g/dL Arterial Blood Glucose 123 H 117 H 117 H (75-99) mg/dL Crossmatch 09/10/24 09/10/24 09/10/24 Range/Units 14:18 15:20 16:35 WBC (3.8-10.6) k/uL RBC (4.30-5.90) m/uL Hgb (13.0-17.5) gm/dL Hct (39.0-53.0) % RDW (11.5-15.5) % Plt Count (150-450) k/uL Lymphocytes # (1.0-4.8) k/uL PT (10.0-12.5) sec INR (<1.2) APTT (22.0-30.0) sec ABG pH 7.53 H (7.35-7.45) ABG pCO2 31 L (35-45) mmHg ABG pO2 >420 H >420 H (83-108) mmHg ABG HCO3 26 H (21-25) mmol/L ABG Total CO2 (19-24) mmol/L ABG O2 Saturation >99.4 H >99.4 H (94-97) % ABG Hematocrit 26 L 27 L (34.0-46.0) % ABG Sodium (135-146) mmol/L ABG Ionized Calcium 4.4 L (4.5-5.3) mg/dL ABG Glucose 111 H 114 H (75-99) mg/dL ABG Lactic Acid 2.0 H 2.3 H* (0.5-1.6) mmol/L Hemoglobin 8.5 L 8.8 L (13.0-17.5) gm/dL Sodium (137-145) mmol/L Potassium (3.5-5.1) mmol/L Chloride (98-107) mmol/L Carbon Dioxide (22-30) mmol/L Creatinine (0.66-1.25) mg/dL Glucose (74-99) mg/dL POC Glucose (mg/dL) 132 H (70-110) mg/dL Magnesium (1.6-2.3) mg/dL Total Bilirubin (0.2-1.3) mg/dL Alkaline Phosphatase (38-126) U/L Total Protein (6.3-8.2) g/dL Albumin (3.5-5.0) g/dL Arterial Blood Glucose 111 H 114 H (75-99) mg/dL Crossmatch 09/10/24 09/10/24 09/10/24 Range/Units 16:36 16:36 16:36 WBC (3.8-10.6) k/uL RBC 2.97 L (4.30-5.90) m/uL Hgb 8.6 L (13.0-17.5) gm/dL Hct 26.7 L (39.0-53.0) % RDW 15.7 H (11.5-15.5) % Plt Count 125 L (150-450) k/uL Lymphocytes # 0.6 L (1.0-4.8) k/uL PT 12.6 H (10.0-12.5) sec INR 1.2 H (<1.2) APTT 34.1 H (22.0-30.0) sec ABG pH (7.35-7.45) ABG pCO2 (35-45) mmHg ABG pO2 (83-108) mmHg ABG HCO3 (21-25) mmol/L ABG Total CO2 (19-24) mmol/L ABG O2 Saturation (94-97) % ABG Hematocrit (34.0-46.0) % ABG Sodium (135-146) mmol/L ABG Ionized Calcium (4.5-5.3) mg/dL ABG Glucose (75-99) mg/dL ABG Lactic Acid (0.5-1.6) mmol/L Hemoglobin (13.0-17.5) gm/dL Sodium (137-145) mmol/L Potassium (3.5-5.1) mmol/L Chloride (98-107) mmol/L Carbon Dioxide (22-30) mmol/L Creatinine 1.39 H (0.66-1.25) mg/dL Glucose 112 H (74-99) mg/dL POC Glucose (mg/dL) (70-110) mg/dL Magnesium 4.4 H (1.6-2.3) mg/dL Total Bilirubin 1.4 H (0.2-1.3) mg/dL Alkaline Phosphatase 37 L (38-126) U/L Total Protein 4.9 L (6.3-8.2) g/dL Albumin 3.1 L (3.5-5.0) g/dL Arterial Blood Glucose (75-99) mg/dL Crossmatch 09/10/24 09/10/24 09/10/24 Range/Units 17:00 18:05 19:05 WBC (3.8-10.6) k/uL RBC (4.30-5.90) m/uL Hgb (13.0-17.5) gm/dL Hct (39.0-53.0) % RDW (11.5-15.5) % Plt Count (150-450) k/uL Lymphocytes # (1.0-4.8) k/uL PT (10.0-12.5) sec INR (<1.2) APTT (22.0-30.0) sec ABG pH (7.35-7.45) ABG pCO2 (35-45) mmHg ABG pO2 300 H (83-108) mmHg ABG HCO3 (21-25) mmol/L ABG Total CO2 (19-24) mmol/L ABG O2 Saturation 100.0 H (94-97) % ABG Hematocrit (34.0-46.0) % ABG Sodium (135-146) mmol/L ABG Ionized Calcium (4.5-5.3) mg/dL ABG Glucose (75-99) mg/dL ABG Lactic Acid (0.5-1.6) mmol/L Hemoglobin 8.6 L (13.0-17.5) gm/dL Sodium (137-145) mmol/L Potassium (3.5-5.1) mmol/L Chloride (98-107) mmol/L Carbon Dioxide (22-30) mmol/L Creatinine (0.66-1.25) mg/dL Glucose (74-99) mg/dL POC Glucose (mg/dL) 151 H 161 H (70-110) mg/dL Magnesium (1.6-2.3) mg/dL Total Bilirubin (0.2-1.3) mg/dL Alkaline Phosphatase (38-126) U/L Total Protein (6.3-8.2) g/dL Albumin (3.5-5.0) g/dL Arterial Blood Glucose (75-99) mg/dL Crossmatch 09/10/24 09/10/24 09/10/24 Range/Units 19:50 19:50 19:51 WBC (3.8-10.6) k/uL RBC 2.67 L (4.30-5.90) m/uL Hgb 7.7 L (13.0-17.5) gm/dL Hct 23.8 L (39.0-53.0) % RDW 15.9 H (11.5-15.5) % Plt Count 107 L (150-450) k/uL Lymphocytes # 0.5 L (1.0-4.8) k/uL PT (10.0-12.5) sec INR (<1.2) APTT (22.0-30.0) sec ABG pH (7.35-7.45) ABG pCO2 (35-45) mmHg ABG pO2 (83-108) mmHg ABG HCO3 (21-25) mmol/L ABG Total CO2 (19-24) mmol/L ABG O2 Saturation (94-97) % ABG Hematocrit (34.0-46.0) % ABG Sodium (135-146) mmol/L ABG Ionized Calcium (4.5-5.3) mg/dL ABG Glucose (75-99) mg/dL ABG Lactic Acid (0.5-1.6) mmol/L Hemoglobin (13.0-17.5) gm/dL Sodium 134 L (137-145) mmol/L Potassium (3.5-5.1) mmol/L Chloride 108 H (98-107) mmol/L Carbon Dioxide 21 L (22-30) mmol/L Creatinine 1.46 H (0.66-1.25) mg/dL Glucose 138 H (74-99) mg/dL POC Glucose (mg/dL) 165 H (70-110) mg/dL Magnesium (1.6-2.3) mg/dL Total Bilirubin (0.2-1.3) mg/dL Alkaline Phosphatase (38-126) U/L Total Protein (6.3-8.2) g/dL Albumin (3.5-5.0) g/dL Arterial Blood Glucose (75-99) mg/dL Crossmatch 09/10/24 09/10/24 09/10/24 Range/Units 20:58 22:01 22:44 WBC (3.8-10.6) k/uL RBC (4.30-5.90) m/uL Hgb (13.0-17.5) gm/dL Hct (39.0-53.0) % RDW (11.5-15.5) % Plt Count (150-450) k/uL Lymphocytes # (1.0-4.8) k/uL PT (10.0-12.5) sec INR (<1.2) APTT (22.0-30.0) sec ABG pH (7.35-7.45) ABG pCO2 (35-45) mmHg ABG pO2 (83-108) mmHg ABG HCO3 (21-25) mmol/L ABG Total CO2 (19-24) mmol/L ABG O2 Saturation (94-97) % ABG Hematocrit (34.0-46.0) % ABG Sodium (135-146) mmol/L ABG Ionized Calcium (4.5-5.3) mg/dL ABG Glucose (75-99) mg/dL ABG Lactic Acid (0.5-1.6) mmol/L Hemoglobin (13.0-17.5) gm/dL Sodium (137-145) mmol/L Potassium (3.5-5.1) mmol/L Chloride (98-107) mmol/L Carbon Dioxide (22-30) mmol/L Creatinine (0.66-1.25) mg/dL Glucose (74-99) mg/dL POC Glucose (mg/dL) 153 H 143 H 134 H (70-110) mg/dL Magnesium (1.6-2.3) mg/dL Total Bilirubin (0.2-1.3) mg/dL Alkaline Phosphatase (38-126) U/L Total Protein (6.3-8.2) g/dL Albumin (3.5-5.0) g/dL Arterial Blood Glucose (75-99) mg/dL Crossmatch 09/10/24 09/10/24 09/11/24 Range/Units 22:45 23:59 00:58 WBC 2.9 L (3.8-10.6) k/uL RBC 2.06 L (4.30-5.90) m/uL Hgb 6.1 L* D (13.0-17.5) gm/dL Hct 17.8 L* (39.0-53.0) % RDW 16.5 H (11.5-15.5) % Plt Count 83 L (150-450) k/uL Lymphocytes # 0.3 L (1.0-4.8) k/uL PT (10.0-12.5) sec INR (<1.2) APTT (22.0-30.0) sec ABG pH (7.35-7.45) ABG pCO2 (35-45) mmHg ABG pO2 (83-108) mmHg ABG HCO3 (21-25) mmol/L ABG Total CO2 (19-24) mmol/L ABG O2 Saturation (94-97) % ABG Hematocrit (34.0-46.0) % ABG Sodium (135-146) mmol/L ABG Ionized Calcium (4.5-5.3) mg/dL ABG Glucose (75-99) mg/dL ABG Lactic Acid (0.5-1.6) mmol/L Hemoglobin (13.0-17.5) gm/dL Sodium (137-145) mmol/L Potassium (3.5-5.1) mmol/L Chloride (98-107) mmol/L Carbon Dioxide (22-30) mmol/L Creatinine (0.66-1.25) mg/dL Glucose (74-99) mg/dL POC Glucose (mg/dL) 122 H 116 H (70-110) mg/dL Magnesium (1.6-2.3) mg/dL Total Bilirubin (0.2-1.3) mg/dL Alkaline Phosphatase (38-126) U/L Total Protein (6.3-8.2) g/dL Albumin (3.5-5.0) g/dL Arterial Blood Glucose (75-99) mg/dL Crossmatch 09/11/24 09/11/24 09/11/24 Range/Units 01:57 02:53 04:04 WBC (3.8-10.6) k/uL RBC (4.30-5.90) m/uL Hgb (13.0-17.5) gm/dL Hct (39.0-53.0) % RDW (11.5-15.5) % Plt Count (150-450) k/uL Lymphocytes # (1.0-4.8) k/uL PT (10.0-12.5) sec INR (<1.2) APTT (22.0-30.0) sec ABG pH (7.35-7.45) ABG pCO2 (35-45) mmHg ABG pO2 (83-108) mmHg ABG HCO3 (21-25) mmol/L ABG Total CO2 (19-24) mmol/L ABG O2 Saturation (94-97) % ABG Hematocrit (34.0-46.0) % ABG Sodium (135-146) mmol/L ABG Ionized Calcium (4.5-5.3) mg/dL ABG Glucose (75-99) mg/dL ABG Lactic Acid (0.5-1.6) mmol/L Hemoglobin (13.0-17.5) gm/dL Sodium (137-145) mmol/L Potassium (3.5-5.1) mmol/L Chloride (98-107) mmol/L Carbon Dioxide (22-30) mmol/L Creatinine (0.66-1.25) mg/dL Glucose (74-99) mg/dL POC Glucose (mg/dL) 112 H 119 H 135 H (70-110) mg/dL Magnesium (1.6-2.3) mg/dL Total Bilirubin (0.2-1.3) mg/dL Alkaline Phosphatase (38-126) U/L Total Protein (6.3-8.2) g/dL Albumin (3.5-5.0) g/dL Arterial Blood Glucose (75-99) mg/dL Crossmatch 09/11/24 09/11/24 09/11/24 Range/Units 05:00 05:00 05:03 WBC 3.2 L (3.8-10.6) k/uL RBC 2.26 L (4.30-5.90) m/uL Hgb 6.7 L* (13.0-17.5) gm/dL Hct 19.9 L* (39.0-53.0) % RDW 15.7 H (11.5-15.5) % Plt Count 105 L (150-450) k/uL Lymphocytes # 0.6 L (1.0-4.8) k/uL PT (10.0-12.5) sec INR (<1.2) APTT (22.0-30.0) sec ABG pH (7.35-7.45) ABG pCO2 (35-45) mmHg ABG pO2 (83-108) mmHg ABG HCO3 (21-25) mmol/L ABG Total CO2 (19-24) mmol/L ABG O2 Saturation (94-97) % ABG Hematocrit (34.0-46.0) % ABG Sodium (135-146) mmol/L ABG Ionized Calcium (4.5-5.3) mg/dL ABG Glucose (75-99) mg/dL ABG Lactic Acid (0.5-1.6) mmol/L Hemoglobin (13.0-17.5) gm/dL Sodium (137-145) mmol/L Potassium 3.4 L (3.5-5.1) mmol/L Chloride (98-107) mmol/L Carbon Dioxide (22-30) mmol/L Creatinine 1.51 H (0.66-1.25) mg/dL Glucose 109 H (74-99) mg/dL POC Glucose (mg/dL) 128 H (70-110) mg/dL Magnesium 3.2 H (1.6-2.3) mg/dL Total Bilirubin 1.6 H (0.2-1.3) mg/dL Alkaline Phosphatase 24 L (38-126) U/L Total Protein 5.0 L (6.3-8.2) g/dL Albumin (3.5-5.0) g/dL Arterial Blood Glucose (75-99) mg/dL Crossmatch 09/11/24 09/11/24 09/11/24 Range/Units 05:06 06:07 06:55 WBC (3.8-10.6) k/uL RBC (4.30-5.90) m/uL Hgb (13.0-17.5) gm/dL Hct (39.0-53.0) % RDW (11.5-15.5) % Plt Count (150-450) k/uL Lymphocytes # (1.0-4.8) k/uL PT (10.0-12.5) sec INR (<1.2) APTT (22.0-30.0) sec ABG pH 7.47 H (7.35-7.45) ABG pCO2 33 L (35-45) mmHg ABG pO2 149 H (83-108) mmHg ABG HCO3 (21-25) mmol/L ABG Total CO2 (19-24) mmol/L ABG O2 Saturation 100.0 H (94-97) % ABG Hematocrit (34.0-46.0) % ABG Sodium (135-146) mmol/L ABG Ionized Calcium (4.5-5.3) mg/dL ABG Glucose (75-99) mg/dL ABG Lactic Acid (0.5-1.6) mmol/L Hemoglobin 6.7 L* (13.0-17.5) gm/dL Sodium (137-145) mmol/L Potassium (3.5-5.1) mmol/L Chloride (98-107) mmol/L Carbon Dioxide (22-30) mmol/L Creatinine (0.66-1.25) mg/dL Glucose (74-99) mg/dL POC Glucose (mg/dL) 116 H 117 H (70-110) mg/dL Magnesium (1.6-2.3) mg/dL Total Bilirubin (0.2-1.3) mg/dL Alkaline Phosphatase (38-126) U/L Total Protein (6.3-8.2) g/dL Albumin (3.5-5.0) g/dL Arterial Blood Glucose (75-99) mg/dL Crossmatch 09/11/24 09/11/24 09/11/24 Range/Units 07:39 11:52 11:55 WBC (3.8-10.6) k/uL RBC 2.98 L (4.30-5.90) m/uL Hgb 8.9 L D (13.0-17.5) gm/dL Hct 27.1 L (39.0-53.0) % RDW (11.5-15.5) % Plt Count 108 L (150-450) k/uL Lymphocytes # (1.0-4.8) k/uL PT (10.0-12.5) sec INR (<1.2) APTT (22.0-30.0) sec ABG pH (7.35-7.45) ABG pCO2 (35-45) mmHg ABG pO2 115 H (83-108) mmHg ABG HCO3 (21-25) mmol/L ABG Total CO2 25 H (19-24) mmol/L ABG O2 Saturation 99.1 H (94-97) % ABG Hematocrit (34.0-46.0) % ABG Sodium (135-146) mmol/L ABG Ionized Calcium (4.5-5.3) mg/dL ABG Glucose (75-99) mg/dL ABG Lactic Acid (0.5-1.6) mmol/L Hemoglobin 7.0 L* (13.0-17.5) gm/dL Sodium (137-145) mmol/L Potassium (3.5-5.1) mmol/L Chloride (98-107) mmol/L Carbon Dioxide (22-30) mmol/L Creatinine (0.66-1.25) mg/dL Glucose (74-99) mg/dL POC Glucose (mg/dL) 135 H (70-110) mg/dL Magnesium (1.6-2.3) mg/dL Total Bilirubin (0.2-1.3) mg/dL Alkaline Phosphatase (38-126) U/L Total Protein (6.3-8.2) g/dL Albumin (3.5-5.0) g/dL Arterial Blood Glucose (75-99) mg/dL Crossmatch
[2024-09-11] MEDS: amLODIPine 5 MG TAB PO SCH (15:19)
[2024-09-11 15:23] LABS: Glucose,Whole Blood 129 mg/dL (70-110)
[2024-09-11] MEDS: amLODIPine 2.5 MG TAB PO STA (15:29)
[2024-09-11 15:57] LABS: Glucose,Whole Blood 129 mg/dL (70-110)
[2024-09-11 17:00] LABS: Glucose,Whole Blood 129 mg/dL (70-110)
[2024-09-11 17:55] LABS: Glucose,Whole Blood 122 mg/dL (70-110)
[2024-09-11 18:54] LABS: Glucose,Whole Blood 103 mg/dL (70-110)
[2024-09-11 20:02] LABS: Glucose,Whole Blood 120 mg/dL (70-110)
[2024-09-11] MEDS: ACETAMINOPHEN TAB 500 MG TAB PO PRN (20:47)
[2024-09-11] MEDS: SENNOSIDES-DOCUSATE SODIUM 1 EACH TAB PO SCH (20:47)
[2024-09-11 20:59] LABS: Glucose,Whole Blood 139 mg/dL (70-110)
[2024-09-11 22:02] LABS: Glucose,Whole Blood 121 mg/dL (70-110)
[2024-09-11 23:12] LABS: Glucose,Whole Blood 101 mg/dL (70-110)
[2024-09-12 00:17] LABS: Glucose,Whole Blood 118 mg/dL (70-110)
[2024-09-12 01:09] LABS: Glucose,Whole Blood 129 mg/dL (70-110)
[2024-09-12 02:03] LABS: Glucose,Whole Blood 119 mg/dL (70-110)
[2024-09-12 03:17] LABS: Glucose,Whole Blood 100 mg/dL (70-110)
[2024-09-12 04:04] LABS: Glucose,Whole Blood 113 mg/dL (70-110)
[2024-09-12 04:57] LABS: Basophils % (A) 0 %; Eosinophils % (A) 1 %; HCT 26.7 % (39.0-53.0); HGB 8.7 gm/dL (13.0-17.5); Hypochromasia Slight; Lymphocytes # (A) 0.9 k/uL (1.0-4.8); Lymphocytes % (A) 12 %; MCH 29.9 pg (25.0-35.0); MCHC 32.6 g/dL (31.0-37.0); MCV 91.6 fL (80.0-100.0); Mean Platelet Volume 8.3; Monocytes # (A) 0.4 k/uL (0-1.0); Monocytes % (A) 5 %; Neutrophils # (A) 6.2 k/uL (1.3-7.7); Neutrophils % (A) 80 %; Platelet Count 119 k/uL (150-450); Poikilocytosis Slight; RBC 2.91 m/uL (4.30-5.90); RDW 15.7 % (11.5-15.5); WBC 7.8 k/uL (3.8-10.6)
[2024-09-12] MEDS ORDERED: DEXTROSE 50% SYRINGE 50 ML IVP PRN ×4 (05:05→12:39)
[2024-09-12 05:18] LABS: Glucose,Whole Blood 124 mg/dL (70-110)
[2024-09-12 05:49] LABS: ALT 11 U/L (4-49); AST 38 U/L (17-59); African American GFR (CKD) 53 (>60 ml/min/1.73 sqM); Albumin 3.3 g/dL (3.5-5.0); Alkaline Phosphatase 43 U/L (38-126); Anion Gap 8 mmol/L; Blood Urea Nitrogen 18 mg/dL (9-20); Calcium 8.7 mg/dL (8.4-10.2); Carbon Dioxide 22 mmol/L (22-30); Chloride 105 mmol/L (98-107); Glucose 97 mg/dL (74-99); Non-African American GFR(CKD) 46 (>60 ml/min/1.73 sqM); Potassium 4.4 mmol/L (3.5-5.1); Sodium 135 mmol/L (137-145); Total Bilirubin 1.1 mg/dL (0.2-1.3); Total Protein 5.2 g/dL (6.3-8.2)
[2024-09-12 06:32] LABS: Glucose,Whole Blood 146 mg/dL (70-110)
[2024-09-12] MEDS: METOCLOPRAMIDE 5 MG/ML 2 ML VIAL IVP PRN (06:50)
--- NOTE | 2024-09-12 07:30 | XR ---
EXAMINATION TYPE: XR chest 1V portable DATE OF EXAM: 09/12/2024 5:45 AM CLINICAL INDICATION: Male, 74 years old with history of Post Operative Cardiac Surgery; [facility] COMPARISON: Chest radiograph from one day prior. TECHNIQUE: XR chest 1V portable Frontal view of the chest. FINDINGS: Lungs/Pleura: There is no evidence of pleural effusion, focal consolidation, or pneumothorax. Pulmonary vascularity: Unremarkable. Heart/mediastinum: Cardiomediastinal silhouette is unremarkable. Post aortic valve repair changes. L eft atrial appendage occlusion device is present. Musculoskeletal: No acute osseous pathology. Other findings: Subcutaneous emphysema scattered throughout the visualized thorax. Lines/Tubes: Interval removal of the endotracheal tube. Interval removal of the enteric tube, There is a [place]-Soraya catheter with tip projecting over the spine. Drainage tubes with tips projecting over the mediastinum. Left thoracotomy tube is present without evidence of pneumothorax. IMPRESSION: Stable exam, Postsurgical changes. No evidence for postop complication. [facility], , 09/12/2024 7:28 AM
--- NOTE | 2024-09-12 08:49 | P.PN ---
Subjective Progress Note Date: 09/12/24 Principal diagnosis: Triple vessel coronary artery disease, aortic stenosis/insufficiency. Past medical history significant for coronary artery disease with myocardial infarction and multiple stenting with the last stent greater than 10 years ago, peripheral arterial disease with endovascular abdominal aneurysm repair approximately 2 years ago at [facility], angioplasty in the right leg, hypertension, hyperlipidemia, remote history of pneumonia, current chronic tobacco dependence, occasional marijuana use, and medication noncompliance. POD #2 Aortic valve replacement with 23 mm Barcenas Inspiris bovine pericardial valve, CABG x 4 with ARANA to LAD, sequential left radial artery graft to first and second obtuse marginal coronary arteries, saphenous vein graft to posterior descending coronary artery, ligation of the left atrial appendage with 35 mm AtriCure clip, endovascular harvest bilateral greater saphenous veins, open harvest left radial artery. Intraoperative transesophageal echocardiogram performed by anesthesia. Postoperative acute blood loss anemia, expected given hemodilution, cardiopulmonary bypass and given his preoperative anemia. The patient was seen and examined in follow-up today September 12, 2024 at his bedside in the intensive care unit. The patient was successfully extubated yesterday September 11, 2024 at 7:57 AM. He is currently sitting up to the bedside chair, is awake, alert, oriented x 3 and is in no acute apparent distress. Denies any complaints of shortness of breath at this time and he also denies any complaints of pain at this time. Reports his pain is well-controlled on his current pain medication regimen. Oxygen saturations are 93% on 3 L nasal cannula and he is achieving 1000 mL on his incentive spirometry with encou ragement. Bedside telemetry is showing normal sinus rhythm heart rate 77 bpm. Right IJ cordis and Ronald-Soraya catheter remains in place with current hemodynamic showing a cardiac output of 6.3, cardiac index 3.5, PA pressures 40/17, CVP 10, and SVR 939. Primacor drip remains infusing at 0.1 mcg/kg/min. Mediastinal and left pleural chest tube remain in place to low continuous wall suction -20 cm H2O. No air leak is present. Left pleural chest tube draining thin serosanguineous drainage with 210 mL output in the last 8 hours and 600 mL output in the last 24 hours. Mediastinal chest tube draining thin serosanguineous drainage with 20 mL output in the last 8 hours and 230 mL output in the last 24 hours. The patient received 2 units of packed red blood cells yesterday for hemoglobin of 6.7, and his hemoglobin today is 8.7. Laboratory and chest x-ray results reviewed. Objective - Vital Signs Vital signs: Vital Signs Temp 98 F 09/12/24 04:00 Pulse 73 09/12/24 07:00 Resp 17 09/12/24 07:00 BP 116/67 09/12/24 06:15 Pulse Ox 93 L 09/12/24 07:00 FiO2 40 09/11/24 08:00 Intake & Output 09/11/24 09/12/24 09/12/24 18:59 06:59 18:59 Intake Total 1730.878 792.021 39 Output Total 1345 650 20 Balance 385.878 142.021 19 Weight 73.5 kg Intake: IV 1017 579 39 ACETAMINOPHEN IV (For NPO 100 ) 1,000 mg In Empty Bag 1 bag @ 400 mls/hr IVPB Q6HR [facility] Rx#:[id number] Sodium Chloride 0.9% 1, 650 410 30 000 ml @ 30 mls/hr IV . Q24H [facility] Rx#:[id number] co/ci 150 70 0 pressure bag 117 99 9 Intake, IV Titration 403.878 13.021 Amount Amiodarone 450 mg In 194.726 Dextrose 5% in Water 250 ml @ 0.5 MG/MIN 16.667 mls/hr IV .Q15H [facility] Rx#: [id number] Clevidipine Butyrate 25 6.467 mg In Empty Bag 1 bag @ 1 MG/HR 2 mls/hr IV .Q24H [facility] Rx#:[id number] Insulin Regular 100 unit 21.405 13.021 In Sodium Chloride 0.9% 100 ml @ Per Protocol IV .Q0M [facility] Rx#:[id number] Milrinone-D5w Pmx 20 mg 8.405 In Dextrose/Water 1 100ml .bag @ Per Protocol IV . Q0M [facility] Rx#:[id number] Nitroglycerin-D5w Pmx 50 22.875 mg In Dextrose/Water 1 250ml.bag @ 5 MCG/MIN 1.5 mls/hr IV .Q24H [facility] Rx#: [id number] Potassium Chloride 20 meq 100 In Water For Injection 1 100ml.bag @ 50 mls/hr IVPB Q2H [facility] Rx#: [id number] ceFAZolin 2 gm In Sodium 50 Chloride 0.9% 50 ml @ 100 mls/hr IVPB Q8HR [facility] Rx# :[id number] Oral 200 Blood Product 310 Rc As-1 Unit 310 [id number] Output: Chest Tube Drainage 590 330 0 Mediastinal 230 40 0 left plueral 360 290 0 Gastric Drainage 0 0 0 Urine 755 320 20 Other: Voiding Method Indwelling Catheter Indwelling Catheter ABP, PAP, CO, CI - Last Documented Arterial Blood Pressure 146/57 Pulmonary Artery Pressure 35/11 Cardiac Output 5.7 Cardiac Index 2.6 - Exam CONSTITUTIONAL: Sitting up to the bedside chair in the intensive care unit, tanmay ears comfortable, cooperative, no apparent acute distress. HEENT: Neck is supple, no JVD, no lymphadenopathy. Right IJ Cordis and Ronald- Soraya catheter in place and functioning. RESPIRATORY: Lungs sounds essentially clear throughout, diminished to his bilateral bases. Respirations are symmetrical and nonlabored. Currently on 3 L nasal cannula with oxygen saturations 93%. Able to achieve 1000 mL on his incentive spirometry. Strong cough. CARDIOVASCULAR: Regular rhythm and rate. S1 and S2 present, negative for S3, gallop or murmur. Sternum is stable. Palpable peripheral pulses bilaterally. No calf pain or tenderness noted. Heart hugger in place with patient demonstrating appropriate use. Knee-high FIDELIA hose and sequential compression devices in place to his bilateral lower extremities. GASTROINTESTINAL: Abdomen soft, nontender, nondistended. Active bowel sounds present 4 quadrants. Tolerating full liquid diet. Passing flatus. No guarding or rigidity. GENITOURINARY: Stubbs present draining clear, yellow urine. Urine output 230 mL in the last 8 hours INTEGUMENTARY: Skin is warm and dry with no evidence of clubbing or cyanosis. Midline sternal incision clean dry and well approximated, covered with dry intact dressing. Bilateral lower extremity EVH sites well approximated without redness or drainage. Left arm radial artery harvest site clean, dry and approximated. No drainage or redness is present. NEUROLOGIC: Cranial nerves II through XII intact. No focal deficits. MUSKULOSKELETAL: Able to move all extremities, strength equal bilaterally, generalized weakness. PSYCHIATRIC: Alert and oriented to person place and time, appropriate affect, intact judgment and insight. INVASIVE LINES AND TUBES: Mediastinal/left pleural chest tubes present and connected to low continuous wall suction, no air leaks present. Mediastinal tube with 20 mL of thin serosanguineous drainage overnight, 230 mL output in the last 24 hours. Left pleural chest tube with 210 mL of thin serosanguineous drainage overnight, 600 mL output in the last 24 hours. Ventricular epicardial pacemaker wires present, connected to generator, VVI backup rate 50 bpm. Right internal jugular Ronald/Cordis, right brachial arterial line present. Current CO 6.3, CI 3.5, PA 40/17, CVP 10 mmHg and SVR 939. - Allied health notes Allied health notes reviewed: nursing - Labs CBC & Chem 7: 09/12/24 04:00 09/12/24 04:00 Labs: Abnormal Lab Results - Last 24 Hours (Table) 09/09/24 09/11/24 09/11/24 Range/Units 06:25 11:52 11:55 RBC 2.98 L (4.30-5.90) m/uL Hgb 8.9 L D (13.0-17.5) gm/dL Hct 27.1 L (39.0-53.0) % RDW (11.5-15.5) % Plt Count 108 L (150-450) k/uL Lymphocytes # (1.0-4.8) k/uL Sodium (137-145) mmol/L Creatinine (0.66-1.25) mg/dL POC Glucose (mg/dL) 135 H (70-110) mg/dL Total Protein (6.3-8.2) g/dL Albumin (3.5-5.0) g/dL Crossmatch See Detail 09/11/24 09/11/24 09/11/24 Range/Units 13:13 13:54 15:22 RBC (4.30-5.90) m/uL Hgb (13.0-17.5) gm/dL Hct (39.0-53.0) % RDW (11.5-15.5) % Plt Count (150-450) k/uL Lymphocytes # (1.0-4.8) k/uL Sodium (137-145) mmol/L Creatinine (0.66-1.25) mg/dL POC Glucose (mg/dL) 149 H 151 H 129 H (70-110) mg/dL Total Protein (6.3-8.2) g/dL Albumin (3.5-5.0) g/dL Crossmatch 09/11/24 09/11/24 09/11/24 Range/Units 15:55 16:59 17:54 RBC (4.30-5.90) m/uL Hgb (13.0-17.5) gm/dL Hct (39.0-53.0) % RDW (11.5-15.5) % Plt Count (150-450) k/uL Lymphocytes # (1.0-4.8) k/uL Sodium (137-145) mmol/L Creatinine (0.66-1.25) mg/dL POC Glucose (mg/dL) 129 H 129 H 122 H (70-110) mg/dL Total Protein (6.3-8.2) g/dL Albumin (3.5-5.0) g/dL Crossmatch 09/11/24 09/11/24 09/11/24 Range/Units 20:00 20:57 22:00 RBC (4.30-5.90) m/uL Hgb (13.0-17.5) gm/dL Hct (39.0-53.0) % RDW (11.5-15.5) % Plt Count (150-450) k/uL Lymphocytes # (1.0-4.8) k/uL Sodium (137-145) mmol/L Creatinine (0.66-1.25) mg/dL POC Glucose (mg/dL) 120 H 139 H 121 H (70-110) mg/dL Total Protein (6.3-8.2) g/dL Albumin (3.5-5.0) g/dL Crossmatch 09/12/24 09/12/24 09/12/24 Range/Units 00:15 01:07 02:00 RBC (4.30-5.90) m/uL Hgb (13.0-17.5) gm/dL Hct (39.0-53.0) % RDW (11.5-15.5) % Plt Count (150-450) k/uL Lymphocytes # (1.0-4.8) k/uL Sodium (137-145) mmol/L Creatinine (0.66-1.25) mg/dL POC Glucose (mg/dL) 118 H 129 H 119 H (70-110) mg/dL Total Protein (6.3-8.2) g/dL Albumin (3.5-5.0) g/dL Crossmatch 09/12/24 09/12/24 09/12/24 Range/Units 04:00 04:00 04:03 RBC 2.91 L (4.30-5.90) m/uL Hgb 8.7 L (13.0-17.5) gm/dL Hct 26.7 L (39.0-53.0) % RDW 15.7 H (11.5-15.5) % Plt Count 119 L (150-450) k/uL Lymphocytes # 0.9 L (1.0-4.8) k/uL Sodium 135 L (137-145) mmol/L Creatinine 1.50 H (0.66-1.25) mg/dL POC Glucose (mg/dL) 113 H (70-110) mg/dL Total Protein 5.2 L (6.3-8.2) g/dL Albumin 3.3 L (3.5-5.0) g/dL Crossmatch 09/12/24 09/12/24 Range/Units 05:16 06:28 RBC (4.30-5.90) m/uL Hgb (13.0-17.5) gm/dL Hct (39.0-53.0) % RDW (11.5-15.5) % Plt Count (150-450) k/uL Lymphocytes # (1.0-4.8) k/uL Sodium (137-145) mmol/L Creatinine (0.66-1.25) mg/dL POC Glucose (mg/dL) 124 H 146 H (70-110) mg/dL Total Protein (6.3-8.2) g/dL Albumin (3.5-5.0) g/dL Crossmatch - Imaging and Cardiology Chest x-ray: report reviewed, image reviewed Assessment and Plan Assessment: Coronary artery disease with myocardial infarction and multiple stenting with the last stent greater than 10 years ago, non-STEMI this admission, status post four-vessel coronary artery bypass grafting surgery Chest pain secondary to above Severe aortic stenosis with severe aortic insufficiency on heart catheterization as well as echocardiogram, mean gradient 59 mmHg, status post aortic valve replacement with 23 mm Barcenas Inspiris bovine pericardial valve Hypothyroid, with an admission TSH level of 14.6 and a free T4 hypothyroid 0.76 History of peripheral arterial disease with endovascular abdominal aneurysm repair approximately 2 years ago at [facility] Angioplasty in the right leg Hypertension although patient denies Hyperlipidemia Remote history of pneumonia Current chronic tobacco dependence Occasional marijuana use Medication noncompliance Chronic kidney disease, creatinine today 1.51 Postoperative acute blood loss anemia, expected given hemodilution, cardiopulmonary bypass and his preoperative anemia Plan: Continue aspirin, statin, Plavix and beta-aidan. Increase metoprolol tartrate to 25 mg p.o. twice daily with hold parameters. Discontinue Primacor drip, post Primacor drip discontinuation, cardiac output was 4.7 and cardiac index 2.6. Hemoglobin is 8.7 this a.m., no further blood transfusions at this time. Continue amlodipine 2.5 mg p.o. daily with hold parameters for radial artery spasm prophylaxis. Continue amiodarone 200 mg p.o. twice daily for atrial fibrillation prophylaxis, no postoperative atrial fibrillation has been reported, currently sinus rhythm. Wean oxygen as tolerated. Encourage incentive spirometry use 10 times every hour while awake. Bronchodilators per pulmonology. Increase activity as tolerated, PT/OT/cardiac rehab following. Will monitor daily labs and chest x-rays. Electrolyte replacement per protocol. GI/DVT prophylaxis. Pain control per current medication regimen. Avoid Toradol due to renal function. Insulin management per internal medicine. Patient is not a diabetic, preoperative hemoglobin A1c was 6.0%, needs tight blood sugar control. Should remain on continuous IV insulin for 48 hours, then may transition to subcutaneous per protocol Remove Ronald-Soraya catheter, keep right IJ cordis in place to continuous CVP monitoring. Continue chest tubes for another 24 hours, monitor output. Remove right brachial arterial line. Lasix 40 mg x 1 now. Discontinue Stubbs catheter, continue to monitor and record strict accurate intake and output. May bladder scan every 6 hours and as needed postvoid residual, if greater than 300 mL of urine may straight cath. Continue levothyroxine 100 mcg p.o. daily. The importance of risk modification including smoking cessation has been reinforced with the patient, he will be given the number to [id number] upon discharge. More recommendations to follow based on patient's clinical course. Time with Patient: Greater than 30
[2024-09-12] MEDS ORDERED: amLODIPine 5 MG TAB PO SCH (09:00)
[2024-09-12] MEDS: METOPROLOL TARTRATE 25 MG TAB PO SCH (09:05)
[2024-09-12] MEDS: FUROSEMIDE 10 MG/ML 4 ML VIAL IV STA (09:05)
[2024-09-12] MEDS: PANTOPRAZOLE 40 MG TABLET PO SCH (09:07)
[2024-09-12 10:03] VITALS: BMI 23.2
--- NOTE | 2024-09-12 10:04 | P.PN ---
Subjective Progress Note Date: 09/12/24 HPI: This gentleman has severe aortic stenosis and triple-vessel disease who underwent cardiac catheterization by Dr. Byrd was seen by cardiac surgery. He is going to have a bypass surgery and aortic valve replacement on Tuesday. He has mildly elevated creatinine I will discontinue lisinopril and add h ydralazine. Will continue intravenous heparin. Discussed with patient regarding surgery. He was already seen by Dr. Deluna vitals are stable. Resting comfortably in the bed. He denies any chest pain chest pressure shortness of breath September 09, 2024 Heart rate 72 bpm, BP 121/60, hemoglobin 10.2, creatinine 1.78, sodium 135 He denies any chest pain chest pressure shortness of breath. September 11, 2024 Patient was seen this morning in the ICU. Patient is postop day 1. He reports doing well no acute complaints. Patient presented to the ED with chest pain on 09/03. He had a cardiac catheterization showed severe triple-vessel disease, severe aortic stenosis and severe aortic regurgitation. Patient had a aortic valve replacement yesterday afternoon with a 23 mm Barcenas bovine pericardial valve and CABG x 4 with/ARANA to LAD sequential left radial artery graft to first and second obtuse marginal coronary arteries and PDA. Ligation of left atrial appendage was also performed. Patient was extubated early this morning. He denies any fever, chills, shortness of breath, chest pain, belly pain, diarrhea, leg swelling. His left pleural chest tube output was 530 cc over the past 24 h ours. His mediastinal chest tube output was 450 cc over the past 24 hours. Chest x-ray that was obtained this morning showed stable exam, postsurgical changes, no evidence for postop complication. CBC showed hemoglobin of 6.7 white blood cell count of 3.2 hematocrit of 19.9, platelet 105. 1 unit of blood was given this morning. Repeat CBC showed a hemoglobin of 8.9. ABG showed pO2 of 115, pCO2 of 40, pH of 7.37. Morning CMP showed sodium of 137, potassium 3.4, chloride 106, carbon dioxide 24, BUN 19, creatinine 1.51, glucose 109. Patient's most recent blood pressure was 148/68, pulmonary artery pressure of 34/7, central venous pressure of 11, cardiac output of 6.4, cardiac index of 3.6, O2 saturation at 94% on nasal cannula at 4 L/min. September 12, 2024. Patient was seen this morning in ICU. Patient is postop day 2 status post CABG on 09/10/2024. He reports doing well with no acute complaints. Patient was extubated yesterday morning. He denies any fever, chills, shortness of breath, chest pain, belly pain, diarrhea, leg swelling. Left pleural chest tube output was 650 cc over the 24 hours. Mediastinal chest tube output was 270 cc over past 24 hours. Chest x-ray was obtained this morning showed stable exam, postsurgical changes, no evidence for postop complications. CBC showed WBC of 7.8, hemoglobin 8.7, hematocrit 26.7, platelets 119. CMP showed sodium 135, potassium 4.4, chloride 105, carbon dioxide 22, BUN 18, creatinine 1.5, glucose 97. Most recent heart rate 73 respiratory rate 17, blood pressure 146/57, pulmonary artery pressure 35/11, central venous pressure 7, O2 saturation at 93% on nasal cannula at 3 L/min. Physical examination: General: The patient is awake and alert, in no distress, and does not appear acutely ill. Eye: Pupils are equal, round and reactive to light, extra-ocular movements are intact; there is normal conjunctiva bilaterally. Ears, nose, mouth and throat: There are moist mucous membranes and no oral lesions. TM and canals were not examined Neck: The neck is supple, there is no thyromegaly, lymphadenopathy, tenderness or JVD. Cardiovascular: S1S2 is normal, There is a regular rate and rhythm. No murmur, rub or gallop is appreciated. Respiratory: Lungs are clear to auscultation bilaterally, respirations are non-labored, breath sounds are equal. Left pleural chest tube and mediastinal chest tube are in place. Gastrointestinal: Soft, non-distended, non-tender abdomen without masses or organomegaly noted. There is no rebound or guarding present. Bowel sounds are unremarkable. Musculoskeletal: Normal ROM, no tenderness, There is no pedal edema. There is no calf tenderness or swelling. No cords were appreciated. Neurological: Did not perform detailed neurological examination. Speech is normal. Skin: Skin is warm and dry and no rashes or lesions are noted. Psychiatric: Cooperative, appropriate mood & affect, normal judgment. IMPRESSION: POD#2 s/p aortic valve replacement with 23 mm Barcenas Inspiris bovine pericardial valve, CABG x 4 with ARANA to LAD, sequential left radial artery graft to first and second obtuse marginal coronary arteries, saphenous vein graft to posterior descending coronary artery, ligation of the left atrial appendage with 35 mm AtriCure clip, endovascular harvest bilateral greater saphenous veins, open harvest of left radial artery. Severe aortic stenosis Severe aortic regurgitation Triple-vessel disease Severe PAD Prior history of infrarenal aortic endovascular repair with [facility] History of bilateral renal stenting Plan: Patient is postop day 2 status post aortic valve replacement and CABG x 4. Encouraged the use of incentive spirometry. Continue with amiodarone 200 mg p.o. twice daily, amlodipine 2.5 mg p.o. daily, aspirin 325 mg p.o. daily, atorvastatin 40 mg p.o. daily, clopidogrel 75 mg p.o. daily, metoprolol 25 mg p.o. twice daily. We will continue to monitor the patient. Objective - Vital Signs Vital signs: Vital Signs Temp 98.3 F 09/12/24 08:00 Pulse 72 09/12/24 09:18 Resp 20 09/12/24 09:00 BP 116/67 09/12/24 06:15 Pulse Ox 94 L 09/12/24 09:06 FiO2 40 09/11/24 08:00 Intake & Output 09/11/24 09/12/24 09/12/24 18:59 06:59 18:59 Intake Total 1730.878 792.021 138 Output Total 1345 650 130 Balance 385.878 142.021 8 Weight 73.5 kg Intake: IV 1017 579 138 ACETAMINOPHEN IV (For NPO 100 ) 1,000 mg In Empty Bag 1 bag @ 400 mls/hr IVPB Q6HR [facility] Rx#:[id number] Sodium Chloride 0.9% 1, 650 410 90 000 ml @ 30 mls/hr IV . Q24H [facility] Rx#:[id number] co/ci 150 70 30 pressure bag 117 99 18 Intake, IV Titration 403.878 13.021 Amount Amiodarone 450 mg In 194.726 Dextrose 5% in Water 250 ml @ 0.5 MG/MIN 16.667 mls/hr IV .Q15H [facility] Rx#: [id number] Clevidipine Butyrate 25 6.467 mg In Empty Bag 1 bag @ 1 MG/HR 2 mls/hr IV .Q24H [facility] Rx#:[id number] Insulin Regular 100 unit 21.405 13.021 In Sodium Chloride 0.9% 100 ml @ Per Protocol IV .Q0M [facility] Rx#:[id number] Milrinone-D5w Pmx 20 mg 8.405 In Dextrose/Water 1 100ml .bag @ Per Protocol IV . Q0M [facility] Rx#:[id number] Nitroglycerin-D5w Pmx 50 22.875 mg In Dextrose/Water 1 250ml.bag @ 5 MCG/MIN 1.5 mls/hr IV .Q24H [facility] Rx#: [id number] Potassium Chloride 20 meq 100 In Water For Injection 1 100ml.bag @ 50 mls/hr IVPB Q2H [facility] Rx#: [id number] ceFAZolin 2 gm In Sodium 50 Chloride 0.9% 50 ml @ 100 mls/hr IVPB Q8HR [facility] Rx# :[id number] Oral 200 Blood Product 310 Rc As-1 Unit 310 [id number] Output: Chest Tube Drainage 590 330 50 Mediastinal 230 40 10 left plueral 360 290 40 Gastric Drainage 0 0 0 Urine 755 320 80 Other: Voiding Method Indwelling Catheter Indwelling Catheter Indwelling Catheter ABP, PAP, CO, CI - Last Documented Arterial Blood Pressure 90/52 Pulmonary Artery Pressure 45/18 Cardiac Output 4.7 Cardiac Index 2.6 - Labs CBC & Chem 7: 09/12/24 04:00 09/12/24 04:00 Labs: Abnormal Lab Results - Last 24 Hours (Table) 09/09/24 09/11/24 09/11/24 Range/Units 06:25 11:52 11:55 RBC 2.98 L (4.30-5.90) m/uL Hgb 8.9 L D (13.0-17.5) gm/dL Hct 27.1 L (39.0-53.0) % RDW (11.5-15.5) % Plt Count 108 L (150-450) k/uL Lymphocytes # (1.0-4.8) k/uL Sodium (137-145) mmol/L Creatinine (0.66-1.25) mg/dL POC Glucose (mg/dL) 135 H (70-110) mg/dL Total Protein (6.3-8.2) g/dL Albumin (3.5-5.0) g/dL Crossmatch See Detail 09/11/24 09/11/24 09/11/24 Range/Units 13:13 13:54 15:22 RBC (4.30-5.90) m/uL Hgb (13.0-17.5) gm/dL Hct (39.0-53.0) % RDW (11.5-15.5) % Plt Count (150-450) k/uL Lymphocytes # (1.0-4.8) k/uL Sodium (137-145) mmol/L Creatinine (0.66-1.25) mg/dL POC Glucose (mg/dL) 149 H 151 H 129 H (70-110) mg/dL Total Protein (6.3-8.2) g/dL Albumin (3.5-5.0) g/dL Crossmatch 09/11/24 09/11/24 09/11/24 Range/Units 15:55 16:59 17:54 RBC (4.30-5.90) m/uL Hgb (13.0-17.5) gm/dL Hct (39.0-53.0) % RDW (11.5-15.5) % Plt Count (150-450) k/uL Lymphocytes # (1.0-4.8) k/uL Sodium (137-145) mmol/L Creatinine (0.66-1.25) mg/dL POC Glucose (mg/dL) 129 H 129 H 122 H (70-110) mg/dL Total Protein (6.3-8.2) g/dL Albumin (3.5-5.0) g/dL Crossmatch 09/11/24 09/11/24 09/11/24 Range/Units 20:00 20:57 22:00 RBC (4.30-5.90) m/uL Hgb (13.0-17.5) gm/dL Hct (39.0-53.0) % RDW (11.5-15.5) % Plt Count (150-450) k/uL Lymphocytes # (1.0-4.8) k/uL Sodium (137-145) mmol/L Creatinine (0.66-1.25) mg/dL POC Glucose (mg/dL) 120 H 139 H 121 H (70-110) mg/dL Total Protein (6.3-8.2) g/dL Albumin (3.5-5.0) g/dL Crossmatch 09/12/24 09/12/24 09/12/24 Range/Units 00:15 01:07 02:00 RBC (4.30-5.90) m/uL Hgb (13.0-17.5) gm/dL Hct (39.0-53.0) % RDW (11.5-15.5) % Plt Count (150-450) k/uL Lymphocytes # (1.0-4.8) k/uL Sodium (137-145) mmol/L Creatinine (0.66-1.25) mg/dL POC Glucose (mg/dL) 118 H 129 H 119 H (70-110) mg/dL Total Protein (6.3-8.2) g/dL Albumin (3.5-5.0) g/dL Crossmatch 09/12/24 09/12/24 09/12/24 Range/Units 04:00 04:00 04:03 RBC 2.91 L (4.30-5.90) m/uL Hgb 8.7 L (13.0-17.5) gm/dL Hct 26.7 L (39.0-53.0) % RDW 15.7 H (11.5-15.5) % Plt Count 119 L (150-450) k/uL Lymphocytes # 0.9 L (1.0-4.8) k/uL Sodium 135 L (137-145) mmol/L Creatinine 1.50 H (0.66-1.25) mg/dL POC Glucose (mg/dL) 113 H (70-110) mg/dL Total Protein 5.2 L (6.3-8.2) g/dL Albumin 3.3 L (3.5-5.0) g/dL Crossmatch 09/12/24 09/12/24 Range/Units 05:16 06:28 RBC (4.30-5.90) m/uL Hgb (13.0-17.5) gm/dL Hct (39.0-53.0) % RDW (11.5-15.5) % Plt Count (150-450) k/uL Lymphocytes # (1.0-4.8) k/uL Sodium (137-145) mmol/L Creatinine (0.66-1.25) mg/dL POC Glucose (mg/dL) 124 H 146 H (70-110) mg/dL Total Protein (6.3-8.2) g/dL Albumin (3.5-5.0) g/dL Crossmatch
[2024-09-12 11:57] LABS: Glucose,Whole Blood 48 mg/dL (70-110)
[2024-09-12] MEDS: DEXTROSE 50% SYRINGE 50 ML IVP PRN (12:00)
[2024-09-12 12:20] LABS: Glucose,Whole Blood 122 mg/dL (70-110)
--- NOTE | 2024-09-12 12:43 | P.PN ---
Subjective Progress Note Date: 09/12/24 Subjective: Patient seen and examined at bedside. No acute events overnight. Extubated this morning. Doing well. Denies any pain or shortness of breath. Did have some emesis. Pertinent positives and negatives as discussed above, a complete review of systems was performed and all other systems are negative. Vitals Signs Reviewed. General: Not in acute distress Derm: Warm, dry, chest tubes in place Head: Atraumatic, normocephalic, symmetric Eyes: EOMI, no lid lag, anicteric sclera Mouth: No lip lesion, mucus membranes moist Cardiovascular: S1S2 reg, no murmur Lungs: Bilateral rhonchi, supplemental oxygen Abdominal: Soft, no guarding, nondistended Neuro: No focal deficits Psych: Alert and cooperative Data Reviewed Today: Pertinent Labs: WBC WBC 7.8, hemoglobin 8.7, platelet 119, sodium 135, creatinine 1.5, blood sugars range between 48-1 46 Imaging: Chest x-ray independently interpreted, shows bilateral interstitial opacities from recent surgery. Assessment and Plan: Multivessel CAD status post CABG Severe aortic stenosis status post replacement Severe aortic regurgitation Acute NSTEMI, present on admission Acute blood loss anemia, anticipated outcome of surgery Pancytopenia Hypertension Nicotine dependence Dyslipidemia -Cardiothoracic surgery note reviewed, continue chest tube for another 24 hours, discontinue Stubbs catheter, 40 of IV Lasix once, amiodarone 200 twice daily, amlodipine 2.5 daily, aspirin 325 daily, atorvastatin 40 daily, Plavix 75 daily, metoprolol 12.5 twice daily -Director Fixed Income following -Patient is status post 5 units of PRBCs and 1 unit of platelets -Continue to monitor CBC -Cardiology note reviewed, continue current management as above Hyperglycemia Prediabetes 1 episode of hypoglycemia -Insulin drip has been discontinued -Started on sliding scale insulin, monitor for hypoglycemia Hypothyroidism -Continue on levothyroxine 100 mcg daily -Recheck TSH in 4 to 6 weeks CARMELO with CKD stage IIIa, resolving -Repeat renal function tomorrow Hypokalemia, resolved Thank you for allowing us to participate in the care of this pleasant patient. Do not hesitate to contact us with questions. Someone can be reached from the [facility] hospitalist group all hours of the day at [phone] or via perfect serve. Objective - Vital Signs Vital signs: Vital Signs Temp 98.9 F 09/12/24 12:00 Pulse 86 10/16/24 12:00 Resp 29 H 09/12/24 12:00 BP 116/67 09/12/24 06:15 Pulse Ox 91 L 09/12/24 12:00 FiO2 40 09/11/24 08:00 Intake & Output 09/11/24 09/12/24 09/12/24 18:59 06:59 18:59 Intake Total 1730.878 792.021 274.942 Output Total 6188 574 3010 Balance 385.878 142.021 -1255.058 Weight 73.5 kg 73.5 kg Intake: IV 1017 579 264 ACETAMINOPHEN IV (For NPO 100 ) 1,000 mg In Empty Bag 1 bag @ 400 mls/hr IVPB Q6HR [facility] Rx#:[id number] Sodium Chloride 0.9% 1, 650 410 180 000 ml @ 30 mls/hr IV . Q24H [facility] Rx#:[id number] co/ci 150 70 30 pressure bag 117 99 54 Intake, IV Titration 403.878 13.021 10.942 Amount Amiodarone 450 mg In 194.726 Dextrose 5% in Water 250 ml @ 0.5 MG/MIN 16.667 mls/hr IV .Q15H [facility] Rx#: [id number] Clevidipine Butyrate 25 6.467 mg In Empty Bag 1 bag @ 1 MG/HR 2 mls/hr IV .Q24H [facility] Rx#:[id number] Insulin Regular 100 unit 21.405 13.021 10.942 In Sodium Chloride 0.9% 100 ml @ Per Protocol IV .Q0M [facility] Rx#:[id number] Milrinone-D5w Pmx 20 mg 8.405 In Dextrose/Water 1 100ml .bag @ Per Protocol IV . Q0M [facility] Rx#:[id number] Nitroglycerin-D5w Pmx 50 22.875 mg In Dextrose/Water 1 250ml.bag @ 5 MCG/MIN 1.5 mls/hr IV .Q24H [facility] Rx#: [id number] Potassium Chloride 20 meq 100 In Water For Injection 1 100ml.bag @ 50 mls/hr IVPB Q2H [facility] Rx#: [id number] ceFAZolin 2 gm In Sodium 50 Chloride 0.9% 50 ml @ 100 mls/hr IVPB Q8HR [facility] Rx# :[id number] Oral 200 Blood Product 310 Rc As-1 Unit 310 [id number] Output: Chest Tube Drainage 590 330 50 Mediastinal 230 40 10 left plueral 360 290 40 Gastric Drainage 0 0 0 Urine 805 207 2765 Other: Voiding Method Indwelling Catheter Indwelling Catheter Indwelling Catheter ABP, PAP, CO, CI - Last Documented Arterial Blood Pressure 166/61 Pulmonary Artery Pressure 46/18 Cardiac Output 4.7 Cardiac Index 2.6 - Labs CBC & Chem 7: 09/12/24 04:00 09/12/24 04:00 Labs: Abnormal Lab Results - Last 24 Hours (Table) 09/09/24 09/11/24 09/11/24 Range/Units 06:25 13:13 13:54 RBC (4.30-5.90) m/uL Hgb (13.0-17.5) gm/dL Hct (39.0-53.0) % RDW (11.5-15.5) % Plt Count (150-450) k/uL Lymphocytes # (1.0-4.8) k/uL Sodium (137-145) mmol/L Creatinine (0.66-1.25) mg/dL POC Glucose (mg/dL) 149 H 151 H (70-110) mg/dL Total Protein (6.3-8.2) g/dL Albumin (3.5-5.0) g/dL Crossmatch See Detail 09/11/24 09/11/24 09/11/24 Range/Units 15:22 15:55 16:59 RBC (4.30-5.90) m/uL Hgb (13.0-17.5) gm/dL Hct (39.0-53.0) % RDW (11.5-15.5) % Plt Count (150-450) k/uL Lymphocytes # (1.0-4.8) k/uL Sodium (137-145) mmol/L Creatinine (0.66-1.25) mg/dL POC Glucose (mg/dL) 129 H 129 H 129 H (70-110) mg/dL Total Protein (6.3-8.2) g/dL Albumin (3.5-5.0) g/dL Crossmatch 09/11/24 09/11/24 09/11/24 Range/Units 17:54 20:00 20:57 RBC (4.30-5.90) m/uL Hgb (13.0-17.5) gm/dL Hct (39.0-53.0) % RDW (11.5-15.5) % Plt Count (150-450) k/uL Lymphocytes # (1.0-4.8) k/uL Sodium (137-145) mmol/L Creatinine (0.66-1.25) mg/dL POC Glucose (mg/dL) 122 H 120 H 139 H (70-110) mg/dL Total Protein (6.3-8.2) g/dL Albumin (3.5-5.0) g/dL Crossmatch 09/11/24 09/12/24 09/12/24 Range/Units 22:00 00:15 01:07 RBC (4.30-5.90) m/uL Hgb (13.0-17.5) gm/dL Hct (39.0-53.0) % RDW (11.5-15.5) % Plt Count (150-450) k/uL Lymphocytes # (1.0-4.8) k/uL Sodium (137-145) mmol/L Creatinine (0.66-1.25) mg/dL POC Glucose (mg/dL) 121 H 118 H 129 H (70-110) mg/dL Total Protein (6.3-8.2) g/dL Albumin (3.5-5.0) g/dL Crossmatch 09/12/24 09/12/24 09/12/24 Range/Units 02:00 04:00 04:00 RBC 2.91 L (4.30-5.90) m/uL Hgb 8.7 L (13.0-17.5) gm/dL Hct 26.7 L (39.0-53.0) % RDW 15.7 H (11.5-15.5) % Plt Count 119 L (150-450) k/uL Lymphocytes # 0.9 L (1.0-4.8) k/uL Sodium 135 L (137-145) mmol/L Creatinine 1.50 H (0.66-1.25) mg/dL POC Glucose (mg/dL) 119 H (70-110) mg/dL Total Protein 5.2 L (6.3-8.2) g/dL Albumin 3.3 L (3.5-5.0) g/dL Crossmatch 09/12/24 09/12/24 09/12/24 Range/Units 04:03 05:16 06:28 RBC (4.30-5.90) m/uL Hgb (13.0-17.5) gm/dL Hct (39.0-53.0) % RDW (11.5-15.5) % Plt Count (150-450) k/uL Lymphocytes # (1.0-4.8) k/uL Sodium (137-145) mmol/L Creatinine (0.66-1.25) mg/dL POC Glucose (mg/dL) 113 H 124 H 146 H (70-110) mg/dL Total Protein (6.3-8.2) g/dL Albumin (3.5-5.0) g/dL Crossmatch 09/12/24 09/12/24 Range/Units 11:56 12:19 RBC (4.30-5.90) m/uL Hgb (13.0-17.5) gm/dL Hct (39.0-53.0) % RDW (11.5-15.5) % Plt Count (150-450) k/uL Lymphocytes # (1.0-4.8) k/uL Sodium (137-145) mmol/L Creatinine (0.66-1.25) mg/dL POC Glucose (mg/dL) 48 L* 122 H (70-110) mg/dL Total Protein (6.3-8.2) g/dL Albumin (3.5-5.0) g/dL Crossmatch
--- NOTE | 2024-09-12 16:01 | P.PN ---
Subjective Progress Note Date: 09/12/24 74-year-old male who presented to the hospital, on September 03, via the emergency room. The patient presented with complaints of chest pain. The patient does have a history of atherosclerotic cardiovascular disease, and for a couple days prior to admission, was complaining of chest pressure. The chest pain/pressure, apparently radiated to both arms. He did not have any associated diaphoresis, or nausea. The patient apparently has had a heart attack in the past, and the pain that he was having, seemed similar. Today, we talked to Dr. Deluna about this patient, and apparently this patient will stay in the hospital, and have surgery, sometime early next week. The patient also has a history of s ignificant tobacco use for about 50 years. He was smoking up until the time he came into the hospital. His primary care physician is Dr. John Faulkner. He is currently on room air. The patient is getting IV heparin. The cardiac catheterization, showed severe triple-vessel disease, severe aortic stenosis and severe aortic regurgitation. The patient is currently in the process of being evaluated for open heart surgery. Laboratory data includes a white count 5.7, hemoglobin 10.8, macro 34.2, and a platelet count of 193,000. The patient's PTT is 45. Sodium 137, potassium 4.1, chlorides 105, CO2 29, BUN 16, creatinine 1.35. N-terminal proBNP was 1330. His troponin was 0.016. Chest CT showed no acute thoracic process, changes of mild COPD, and atherosclerotic calcification of thoracic aorta, with moderate coronary arterial calcifications, most prominent in the LAD. Progress note dated September 06, 2024. The patient is seen today in room 373. He is on room air. He is getting IV heparin. On his bedside spirometry, his FEV1 was 1.52 L, which would put him at low increased operative risk, for open heart surgery. Current labs include a white count 5.2, hemoglobin 11, hematocrit 35, and a normal platelet count. Sodium 136, potassium 3.9, chlorides 101, CO2 32, BUN 17, creatinine 1.45. Progress note dated and September 07, 2024. 74-year-old male seen today in room 373. He is currently on room air. He continues on IV heparin. The patient is likely to have a open heart procedure next week, may be on September 10Tuesday. Currently, he is resting comfortably, without any issues or problems. White count 6.9, hemoglobin 9.2, hematocrit 35.5, platelet count is normal. PTT is 42.2. Sodium 134, potassium 4, chlorides 103, CO2 26, BUN 28, creatinine 1.49. Progress note dated September 08, 2024. 74-year-old male with a history of coronary disease, and aortic stenosis. The patient is being evaluated for possible bypass grafting, and aortic valve replacement, early next week. Currently is on 2 L of oxygen. He is getting saline at 75 cc an hour. He is also on IV heparin. He has no specific complaints today. Current labs include a white count 6.6, hemoglobin 11.6, hematocrit 36.4, and a platelet count of 255,000. Sodium 135, potassium 3.8, chlorides 99, CO2 27, BUN 31, creatinine 1.93. His PTT is 49.6. His troponin is 0.028. The patient is seen today September 09, 2024 in follow-up on the selective care unit. He is currently resting comfortably in bed. Awake and alert in no acute distress. He is maintaining O2 saturations in the 90s on room air. He denies any shortness of breath, cough or congestion. He denies any chest pain. He is continued on a heparin drip. Practicing with the incentive spirometer. White count 4.9. Hemoglobin 10.2. Platelets 233. PTT 52.3. Sodium 135. Potassium 3.9. Bicarb 29. BUN 27. Creatinine 1.78. He had 09/10/2024, the patient is being seen immediately after evaluate to the intensive care unit. Currently intubated and mechanically ventilated. The patient underwent aortic valve replacement with a 23 mm Barcenas bovine pericardial valve and CABG x 4 with ARANA to LAD sequential left radial artery g raft to first and second obtuse marginal coronary arteries and PDA. The patient also underwent a ligation of the left atrial appendage. Intraoperatively, the patient received a total of 3 units have packed RBC and 1 unit of platelet. The patient is currently hemodynamically stable on milrinone which is running at 0.375 mcg/kg/min. Cardiac output is at 6.6 with an index of 3.7. PA pressures are 28/15. Urine output is adequate. The patient is well sedated on propofol which is running at 20 mcg/kg/min. He is on the mechanical ventilator assist- control mode with rate of 20, tidal volume of 500, FiO2 of 100% with a PEEP of 5. Blood gas and chest x-ray are still pending for now. The preop hemoglobin was 9.8. The patient also had a creatinine of 1.5 preoperatively. Afebrile. Has a left pleural and mediastinal chest tube without any evidence of air leak and output is minimal at this point. 74-year-old male who presented to the hospital, on September 03, via the emergency room. The patient presented with complaints of chest pain. The patient does have a history of atherosclerotic cardiovascular disease, and for a couple days prior to admission, was complaining of chest pressure. The chest pain/pressure, apparently radiated to both arms. He did not have any associated diaphoresis, or nausea. The patient apparently has had a heart attack in the past, and the pain that he was having, seemed similar. Today, we talked to Dr. Deluna about this patient, and apparently this patient will stay in the hospital, and have surgery, sometime early next week. The patient also has a history of significant tobacco use for about 50 years. He was smoking up until the time he came into the hospital. His primary care physician is Dr. John Faulkner. He is currently on room air. The patient is getting IV heparin. The cardiac catheterization, showed severe triple-vessel disease, severe aortic stenosis and severe aortic regurgitation. The patient is currently in the process of being evaluated for open heart surgery. Laboratory data includes a white count 5.7, hemoglobin 10.8, macro 34.2, and a platelet count of 193,000. The patient's PTT is 45. Sodium 137, potassium 4.1, chlorides 105, CO2 29, BUN 16, creatinine 1.35. N-terminal proBNP was 1330. His troponin was 0.016. Chest CT showed no acute thoracic process, changes of mild COPD, and atherosclerotic calcification of thoracic aorta, with moderate coronary arterial calcifications, most prominent in the LAD. Progress note dated September 06, 2024. The patient is seen today in room 373. He is on room air. He is getting IV heparin. On his bedside spirometry, his FEV1 was 1.52 L, which would put him at low increased operative risk, for open heart surgery. Current labs include a white count 5.2, hemoglobin 11, hematocrit 35, and a normal platelet count. Sodium 136, potassium 3.9, chlorides 101, CO2 32, BUN 17, creatinine 1.45. Progress note dated and September 07, 2024. 74-year-old male seen today in room 373. He is currently on room air. He continues on IV heparin. The patient is likely to have a open heart procedure next week, may be on September 10Tuesday. Currently, he is resting comfortably, without any issues or problems. White count 6.9, hemoglobin 9.2, hematocrit 35.5, platelet count is normal. PTT is 42.2. Sodium 134, potassium 4, chlorides 103, CO2 26, BUN 28, creatinine 1.49. Progress note dated September 08, 2024. 74-year-old male with a history of coronary disease, and aortic stenosis. The patient is being evaluated for possible bypass grafting, and aortic valve repl acement, early next week. Currently is on 2 L of oxygen. He is getting saline at 75 cc an hour. He is also on IV heparin. He has no specific complaints today. Current labs include a white count 6.6, hemoglobin 11.6, hematocrit 36.4, and a platelet count of 255,000. Sodium 135, potassium 3.8, chlorides 99, CO2 27, BUN 31, creatinine 1.93. His PTT is 49.6. His troponin is 0.028. The patient is seen today September 09, 2024 in follow-up on the selective care unit. He is currently resting comfortably in bed. Awake and alert in no acute distress. He is maintaining O2 saturations in the 90s on room air. He denies any shortness of breath, cough or congestion. He denies any chest pain. He is continued on a heparin drip. Practicing with the incentive spirometer. White count 4.9. Hemoglobin 10.2. Platelets 233. PTT 52.3. Sodium 135. Potassium 3.9. Bicarb 29. BUN 27. Creatinine 1.78. He had 09/10/2024, the patient is being seen immediately after evaluate to the intensive care unit. Currently intubated and mechanically ventilated. The patient underwent aortic valve replacement with a 23 mm Barcenas bovine pericardial valve and CABG x 4 with ARANA to LAD sequential left radial artery graft to first and second obtuse marginal coronary arteries and PDA. The patient also underwent a ligation of the left atrial appendage. Intraoperatively, the patient received a total of 3 units have packed RBC and 1 unit of platelet. The patient is currently hemodynamically stable on milrinone which is running at 0.375 mcg/kg/min. Cardiac output is at 6.6 with an index of 3.7. PA pressures are 28/15. Urine output is adequate. The patient is well sedated on propofol which is running at 20 mcg/kg/min. He is on the mechanical ventilator assist-control mode with rate of 20, tidal volume of 500, FiO2 of 100% with a PEEP of 5. Blood gas and chest x-ray are still pending for now. The preop hemoglobin was 9.8. The patient also had a creatinine of 1.5 preoperatively. Afebrile. Has a left pleural and mediastinal chest tube without any evidence of air leak and output is minimal at this point. On 09/11/2024, the patient is postop day #1. Overnight, the patient had some increased bleeding from his chest tubes. Based on that, the extubation process was delayed till early this morning. The patient is currently postop day #1. The patient underwent aortic valve replacement and four-vessel bypass surgery. The patient currently is hemodynamically stable. There was a drop in hemoglobin down to 6.1 along with bleeding from the chest tubes. The patient got trans fused with a unit of packed RBC and hemoglobin currently is at 6.7 and he will receive another unit of packed RBC. Meanwhile, he is hemodynamically stable. Cardiac output from this morning is at 5.7 with an index of 3.2. PA pressures are 30/10. Milrinone is running at 0.1 mcg/kg/min. Blood pressure was elevated and the patient was started on Cleviprex drip at 1 mg an hour. Output from the mediastinal chest tube has been 160 cc over the past 8 hours and 450 cc since surgery. Output from the left lower chest tube has been 350 cc over the past 8 hours and 500 cc since surgery. The patient was extubated this morning and currently is on oxygen at 4 L/min nasal cannula. Chest x-ray shows adequate positioning of the left-sided and mediastinal chest tube. Fairview-Soraya catheter remains in place. Postsurgical changes are noted. No evidence of any pneumothorax. And no other significant abnormalities have been noted. The patient's hemoglobin currently is at 8.5 following the transfusion of second unit of packed RBC. Hemoglobin is at 8.9, white cell count is 6.4, the electrolytes from earlier today showed a BUN of 19 with a creatinine of 1.5 and a sodium level of 137 with a potassium level of 4.2 and a bicarb of 24. Communicating. No significant respiratory distress. Chest pain is under adequate control. No focal neurological deficits. On 09/12/2024, the patient is awake and alert and the patient is currently postop day #2 following an aortic valve replacement and four-vessel bypass surgery. The patient has been already extubated and the patient is currently on oxygen at 3 L/min nasal cannula. Chest x-ray from today showing some mild pulm vas congestion. The patient has a mediastinal left pleural chest tube in place. The patient was given a dose of Lasix with adequate diuresis. The patient's cardiac output is at 4.7 with an index of 2.6. The patient is currently off milrinone.. Cleviprex has been discontinued and the patient's blood pressure is stable and the patient remains on insulin 2 unit an hour. The patient's mediastinal chest tube has produced around 230 cc over the past 8 hours and the left pleural chest tube was produced around 210 cc over the past 8 hours. The white cell count 7.8 with a hemoglobin 8.7 and a platelet count of 119. BUN is 18 with a creatinine of 1.5 and a sodium less than 135 and a potassium levels of 4.4 with a bicarb of 22. LFTs are normal. Afebrile. Communicating. Sitting up in a chair. Ambulating. Using the incentive spirometer. Neurologically intact. No other significant events overnight. Objective - Vital Signs Vital signs: Vital Signs Temp 98.3 F 09/12/24 08:00 Pulse 72 09/12/24 09:18 Resp 20 09/12/24 09:00 BP 116/67 09/12/24 06:15 Pulse Ox 94 L 09/12/24 09:06 FiO2 40 09/11/24 08:00 Intake & Output 09/11/24 09/12/24 09/12/24 18:59 06:59 18:59 Intake Total 1730.878 792.021 138 Output Total 1345 650 130 Balance 385.878 142.021 8 Weight 73.5 kg 73.5 kg Intake: IV 1017 579 138 ACETAMINOPHEN IV (For NPO 100 ) 1,000 mg In Empty Bag 1 bag @ 400 mls/hr IVPB Q6HR [facility] Rx#:[id number] Sodium Chloride 0.9% 1, 650 410 90 000 ml @ 30 mls/hr IV . Q24H [facility] Rx#:[id number] co/ci 150 70 30 pressure bag 117 99 18 Intake, IV Titration 403.878 13.021 Amount Amiodarone 450 mg In 194.726 Dextrose 5% in Water 250 ml @ 0.5 MG/MIN 16.667 mls/hr IV .Q15H [facility] Rx#: [id number] Clevidipine Butyrate 25 6.467 mg In Empty Bag 1 bag @ 1 MG/HR 2 mls/hr IV .Q24H [facility] Rx#:[id number] Insulin Regular 100 unit 21.405 13.021 In Sodium Chloride 0.9% 100 ml @ Per Protocol IV .Q0M [facility] Rx#:[id number] Milrinone-D5w Pmx 20 mg 8.405 In Dextrose/Water 1 100ml .bag @ Per Protocol IV . Q0M [facility] Rx#:[id number] Nitroglycerin-D5w Pmx 50 22.875 mg In Dextrose/Water 1 250ml.bag @ 5 MCG/MIN 1.5 mls/hr IV .Q24H [facility] Rx#: [id number] Potassium Chloride 20 meq 100 In Water For Injection 1 100ml.bag @ 50 mls/hr IVPB Q2H [facility] Rx#: [id number] ceFAZolin 2 gm In Sodium 50 Chloride 0.9% 50 ml @ 100 mls/hr IVPB Q8HR [facility] Rx# :[id number] Oral 200 Blood Product 310 Rc As-1 Unit 310 [id number] Output: Chest Tube Drainage 590 330 50 Mediastinal 230 40 10 left plueral 360 290 40 Gastric Drainage 0 0 0 Urine 755 320 80 Other: Voiding Method Indwelling Catheter Indwelling Catheter Indwelling Catheter ABP, PAP, CO, CI - Last Documented Arterial Blood Pressure 90/52 Pulmonary Artery Pressure 45/18 Cardiac Output 4.7 Cardiac Index 2.6 - Exam GENERAL EXAM: Alert, active, 74-year-old male, awake and alert and 3 L of oxygen by nasal cannula HEAD: Normocephalic. EYES: Normal reaction of pupils, equal size. NOSE: Clear with pink turbinates. THROAT: No erythema or exudates. NECK: No masses, no JVD. The patient has a Cordis in the right neck along with a Fairview-Soraya catheter in place. CHEST: No chest wall deformity. The patient has a mediastinal and left pleural chest tube LUNGS: Equal air entry with no crackles, wheeze, rhonchi or dullness. CVS: S1 and S2 normal with no audible murmur, regular rhythm. ABDOMEN: No hepatosplenomegaly, normal bowel sounds, no guarding or rigidity. SPINE: No scoliosis or deformity SKIN: No rashes CENTRAL NERVOUS SYSTEM: No focal deficits, tone is normal in all 4 extremities. EXTREMITIES: There is no peripheral edema. No clubbing, no cyanosis. Peripheral pulses are intact. - Labs CBC & Chem 7: 09/12/24 04:00 09/12/24 04:00 Labs: Abnormal Lab Results - Last 24 Hours (Table) 09/09/24 09/11/24 09/11/24 Range/Units 06:25 11:52 11:55 RBC 2.98 L (4.30-5.90) m/uL Hgb 8.9 L D (13.0-17.5) gm/dL Hct 27.1 L (39.0-53.0) % RDW (11.5-15.5) % Plt Count 108 L (150-450) k/uL Lymphocytes # (1.0-4.8) k/uL Sodium (137-145) mmol/L Creatinine (0.66-1.25) mg/dL POC Glucose (mg/dL) 135 H (70-110) mg/dL Total Protein (6.3-8.2) g/dL Albumin (3.5-5.0) g/dL Crossmatch See Detail 09/11/24 09/11/24 09/11/24 Range/Units 13:13 13:54 15:22 RBC (4.30-5.90) m/uL Hgb (13.0-17.5) gm/dL Hct (39.0-53.0) % RDW (11.5-15.5) % Plt Count (150-450) k/uL Lymphocytes # (1.0-4.8) k/uL Sodium (137-145) mmol/L Creatinine (0.66-1.25) mg/dL POC Glucose (mg/dL) 149 H 151 H 129 H (70-110) mg/dL Total Protein (6.3-8.2) g/dL Albumin (3.5-5.0) g/dL Crossmatch 09/11/24 09/11/24 09/11/24 Range/Units 15:55 16:59 17:54 RBC (4.30-5.90) m/uL Hgb (13.0-17.5) gm/dL Hct (39.0-53.0) % RDW (11.5-15.5) % Plt Count (150-450) k/uL Lymphocytes # (1.0-4.8) k/uL Sodium (137-145) mmol/L Creatinine (0.66-1.25) mg/dL POC Glucose (mg/dL) 129 H 129 H 122 H (70-110) mg/dL Total Protein (6.3-8.2) g/dL Albumin (3.5-5.0) g/dL Crossmatch 09/11/24 09/11/24 09/11/24 Range/Units 20:00 20:57 22:00 RBC (4.30-5.90) m/uL Hgb (13.0-17.5) gm/dL Hct (39.0-53.0) % RDW (11.5-15.5) % Plt Count (150-450) k/uL Lymphocytes # (1.0-4.8) k/uL Sodium (137-145) mmol/L Creatinine (0.66-1.25) mg/dL POC Glucose (mg/dL) 120 H 139 H 121 H (70-110) mg/dL Total Protein (6.3-8.2) g/dL Albumin (3.5-5.0) g/dL Crossmatch 09/12/24 09/12/24 09/12/24 Range/Units 00:15 01:07 02:00 RBC (4.30-5.90) m/uL Hgb (13.0-17.5) gm/dL Hct (39.0-53.0) % RDW (11.5-15.5) % Plt Count (150-450) k/uL Lymphocytes # (1.0-4.8) k/uL Sodium (137-145) mmol/L Creatinine (0.66-1.25) mg/dL POC Glucose (mg/dL) 118 H 129 H 119 H (70-110) mg/dL Total Protein (6.3-8.2) g/dL Albumin (3.5-5.0) g/dL Crossmatch 09/12/24 09/12/24 09/12/24 Range/Units 04:00 04:00 04:03 RBC 2.91 L (4.30-5.90) m/uL Hgb 8.7 L (13.0-17.5) gm/dL Hct 26.7 L (39.0-53.0) % RDW 15.7 H (11.5-15.5) % Plt Count 119 L (150-450) k/uL Lymphocytes # 0.9 L (1.0-4.8) k/uL Sodium 135 L (137-145) mmol/L Creatinine 1.50 H (0.66-1.25) mg/dL POC Glucose (mg/dL) 113 H (70-110) mg/dL Total Protein 5.2 L (6.3-8.2) g/dL Albumin 3.3 L (3.5-5.0) g/dL Crossmatch 09/12/24 09/12/24 Range/Units 05:16 06:28 RBC (4.30-5.90) m/uL Hgb (13.0-17.5) gm/dL Hct (39.0-53.0) % RDW (11.5-15.5) % Plt Count (150-450) k/uL Lymphocytes # (1.0-4.8) k/uL Sodium (137-145) mmol/L Creatinine (0.66-1.25) mg/dL POC Glucose (mg/dL) 124 H 146 H (70-110) mg/dL Total Protein (6.3-8.2) g/dL Albumin (3.5-5.0) g/dL Crossmatch Assessment and Plan Plan: The patient underwent four-vessel bypass surgery. The patient is post ARANA to LAD status and sequential radial to first and second obtuse marginal branch and PDA. Currently postop day # 2. The patient is currently on milrinone for hemodynamic and blood pressure support the current cardiac rhythm is sinus. The patient, is hemodynamically and the patient is currently off milrinone and a half Cleviprex drip. Severe aortic stenosis status post aortic valve replacement, postop day # 2 Postthoracotomy, following cardiac surgery. The patient has a mediastinal left pleural chest tube in place. No evidence of any air leak. The patient has been extubated to 3 L of oxygen by nasal cannula. No significant output from the chest tubes remains high and the patient will have the chest tube in place for another 24 hours. Chest x-ray showing some mild pulm vas congestion and the patient was given a dose of IV Lasix. Hemodynamically stable with adequate cardiac output and index. Postoperative hemoglobin drop/anemia, expected outcome of surgery and there is blood loss through the chest tube drainage. Patient has been transfused with a total of units of packed RBC and hemoglobin currently stable Status post Non-ST segment elevation myocardial infarction. Hypertension Chronic nicotine dependence, rule out COPD. FEV1 shows 1.53 L, 49% of predicted Acute on chronic kidney injury, with acute component improving preoperatively. Hyperlipidemia Hypothyroidism Right popliteal artery aneurysm History of peripheral arterial disease with endovascular abdominal aneurysm repair approximately 2 years ago at [facility] Angioplasty in the right leg Current chronic tobacco dependence Occasional marijuana use Medication noncompliance Plan: Extubated to 3 L of oxygen by nasal cannula this morning Monitor output from the chest tubes, will keep the chest tube in place for now Off milrinone and off Cleviprex Monitor hemoglobin and the patient has been transfused with a total of 2 units of packed RBCs, hemoglobin is stable The Fairview-Soraya catheter can be removed today Monitor urine output, Stubbs catheter can be removed today Monitor chest tube output, keep the chest tube for now Lasix was given Continue aspirin and Plavix Metoprolol 25 mg p.o. twice a day We will continue to follow .
[2024-09-12 16:38] LABS: Glucose,Whole Blood 124 mg/dL (70-110)
[2024-09-12] MEDS: INSULIN ASPART (NovoLOG) 100 UNIT/ML VIAL SQ SCH (16:38)
[2024-09-12] MEDS: amLODIPine 2.5 MG TAB PO SCH (16:42)
[2024-09-12 20:09] LABS: Glucose,Whole Blood 131 mg/dL (70-110)
[2024-09-13 05:11] LABS: Basophils % (A) 0 %; Eosinophils # (A) 0.1 k/uL (0-0.7); Eosinophils % (A) 1 %; HCT 26.5 % (39.0-53.0); HGB 8.6 gm/dL (13.0-17.5); Hypochromasia Slight; Lymphocytes % (A) 13 %; MCH 30.3 pg (25.0-35.0); MCHC 32.5 g/dL (31.0-37.0); MCV 93.1 fL (80.0-100.0); Mean Platelet Volume 7.8; Monocytes # (A) 0.3 k/uL (0-1.0); Monocytes % (A) 3 %; Neutrophils # (A) 6.3 k/uL (1.3-7.7); Neutrophils % (A) 80 %; Platelet Count 111 k/uL (150-450); RBC 2.85 m/uL (4.30-5.90); RDW 15.5 % (11.5-15.5); WBC 7.8 k/uL (3.8-10.6)
[2024-09-13 05:27] LABS: ALT 10 U/L (4-49); AST 35 U/L (17-59); African American GFR (CKD) 62 (>60 ml/min/1.73 sqM); Albumin 3.4 g/dL (3.5-5.0); Alkaline Phosphatase 51 U/L (38-126); Anion Gap 2 mmol/L; Blood Urea Nitrogen 23 mg/dL (9-20); Calcium 8.7 mg/dL (8.4-10.2); Carbon Dioxide 24 mmol/L (22-30); Chloride 105 mmol/L (98-107); Glucose 103 mg/dL (74-99); Non-African American GFR(CKD) 53 (>60 ml/min/1.73 sqM); Potassium 4.4 mmol/L (3.5-5.1); Sodium 131 mmol/L (137-145); Total Bilirubin 1.4 mg/dL (0.2-1.3); Total Protein 5.4 g/dL (6.3-8.2)
[2024-09-13 06:48] LABS: Glucose,Whole Blood 118 mg/dL (70-110)
--- NOTE | 2024-09-13 07:59 | XR ---
EXAMINATION TYPE: XR chest 1V portable DATE OF EXAM: 09/13/2024 5:16 AM CLINICAL INDICATION: Male, 74 years old with history of Postop cardiac surgery; [facility] COMPARISON: Chest radiograph from one day prior. TECHNIQUE: XR chest 1V portable Frontal view of the chest. FINDINGS: Lungs/Pleura: There is no evidence of pleural effusion, focal consolidation, or pneumothorax. Pulmonary vascularity: Unremarkable. Heart/mediastinum: Cardiomediastinal silhouette is unremarkable. Post aortic valve repair changes. L eft atrial appendage occlusion device is present. Musculoskeletal: No acute osseous pathology. Other findings: Subcutaneous emphysema scattered throughout the visualized thorax. Lines/Tubes: There is a Corcoran-Soraya catheter sheath in place. Drainage tubes with tips projecting over the mediastinum have been removed. Left thoracotomy tube is present without evidence of pneumothorax. IMPRESSION: Removal of some of the support tubes, Postsurgical changes. No evidence for postop complication. [facility], , 09/13/2024 7:57 AM
[2024-09-13] MEDS: MAGNESIUM HYDROXIDE 2,400 MG/30 ML CUP PO PRN (08:27)
--- NOTE | 2024-09-13 09:37 | P.PN ---
Subjective Progress Note Date: 09/13/24 Principal diagnosis: Triple vessel coronary artery disease, aortic stenosis/insufficiency. Previous medical history of coronary artery disease with myocardial infarction and multip le stenting with the last stent greater than 10 years ago, peripheral arterial disease with endovascular abdominal aneurysm repair approximately 2 years ago at [facility], angioplasty in the right leg, hypertension, hyperlipidemia, remote history of pneumonia, current chronic tobacco dependence, occasional marijuana use, and medication noncompliance. POD #3 Aortic valve replacement with 23 mm Barcenas Inspiris bovine pericardial valve, CABG x 4 with ARANA to LAD, sequential left radial artery graft to first and second obtuse marginal coronary arteries, saphenous vein graft to posterior descending coronary artery, ligation of the left atrial appendage with 35 mm AtriCure clip, endovascular harvest bilateral greater saphenous veins, open harvest left radial artery. Intraoperative transesophageal echocardiogram performed by anesthesia. Postoperative acute blood loss anemia, expected given hemodilution, cardiopulmonary bypass and given his preoperative anemia. The patient was seen and examined this morning with Dr. Deluna sitting up in recliner in the intensive care unit in no acute distress. Remains in sinus rhythm, hemodynamically stable. Does complain of expected postoperative pain which is controlled on current medication regimen, denies shortness of breath. He has been ambulatory without difficulty. Chest x-ray, labs reviewed. Right internal jugular cordis, left pleural chest tube remain. No other new concerns. Objective - Vital Signs Vital signs: Vital Signs Temp 98.6 F 09/13/24 08:00 Pulse 86 09/13/24 09:00 Resp 21 09/13/24 09:00 BP 141/92 09/13/24 09:00 Pulse Ox 92 L 09/13/24 09:00 FiO2 40 09/11/24 08:00 Intake & Output 09/12/24 09/13/24 09/13/24 18:59 06:59 18:59 Intake Total 496.942 529 66 Output Total 1825 650 20 Balance -1328.058 -121 46 Weight 73.5 kg 72 kg Intake: IV 486 429 66 Sodium Chloride 0.9% 1, 360 390 60 000 ml @ 30 mls/hr IV . Q24H [facility] Rx#:[id number] co/ci 30 pressure bag 96 39 6 Intake, IV Titration 10.942 Amount Insulin Regular 100 unit 10.942 In Sodium Chloride 0.9% 100 ml @ Per Protocol IV .Q0M [facility] Rx#:[id number] Oral 100 Output: Chest Tube Drainage 80 250 20 Mediastinal 10 left plueral 70 250 20 Gastric Drainage 0 Urine 1745 400 0 Other: Voiding Method Urinal Urinal Urinal ABP, PAP, CO, CI - Last Documented Arterial Blood Pressure 118/43 Pulmonary Artery Pressure 31/4 Cardiac Output 4.7 Cardiac Index 2.6 - Exam CONSTITUTIONAL: Appears comfortable, cooperative, no acute distress RESPIRATORY: Lungs sounds diminished bilaterally. Respirations even, nonlabored. Currently on 2 L nasal cannula with oxygen saturation 97%, on room air patient's oxygen saturation drops below 90. Able to achieve 1000 mL on incentive spirometry. Strong cough. CARDIOVASCULAR: S1, S2 present. Regular rate and rhythm, sinus rhythm on telemetry. Sternum stable. Palpable peripheral pulses bilaterally. No edema present. No calf pain or tenderness noted. Heart hugger in place with patient demonstrating appropriate use. Antiembolism stockings, SCDs present. GASTROINTESTINAL: Abdomen soft, nontender, nondistended. Active bowel sounds present 4 quadrants. Tolerating diet. Positive flatus, negative bowel movement GENITOURINARY: Stubbs discontinued yesterday, patient continues to void. Output 2145 mL in the last 24 hours INTEGUMENTARY: Skin is warm and dry with evidence of good perfusion. Anterior chest incision well approximated and covered with dry intact dressing. Left radial artery harvest site covered with dry intact dressing, bilateral greater saphenous EVH sites well approximated without redness or drainage. NEUROLOGIC: Cranial nerves II through XII intact MUSKULOSKELETAL: Able to move all extremities, strength equal bilaterally, gait normal PSYCHIATRIC: Alert and oriented to person place and time, appropriate affect, intact judgment and insight INVASIVE LINES AND TUBES: Left pleural chest tube present and connected to wall suction, no air leak present, 120 mL serosanguineous drainage overnight, 350 mL in the last 24 hours. A/V epicardial pacemaker wires present, grounded. Right internal jugular cordis present - Allied health notes Allied health notes reviewed: nursing - Labs CBC & Chem 7: 09/13/24 05:05 09/13/24 05:05 Labs: Abnormal Lab Results - Last 24 Hours (Table) 09/12/24 09/12/24 09/12/24 Range/Units 11:56 12:19 16:37 RBC (4.30-5.90) m/uL Hgb (13.0-17.5) gm/dL Hct (39.0-53.0) % Plt Count (150-450) k/uL Sodium (137-145) mmol/L BUN (9-20) mg/dL Creatinine (0.66-1.25) mg/dL Glucose (74-99) mg/dL POC Glucose (mg/dL) 48 L* 122 H 124 H (70-110) mg/dL Total Bilirubin (0.2-1.3) mg/dL Total Protein (6.3-8.2) g/dL Albumin (3.5-5.0) g/dL 09/12/24 09/13/24 09/13/24 Range/Units 20:07 05:05 05:05 RBC 2.85 L (4.30-5.90) m/uL Hgb 8.6 L (13.0-17.5) gm/dL Hct 26.5 L (39.0-53.0) % Plt Count 111 L (150-450) k/uL Sodium 131 L (137-145) mmol/L BUN 23 H (9-20) mg/dL Creatinine 1.32 H (0.66-1.25) mg/dL Glucose 103 H (74-99) mg/dL POC Glucose (mg/dL) 131 H (70-110) mg/dL Total Bilirubin 1.4 H (0.2-1.3) mg/dL Total Protein 5.4 L (6.3-8.2) g/dL Albumin 3.4 L (3.5-5.0) g/dL 09/13/24 Range/Units 06:46 RBC (4.30-5.90) m/uL Hgb (13.0-17.5) gm/dL Hct (39.0-53.0) % Plt Count (150-450) k/uL Sodium (137-145) mmol/L BUN (9-20) mg/dL Creatinine (0.66-1.25) mg/dL Glucose (74-99) mg/dL POC Glucose (mg/dL) 118 H (70-110) mg/dL Total Bilirubin (0.2-1.3) mg/dL Total Protein (6.3-8.2) g/dL Albumin (3.5-5.0) g/dL - Imaging and Cardiology Chest x-ray: image reviewed Assessment and Plan Assessment: Coronary artery disease with myocardial infarction and multiple stenting with the last stent greater than 10 years ago, non-STEMI this admission, status post four-vessel CABG Chest pain secondary to above Severe aortic stenosis with severe aortic insufficiency, status post aortic valve replacement Postoperative acute blood loss anemia, expected given hemodilution, cardiopulmonary bypass and given his preoperative anemia. History of peripheral arterial disease with endovascular abdominal aneurysm repair approximately 2 years ago at [facility] Angioplasty in the right leg Hypertension although patient denies Hyperlipidemia Remote history of pneumonia Current chronic tobacco dependence Occasional marijuana use Medication noncompliance Plan: Continue aspirin, statin, Plavix and beta-aidan. Will increase beta-aidan therapy as tolerated. Will start hydralazine for afterload reduction Continue amiodarone for A-fib prophylaxis, patient has had no atrial fibrillation up to this point Continue low-dose amlodipine with hold parameters for radial artery spasm prophylaxis. Wean oxygen as tolerated. Encourage incentive spirometry use 10 times every hour while awake. Bronchodilators per pulmonology. Increase activity as tolerated, PT/OT/cardiac rehab following. Will monitor daily labs and chest x-rays. Electrolyte replacement per protocol. Will start Lasix 20 mg IV push twice daily today GI/DVT prophylaxis. Pain control per current medication regimen. Avoid Toradol due to renal function. Insulin management per internal medicine. Patient is not a diabetic, preoperative hemoglobin A1c was 6.0%, needs tight blood sugar control Discontinue cordis Left pleural chest tube discontinued without incident Epicardial pacemaker wires discontinued without incident, patient to remain on bedrest for 1 hour post wire removal Continue to monitor and record strict accurate intake and output Continue levothyroxine 100 mcg p.o. daily. The importance of risk modification including smoking cessation has been reinforced with the patient, he will be given the number to [id number] upon discharge. Will place transfer orders for 3 S. cardiac stepdown unit, may transfer when bed available More recommendations to follow based on patient's clinical course.
[2024-09-13] MEDS: FUROSEMIDE 10 MG/ML 2 ML VIAL IV SCH (10:37)
--- NOTE | 2024-09-13 11:31 | P.PN ---
Subjective Progress Note Date: 09/13/24 Subjective: Patient seen and examined at bedside. No acute events overnight. Doing well, no new complaints. Pertinent positives and negatives as discussed above, a complete review of systems was performed and all other systems are negative. Vitals Signs Reviewed. General: Not in acute distress Derm: Warm, dry, chest tubes in place Head: Atraumatic, normocephalic, symmetric Eyes: EOMI, no lid lag, anicteric sclera Mouth: No lip lesion, mucus membranes moist Cardiovascular: S1S2 reg, no murmur Lungs: Bilateral rhonchi, supplemental oxygen Abdominal: Soft, no guarding, nondistended Neuro: No focal deficits Psych: Alert and cooperative Data Reviewed Today: Pertinent Labs: WBC 7.8, hemoglobin 8.6, platelet 111, creatinine 1.32, sodium 131, blood sugars range between 10 3-1 31 Imaging: Chest x-ray independently interpreted, shows bilateral interstitial opacities from recent surgery. Assessment and Plan: Multivessel CAD status post CABG Severe aortic stenosis status post replacement Severe aortic regurgitation Acute NSTEMI, present on admission Acute blood loss anemia, anticipated outcome of surgery Pancytopenia Hypertension Nicotine dependence Dyslipidemia -Cardiothoracic surgery note reviewed, transfer out of the ICU today -Continue aspirin 325 daily, Plavix 75 daily, atorvastatin 40 mg daily, amlodipine 2.5 daily, amiodarone 200 twice daily, started on IV Lasix 40 IV twice daily per cardiothoracic surgery, monitor for electrolyte imbalance, also on hydralazine 25 every 8 hours, metoprolol 25 twice daily -Neighborhood Planner and cardiology following -Patient is status post 5 units of PRBCs and 1 unit of platelets -Continue to monitor CBC Hyperglycemia Prediabetes Hypoglycemia, resolved -Continue sliding scale insulin, monitor for hypoglycemia Hypothyroidism -Continue on levothyroxine 100 mcg daily -Recheck TSH in 4 to 6 weeks CARMELO with CKD stage IIIa, resolving -Repeat renal function tomorrow Hypokalemia, resolved Thank you for allowing us to participate in the care of this pleasant patient. Do not hesitate to contact us with questions. Someone can be reached from the [facility] hospitalist group all hours of the day at [phone] or via perfect serve. Objective - Vital Signs Vital signs: Vital Signs Temp 98.6 F 09/13/24 08:00 Pulse 80 09/13/24 11:09 Resp 16 09/13/24 11:00 BP 134/82 09/13/24 11:00 Pulse Ox 95 09/13/24 11:00 FiO2 40 09/11/24 08:00 Intake & Output 09/12/24 09/13/24 09/13/24 18:59 06:59 18:59 Intake Total 496.942 529 99 Output Total 1825 650 20 Balance -1328.058 -121 79 Weight 73.5 kg 72 kg Intake: IV 486 429 99 Sodium Chloride 0.9% 1, 360 390 90 000 ml @ 30 mls/hr IV . Q24H [facility] Rx#:[id number] co/ci 30 pressure bag 96 39 9 Intake, IV Titration 10.942 Amount Insulin Regular 100 unit 10.942 In Sodium Chloride 0.9% 100 ml @ Per Protocol IV .Q0M [facility] Rx#:[id number] Oral 100 Output: Chest Tube Drainage 80 250 20 Mediastinal 10 left plueral 70 250 20 Gastric Drainage 0 Urine 1745 400 0 Other: Voiding Method Urinal Urinal Urinal ABP, PAP, CO, CI - Last Documented Arterial Blood Pressure 118/43 Pulmonary Artery Pressure 31/4 Cardiac Output 4.7 Cardiac Index 2.6 - Labs CBC & Chem 7: 09/13/24 05:05 09/13/24 05:05 Labs: Abnormal Lab Results - Last 24 Hours (Table) 09/12/24 09/12/24 09/12/24 Range/Units 11:56 12:19 16:37 RBC (4.30-5.90) m/uL Hgb (13.0-17.5) gm/dL Hct (39.0-53.0) % Plt Count (150-450) k/uL Sodium (137-145) mmol/L BUN (9-20) mg/dL Creatinine (0.66-1.25) mg/dL Glucose (74-99) mg/dL POC Glucose (mg/dL) 48 L* 122 H 124 H (70-110) mg/dL Total Bilirubin (0.2-1.3) mg/dL Total Protein (6.3-8.2) g/dL Albumin (3.5-5.0) g/dL 09/12/24 09/13/24 09/13/24 Range/Units 20:07 05:05 05:05 RBC 2.85 L (4.30-5.90) m/uL Hgb 8.6 L (13.0-17.5) gm/dL Hct 26.5 L (39.0-53.0) % Plt Count 111 L (150-450) k/uL Sodium 131 L (137-145) mmol/L BUN 23 H (9-20) mg/dL Creatinine 1.32 H (0.66-1.25) mg/dL Glucose 103 H (74-99) mg/dL POC Glucose (mg/dL) 131 H (70-110) mg/dL Total Bilirubin 1.4 H (0.2-1.3) mg/dL Total Protein 5.4 L (6.3-8.2) g/dL Albumin 3.4 L (3.5-5.0) g/dL 09/13/24 Range/Units 06:46 RBC (4.30-5.90) m/uL Hgb (13.0-17.5) gm/dL Hct (39.0-53.0) % Plt Count (150-450) k/uL Sodium (137-145) mmol/L BUN (9-20) mg/dL Creatinine (0.66-1.25) mg/dL Glucose (74-99) mg/dL POC Glucose (mg/dL) 118 H (70-110) mg/dL Total Bilirubin (0.2-1.3) mg/dL Total Protein (6.3-8.2) g/dL Albumin (3.5-5.0) g/dL
[2024-09-13 11:41] LABS: Glucose,Whole Blood 122 mg/dL (70-110)
--- NOTE | 2024-09-13 11:53 | PN ---
PROGRESS NOTE HISTORY OF PRESENT ILLNESS: This is a 74-year-old gentleman, who underwent aortic valve replacement with bypass surgery, making steady recovery. PHYSICAL EXAMINATION: VITAL SIGNS: Blood pressure was elevated this morning at 166/81, respiratory rate 18. CHEST: Reveals diminished air entry at the bases. HEART: Reveals first and second heart sounds. No gallop. EXTREMITIES: Reveal mild edema. LABORATORY DATA: Labs show a hemoglobin of 8.6. Potassium is 4.4, creatinine is 1.3. CURRENT MEDICATIONS: Include: 1. Amiodarone 200 b.i.d. 2. Norvasc 2.5 mg daily. 3. Aspirin. 4. Lipitor. 5. Plavix. 6. Hydralazine 25 mg q.8. ASSESSMENT AND PLAN: 1. Coronary artery disease, status post coronary artery bypass graft. 2. Aortic stenosis, status post aortic valve replacement. PLAN: The patient will continue current medications. Work on incentive spirometry. MMODL / BANDARN: [id number] /
[2024-09-13] MEDS ORDERED: amLODIPine 5 MG TAB PO SCH (12:00)
[2024-09-13] MEDS: amLODIPine 2.5 MG TAB PO SCH (12:18)
[2024-09-13] MEDS: bisacodyL 10 MG SUPP RECTAL PRN (13:01)
[2024-09-13] MEDS: hydrALAZINE HCL 25 MG TAB PO SCH (16:18)
--- NOTE | 2024-09-13 16:29 | P.PN ---
Subjective Progress Note Date: 09/13/24 74-year-old male who presented to the hospital, on September 03, via the emergency room. The patient presented with complaints of chest pain. The patient does have a history of atherosclerotic cardiovascular disease, and for a couple days prior to admission, was complaining of chest pressure. The chest pain/pressure, apparently radiated to both arms. He did not have any associated diaphoresis, or nausea. The patient apparently has had a heart attack in the past, and the pain that he was having, seemed similar. Today, we talked to Dr. Deluna about this patient, and apparently this patient will stay in the hospital, and have surgery, sometime early next week. The patient also has a history of s ignificant tobacco use for about 50 years. He was smoking up until the time he came into the hospital. His primary care physician is Dr. John Faulkner. He is currently on room air. The patient is getting IV heparin. The cardiac catheterization, showed severe triple-vessel disease, severe aortic stenosis and severe aortic regurgitation. The patient is currently in the process of being evaluated for open heart surgery. Laboratory data includes a white count 5.7, hemoglobin 10.8, macro 34.2, and a platelet count of 193,000. The patient's PTT is 45. Sodium 137, potassium 4.1, chlorides 105, CO2 29, BUN 16, creatinine 1.35. N-terminal proBNP was 1330. His troponin was 0.016. Chest CT showed no acute thoracic process, changes of mild COPD, and atherosclerotic calcification of thoracic aorta, with moderate coronary arterial calcifications, most prominent in the LAD. Progress note dated September 06, 2024. The patient is seen today in room 373. He is on room air. He is getting IV heparin. On his bedside spirometry, his FEV1 was 1.52 L, which would put him at low increased operative risk, for open heart surgery. Current labs include a white count 5.2, hemoglobin 11, hematocrit 35, and a normal platelet count. Sodium 136, potassium 3.9, chlorides 101, CO2 32, BUN 17, creatinine 1.45. Progress note dated and September 07, 2024. 74-year-old male seen today in room 373. He is currently on room air. He continues on IV heparin. The patient is likely to have a open heart procedure next week, may be on September 10Tuesday. Currently, he is resting comfortably, without any issues or problems. White count 6.9, hemoglobin 9.2, hematocrit 35.5, platelet count is normal. PTT is 42.2. Sodium 134, potassium 4, chlorides 103, CO2 26, BUN 28, creatinine 1.49. Progress note dated September 08, 2024. 74-year-old male with a history of coronary disease, and aortic stenosis. The patient is being evaluated for possible bypass grafting, and aortic valve replacement, early next week. Currently is on 2 L of oxygen. He is getting saline at 75 cc an hour. He is also on IV heparin. He has no specific complaints today. Current labs include a white count 6.6, hemoglobin 11.6, hematocrit 36.4, and a platelet count of 255,000. Sodium 135, potassium 3.8, chlorides 99, CO2 27, BUN 31, creatinine 1.93. His PTT is 49.6. His troponin is 0.028. The patient is seen today September 09, 2024 in follow-up on the selective care unit. He is currently resting comfortably in bed. Awake and alert in no acute distress. He is maintaining O2 saturations in the 90s on room air. He denies any shortness of breath, cough or congestion. He denies any chest pain. He is continued on a heparin drip. Practicing with the incentive spirometer. White count 4.9. Hemoglobin 10.2. Platelets 233. PTT 52.3. Sodium 135. Potassium 3.9. Bicarb 29. BUN 27. Creatinine 1.78. He had 09/10/2024, the patient is being seen immediately after evaluate to the intensive care unit. Currently intubated and mechanically ventilated. The patient underwent aortic valve replacement with a 23 mm Barcenas bovine pericardial valve and CABG x 4 with ARANA to LAD sequential left radial artery g raft to first and second obtuse marginal coronary arteries and PDA. The patient also underwent a ligation of the left atrial appendage. Intraoperatively, the patient received a total of 3 units have packed RBC and 1 unit of platelet. The patient is currently hemodynamically stable on milrinone which is running at 0.375 mcg/kg/min. Cardiac output is at 6.6 with an index of 3.7. PA pressures are 28/15. Urine output is adequate. The patient is well sedated on propofol which is running at 20 mcg/kg/min. He is on the mechanical ventilator assist- control mode with rate of 20, tidal volume of 500, FiO2 of 100% with a PEEP of 5. Blood gas and chest x-ray are still pending for now. The preop hemoglobin was 9.8. The patient also had a creatinine of 1.5 preoperatively. Afebrile. Has a left pleural and mediastinal chest tube without any evidence of air leak and output is minimal at this point. 74-year-old male who presented to the hospital, on September 03, via the emergency room. The patient presented with complaints of chest pain. The patient does have a history of atherosclerotic cardiovascular disease, and for a couple days prior to admission, was complaining of chest pressure. The chest pain/pressure, apparently radiated to both arms. He did not have any associated diaphoresis, or nausea. The patient apparently has had a heart attack in the past, and the pain that he was having, seemed similar. Today, we talked to Dr. Deluna about this patient, and apparently this patient will stay in the hospital, and have surgery, sometime early next week. The patient also has a history of significant tobacco use for about 50 years. He was smoking up until the time he came into the hospital. His primary care physician is Dr. John Faulkner. He is currently on room air. The patient is getting IV heparin. The cardiac catheterization, showed severe triple-vessel disease, severe aortic stenosis and severe aortic regurgitation. The patient is currently in the process of being evaluated for open heart surgery. Laboratory data includes a white count 5.7, hemoglobin 10.8, macro 34.2, and a platelet count of 193,000. The patient's PTT is 45. Sodium 137, potassium 4.1, chlorides 105, CO2 29, BUN 16, creatinine 1.35. N-terminal proBNP was 1330. His troponin was 0.016. Chest CT showed no acute thoracic process, changes of mild COPD, and atherosclerotic calcification of thoracic aorta, with moderate coronary arterial calcifications, most prominent in the LAD. Progress note dated September 06, 2024. The patient is seen today in room 373. He is on room air. He is getting IV heparin. On his bedside spirometry, his FEV1 was 1.52 L, which would put him at low increased operative risk, for open heart surgery. Current labs include a white count 5.2, hemoglobin 11, hematocrit 35, and a normal platelet count. Sodium 136, potassium 3.9, chlorides 101, CO2 32, BUN 17, creatinine 1.45. Progress note dated and September 07, 2024. 74-year-old male seen today in room 373. He is currently on room air. He continues on IV heparin. The patient is likely to have a open heart procedure next week, may be on September 10Tuesday. Currently, he is resting comfortably, without any issues or problems. White count 6.9, hemoglobin 9.2, hematocrit 35.5, platelet count is normal. PTT is 42.2. Sodium 134, potassium 4, chlorides 103, CO2 26, BUN 28, creatinine 1.49. Progress note dated September 08, 2024. 74-year-old male with a history of coronary disease, and aortic stenosis. The patient is being evaluated for possible bypass grafting, and aortic valve repl acement, early next week. Currently is on 2 L of oxygen. He is getting saline at 75 cc an hour. He is also on IV heparin. He has no specific complaints today. Current labs include a white count 6.6, hemoglobin 11.6, hematocrit 36.4, and a platelet count of 255,000. Sodium 135, potassium 3.8, chlorides 99, CO2 27, BUN 31, creatinine 1.93. His PTT is 49.6. His troponin is 0.028. The patient is seen today September 09, 2024 in follow-up on the selective care unit. He is currently resting comfortably in bed. Awake and alert in no acute distress. He is maintaining O2 saturations in the 90s on room air. He denies any shortness of breath, cough or congestion. He denies any chest pain. He is continued on a heparin drip. Practicing with the incentive spirometer. White count 4.9. Hemoglobin 10.2. Platelets 233. PTT 52.3. Sodium 135. Potassium 3.9. Bicarb 29. BUN 27. Creatinine 1.78. He had 09/10/2024, the patient is being seen immediately after evaluate to the intensive care unit. Currently intubated and mechanically ventilated. The patient underwent aortic valve replacement with a 23 mm Barcenas bovine pericardial valve and CABG x 4 with ARANA to LAD sequential left radial artery graft to first and second obtuse marginal coronary arteries and PDA. The patient also underwent a ligation of the left atrial appendage. Intraoperatively, the patient received a total of 3 units have packed RBC and 1 unit of platelet. The patient is currently hemodynamically stable on milrinone which is running at 0.375 mcg/kg/min. Cardiac output is at 6.6 with an index of 3.7. PA pressures are 28/15. Urine output is adequate. The patient is well sedated on propofol which is running at 20 mcg/kg/min. He is on the mechanical ventilator assist-control mode with rate of 20, tidal volume of 500, FiO2 of 100% with a PEEP of 5. Blood gas and chest x-ray are still pending for now. The preop hemoglobin was 9.8. The patient also had a creatinine of 1.5 preoperatively. Afebrile. Has a left pleural and mediastinal chest tube without any evidence of air leak and output is minimal at this point. On 09/11/2024, the patient is postop day #1. Overnight, the patient had some increased bleeding from his chest tubes. Based on that, the extubation process was delayed till early this morning. The patient is currently postop day #1. The patient underwent aortic valve replacement and four-vessel bypass surgery. The patient currently is hemodynamically stable. There was a drop in hemoglobin down to 6.1 along with bleeding from the chest tubes. The patient got trans fused with a unit of packed RBC and hemoglobin currently is at 6.7 and he will receive another unit of packed RBC. Meanwhile, he is hemodynamically stable. Cardiac output from this morning is at 5.7 with an index of 3.2. PA pressures are 30/10. Milrinone is running at 0.1 mcg/kg/min. Blood pressure was elevated and the patient was started on Cleviprex drip at 1 mg an hour. Output from the mediastinal chest tube has been 160 cc over the past 8 hours and 450 cc since surgery. Output from the left lower chest tube has been 350 cc over the past 8 hours and 500 cc since surgery. The patient was extubated this morning and currently is on oxygen at 4 L/min nasal cannula. Chest x-ray shows adequate positioning of the left-sided and mediastinal chest tube. Bow-Soraya catheter remains in place. Postsurgical changes are noted. No evidence of any pneumothorax. And no other significant abnormalities have been noted. The patient's hemoglobin currently is at 8.5 following the transfusion of second unit of packed RBC. Hemoglobin is at 8.9, white cell count is 6.4, the electrolytes from earlier today showed a BUN of 19 with a creatinine of 1.5 and a sodium level of 137 with a potassium level of 4.2 and a bicarb of 24. Communicating. No significant respiratory distress. Chest pain is under adequate control. No focal neurological deficits. On 09/12/2024, the patient is awake and alert and the patient is currently postop day #2 following an aortic valve replacement and four-vessel bypass surgery. The patient has been already extubated and the patient is currently on oxygen at 3 L/min nasal cannula. Chest x-ray from today showing some mild pulm vas congestion. The patient has a mediastinal left pleural chest tube in place. The patient was given a dose of Lasix with adequate diuresis. The patient's cardiac output is at 4.7 with an index of 2.6. The patient is currently off milrinone.. Cleviprex has been discontinued and the patient's blood pressure is stable and the patient remains on insulin 2 unit an hour. The patient's mediastinal chest tube has produced around 230 cc over the past 8 hours and the left pleural chest tube was produced around 210 cc over the past 8 hours. The white cell count 7.8 with a hemoglobin 8.7 and a platelet count of 119. BUN is 18 with a creatinine of 1.5 and a sodium less than 135 and a potassium levels of 4.4 with a bicarb of 22. LFTs are normal. Afebrile. Communicating. Sitting up in a chair. Ambulating. Using the incentive spirometer. Neurologically intact. No other significant events overnight. On 09/13/2024, the patient is doing well. The patient is calm and comfortable. The chest x-ray from today shows no evidence of any pneumothorax. The chest tubes have been removed. The patient is not having any respiratory distress. Bow-Soraya catheter is removed and the patient is currently on no pressors. Stubbs catheter was also removed. Using incentive spirometer. No issues with pain or chest discomfort for now. The patient is awake and alert and communicating. Is ambulating. Cardiac rhythm remains sinus. The white cell count is at 7.8 with hemoglobin 8.6, BUN is 23 with a creatinine 1.3 and a sodium levels at 131. LFTs are normal. Objective - Vital Signs Vital signs: Vital Signs Temp 98.2 F 09/13/24 16:00 Pulse 87 09/13/24 16:00 Resp 17 09/13/24 16:00 BP 135/74 09/13/24 16:00 Pulse Ox 94 L 09/13/24 16:00 FiO2 40 09/11/24 08:00 Intake & Output 09/12/24 09/13/24 09/13/24 18:59 06:59 18:59 Intake Total 496.942 529 175 Output Total 1825 650 820 Balance -1328.058 -121 -645 Weight 73.5 kg 72 kg Intake: IV 486 429 175 Invasive Line 6 10 Sodium Chloride 0.9% 1, 360 390 150 000 ml @ 30 mls/hr IV . Q24H KATERINA Rx#:[id number] co/ci 30 pressure bag 96 39 15 Intake, IV Titration 10.942 Amount Insulin Regular 100 unit 10.942 In Sodium Chloride 0.9% 100 ml @ Per Protocol IV .Q0M KATERINA Rx#:[id number] Oral 100 Output: Chest Tube Drainage 80 250 20 Mediastinal 10 left plueral 70 250 20 Gastric Drainage 0 Urine 1745 400 800 Other: Voiding Method Urinal Urinal Urinal ABP, PAP, CO, CI - Last Documented Arterial Blood Pressure 118/43 Pulmonary Artery Pressure 31/4 Cardiac Output 4.7 Cardiac Index 2.6 - Exam GENERAL EXAM: Alert, active, 74-year-old male, awake and alert and 3 L of oxygen by nasal cannula HEAD: Normocephalic. EYES: Normal reaction of pupils, equal size. NOSE: Clear with pink turbinates. THROAT: No erythema or exudates. NECK: No masses, no JVD. CHEST: No chest wall deformity. LUNGS: Equal air entry with no crackles, wheeze, rhonchi or dullness. CVS: S1 and S2 normal with no audible murmur, regular rhythm. ABDOMEN: No hepatosplenomegaly, normal bowel sounds, no guarding or rigidity. SPINE: No scoliosis or deformity SKIN: No rashes CENTRAL NERVOUS SYSTEM: No focal deficits, tone is normal in all 4 extremities. EXTREMITIES: There is no peripheral edema. No clubbing, no cyanosis. Peripheral pulses are intact. - Labs CBC & Chem 7: 09/13/24 05:05 09/13/24 05:05 Labs: Abnormal Lab Results - Last 24 Hours (Table) 09/12/24 09/12/24 09/13/24 Range/Units 16:37 20:07 05:05 RBC 2.85 L (4.30-5.90) m/uL Hgb 8.6 L (13.0-17.5) gm/dL Hct 26.5 L (39.0-53.0) % Plt Count 111 L (150-450) k/uL Sodium (137-145) mmol/L BUN (9-20) mg/dL Creatinine (0.66-1.25) mg/dL Glucose (74-99) mg/dL POC Glucose (mg/dL) 124 H 131 H (70-110) mg/dL Total Bilirubin (0.2-1.3) mg/dL Total Protein (6.3-8.2) g/dL Albumin (3.5-5.0) g/dL 09/13/24 09/13/24 09/13/24 Range/Units 05:05 06:46 11:40 RBC (4.30-5.90) m/uL Hgb (13.0-17.5) gm/dL Hct (39.0-53.0) % Plt Count (150-450) k/uL Sodium 131 L (137-145) mmol/L BUN 23 H (9-20) mg/dL Creatinine 1.32 H (0.66-1.25) mg/dL Glucose 103 H (74-99) mg/dL POC Glucose (mg/dL) 118 H 122 H (70-110) mg/dL Total Bilirubin 1.4 H (0.2-1.3) mg/dL Total Protein 5.4 L (6.3-8.2) g/dL Albumin 3.4 L (3.5-5.0) g/dL Assessment and Plan Plan: The patient underwent four-vessel bypass surgery. The patient is post ARANA to LAD status and sequential radial to first and second obtuse marginal branch and PDA. Currently postop day # 3. The patient is currently on milrinone for hemodynamic and blood pressure support the current cardiac rhythm is sinus. The patient, is hemodynamically and the patient is currently off pressors. Severe aortic stenosis status post aortic valve replacement, postop day # 2 Postthoracotomy, following cardiac surgery. The patient has a mediastinal left pleural chest tube in place. No evidence of any air leak. The patient has been extubated to 3 L of oxygen by nasal cannula. No significant output from the chest tubes remains high and the patient will have the chest tube in place for another 24 hours. Chest x-ray showing some mild pulm vas congestion and the patient was given a dose of IV Lasix. Hemodynamically stable with adequate cardiac output and index. Postoperative hemoglobin drop/anemia, expected outcome of surgery and there is blood loss through the chest tube drainage. Patient has been transfused with a total of units of packed RBC and hemoglobin currently stable Status post Non-ST segment elevation myocardial infarction. Hypertension Chronic nicotine dependence, rule out COPD. FEV1 shows 1.53 L, 49% of predicted Acute on chronic kidney injury, with acute component improving preoperatively. Hyperlipidemia Hypothyroidism Right popliteal artery aneurysm History of peripheral arterial disease with endovascular abdominal aneurysm repair approximately 2 years ago at [facility] Angioplasty in the right leg Current chronic tobacco dependence Occasional marijuana use Medication noncompliance Plan: Extubated to 3 L of oxygen by nasal cannula this morning Off pressors Chest tubes have been removed Bow-Soraya has been removed Stubbs catheter has been removed Continue aspirin and Plavix Metoprolol 25 mg p.o. twice a day Lasix 20 mg IV every 12 hours Oral amiodarone 200 mg p.o. twice a day We will continue to follow .
[2024-09-13 16:32] LABS: Glucose,Whole Blood 111 mg/dL (70-110)
[2024-09-13 19:59] LABS: Glucose,Whole Blood 141 mg/dL (70-110)
[2024-09-14] MEDS: DEXTROSE 5% IN WATER 100 ML with AMIODARONE 150 MG IV ONE ×2 (03:37→22:13)
[2024-09-14] MEDS: AMIODARONE 360 MG in DEXTROSE 5% IN WATER 200 ML IV ONE ×2 (03:58→22:13)
[2024-09-14 06:10] LABS: Glucose,Whole Blood 124 mg/dL (70-110)
[2024-09-14 06:59] LABS: MCH 30.9 pg (25.0-35.0); MCHC 34.8 g/dL (31.0-37.0); MCV 88.7 fL (80.0-100.0); Mean Platelet Volume 8.6; Platelet Count 122 k/uL (150-450); RBC 2.59 m/uL (4.30-5.90); RDW 15.9 % (11.5-15.5)
[2024-09-14 07:21] LABS: African American GFR (CKD) 69 (>60 ml/min/1.73 sqM); Anion Gap 4 mmol/L; Blood Urea Nitrogen 24 mg/dL (9-20); Carbon Dioxide 27 mmol/L (22-30); Chloride 101 mmol/L (98-107); Glucose 99 mg/dL (74-99); Non-African American GFR(CKD) 59 (>60 ml/min/1.73 sqM); Potassium 3.4 mmol/L (3.5-5.1); Sodium 132 mmol/L (137-145)
--- NOTE | 2024-09-14 07:29 | XR ---
EXAMINATION TYPE: XR chest 2V DATE OF EXAM: 09/14/2024 6:37 AM CLINICAL INDICATION: Male, 74 years old with history of post open heart; [facility] COMPARISON: Chest radiograph from one day prior. TECHNIQUE: XR chest 2V Frontal view of the chest. FINDINGS: Lungs/Pleura: No evidence of focal consolidation or pneumothorax. Blunting of the costophrenic angles is present. Pulmonary vascularity: Unremarkable. Heart/mediastinum: Cardiomediastinal silhouette is unremarkable. Post aortic valve repair changes. L eft atrial appendage occlusion device is present. Musculoskeletal: No acute osseous pathology. Midline sternotomy wires are noted. Other findings: Subcutaneous emphysema scattered throughout the visualized thorax. Lines/Tubes: Removal left thoracotomy tube. IMPRESSION: Postsurgical changes with trace bilateral pleural effusions. [facility], , 09/14/2024 7:27 AM
--- NOTE | 2024-09-14 08:05 | P.PN ---
Subjective Progress Note Date: 09/14/24 Principal diagnosis: Triple vessel coronary artery disease, aortic stenosis/insufficiency. Previous medical history of coronary artery disease with myocardial infarction and multip le stenting with the last stent greater than 10 years ago, peripheral arterial disease with endovascular abdominal aneurysm repair approximately 2 years ago at [facility], angioplasty in the right leg, hypertension, hyperlipidemia, remote history of pneumonia, current chronic tobacco dependence, occasional marijuana use, and medication noncompliance. POD #4 Aortic valve replacement with 23 mm Barcenas Inspiris bovine pericardial valve, CABG x 4 with ARANA to LAD, sequential left radial artery graft to first and second obtuse marginal coronary arteries, saphenous vein graft to posterior descending coronary artery, ligation of the left atrial appendage with 35 mm AtriCure clip, endovascular harvest bilateral greater saphenous veins, open harvest left radial artery. Intraoperative transesophageal echocardiogram performed by anesthesia. Postoperative acute blood loss anemia, expected given hemodilution, cardiopulmonary bypass and given his preoperative anemia Paroxysmal atrial fibrillation, known common occurrence after open heart surgery, currently sinus rhythm The patient was seen and examined this morning sitting up in recliner on the cardiac stepdown unit in no acute distress. Currently in sinus rhythm, hemodynamically stable. Patient did have brief episode for about 2 hours last night of atrial fibrillation, was loaded with IV amnio with conversion to sinus rhythm. Does complain of expected postoperative pain which is controlled on current medication regimen, denies shortness of breath. He has been ambulatory without difficulty. Chest x-ray, labs reviewed. All lines/tubes were discontinued yesterday. Patient was apparently asking the nurse last night for Xanax, however patient has been sleeping hard in the morning for assessment, no need for Xanax. Anticipate discharge to home with home care over the weekend. No other new concerns. Objective - Vital Signs Vital signs: Vital Signs Temp 97.8 F 09/14/24 03:30 Pulse 84 09/14/24 06:16 Resp 16 09/14/24 03:30 BP 140/75 09/14/24 06:16 Pulse Ox 94 L 09/14/24 03:30 FiO2 40 09/11/24 08:00 Intake & Output 09/13/24 09/14/24 09/14/24 18:59 06:59 18:59 Intake Total 295 0 Output Total 1220 430 Balance -925 -430 Weight 72.4 kg Intake: IV 175 Invasive Line 6 10 Sodium Chloride 0.9% 1, 150 000 ml @ 30 mls/hr IV . Q24H [facility] Rx#:[id number] pressure bag 15 Oral 120 0 Output: Chest Tube Drainage 20 left plueral 20 Urine 1200 430 Other: Voiding Method Urinal Urinal ABP, PAP, CO, CI - Last Documented Arterial Blood Pressure 118/43 Pulmonary Artery Pressure 31/4 Cardiac Output 4.7 Cardiac Index 2.6 - Exam CONSTITUTIONAL: Appears comfortable, cooperative, no acute distress RESPIRATORY: Lungs sounds diminished bilaterally. Respirations even, nonla bored. Currently on 2 L nasal cannula with oxygen saturation 94%, on room air patient's oxygen saturation drops to 88%. Able to achieve 0170-2298 mL on incentive spirometry. Strong cough. CARDIOVASCULAR: S1, S2 present. Regular rate and rhythm, sinus rhythm on telemetry. Sternum stable. Palpable peripheral pulses bilaterally. No edema present. No calf pain or tenderness noted. Heart hugger in place with patient demonstrating appropriate use. Antiembolism stockings, SCDs present. GASTROINTESTINAL: Abdomen soft, nontender, nondistended. Active bowel sounds present 4 quadrants. Tolerating diet. Positive flatus, negative bowel movement GENITOURINARY: Patient continues to void. Output 1630 mL in the last 24 hours INTEGUMENTARY: Skin is warm and dry with evidence of good perfusion. Anterior chest incision well approximated and covered with dry intact dressing. Left radial artery harvest site covered with dry intact dressing, bilateral greater saphenous EVH sites well approximated without redness or drainage. NEUROLOGIC: Cranial nerves II through XII intact MUSKULOSKELETAL: Able to move all extremities, strength equal bilaterally, gait normal PSYCHIATRIC: Alert and oriented to person place and time, appropriate affect, intact judgment and insight - Allied health notes Allied health notes reviewed: nursing - Labs CBC & Chem 7: 09/14/24 05:48 09/14/24 05:48 Labs: Abnormal Lab Results - Last 24 Hours (Table) 09/13/24 09/13/24 09/13/24 Range/Units 11:40 16:30 19:57 RBC (4.30-5.90) m/uL Hgb (13.0-17.5) gm/dL Hct (39.0-53.0) % RDW (11.5-15.5) % Plt Count (150-450) k/uL Sodium (137-145) mmol/L Potassium (3.5-5.1) mmol/L BUN (9-20) mg/dL POC Glucose (mg/dL) 122 H 111 H 141 H (70-110) mg/dL Calcium (8.4-10.2) mg/dL 09/14/24 09/14/24 09/14/24 Range/Units 05:48 05:48 06:06 RBC 2.59 L (4.30-5.90) m/uL Hgb 8.0 L (13.0-17.5) gm/dL Hct 23.0 L (39.0-53.0) % RDW 15.9 H (11.5-15.5) % Plt Count 122 L (150-450) k/uL Sodium 132 L (137-145) mmol/L Potassium 3.4 L (3.5-5.1) mmol/L BUN 24 H (9-20) mg/dL POC Glucose (mg/dL) 124 H (70-110) mg/dL Calcium 8.0 L (8.4-10.2) mg/dL - Imaging and Cardiology Chest x-ray: report reviewed, image reviewed Assessment and Plan Assessment: Coronary artery disease with myocardial infarction and multiple stenting with the last stent greater than 10 years ago, non-STEMI this admission, status post four-vessel CABG Chest pain secondary to above Severe aortic stenosis with severe aortic insufficiency, status post aortic valve replacement Postoperative acute blood loss anemia, expected given hemodilution, cardiopulmonary bypass and given his preoperative anemia Paroxysmal atrial fibrillation, currently sinus History of peripheral arterial disease with endovascular abdominal aneurysm repair approximately 2 years ago at [facility] Angioplasty in the right leg Hypertension although patient denies Hyperlipidemia Remote history of pneumonia Current chronic tobacco dependence Occasional marijuana use Medication noncompliance Plan: Continue aspirin, statin, Plavix and beta-aidan. Will increase beta-aidan therapy as tolerated, increased to 50 mg twice daily today. Continue hydralazine for afterload reduction Continue amiodarone for A-fib prophylaxis, will transition back to oral this evening. No anticoagulation necessary unless patient is in A-fib greater than 24 hours Continue amlodipine with hold parameters for radial artery spasm prophylaxis, increased to 5 mg daily. Wean oxygen as tolerated. Encourage incentive spirometry use 10 times every hour while awake. Bronchodilators per pulmonology. Increase activity as tolerated, PT/OT/cardiac rehab following. Will monitor daily labs and chest x-rays. Electrolyte replacement per protocol. Continue Lasix 20 mg IV push twice daily GI/DVT prophylaxis. Pain control per current medication regimen. Avoid Toradol due to renal function. Insulin management per internal medicine. Patient is not a diabetic, preoperative hemoglobin A1c was 6.0%, needs tight blood sugar control Continue to monitor and record strict accurate intake and output Daily weights Shower daily starting today Continue levothyroxine 100 mcg p.o. daily. The importance of risk modification including smoking cessation has been reinforced with the patient, he will be given the number to [id number] upon discharge. Suppository until bowel movement Discharge planning in progress, anticipate discharge to home with home care over the weekend More recommendations to follow based on patient's clinical course.
[2024-09-14] MEDS ORDERED: amLODIPine 2.5 MG TAB PO SCH (09:00)
[2024-09-14] MEDS: METOPROLOL TARTRATE 50 MG TAB PO SCH (09:28)
[2024-09-14] MEDS: bisacodyL 10 MG SUPP RECTAL SCH (09:28)
[2024-09-14] MEDS: POTASSIUM BICARBONATE/CIT AC 20 MEQ TABLET.EFF PO SCH (09:28)
[2024-09-14] MEDS: AMIODARONE 450 MG in DEXTROSE 5% IN WATER 250 ML IV SCH (09:41)
[2024-09-14] MEDS: ALPRAZolam 0.25 MG TAB PO PRN (09:48)
[2024-09-14 11:22] LABS: Glucose,Whole Blood 126 mg/dL (70-110)
--- NOTE | 2024-09-14 12:54 | P.PN ---
Subjective Progress Note Date: 09/14/24 Subjective: Patient went to [facility] with [facility] overnight. Today, he is back into normal rate. He has no complaints other than anxiety at this time. Vitals Signs Reviewed. Gen: In NAD, non-toxic HEENT: normocephalic, atraumatic, hearing acuity is intant, mucous membranes moist CVS: perfusing all extremities well, no pitting edema, Respiratory: symmetric chest expansion, no accessory muscle use, GI: soft, NTTP, ND, : no suprapubic tenderness, no CVA tenderness MSK/Derm: no rashes, cyanosis Neuro: CN II-XII intact, no motor weakness, Psych: cooperative, euthymic mood, judgment and insight is intact Assessment and Plan: Multivessel CAD status post CABG Severe aortic stenosis status post replacement Severe aortic regurgitation Acute NSTEMI, present on admission Acute blood loss anemia, anticipated outcome of surgery Pancytopenia Hypertension Nicotine dependence Dyslipidemia -Cardiothoracic surgery note reviewed, plan for discharge over the weekend -Continue aspirin 325 daily, Plavix 75 daily, atorvastatin 40 mg daily, amlodipine 2.5 daily, amiodarone 200 twice daily, continue IV Lasix 40 IV twice daily per cardiothoracic surgery, monitor for electrolyte imbalance, also on hydralazine 25 every 8 hours, metoprolol 25 twice daily -Leisure Travel Agent and cardiology following -Patient is status post 5 units of PRBCs and 1 unit of platelets -Continue to monitor CBC Anxiety -Start 0.25 mg Xanax 3 times daily as needed for panic attacks Hyperglycemia Prediabetes Hypoglycemia, resolved -Continue sliding scale insulin, monitor for hypoglycemia Hypothyroidism -Continue on levothyroxine 100 mcg daily -Recheck TSH in 4 to 6 weeks CARMELO with CKD stage IIIa, resolving -Repeat renal function tomorrow Hypokalemia, resolved Thank you for allowing us to participate in the care of this pleasant patient. Do not hesitate to contact us with questions. Someone can be reached from the [facility] hospitalist group all hours of the day at [phone] or via perfect serve. Objective - Vital Signs Vital signs: Vital Signs Temp 98.1 F 09/14/24 12:00 Pulse 66 09/14/24 12:00 Resp 18 09/14/24 12:00 BP 116/74 09/14/24 12:00 Pulse Ox 96 09/14/24 12:00 FiO2 40 09/11/24 08:00 Intake & Output 09/13/24 09/14/24 09/14/24 18:59 06:59 18:59 Intake Total 295 0 240 Output Total 1220 430 275 Balance -925 -430 -35 Weight 72.4 kg Intake: IV 175 Invasive Line 6 10 Sodium Chloride 0.9% 1, 150 000 ml @ 30 mls/hr IV . Q24H [facility] Rx#:[id number] pressure bag 15 Oral 120 0 240 Output: Chest Tube Drainage 20 left plueral 20 Urine 1200 430 275 Other: Voiding Method Urinal Urinal Urinal # Voids 1 # Bowel Movements 1 ABP, PAP, CO, CI - Last Documented Arterial Blood Pressure 118/43 Pulmonary Artery Pressure 31/4 Cardiac Output 4.7 Cardiac Index 2.6 - Labs CBC & Chem 7: 09/14/24 05:48 09/14/24 05:48 Labs: Abnormal Lab Results - Last 24 Hours (Table) 09/13/24 09/13/24 09/14/24 Range/Units 16:30 19:57 05:48 RBC 2.59 L (4.30-5.90) m/uL Hgb 8.0 L (13.0-17.5) gm/dL Hct 23.0 L (39.0-53.0) % RDW 15.9 H (11.5-15.5) % Plt Count 122 L (150-450) k/uL Sodium (137-145) mmol/L Potassium (3.5-5.1) mmol/L BUN (9-20) mg/dL POC Glucose (mg/dL) 111 H 141 H (70-110) mg/dL Calcium (8.4-10.2) mg/dL 09/14/24 09/14/24 09/14/24 Range/Units 05:48 06:06 11:19 RBC (4.30-5.90) m/uL Hgb (13.0-17.5) gm/dL Hct (39.0-53.0) % RDW (11.5-15.5) % Plt Count (150-450) k/uL Sodium 132 L (137-145) mmol/L Potassium 3.4 L (3.5-5.1) mmol/L BUN 24 H (9-20) mg/dL POC Glucose (mg/dL) 124 H 126 H (70-110) mg/dL Calcium 8.0 L (8.4-10.2) mg/dL
--- NOTE | 2024-09-14 12:58 | P.PN ---
Subjective HISTORY OF PRESENT ILLNESS: Patient examined this morning. Patient is sitting up in the chair. Patient currently denies chest pain or pressure. He denies shortness of breath. Patient is complaining of having leg spasms last night. He also was reporting a lot of anxiety this morning and is requesting something to help reduce his anxiety. Telemetry this morning reveals sinus mechanism. The patient did have an episode of atrial fibrillation overnight and was started on IV amiodarone. Blood pressure 116/74. PHYSICAL EXAM: VITAL SIGNS: Reviewed. GENERAL: Well-developed in no acute distress. NECK: Supple. No JVD or thyromegaly LUNGS: Respirations even and unlabored. Lungs essentially clear to auscultation bilaterally. HEART: Regular rate and rhythm. S1 and S2 heard. EXTREMITIES: Normal range of motion. No clubbing or cyanosis. Peripheral pulses intact. No lower extremity edema ASSESSMENT: Non-STEMI, status post four-vessel CABG Severe aortic stenosis, status post bioprosthetic aortic valve replacement Coronary artery disease with previous stenting Paroxysmal atrial fibrillation Hypertension Hyperlipidemia History of peripheral arterial disease with previous endovascular abdominal aneurysm repair Nicotine dependence Occasional marijuana use PLAN: Continue postoperative management per CT surgery Increase activity as tolerated Encourage use of incentive spirometer Continue current cardiac medications Patient currently on IV amiodarone. Patient to be started on oral amiodarone when infusion completed Continue telemetry monitoring Smoking cessation recommended. Patient to prefer to [place] quit line upon discharge Further recommendations pending patient course Nurse practitioner note has been reviewed by physician. Signing provider agrees with the documented findings, assessment, and plan of care documented by COMPACT ASSEMBLER as a scribe. Objective - Vital Signs Vital signs: Vital Signs Temp 98.1 F 09/14/24 12:00 Pulse 66 09/14/24 12:00 Resp 18 09/14/24 12:00 BP 116/74 09/14/24 12:00 Pulse Ox 96 09/14/24 12:00 FiO2 40 09/11/24 08:00 Intake & Output 09/13/24 09/14/24 09/14/24 18:59 06:59 18:59 Intake Total 295 0 240 Output Total 1220 430 275 Balance -925 -430 -35 Weight 72.4 kg Intake: IV 175 Invasive Line 6 10 Sodium Chloride 0.9% 1, 150 000 ml @ 30 mls/hr IV . Q24H [facility] Rx#:[id number] pressure bag 15 Oral 120 0 240 Output: Chest Tube Drainage 20 left plueral 20 Urine 1200 430 275 Other: Voiding Method Urinal Urinal Urinal # Voids 1 # Bowel Movements 1 ABP, PAP, CO, CI - Last Documented Arterial Blood Pressure 118/43 Pulmonary Artery Pressure 31/4 Cardiac Output 4.7 Cardiac Index 2.6 - Labs CBC & Chem 7: 09/14/24 05:48 09/14/24 05:48 Labs: Abnormal Lab Results - Last 24 Hours (Table) 09/13/24 09/13/24 09/14/24 Range/Units 16:30 19:57 05:48 RBC 2.59 L (4.30-5.90) m/uL Hgb 8.0 L (13.0-17.5) gm/dL Hct 23.0 L (39.0-53.0) % RDW 15.9 H (11.5-15.5) % Plt Count 122 L (150-450) k/uL Sodium (137-145) mmol/L Potassium (3.5-5.1) mmol/L BUN (9-20) mg/dL POC Glucose (mg/dL) 111 H 141 H (70-110) mg/dL Calcium (8.4-10.2) mg/dL 09/14/24 09/14/24 09/14/24 Range/Units 05:48 06:06 11:19 RBC (4.30-5.90) m/uL Hgb (13.0-17.5) gm/dL Hct (39.0-53.0) % RDW (11.5-15.5) % Plt Count (150-450) k/uL Sodium 132 L (137-145) mmol/L Potassium 3.4 L (3.5-5.1) mmol/L BUN 24 H (9-20) mg/dL POC Glucose (mg/dL) 124 H 126 H (70-110) mg/dL Calcium 8.0 L (8.4-10.2) mg/dL
[2024-09-14] MEDS: amLODIPine 5 MG TAB PO SCH (13:03)
--- NOTE | 2024-09-14 13:58 | P.PN ---
Subjective Progress Note Date: 09/14/24 74-year-old male who presented to the hospital, on September 03, via the emergency room. The patient presented with complaints of chest pain. The patient does have a history of atherosclerotic cardiovascular disease, and for a couple days prior to admission, was complaining of chest pressure. The chest pain/pressure, apparently radiated to both arms. He did not have any associated diaphoresis, or nausea. The patient apparently has had a heart attack in the past, and the pain that he was having, seemed similar. Today, we talked to Dr. Deluna about this patient, and apparently this patient will stay in the hospital, and have surgery, sometime early next week. The patient also has a history of s ignificant tobacco use for about 50 years. He was smoking up until the time he came into the hospital. His primary care physician is Dr. John Faulkner. He is currently on room air. The patient is getting IV heparin. The cardiac catheterization, showed severe triple-vessel disease, severe aortic stenosis and severe aortic regurgitation. The patient is currently in the process of being evaluated for open heart surgery. Laboratory data includes a white count 5.7, hemoglobin 10.8, macro 34.2, and a platelet count of 193,000. The patient's PTT is 45. Sodium 137, potassium 4.1, chlorides 105, CO2 29, BUN 16, creatinine 1.35. N-terminal proBNP was 1330. His troponin was 0.016. Chest CT showed no acute thoracic process, changes of mild COPD, and atherosclerotic calcification of thoracic aorta, with moderate coronary arterial calcifications, most prominent in the LAD. Progress note dated September 06, 2024. The patient is seen today in room 373. He is on room air. He is getting IV heparin. On his bedside spirometry, his FEV1 was 1.52 L, which would put him at low increased operative risk, for open heart surgery. Current labs include a white count 5.2, hemoglobin 11, hematocrit 35, and a normal platelet count. Sodium 136, potassium 3.9, chlorides 101, CO2 32, BUN 17, creatinine 1.45. Progress note dated and September 07, 2024. 74-year-old male seen today in room 373. He is currently on room air. He continues on IV heparin. The patient is likely to have a open heart procedure next week, may be on September 10Tuesday. Currently, he is resting comfortably, without any issues or problems. White count 6.9, hemoglobin 9.2, hematocrit 35.5, platelet count is normal. PTT is 42.2. Sodium 134, potassium 4, chlorides 103, CO2 26, BUN 28, creatinine 1.49. Progress note dated September 08, 2024. 74-year-old male with a history of coronary disease, and aortic stenosis. The patient is being evaluated for possible bypass grafting, and aortic valve replacement, early next week. Currently is on 2 L of oxygen. He is getting saline at 75 cc an hour. He is also on IV heparin. He has no specific complaints today. Current labs include a white count 6.6, hemoglobin 11.6, hematocrit 36.4, and a platelet count of 255,000. Sodium 135, potassium 3.8, chlorides 99, CO2 27, BUN 31, creatinine 1.93. His PTT is 49.6. His troponin is 0.028. The patient is seen today September 09, 2024 in follow-up on the selective care unit. He is currently resting comfortably in bed. Awake and alert in no acute distress. He is maintaining O2 saturations in the 90s on room air. He denies any shortness of breath, cough or congestion. He denies any chest pain. He is continued on a heparin drip. Practicing with the incentive spirometer. White count 4.9. Hemoglobin 10.2. Platelets 233. PTT 52.3. Sodium 135. Potassium 3.9. Bicarb 29. BUN 27. Creatinine 1.78. He had 09/10/2024, the patient is being seen immediately after evaluate to the intensive care unit. Currently intubated and mechanically ventilated. The patient underwent aortic valve replacement with a 23 mm Barcenas bovine pericardial valve and CABG x 4 with ARANA to LAD sequential left radial artery g raft to first and second obtuse marginal coronary arteries and PDA. The patient also underwent a ligation of the left atrial appendage. Intraoperatively, the patient received a total of 3 units have packed RBC and 1 unit of platelet. The patient is currently hemodynamically stable on milrinone which is running at 0.375 mcg/kg/min. Cardiac output is at 6.6 with an index of 3.7. PA pressures are 28/15. Urine output is adequate. The patient is well sedated on propofol which is running at 20 mcg/kg/min. He is on the mechanical ventilator assist- control mode with rate of 20, tidal volume of 500, FiO2 of 100% with a PEEP of 5. Blood gas and chest x-ray are still pending for now. The preop hemoglobin was 9.8. The patient also had a creatinine of 1.5 preoperatively. Afebrile. Has a left pleural and mediastinal chest tube without any evidence of air leak and output is minimal at this point. 74-year-old male who presented to the hospital, on September 03, via the emergency room. The patient presented with complaints of chest pain. The patient does have a history of atherosclerotic cardiovascular disease, and for a couple days prior to admission, was complaining of chest pressure. The chest pain/pressure, apparently radiated to both arms. He did not have any associated diaphoresis, or nausea. The patient apparently has had a heart attack in the past, and the pain that he was having, seemed similar. Today, we talked to Dr. Deluna about this patient, and apparently this patient will stay in the hospital, and have surgery, sometime early next week. The patient also has a history of significant tobacco use for about 50 years. He was smoking up until the time he came into the hospital. His primary care physician is Dr. John Faulkner. He is currently on room air. The patient is getting IV heparin. The cardiac catheterization, showed severe triple-vessel disease, severe aortic stenosis and severe aortic regurgitation. The patient is currently in the process of being evaluated for open heart surgery. Laboratory data includes a white count 5.7, hemoglobin 10.8, macro 34.2, and a platelet count of 193,000. The patient's PTT is 45. Sodium 137, potassium 4.1, chlorides 105, CO2 29, BUN 16, creatinine 1.35. N-terminal proBNP was 1330. His troponin was 0.016. Chest CT showed no acute thoracic process, changes of mild COPD, and atherosclerotic calcification of thoracic aorta, with moderate coronary arterial calcifications, most prominent in the LAD. Progress note dated September 06, 2024. The patient is seen today in room 373. He is on room air. He is getting IV heparin. On his bedside spirometry, his FEV1 was 1.52 L, which would put him at low increased operative risk, for open heart surgery. Current labs include a white count 5.2, hemoglobin 11, hematocrit 35, and a normal platelet count. Sodium 136, potassium 3.9, chlorides 101, CO2 32, BUN 17, creatinine 1.45. Progress note dated and September 07, 2024. 74-year-old male seen today in room 373. He is currently on room air. He continues on IV heparin. The patient is likely to have a open heart procedure next week, may be on September 10Tuesday. Currently, he is resting comfortably, without any issues or problems. White count 6.9, hemoglobin 9.2, hematocrit 35.5, platelet count is normal. PTT is 42.2. Sodium 134, potassium 4, chlorides 103, CO2 26, BUN 28, creatinine 1.49. Progress note dated September 08, 2024. 74-year-old male with a history of coronary disease, and aortic stenosis. The patient is being evaluated for possible bypass grafting, and aortic valve repl acement, early next week. Currently is on 2 L of oxygen. He is getting saline at 75 cc an hour. He is also on IV heparin. He has no specific complaints today. Current labs include a white count 6.6, hemoglobin 11.6, hematocrit 36.4, and a platelet count of 255,000. Sodium 135, potassium 3.8, chlorides 99, CO2 27, BUN 31, creatinine 1.93. His PTT is 49.6. His troponin is 0.028. The patient is seen today September 09, 2024 in follow-up on the selective care unit. He is currently resting comfortably in bed. Awake and alert in no acute distress. He is maintaining O2 saturations in the 90s on room air. He denies any shortness of breath, cough or congestion. He denies any chest pain. He is continued on a heparin drip. Practicing with the incentive spirometer. White count 4.9. Hemoglobin 10.2. Platelets 233. PTT 52.3. Sodium 135. Potassium 3.9. Bicarb 29. BUN 27. Creatinine 1.78. He had 09/10/2024, the patient is being seen immediately after evaluate to the intensive care unit. Currently intubated and mechanically ventilated. The patient underwent aortic valve replacement with a 23 mm Barcenas bovine pericardial valve and CABG x 4 with ARANA to LAD sequential left radial artery graft to first and second obtuse marginal coronary arteries and PDA. The patient also underwent a ligation of the left atrial appendage. Intraoperatively, the patient received a total of 3 units have packed RBC and 1 unit of platelet. The patient is currently hemodynamically stable on milrinone which is running at 0.375 mcg/kg/min. Cardiac output is at 6.6 with an index of 3.7. PA pressures are 28/15. Urine output is adequate. The patient is well sedated on propofol which is running at 20 mcg/kg/min. He is on the mechanical ventilator assist-control mode with rate of 20, tidal volume of 500, FiO2 of 100% with a PEEP of 5. Blood gas and chest x-ray are still pending for now. The preop hemoglobin was 9.8. The patient also had a creatinine of 1.5 preoperatively. Afebrile. Has a left pleural and mediastinal chest tube without any evidence of air leak and output is minimal at this point. On 09/11/2024, the patient is postop day #1. Overnight, the patient had some increased bleeding from his chest tubes. Based on that, the extubation process was delayed till early this morning. The patient is currently postop day #1. The patient underwent aortic valve replacement and four-vessel bypass surgery. The patient currently is hemodynamically stable. There was a drop in hemoglobin down to 6.1 along with bleeding from the chest tubes. The patient got trans fused with a unit of packed RBC and hemoglobin currently is at 6.7 and he will receive another unit of packed RBC. Meanwhile, he is hemodynamically stable. Cardiac output from this morning is at 5.7 with an index of 3.2. PA pressures are 30/10. Milrinone is running at 0.1 mcg/kg/min. Blood pressure was elevated and the patient was started on Cleviprex drip at 1 mg an hour. Output from the mediastinal chest tube has been 160 cc over the past 8 hours and 450 cc since surgery. Output from the left lower chest tube has been 350 cc over the past 8 hours and 500 cc since surgery. The patient was extubated this morning and currently is on oxygen at 4 L/min nasal cannula. Chest x-ray shows adequate positioning of the left-sided and mediastinal chest tube. Cortez-Soraya catheter remains in place. Postsurgical changes are noted. No evidence of any pneumothorax. And no other significant abnormalities have been noted. The patient's hemoglobin currently is at 8.5 following the transfusion of second unit of packed RBC. Hemoglobin is at 8.9, white cell count is 6.4, the electrolytes from earlier today showed a BUN of 19 with a creatinine of 1.5 and a sodium level of 137 with a potassium level of 4.2 and a bicarb of 24. Communicating. No significant respiratory distress. Chest pain is under adequate control. No focal neurological deficits. On 09/12/2024, the patient is awake and alert and the patient is currently postop day #2 following an aortic valve replacement and four-vessel bypass surgery. The patient has been already extubated and the patient is currently on oxygen at 3 L/min nasal cannula. Chest x-ray from today showing some mild pulm vas congestion. The patient has a mediastinal left pleural chest tube in place. The patient was given a dose of Lasix with adequate diuresis. The patient's cardiac output is at 4.7 with an index of 2.6. The patient is currently off milrinone.. Cleviprex has been discontinued and the patient's blood pressure is stable and the patient remains on insulin 2 unit an hour. The patient's mediastinal chest tube has produced around 230 cc over the past 8 hours and the left pleural chest tube was produced around 210 cc over the past 8 hours. The white cell count 7.8 with a hemoglobin 8.7 and a platelet count of 119. BUN is 18 with a creatinine of 1.5 and a sodium less than 135 and a potassium levels of 4.4 with a bicarb of 22. LFTs are normal. Afebrile. Communicating. Sitting up in a chair. Ambulating. Using the incentive spirometer. Neurologically intact. No other significant events overnight. On 09/13/2024, the patient is doing well. The patient is calm and comfortable. The chest x-ray from today shows no evidence of any pneumothorax. The chest tubes have been removed. The patient is not having any respiratory distress. Cortez-Soraya catheter is removed and the patient is currently on no pressors. Stubbs catheter was also removed. Using incentive spirometer. No issues with pain or chest discomfort for now. The patient is awake and alert and communicating. Is ambulating. Cardiac rhythm remains sinus. The white cell count is at 7.8 with hemoglobin 8.6, BUN is 23 with a creatinine 1.3 and a sodium levels at 131. LFTs are normal. On 09/14/2024, the patient on the medical floor following his cardiac surgery. The patient is doing well for now. The patient is postop day #4. Chest tubes were removed and the patient is currently on oxygen at 2 L/min nasal cannula. Repeat chest x-ray from today shows no evidence of pneumothorax. The patient has postthoracotomy changes and trace bilateral pleural effusions. He did encounter a episode of atrial fibrillation overnight and the patient's cardiac rhythm is back to sinus and the patient is currently on amiodarone. Some increased anxiety and the patient is requesting Xanax. Otherwise, no other significant events overnight. The white cell count is at 7 with a hemoglobin of 8 and a platelet count of 122. BUN 24 with a creatinine of 1.2 and a sodium levels at 132 with a potassium level of 3.4 that needs to be further replaced. Acute kidney injury is improving and the creatinine is on the decline. Objective - Vital Signs Vital signs: Vital Signs Temp 97.8 F 09/14/24 03:30 Pulse 80 09/14/24 08:15 Resp 16 09/14/24 08:00 BP 140/75 09/14/24 06:16 Pulse Ox 95 09/14/24 10:28 FiO2 40 09/11/24 08:00 Intake & Output 09/13/24 09/14/24 09/14/24 18:59 06:59 18:59 Intake Total 295 0 240 Output Total 1220 430 275 Balance -925 -430 -35 Weight 72.4 kg Intake: IV 175 Invasive Line 6 10 Sodium Chloride 0.9% 1, 150 000 ml @ 30 mls/hr IV . Q24H FORMERLY [facility], 1928–1983 Rx#:[id number] pressure bag 15 Oral 120 0 240 Output: Chest Tube Drainage 20 left plueral 20 Urine 1200 430 275 Other: Voiding Method Urinal Urinal Urinal # Voids 1 # Bowel Movements 1 ABP, PAP, CO, CI - Last Documented Arterial Blood Pressure 118/43 Pulmonary Artery Pressure 31/4 Cardiac Output 4.7 Cardiac Index 2.6 - Exam GENERAL EXAM: Alert, active, 74-year-old male, awake and alert and 3 L of oxygen by nasal cannula HEAD: Normocephalic. EYES: Normal reaction of pupils, equal size. NOSE: Clear with pink turbinates. THROAT: No erythema or exudates. NECK: No masses, no JVD. CHEST: No chest wall deformity. LUNGS: Equal air entry with no crackles, wheeze, rhonchi or dullness. CVS: S1 and S2 normal with no audible murmur, regular rhythm. ABDOMEN: No hepatosplenomegaly, normal bowel sounds, no guarding or rigidity. SPINE: No scoliosis or deformity SKIN: No rashes CENTRAL NERVOUS SYSTEM: No focal deficits, tone is normal in all 4 extremities. EXTREMITIES: There is no peripheral edema. No clubbing, no cyanosis. Peripheral pulses are intact. - Labs CBC & Chem 7: 09/14/24 05:48 09/14/24 05:48 Labs: Abnormal Lab Results - Last 24 Hours (Table) 09/13/24 09/13/24 09/13/24 Range/Units 11:40 16:30 19:57 RBC (4.30-5.90) m/uL Hgb (13.0-17.5) gm/dL Hct (39.0-53.0) % RDW (11.5-15.5) % Plt Count (150-450) k/uL Sodium (137-145) mmol/L Potassium (3.5-5.1) mmol/L BUN (9-20) mg/dL POC Glucose (mg/dL) 122 H 111 H 141 H (70-110) mg/dL Calcium (8.4-10.2) mg/dL 09/14/24 09/14/24 09/14/24 Range/Units 05:48 05:48 06:06 RBC 2.59 L (4.30-5.90) m/uL Hgb 8.0 L (13.0-17.5) gm/dL Hct 23.0 L (39.0-53.0) % RDW 15.9 H (11.5-15.5) % Plt Count 122 L (150-450) k/uL Sodium 132 L (137-145) mmol/L Potassium 3.4 L (3.5-5.1) mmol/L BUN 24 H (9-20) mg/dL POC Glucose (mg/dL) 124 H (70-110) mg/dL Calcium 8.0 L (8.4-10.2) mg/dL 10/18/24 Range/Units 11:19 RBC (4.30-5.90) m/uL Hgb (13.0-17.5) gm/dL Hct (39.0-53.0) % RDW (11.5-15.5) % Plt Count (150-450) k/uL Sodium (137-145) mmol/L Potassium (3.5-5.1) mmol/L BUN (9-20) mg/dL POC Glucose (mg/dL) 126 H (70-110) mg/dL Calcium (8.4-10.2) mg/dL Assessment and Plan Plan: The patient underwent four-vessel bypass surgery. The patient is post ARANA to LAD status and sequential radial to first and second obtuse marginal branch and PDA. Currently postop day # 4. The patient is currently on milrinone for hemod ynamic and blood pressure support the current cardiac rhythm is sinus. The patient did encountered an episode of atrial fibrillation overnight and the patient's cardiac rhythm is back to sinus. Severe aortic stenosis status post aortic valve replacement, postop day # 4 Postthoracotomy, following cardiac surgery. Currently on 3 L of oxygen by nasal cannula. Small bilateral pleural effusions noted. Chest tubes have been removed. Postoperative hemoglobin drop/anemia, expected outcome of surgery and there is blood loss through the chest tube drainage. Patient has been transfused with a total of units of packed RBC and hemoglobin currently stable Status post Non-ST segment elevation myocardial infarction. Hypertension Chronic nicotine dependence, rule out COPD. FEV1 shows 1.53 L, 49% of predicted Acute on chronic kidney injury, with acute component improving preoperatively. Renal functions continues to improve Hyperlipidemia Hypothyroidism Right popliteal artery aneurysm History of peripheral arterial disease with endovascular abdominal aneurysm repair approximately 2 years ago at [facility] Angioplasty in the right leg Current chronic tobacco dependence Occasional marijuana use Medication noncompliance Plan: Extubated to 3 L of oxygen by nasal cannula this morning Chest x-ray was reviewed and shows some small bilateral pleural effusions Cortez-Soraya has been removed, chest tubes have been removed Stubbs catheter has been removed Continue aspirin and Plavix Metoprolol 25 mg p.o. twice a day Lasix 20 mg IV every 12 hours IV amiodarone this can be transition to oral amiodarone 200 mg p.o. twice a day as the patient's current cardiac rhythm is sinus We will continue to follow .
[2024-09-14 16:11] LABS: Glucose,Whole Blood 111 mg/dL (70-110)
[2024-09-14 20:15] LABS: Glucose,Whole Blood 149 mg/dL (70-110)
[2024-09-14] MEDS: AMIODARONE 200 MG TAB PO SCH (20:37)
[2024-09-14 21:24] LABS: Glucose,Whole Blood 155 mg/dL (70-110)
[2024-09-15] MEDS: MD COMMUNICATION TO PHARMACY 1 EACH MISC PO ONE ×4 (00:32→00:33)
[2024-09-15] MEDS: ALBUMIN HUMAN 5% 500 ML in EMPTY BAG 1 BAG IVPB ONE ×5 (00:33→00:34)
[2024-09-15] MEDS: ALBUMIN HUMAN 25% 50 ML in EMPTY BAG 1 BAG IVPB ONE (00:33)
[2024-09-15] MEDS: CALCIUM CHLORIDE 100 MG/ML 10 ML SYRINGE IVP ONE (00:34)
[2024-09-15] MEDS: ceFAZolin 1,000 MG in SODIUM CHLORIDE 0.9% IRRIGATIO 1,000 ML IRRIGATION ONE (00:34)
[2024-09-15] MEDS: CLEVIDIPINE BUTYRATE 25 MG in EMPTY BAG 1 BAG IV SCH (00:35)
[2024-09-15] MEDS: CHLORHEXIDINE GLUCONATE 15 ML CUP MUCOUS MEM ONE (00:35)
[2024-09-15] MEDS: HEPARIN SODIUM 1,000 UN/ML (10ML VL) IV ONE (00:35)
[2024-09-15] MEDS: HEPARIN SODIUM,PORCINE (1 ML) 5,000 UNIT in SODIUM CHLORIDE 0.9% 500 ML 500 ML IV ONE (00:35)
[2024-09-15] MEDS: PHENYLEPHRINE 10 MG/ML VIAL IV ONE (00:36)
[2024-09-15] MEDS: MANNITOL 25% 12.5 GM/50 ML VIAL IV ONE (00:36)
[2024-09-15] MEDS: NITROGLYCERIN-D5W PMX 50 MG in DEXTROSE/WATER 1 250ML.BAG IV SCH (00:36)
[2024-09-15] MEDS: NITROGLYCERIN-D5W PMX 25 MG/250 ML BTL IV ONE (00:36)
[2024-09-15] MEDS: PAPAVERINE 360 MG in SODIUM CHLORIDE 0.9% 90 ML IV ONE (00:36)
[2024-09-15] MEDS: MAGNESIUM SULFATE 16.24 MEQ in EMPTY SYRINGE 1 SYR IV ONE (00:36)
[2024-09-15] MEDS: TRANEXAMIC ACID 2,000 MG in SODIUM CHLORIDE 0.9% 80 ML IV ONE (00:37)
[2024-09-15] MEDS: PHENYLEPHRINE 40 MG in SODIUM CHLORIDE 0.9% 250 ML IV ONE (00:37)
[2024-09-15] MEDS: SODIUM BICARB 8.4% 50 ML SYR (1 MEQ/ML) IV ONE (00:37)
[2024-09-15] MEDS: PROTAMINE SULFATE 250 MG in EMPTY BAG 1 BAG IV ONE (00:37)
[2024-09-15] MEDS: PROTAMINE SULFATE 10 MG/ML 25 ML VIAL IV ONE (00:37)
[2024-09-15] MEDS: LEVOTHYROXINE IVP 100 MCG/5 ML VIAL IV ONE (00:38)
[2024-09-15] MEDS: DEXTROSE 5% IN WATER 100 ML with AMIODARONE 150 MG IV ONE (00:38)
[2024-09-15] MEDS: INSULIN DETEMIR (LEVEMIR) 100 UNIT/ML SYR SQ STA (00:38)
[2024-09-15] MEDS: DEXTROSE 5% IN WATER 250 ML with AMIODARONE 300 MG IV ONE (00:39)
[2024-09-15] MEDS: AMIODARONE 450 MG in DEXTROSE 5% IN WATER 250 ML IV SCH ×2 (00:39→04:05)
[2024-09-15 06:54] LABS: Glucose,Whole Blood 117 mg/dL (70-110)
[2024-09-15] MEDS ORDERED: bisacodyL 10 MG SUPP RECTAL PRN (07:01)
[2024-09-15 07:15] LABS: Anisocytosis Slight; HCT 26.5 % (39.0-53.0); HGB 9.1 gm/dL (13.0-17.5); MCH 30.9 pg (25.0-35.0); MCHC 34.4 g/dL (31.0-37.0); RBC 2.94 m/uL (4.30-5.90); RDW 16.2 % (11.5-15.5); WBC 5.8 k/uL (3.8-10.6)
[2024-09-15 07:21] LABS: Platelet Count 191 k/uL (150-450)
[2024-09-15 07:22] LABS: African American GFR (CKD) 57 (>60 ml/min/1.73 sqM); Anion Gap 3 mmol/L; Blood Urea Nitrogen 24 mg/dL (9-20); Calcium 8.5 mg/dL (8.4-10.2); Carbon Dioxide 36 mmol/L (22-30); Chloride 94 mmol/L (98-107); Glucose 112 mg/dL (74-99); Magnesium 1.9 mg/dL (1.6-2.3); Non-African American GFR(CKD) 50 (>60 ml/min/1.73 sqM); Potassium 3.7 mmol/L (3.5-5.1); Sodium 133 mmol/L (137-145)
--- NOTE | 2024-09-15 07:36 | P.PN ---
Subjective Progress Note Date: 09/15/24 Principal diagnosis: Triple vessel coronary artery disease, aortic stenosis/insufficiency. Previous medical history of coronary artery disease with myocardial infarction and multip le stenting with the last stent greater than 10 years ago, peripheral arterial disease with endovascular abdominal aneurysm repair approximately 2 years ago at [facility], angioplasty in the right leg, hypertension, hyperlipidemia, remote history of pneumonia, current chronic tobacco dependence, occasional marijuana use, and medication noncompliance. POD #5 Aortic valve replacement with 23 mm Barcenas Inspiris bovine pericardial valve, CABG x 4 with ARANA to LAD, sequential left radial artery graft to first and second obtuse marginal coronary arteries, saphenous vein graft to posterior descending coronary artery, ligation of the left atrial appendage with 35 mm AtriCure clip, endovascular harvest bilateral greater saphenous veins, open harvest left radial artery. Intraoperative transesophageal echocardiogram performed by anesthesia. Postoperative acute blood loss anemia, expected given hemodilution, cardiopulmonary bypass and given his preoperative anemia Paroxysmal atrial fibrillation, known common occurrence after open heart surgery, currently sinus rhythm The patient was seen and examined this morning sitting up in recliner on the cardiac stepdown unit in no acute distress. Currently in sinus rhythm, hemodynamically stable. Patient did have another brief episode for about 2 hours last night of atrial fibrillation, was loaded with IV amnio again with conversion to sinus rhythm, beta-aidan was increased yesterday. Does complain of expected postoperative pain which is controlled on current medication regimen, denies shortness of breath. He has been ambulatory without difficulty, did shower yesterday. Chest x-ray, labs reviewed. Home oxygen evaluation completed, patient remains in the mid to high 90s on 2 L nasal cannula, oxygen saturation 88% on room air at rest, likely related to his COPD and smoking history. No other new concerns. Objective - Vital Signs Vital signs: Vital Signs Temp 98.4 F 09/15/24 04:00 Pulse 62 09/15/24 04:00 Resp 18 09/15/24 04:00 BP 118/58 09/15/24 04:00 Pulse Ox 95 09/15/24 04:00 FiO2 40 09/11/24 08:00 Intake & Output 09/14/24 09/15/24 09/15/24 18:59 06:59 18:59 Intake Total 240 103 Output Total 275 975 Balance -35 -872 Weight 68.4 kg Intake: Intake, IV Titration 103 Amount Dextrose 5% in Water 100 103 ml @ 618 mls/hr IV .Q10M ONE with Amiodarone 150 mg Rx#:[id number] Oral 240 Output: Urine 275 975 Other: Voiding Method Urinal Urinal # Voids 1 1 # Bowel Movements 1 ABP, PAP, CO, CI - Last Documented Arterial Blood Pressure 118/43 Pulmonary Artery Pressure 31/4 Cardiac Output 4.7 Cardiac Index 2.6 - Exam CONSTITUTIONAL: Appears comfortable, cooperative, no acute distress RESPIRATORY: Lungs sounds diminished bilaterally. Respirations even, nonlabored. Currently on 2 L nasal cannula with oxygen saturation 95%, on room air patient's oxygen saturation drops to 88%. Able to achieve 1000 mL on incentive spirometry. Strong cough. CARDIOVASCULAR: S1, S2 present. Regular rate and rhythm, sinus rhythm on telemetry. Sternum stable. Palpable peripheral pulses bilaterally. No edema present. No calf pain or tenderness noted. Heart hugger in place with patient demonstrating appropriate use. Antiembolism stockings, SCDs present. GASTROINTESTINAL: Abdomen soft, nontender, nondistended. Active bowel sounds present 4 quadrants. Tolerating diet. Positive bowel movement 09/14 GENITOURINARY: Patient continues to void. Output 1250 mL in the last 24 hours INTEGUMENTARY: Skin is warm and dry with evidence of good perfusion. Anterior chest incision well approximated. Left radial artery harvest site as well as bilateral greater saphenous EVH sites well approximated without redness or drainage. NEUROLOGIC: Cranial nerves II through XII intact MUSKULOSKELETAL: Able to move all extremities, strength equal bilaterally, gait normal PSYCHIATRIC: Alert and oriented to person place and time, appropriate affect, intact judgment and insight - Allied health notes Allied health notes reviewed: nursing - Labs CBC & Chem 7: 09/15/24 06:38 09/15/24 06:38 Labs: Abnormal Lab Results - Last 24 Hours (Table) 09/14/24 09/14/24 09/14/24 Range/Units 11:19 16:08 20:14 RBC (4.30-5.90) m/uL Hgb (13.0-17.5) gm/dL Hct (39.0-53.0) % RDW (11.5-15.5) % Sodium (137-145) mmol/L Chloride (98-107) mmol/L Carbon Dioxide (22-30) mmol/L BUN (9-20) mg/dL Creatinine (0.66-1.25) mg/dL Glucose (74-99) mg/dL POC Glucose (mg/dL) 126 H 111 H 149 H (70-110) mg/dL 09/14/24 09/15/24 09/15/24 Range/Units 21:23 06:38 06:38 RBC 2.94 L (4.30-5.90) m/uL Hgb 9.1 L (13.0-17.5) gm/dL Hct 26.5 L (39.0-53.0) % RDW 16.2 H (11.5-15.5) % Sodium 133 L (137-145) mmol/L Chloride 94 L (98-107) mmol/L Carbon Dioxide 36 H (22-30) mmol/L BUN 24 H (9-20) mg/dL Creatinine 1.40 H (0.66-1.25) mg/dL Glucose 112 H (74-99) mg/dL POC Glucose (mg/dL) 155 H (70-110) mg/dL 09/15/24 Range/Units 06:52 RBC (4.30-5.90) m/uL Hgb (13.0-17.5) gm/dL Hct (39.0-53.0) % RDW (11.5-15.5) % Sodium (137-145) mmol/L Chloride (98-107) mmol/L Carbon Dioxide (22-30) mmol/L BUN (9-20) mg/dL Creatinine (0.66-1.25) mg/dL Glucose (74-99) mg/dL POC Glucose (mg/dL) 117 H (70-110) mg/dL - Imaging and Cardiology Chest x-ray: pending Assessment and Plan Assessment: Coronary artery disease with myocardial infarction and multiple stenting with the last stent greater than 10 years ago, non-STEMI this admission, status post four-vessel CABG Chest pain secondary to above Severe aortic stenosis with severe aortic insufficiency, status post aortic valve replacement Postoperative acute blood loss anemia, expected given hemodilution, cardiopulmonary bypass and given his preoperative anemia Paroxysmal atrial fibrillation, currently sinus History of peripheral arterial disease with endovascular abdominal aneurysm repair approximately 2 years ago at [facility] Angioplasty in the right leg Hypertension although patient denies Hyperlipidemia Remote history of pneumonia Current chronic tobacco dependence Occasional marijuana use Medication noncompliance Plan: Continue low-dose aspirin, statin, and beta-aidan. Will increase beta-aidan therapy as tolerated, increased to 50 mg twice daily yesterday. Continue hydralazine for afterload reduction Continue amiodarone for A-fib prophylaxis, will transition back to oral this evening. Will start anticoagulation today due to brief intermittent periods of atrial fibrillation Continue amlodipine with hold parameters for radial artery spasm prophylaxis Wean oxygen as tolerated. Encourage incentive spirometry use 10 times every hour while awake. Bronchodilators per pulmonology. Increase activity as tolerated, PT/OT/cardiac rehab following. Will monitor daily labs and chest x-rays. Electrolyte replacement per protocol. Continue Lasix 20 mg IV push twice daily, daily potassium increased GI/DVT prophylaxis. Pain control per current medication regimen. Avoid Toradol due to renal fun ction. Insulin management per internal medicine. Patient is not a diabetic, preoperative hemoglobin A1c was 6.0%, needs tight blood sugar control Continue to monitor and record strict accurate intake and output Daily weights Shower daily Continue levothyroxine 100 mcg p.o. daily. The importance of risk modification including smoking cessation has been reinforced with the patient, he will be given the number to [id number] upon discharge. Discharge planning in progress, anticipate discharge to home with home care in the next 24 to 48 hours More recommendations to follow based on patient's clinical course.
--- NOTE | 2024-09-15 07:55 | XR ---
EXAMINATION TYPE: XR chest 1V portable DATE OF EXAM: 09/15/2024 COMPARISON: 09/13/2024 HISTORY: Postop cardiac surgery TECHNIQUE: Single frontal view of the chest is obtained. FINDINGS: There are median sternotomy wires indicating open heart surgery. There is mild atelectasis and possibly a small left pleural effusion. Pulmonary vasculature does not appear congested. There is no pneumothorax IMPRESSION: Probable mild left lower lobe atelectasis and tiny effusion with no other significant ab normality. [facility], Workstation: [email or web address] 09/15/2024 7:53 AM
[2024-09-15] MEDS: ASPIRIN 81 MG PO SCH (09:31)
[2024-09-15] MEDS: POTASSIUM BICARBONATE/CIT AC 20 MEQ TABLET.EFF PO SCH (09:32)
[2024-09-15] MEDS: APIXABAN 5 MG TAB PO SCH (09:32)
[2024-09-15] MEDS: MAGNESIUM SULFATE-D5W PMX 1 GM in DEXTROSE/WATER 1 100ML.BAG IVPB SCH (09:32)
[2024-09-15 11:23] LABS: Glucose,Whole Blood 142 mg/dL (70-110)
--- NOTE | 2024-09-15 12:30 | P.PN ---
Subjective Progress Note Date: 09/15/24 Subjective: Patient again went to A-fib with RVR overnight, was started on amiodarone, and converted back to NSR. Started on AC per CT surgery. Vitals Signs Reviewed. Gen: In NAD, non-toxic HEENT: normocephalic, atraumatic, hearing acuity is intant, mucous membranes moist CVS: perfusing all extremities well, no pitting edema, Respiratory: symmetric chest expansion, no accessory muscle use, GI: soft, NTTP, ND, : no suprapubic tenderness, no CVA tenderness MSK/Derm: no rashes, cyanosis Neuro: CN II-XII intact, no motor weakness, Psych: cooperative, euthymic mood, judgment and insight is intact Assessment and Plan: Multivessel CAD status post CABG Severe aortic stenosis status post replacement Severe aortic regurgitation Acute NSTEMI, present on admission Acute blood loss anemia, anticipated outcome of surgery Pancytopenia Hypertension Nicotine dependence Dyslipidemia -Cardiothoracic surgery note reviewed, plan for discharge over the weekend -Continue aspirin 325 daily, Plavix 75 daily, atorvastatin 40 mg daily, amlodipine 2.5 daily, amiodarone 200 twice daily, continue IV Lasix 40 IV twice daily per cardiothoracic surgery, monitor for electrolyte imbalance, also on hydralazine 25 every 8 hours, metoprolol 25 twice daily -Box Worker and cardiology following -Patient is status post 5 units of PRBCs and 1 unit of platelets -Continue to monitor CBC Anxiety -Start 0.25 mg Xanax 3 times daily as needed for panic attacks Hyperglycemia Prediabetes Hypoglycemia, resolved -Continue sliding scale insulin, monitor for hypoglycemia Hypothyroidism -Continue on levothyroxine 100 mcg daily -Recheck TSH in 4 to 6 weeks CARMELO with CKD stage IIIa, resolving -Repeat renal function tomorrow Hypokalemia, resolved Thank you for allowing us to participate in the care of this pleasant patient. Do not hesitate to contact us with questions. Someone can be reached from the [facility] hospitalist group all hours of the day at [phone] or via perfect serve. Objective - Vital Signs Vital signs: Vital Signs Temp 98.2 F 09/15/24 08:00 Pulse 74 09/15/24 12:26 Resp 18 09/15/24 08:00 BP 123/71 09/15/24 08:00 Pulse Ox 98 09/15/24 08:00 FiO2 40 09/11/24 08:00 Intake & Output 09/14/24 09/15/24 09/15/24 18:59 06:59 18:59 Intake Total 240 103 Output Total 275 975 400 Balance -35 -422 -400 Weight 68.4 kg Intake: Intake, IV Titration 103 Amount Dextrose 5% in Water 100 103 ml @ 618 mls/hr IV .Q10M ONE with Amiodarone 150 mg Rx#:[id number] Oral 240 Output: Urine 275 975 400 Other: Voiding Method Urinal Urinal Urinal # Voids 1 1 # Bowel Movements 1 ABP, PAP, CO, CI - Last Documented Arterial Blood Pressure 118/43 Pulmonary Artery Pressure 31/4 Cardiac Output 4.7 Cardiac Index 2.6 - Labs CBC & Chem 7: 09/15/24 06:38 09/15/24 06:38 Labs: Abnormal Lab Results - Last 24 Hours (Table) 09/14/24 09/14/24 09/14/24 Range/Units 16:08 20:14 21:23 RBC (4.30-5.90) m/uL Hgb (13.0-17.5) gm/dL Hct (39.0-53.0) % RDW (11.5-15.5) % Sodium (137-145) mmol/L Chloride (98-107) mmol/L Carbon Dioxide (22-30) mmol/L BUN (9-20) mg/dL Creatinine (0.66-1.25) mg/dL Glucose (74-99) mg/dL POC Glucose (mg/dL) 111 H 149 H 155 H (70-110) mg/dL 09/15/24 09/15/24 09/15/24 Range/Units 06:38 06:38 06:52 RBC 2.94 L (4.30-5.90) m/uL Hgb 9.1 L (13.0-17.5) gm/dL Hct 26.5 L (39.0-53.0) % RDW 16.2 H (11.5-15.5) % Sodium 133 L (137-145) mmol/L Chloride 94 L (98-107) mmol/L Carbon Dioxide 36 H (22-30) mmol/L BUN 24 H (9-20) mg/dL Creatinine 1.40 H (0.66-1.25) mg/dL Glucose 112 H (74-99) mg/dL POC Glucose (mg/dL) 117 H (70-110) mg/dL 09/15/24 Range/Units 11:21 RBC (4.30-5.90) m/uL Hgb (13.0-17.5) gm/dL Hct (39.0-53.0) % RDW (11.5-15.5) % Sodium (137-145) mmol/L Chloride (98-107) mmol/L Carbon Dioxide (22-30) mmol/L BUN (9-20) mg/dL Creatinine (0.66-1.25) mg/dL Glucose (74-99) mg/dL POC Glucose (mg/dL) 142 H (70-110) mg/dL
--- NOTE | 2024-09-15 16:01 | P.PN ---
Subjective Progress Note Date: 09/15/24 74-year-old male who presented to the hospital, on September 03, via the emergency room. The patient presented with complaints of chest pain. The patient does have a history of atherosclerotic cardiovascular disease, and for a couple days prior to admission, was complaining of chest pressure. The chest pain/pressure, apparently radiated to both arms. He did not have any associated diaphoresis, or nausea. The patient apparently has had a heart attack in the past, and the pain that he was having, seemed similar. Today, we talked to Dr. Deluna about this patient, and apparently this patient will stay in the hospital, and have surgery, sometime early next week. The patient also has a history of s ignificant tobacco use for about 50 years. He was smoking up until the time he came into the hospital. His primary care physician is Dr. John Faulkner. He is currently on room air. The patient is getting IV heparin. The cardiac catheterization, showed severe triple-vessel disease, severe aortic stenosis and severe aortic regurgitation. The patient is currently in the process of being evaluated for open heart surgery. Laboratory data includes a white count 5.7, hemoglobin 10.8, macro 34.2, and a platelet count of 193,000. The patient's PTT is 45. Sodium 137, potassium 4.1, chlorides 105, CO2 29, BUN 16, creatinine 1.35. N-terminal proBNP was 1330. His troponin was 0.016. Chest CT showed no acute thoracic process, changes of mild COPD, and atherosclerotic calcification of thoracic aorta, with moderate coronary arterial calcifications, most prominent in the LAD. Progress note dated September 06, 2024. The patient is seen today in room 373. He is on room air. He is getting IV heparin. On his bedside spirometry, his FEV1 was 1.52 L, which would put him at low increased operative risk, for open heart surgery. Current labs include a white count 5.2, hemoglobin 11, hematocrit 35, and a normal platelet count. Sodium 136, potassium 3.9, chlorides 101, CO2 32, BUN 17, creatinine 1.45. Progress note dated and September 07, 2024. 74-year-old male seen today in room 373. He is currently on room air. He continues on IV heparin. The patient is likely to have a open heart procedure next week, may be on September 10Tuesday. Currently, he is resting comfortably, without any issues or problems. White count 6.9, hemoglobin 9.2, hematocrit 35.5, platelet count is normal. PTT is 42.2. Sodium 134, potassium 4, chlorides 103, CO2 26, BUN 28, creatinine 1.49. Progress note dated September 08, 2024. 74-year-old male with a history of coronary disease, and aortic stenosis. The patient is being evaluated for possible bypass grafting, and aortic valve replacement, early next week. Currently is on 2 L of oxygen. He is getting saline at 75 cc an hour. He is also on IV heparin. He has no specific complaints today. Current labs include a white count 6.6, hemoglobin 11.6, hematocrit 36.4, and a platelet count of 255,000. Sodium 135, potassium 3.8, chlorides 99, CO2 27, BUN 31, creatinine 1.93. His PTT is 49.6. His troponin is 0.028. The patient is seen today September 09, 2024 in follow-up on the selective care unit. He is currently resting comfortably in bed. Awake and alert in no acute distress. He is maintaining O2 saturations in the 90s on room air. He denies any shortness of breath, cough or congestion. He denies any chest pain. He is continued on a heparin drip. Practicing with the incentive spirometer. White count 4.9. Hemoglobin 10.2. Platelets 233. PTT 52.3. Sodium 135. Potassium 3.9. Bicarb 29. BUN 27. Creatinine 1.78. He had 09/10/2024, the patient is being seen immediately after evaluate to the intensive care unit. Currently intubated and mechanically ventilated. The patient underwent aortic valve replacement with a 23 mm Barcenas bovine pericardial valve and CABG x 4 with ARANA to LAD sequential left radial artery g raft to first and second obtuse marginal coronary arteries and PDA. The patient also underwent a ligation of the left atrial appendage. Intraoperatively, the patient received a total of 3 units have packed RBC and 1 unit of platelet. The patient is currently hemodynamically stable on milrinone which is running at 0.375 mcg/kg/min. Cardiac output is at 6.6 with an index of 3.7. PA pressures are 28/15. Urine output is adequate. The patient is well sedated on propofol which is running at 20 mcg/kg/min. He is on the mechanical ventilator assist- control mode with rate of 20, tidal volume of 500, FiO2 of 100% with a PEEP of 5. Blood gas and chest x-ray are still pending for now. The preop hemoglobin was 9.8. The patient also had a creatinine of 1.5 preoperatively. Afebrile. Has a left pleural and mediastinal chest tube without any evidence of air leak and output is minimal at this point. 74-year-old male who presented to the hospital, on September 03, via the emergency room. The patient presented with complaints of chest pain. The patient does have a history of atherosclerotic cardiovascular disease, and for a couple days prior to admission, was complaining of chest pressure. The chest pain/pressure, apparently radiated to both arms. He did not have any associated diaphoresis, or nausea. The patient apparently has had a heart attack in the past, and the pain that he was having, seemed similar. Today, we talked to Dr. Deluna about this patient, and apparently this patient will stay in the hospital, and have surgery, sometime early next week. The patient also has a history of significant tobacco use for about 50 years. He was smoking up until the time he came into the hospital. His primary care physician is Dr. John Faulkner. He is currently on room air. The patient is getting IV heparin. The cardiac catheterization, showed severe triple-vessel disease, severe aortic stenosis and severe aortic regurgitation. The patient is currently in the process of being evaluated for open heart surgery. Laboratory data includes a white count 5.7, hemoglobin 10.8, macro 34.2, and a platelet count of 193,000. The patient's PTT is 45. Sodium 137, potassium 4.1, chlorides 105, CO2 29, BUN 16, creatinine 1.35. N-terminal proBNP was 1330. His troponin was 0.016. Chest CT showed no acute thoracic process, changes of mild COPD, and atherosclerotic calcification of thoracic aorta, with moderate coronary arterial calcifications, most prominent in the LAD. Progress note dated September 06, 2024. The patient is seen today in room 373. He is on room air. He is getting IV heparin. On his bedside spirometry, his FEV1 was 1.52 L, which would put him at low increased operative risk, for open heart surgery. Current labs include a white count 5.2, hemoglobin 11, hematocrit 35, and a normal platelet count. Sodium 136, potassium 3.9, chlorides 101, CO2 32, BUN 17, creatinine 1.45. Progress note dated and September 07, 2024. 74-year-old male seen today in room 373. He is currently on room air. He continues on IV heparin. The patient is likely to have a open heart procedure next week, may be on September 10Tuesday. Currently, he is resting comfortably, without any issues or problems. White count 6.9, hemoglobin 9.2, hematocrit 35.5, platelet count is normal. PTT is 42.2. Sodium 134, potassium 4, chlorides 103, CO2 26, BUN 28, creatinine 1.49. Progress note dated September 08, 2024. 74-year-old male with a history of coronary disease, and aortic stenosis. The patient is being evaluated for possible bypass grafting, and aortic valve repl acement, early next week. Currently is on 2 L of oxygen. He is getting saline at 75 cc an hour. He is also on IV heparin. He has no specific complaints today. Current labs include a white count 6.6, hemoglobin 11.6, hematocrit 36.4, and a platelet count of 255,000. Sodium 135, potassium 3.8, chlorides 99, CO2 27, BUN 31, creatinine 1.93. His PTT is 49.6. His troponin is 0.028. The patient is seen today September 09, 2024 in follow-up on the selective care unit. He is currently resting comfortably in bed. Awake and alert in no acute distress. He is maintaining O2 saturations in the 90s on room air. He denies any shortness of breath, cough or congestion. He denies any chest pain. He is continued on a heparin drip. Practicing with the incentive spirometer. White count 4.9. Hemoglobin 10.2. Platelets 233. PTT 52.3. Sodium 135. Potassium 3.9. Bicarb 29. BUN 27. Creatinine 1.78. He had 09/10/2024, the patient is being seen immediately after evaluate to the intensive care unit. Currently intubated and mechanically ventilated. The patient underwent aortic valve replacement with a 23 mm Barcenas bovine pericardial valve and CABG x 4 with ARANA to LAD sequential left radial artery graft to first and second obtuse marginal coronary arteries and PDA. The patient also underwent a ligation of the left atrial appendage. Intraoperatively, the patient received a total of 3 units have packed RBC and 1 unit of platelet. The patient is currently hemodynamically stable on milrinone which is running at 0.375 mcg/kg/min. Cardiac output is at 6.6 with an index of 3.7. PA pressures are 28/15. Urine output is adequate. The patient is well sedated on propofol which is running at 20 mcg/kg/min. He is on the mechanical ventilator assist-control mode with rate of 20, tidal volume of 500, FiO2 of 100% with a PEEP of 5. Blood gas and chest x-ray are still pending for now. The preop hemoglobin was 9.8. The patient also had a creatinine of 1.5 preoperatively. Afebrile. Has a left pleural and mediastinal chest tube without any evidence of air leak and output is minimal at this point. On 09/11/2024, the patient is postop day #1. Overnight, the patient had some increased bleeding from his chest tubes. Based on that, the extubation process was delayed till early this morning. The patient is currently postop day #1. The patient underwent aortic valve replacement and four-vessel bypass surgery. The patient currently is hemodynamically stable. There was a drop in hemoglobin down to 6.1 along with bleeding from the chest tubes. The patient got trans fused with a unit of packed RBC and hemoglobin currently is at 6.7 and he will receive another unit of packed RBC. Meanwhile, he is hemodynamically stable. Cardiac output from this morning is at 5.7 with an index of 3.2. PA pressures are 30/10. Milrinone is running at 0.1 mcg/kg/min. Blood pressure was elevated and the patient was started on Cleviprex drip at 1 mg an hour. Output from the mediastinal chest tube has been 160 cc over the past 8 hours and 450 cc since surgery. Output from the left lower chest tube has been 350 cc over the past 8 hours and 500 cc since surgery. The patient was extubated this morning and currently is on oxygen at 4 L/min nasal cannula. Chest x-ray shows adequate positioning of the left-sided and mediastinal chest tube. [place] catheter remains in place. Postsurgical changes are noted. No evidence of any pneumothorax. And no other significant abnormalities have been noted. The patient's hemoglobin currently is at 8.5 following the transfusion of second unit of packed RBC. Hemoglobin is at 8.9, white cell count is 6.4, the electrolytes from earlier today showed a BUN of 19 with a creatinine of 1.5 and a sodium level of 137 with a potassium level of 4.2 and a bicarb of 24. Communicating. No significant respiratory distress. Chest pain is under adequate control. No focal neurological deficits. On 09/12/2024, the patient is awake and alert and the patient is currently postop day #2 following an aortic valve replacement and four-vessel bypass surgery. The patient has been already extubated and the patient is currently on oxygen at 3 L/min nasal cannula. Chest x-ray from today showing some mild pulm vas congestion. The patient has a mediastinal left pleural chest tube in place. The patient was given a dose of Lasix with adequate diuresis. The patient's cardiac output is at 4.7 with an index of 2.6. The patient is currently off milrinone.. Cleviprex has been discontinued and the patient's blood pressure is stable and the patient remains on insulin 2 unit an hour. The patient's mediastinal chest tube has produced around 230 cc over the past 8 hours and the left pleural chest tube was produced around 210 cc over the past 8 hours. The white cell count 7.8 with a hemoglobin 8.7 and a platelet count of 119. BUN is 18 with a creatinine of 1.5 and a sodium less than 135 and a potassium levels of 4.4 with a bicarb of 22. LFTs are normal. Afebrile. Communicating. Sitting up in a chair. Ambulating. Using the incentive spirometer. Neurologically intact. No other significant events overnight. On 09/13/2024, the patient is doing well. The patient is calm and comfortable. The chest x-ray from today shows no evidence of any pneumothorax. The chest tubes have been removed. The patient is not having any respiratory distress. [place] catheter is removed and the patient is currently on no pressors. [place] catheter was also removed. Using incentive spirometer. No issues with pain or chest discomfort for now. The patient is awake and alert and communicating. Is ambulating. Cardiac rhythm remains sinus. The white cell count is at 7.8 with hemoglobin 8.6, BUN is 23 with a creatinine 1.3 and a sodium levels at 131. LFTs are normal. On 09/14/2024, the patient on the medical floor following his cardiac surgery. The patient is doing well for now. The patient is postop day #4. Chest tubes were removed and the patient is currently on oxygen at 2 L/min nasal cannula. Repeat chest x-ray from today shows no evidence of pneumothorax. The patient has postthoracotomy changes and trace bilateral pleural effusions. He did encounter a episode of atrial fibrillation overnight and the patient's cardiac rhythm is back to sinus and the patient is currently on amiodarone. Some increased anxiety and the patient is requesting Xanax. Otherwise, no other significant events overnight. The white cell count is at 7 with a hemoglobin of 8 and a platelet count of 122. BUN 24 with a creatinine of 1.2 and a sodium levels at 132 with a potassium level of 3.4 that needs to be further replaced. Acute kidney injury is improving and the creatinine is on the decline. 09/15/2024, the patient is being seen for a follow-up. Patient is currently calm and comfortable. No new complaints for now. The patient is postop day #5. Sitting up in a chair. He is in sinus rhythm. He did have a brief episode of 2 hours of atrial fibrillation and he was loaded together with IV amiodarone and he converted back into normal sinus rhythm. He is also on beta-blockers and the patient is currently on metoprolol 50 mg p.o. twice a day. The follow-up chest x-ray from today shows left lower lobe atelectasis and tiny effusions. The patient is currently on 2 L of oxygen by nasal cannula with a pulse ox of 97%. BUN is 24 with a creatinine 1.4 and sodium levels at 133. Hemoglobin is at 9.4 with a white cell count of 5.8. No other significant events overnight. Ambulating. Using incentive spirometer. Objective - Vital Signs Vital signs: Vital Signs Temp 98.2 F 09/15/24 08:00 Pulse 68 09/15/24 08:55 Resp 18 09/15/24 08:00 BP 123/71 09/15/24 08:00 Pulse Ox 98 09/15/24 08:00 FiO2 40 09/11/24 08:00 Intake & Output 09/14/24 09/15/24 09/15/24 18:59 06:59 18:59 Intake Total 240 103 Output Total 275 975 Balance -35 -872 Weight 68.4 kg Intake: Intake, IV Titration 103 Amount Dextrose 5% in Water 100 103 ml @ 618 mls/hr IV .Q10M ONE with Amiodarone 150 mg Rx#:[id number] Oral 240 Output: Urine 275 975 Other: Voiding Method Urinal Urinal Urinal # Voids 1 1 # Bowel Movements 1 ABP, PAP, CO, CI - Last Documented Arterial Blood Pressure 118/43 Pulmonary Artery Pressure 31/4 Cardiac Output 4.7 Cardiac Index 2.6 - Exam GENERAL EXAM: Alert, active, 74-year-old male, awake and alert and 2L of oxygen by nasal cannula HEAD: Normocephalic. EYES: Normal reaction of pupils, equal size. NOSE: Clear with pink turbinates. THROAT: No erythema or exudates. NECK: No masses, no JVD. CHEST: No chest wall deformity. LUNGS: Equal air entry with no crackles, wheeze, rhonchi or dullness. CVS: S1 and S2 normal with no audible murmur, regular rhythm. ABDOMEN: No hepatosplenomegaly, normal bowel sounds, no guarding or rigidity. SPINE: No scoliosis or deformity SKIN: No rashes CENTRAL NERVOUS SYSTEM: No focal deficits, tone is normal in all 4 extremities. EXTREMITIES: There is no peripheral edema. No clubbing, no cyanosis. Peripheral pulses are intact. - Labs CBC & Chem 7: 09/15/24 06:38 09/15/24 06:38 Labs: Abnormal Lab Results - Last 24 Hours (Table) 09/14/24 09/14/24 09/14/24 Range/Units 11:19 16:08 20:14 RBC (4.30-5.90) m/uL Hgb (13.0-17.5) gm/dL Hct (39.0-53.0) % RDW (11.5-15.5) % Sodium (137-145) mmol/L Chloride (98-107) mmol/L Carbon Dioxide (22-30) mmol/L BUN (9-20) mg/dL Creatinine (0.66-1.25) mg/dL Glucose (74-99) mg/dL POC Glucose (mg/dL) 126 H 111 H 149 H (70-110) mg/dL 09/14/24 09/15/24 09/15/24 Range/Units 21:23 06:38 06:38 RBC 2.94 L (4.30-5.90) m/uL Hgb 9.1 L (13.0-17.5) gm/dL Hct 26.5 L (39.0-53.0) % RDW 16.2 H (11.5-15.5) % Sodium 133 L (137-145) mmol/L Chloride 94 L (98-107) mmol/L Carbon Dioxide 36 H (22-30) mmol/L BUN 24 H (9-20) mg/dL Creatinine 1.40 H (0.66-1.25) mg/dL Glucose 112 H (74-99) mg/dL POC Glucose (mg/dL) 155 H (70-110) mg/dL 09/15/24 Range/Units 06:52 RBC (4.30-5.90) m/uL Hgb (13.0-17.5) gm/dL Hct (39.0-53.0) % RDW (11.5-15.5) % Sodium (137-145) mmol/L Chloride (98-107) mmol/L Carbon Dioxide (22-30) mmol/L BUN (9-20) mg/dL Creatinine (0.66-1.25) mg/dL Glucose (74-99) mg/dL POC Glucose (mg/dL) 117 H (70-110) mg/dL Assessment and Plan Plan: The patient underwent four-vessel bypass surgery. The patient is post ARANA to LAD status and sequential radial to first and second obtuse marginal branch and PDA. Currently postop day # 5. The patient is currently on milrinone for hemodynamic and blood pressure support the current cardiac rhythm is sinus. The patient did encountered an episode of atrial fibrillation overnight and the patient's cardiac rhythm is back to sinus. Severe aortic stenosis status post aortic valve replacement, postop day # 5 Postthoracotomy, following cardiac surgery. Currently on 2 L of oxygen by nasal cannula. Small bilateral pleural effusions noted. Chest tubes have been removed. Postoperative hemoglobin drop/anemia, expected outcome of surgery and there is blood loss through the chest tube drainage. Patient has been transfused with a total of units of packed RBC and hemoglobin currently stable Status post Non-ST segment elevation myocardial infarction. Paroxysmal atrial fibrillation the patient is currently on amiodarone Hypertension Chronic nicotine dependence, rule out COPD. FEV1 shows 1.53 L, 49% of predicted Acute on chronic kidney injury, with acute component improving preoperatively. Renal functions continues to improve Hyperlipidemia Hypothyroidism Right popliteal artery aneurysm History of peripheral arterial disease with endovascular abdominal aneurysm repair approximately 2 years ago at [facility] Angioplasty in the right leg Current chronic tobacco dependence Occasional marijuana use Medication noncompliance Plan: Patient is currently on 2 L of oxygen by nasal cannula this morning Chest x-ray was reviewed and shows some small bilateral pleural effusions Continue aspirin and Plavix Metoprolol 50 mg p.o. twice a day Lasix 20 mg IV every 12 hours IV amiodarone this can be transition to oral amiodarone 400 mg p.o. twice a day as the patient's current cardiac rhythm is sinus We will continue to follow .
[2024-09-15 16:10] LABS: Glucose,Whole Blood 121 mg/dL (70-110)
[2024-09-15 20:38] LABS: Glucose,Whole Blood 132 mg/dL (70-110)
[2024-09-16 06:14] LABS: Glucose,Whole Blood 115 mg/dL (70-110)
--- NOTE | 2024-09-16 07:19 | XR ---
EXAMINATION TYPE: XR chest 2V DATE OF EXAM: 09/16/2024 COMPARISON: 09/14/2024 HISTORY: Postop cardiac surgery TECHNIQUE: Frontal and lateral views of the chest are obtained. FINDINGS: There is no significant interval change in the mild bilateral lower lobe atelectasis and s mall effusions. There are median sternotomy wires otherwise the osseous structures are intact. There is no pneumothorax. The pulmonary vasculature is not congested IMPRESSION: No significant interval change in the small bilateral pleural effusions and mild bibasil ar atelectasis. [facility], , 09/16/2024 7:17 AM
[2024-09-16 07:58] LABS: Anisocytosis Slight; HCT 27.6 % (39.0-53.0); HGB 8.9 gm/dL (13.0-17.5); MCH 30.1 pg (25.0-35.0); MCHC 32.3 g/dL (31.0-37.0); MCV 93.2 fL (80.0-100.0); Mean Platelet Volume 7.4; Platelet Count 245 k/uL (150-450); RBC 2.96 m/uL (4.30-5.90); WBC 6.4 k/uL (3.8-10.6)
[2024-09-16 08:06] VITALS: RESP 16
[2024-09-16 08:14] LABS: African American GFR (CKD) 58 (>60 ml/min/1.73 sqM); Anion Gap 4 mmol/L; Blood Urea Nitrogen 21 mg/dL (9-20); Calcium 8.4 mg/dL (8.4-10.2); Carbon Dioxide 37 mmol/L (22-30); Chloride 91 mmol/L (98-107); Glucose 107 mg/dL (74-99); Magnesium 2.1 mg/dL (1.6-2.3); Non-African American GFR(CKD) 50 (>60 ml/min/1.73 sqM); Potassium 3.4 mmol/L (3.5-5.1); Sodium 132 mmol/L (137-145)
[2024-09-16] MEDS: POTASSIUM CHLORIDE ER 20 MEQ TAB.ER PO SCH (08:57)
--- NOTE | 2024-09-16 09:01 | P.PN ---
Subjective Progress Note Date: 09/16/24 Principal diagnosis: Triple vessel coronary artery disease, aortic stenosis/insufficiency. Previous medical history of coronary artery disease with myocardial infarction and multip le stenting with the last stent greater than 10 years ago, peripheral arterial disease with endovascular abdominal aneurysm repair approximately 2 years ago at [facility], angioplasty in the right leg, hypertension, hyperlipidemia, remote history of pneumonia, current chronic tobacco dependence, occasional marijuana use, and medication noncompliance. POD #6 Aortic valve replacement with 23 mm Barcenas Inspiris bovine pericardial valve, CABG x 4 with ARANA to LAD, sequential left radial artery graft to first and second obtuse marginal coronary arteries, saphenous vein graft to posterior descending coronary artery, ligation of the left atrial appendage with 35 mm AtriCure clip, endovascular harvest bilateral greater saphenous veins, open harvest left radial artery. Intraoperative transesophageal echocardiogram performed by anesthesia. Postoperative acute blood loss anemia, expected given hemodilution, cardiopulmonary bypass and given his preoperative anemia Paroxysmal atrial fibrillation, known common occurrence after open heart surgery, currently sinus rhythm The patient was seen and examined this morning sitting up in recliner on the cardiac stepdown unit in no acute distress. Currently in sinus rhythm, hemodynamically stable. No further episodes of atrial fibrillation in the last 24 hours. Does complain of expected postoperative pain which is controlled on current medication regimen, denies shortness of breath. He has been ambulatory without difficulty, did shower yesterday. Chest x-ray, labs reviewed. Home oxygen evaluation completed, patient remains in the mid to high 90s on 2 L nasal cannula, oxygen saturation 88% on room air at rest, likely related to his COPD and smoking history. No other new concerns. Objective - Vital Signs Vital signs: Vital Signs Temp 98.4 F 09/16/24 08:03 Pulse 62 09/16/24 08:55 Resp 16 09/16/24 08:03 BP 155/79 09/16/24 08:03 Pulse Ox 97 09/16/24 08:45 FiO2 40 09/11/24 08:00 Intake & Output 09/15/24 09/16/24 09/16/24 18:59 06:59 18:59 Intake Total 727.505 58.057 10 Output Total 600 650 Balance 127.505 -591.943 10 Weight 66.8 kg Intake: IV 10 Invasive Line 6 10 Intake, IV Titration 247.505 58.057 Amount Amiodarone 450 mg In 247.505 58.057 Dextrose 5% in Water 250 ml @ 0.5 MG/MIN 16.667 mls/hr IV .Q15H [facility] Rx#: [id number] Oral 480 Output: Urine 600 650 Other: Voiding Method Urinal Urinal Urinal ABP, PAP, CO, CI - Last Documented Arterial Blood Pressure 118/43 Pulmonary Artery Pressure 31/4 Cardiac Output 4.7 Cardiac Index 2.6 - Exam CONSTITUTIONAL: Appears comfortable, cooperative, no acute distress RESPIRATORY: Lungs sounds diminished bilaterally. Respirations even, nonlabored. Currently on 2 L nasal cannula with oxygen saturation 95%, on room air patient's oxygen saturation drops to 88%. Able to achieve 1500 mL on incentive spirometry. Strong cough. CARDIOVASCULAR: S1, S2 present. Regular rate and rhythm, sinus rhythm on telemetry. Sternum stable. Palpable peripheral pulses bilaterally. No edema present. No calf pain or tenderness noted. Heart hugger in place with patient demonstrating appropriate use. Antiembolism stockings, SCDs present. GASTROINTESTINAL: Abdomen soft, nontender, nondistended. Active bowel sounds present 4 quadrants. Tolerating diet. Positive bowel movement 09/14 GENITOURINARY: Patient continues to void. Output 1250 mL in the last 24 hours INTEGUMENTARY: Skin is warm and dry with evidence of good perfusion. Anterior chest incision well approximated. Left radial artery harvest site as well as bilateral greater saphenous EVH sites well approximated without redness or drainage. NEUROLOGIC: Cranial nerves II through XII intact MUSKULOSKELETAL: Able to move all extremities, strength equal bilaterally, gait normal PSYCHIATRIC: Alert and oriented to person place and time, appropriate affect, intact judgment and insight - Allied health notes Allied health notes reviewed: nursing - Labs CBC & Chem 7: 09/16/24 07:22 09/16/24 07:22 Labs: Abnormal Lab Results - Last 24 Hours (Table) 09/15/24 09/15/24 09/15/24 Range/Units 11:21 16:06 20:34 RBC (4.30-5.90) m/uL Hgb (13.0-17.5) gm/dL Hct (39.0-53.0) % RDW (11.5-15.5) % Sodium (137-145) mmol/L Potassium (3.5-5.1) mmol/L Chloride (98-107) mmol/L Carbon Dioxide (22-30) mmol/L BUN (9-20) mg/dL Creatinine (0.66-1.25) mg/dL Glucose (74-99) mg/dL POC Glucose (mg/dL) 142 H 121 H 132 H (70-110) mg/dL 09/16/24 09/16/24 09/16/24 Range/Units 06:12 07:22 07:22 RBC 2.96 L (4.30-5.90) m/uL Hgb 8.9 L (13.0-17.5) gm/dL Hct 27.6 L (39.0-53.0) % RDW 16.0 H (11.5-15.5) % Sodium 132 L (137-145) mmol/L Potassium 3.4 L (3.5-5.1) mmol/L Chloride 91 L (98-107) mmol/L Carbon Dioxide 37 H (22-30) mmol/L BUN 21 H (9-20) mg/dL Creatinine 1.39 H (0.66-1.25) mg/dL Glucose 107 H (74-99) mg/dL POC Glucose (mg/dL) 115 H (70-110) mg/dL - Imaging and Cardiology Chest x-ray: report reviewed, image reviewed Assessment and Plan Assessment: Coronary artery disease with myocardial infarction and multiple stenting with the last stent greater than 10 years ago, non-STEMI this admission, status post four-vessel CABG Chest pain secondary to above Severe aortic stenosis with severe aortic insufficiency, status post aortic valve replacement Postoperative acute blood loss anemia, expected given hemodilution, cardiopulmonary bypass and given his preoperative anemia Paroxysmal atrial fibrillation, currently sinus History of peripheral arterial disease with endovascular abdominal aneurysm repair approximately 2 years ago at [facility] Angioplasty in the right leg Hypertension although patient denies Hyperlipidemia Remote history of pneumonia Current chronic tobacco dependence Occasional marijuana use Medication noncompliance Plan: Continue low-dose aspirin, statin, and beta-aidan. Will increase beta-aidan therapy as tolerated. Continue hydralazine for afterload reduction Continue amiodarone for A-fib prophylaxis. Anticoagulation started yesterday Continue amlodipine with hold parameters for radial artery spasm prophylaxis Wean oxygen as tolerated. Encourage incentive spirometry use 10 times every hour while awake. Bronchodilators per pulmonology. Increase activity as tolerated, PT/OT/cardiac rehab following. Will monitor daily labs and chest x-rays. Electrolyte replacement per protocol. Continue Lasix 20 mg IV push twice daily, daily potassium increased GI/DVT prophylaxis. Pain control per current medication regimen. Avoid Toradol due to renal function. Insulin management per internal medicine. Patient is not a diabetic, preoperative hemoglobin A1c was 6.0%, needs tight blood sugar control Continue to monitor and record strict accurate intake and output Daily weights Shower daily Continue levothyroxine 100 mcg p.o. daily. The importance of risk modification including smoking cessation has been reinforced with the patient, he will be given the number to [id number] upon discharge. Discharge planning in progress, anticipate discharge to home with home care later today versus tomorrow, patient may need to go home on oxygen More recommendations to follow based on patient's clinical course.
--- NOTE | 2024-09-16 09:40 | P.PN ---
Subjective Progress Note Date: 09/16/24 Subjective: No acute events overnight. Possible d/c later today or tomorrow per CT surgery. Vitals Signs Reviewed. Gen: In NAD, non-toxic HEENT: normocephalic, atraumatic, hearing acuity is intant, mucous membranes moist CVS: perfusing all extremities well, no pitting edema, Respiratory: symmetric chest expansion, no accessory muscle use, GI: soft, NTTP, ND, : no suprapubic tenderness, no CVA tenderness MSK/Derm: no rashes, cyanosis Neuro: CN II-XII intact, no motor weakness, Psych: cooperative, euthymic mood, judgment and insight is intact Assessment and Plan: Multivessel CAD status post CABG Severe aortic stenosis status post replacement Severe aortic regurgitation Acute NSTEMI, present on admission Acute blood loss anemia, anticipated outcome of surgery Pancytopenia Hypertension Nicotine dependence Dyslipidemia -Cardiothoracic surgery note reviewed, plan for discharge later today or tomorrow, may need home oxygen -Continue aspirin 325 daily, Plavix 75 daily, atorvastatin 40 mg daily, amlodipine 2.5 daily, amiodarone 200 twice daily, continue IV Lasix 40 IV twice daily per cardiothoracic surgery, monitor for electrolyte imbalance, also on hydralazine 25 every 8 hours, metoprolol 25 twice daily -Boiler Coverer and cardiology following -Patient is status post 5 units of PRBCs and 1 unit of platelets -Continue to monitor CBC Anxiety -Start 0.25 mg Xanax 3 times daily as needed for panic attacks Hyperglycemia Prediabetes Hypoglycemia, resolved -Continue sliding scale insulin, monitor for hypoglycemia Hypothyroidism -Continue on levothyroxine 100 mcg daily -Recheck TSH in 4 to 6 weeks CARMELO with CKD stage IIIa, resolving -Repeat renal function tomorrow Hypokalemia, resolved Thank you for allowing us to participate in the care of this pleasant patient. Do not hesitate to contact us with questions. Someone can be reached from the [facility] hospitalist group all hours of the day at [phone] or via perfect serve. Objective - Vital Signs Vital signs: Vital Signs Temp 98.4 F 09/16/24 08:03 Pulse 62 09/16/24 08:55 Resp 16 09/16/24 08:03 BP 155/79 09/16/24 08:03 Pulse Ox 97 09/16/24 08:45 FiO2 40 09/11/24 08:00 Intake & Output 09/15/24 09/16/24 09/16/24 18:59 06:59 18:59 Intake Total 727.505 58.057 10 Output Total 600 650 225 Balance 127.505 -591.943 -215 Weight 66.8 kg Intake: IV 10 Invasive Line 6 10 Intake, IV Titration 247.505 58.057 Amount Amiodarone 450 mg In 247.505 58.057 Dextrose 5% in Water 250 ml @ 0.5 MG/MIN 16.667 mls/hr IV .Q15H [facility] Rx#: [id number] Oral 480 Output: Urine 600 650 225 Other: Voiding Method Urinal Urinal Urinal ABP, PAP, CO, CI - Last Documented Arterial Blood Pressure 118/43 Pulmonary Artery Pressure 31/4 Cardiac Output 4.7 Cardiac Index 2.6 - Labs CBC & Chem 7: 09/16/24 07:22 09/16/24 07:22 Labs: Abnormal Lab Results - Last 24 Hours (Table) 09/15/24 09/15/24 09/15/24 Range/Units 11:21 16:06 20:34 RBC (4.30-5.90) m/uL Hgb (13.0-17.5) gm/dL Hct (39.0-53.0) % RDW (11.5-15.5) % Sodium (137-145) mmol/L Potassium (3.5-5.1) mmol/L Chloride (98-107) mmol/L Carbon Dioxide (22-30) mmol/L BUN (9-20) mg/dL Creatinine (0.66-1.25) mg/dL Glucose (74-99) mg/dL POC Glucose (mg/dL) 142 H 121 H 132 H (70-110) mg/dL 09/16/24 09/16/24 09/16/24 Range/Units 06:12 07:22 07:22 RBC 2.96 L (4.30-5.90) m/uL Hgb 8.9 L (13.0-17.5) gm/dL Hct 27.6 L (39.0-53.0) % RDW 16.0 H (11.5-15.5) % Sodium 132 L (137-145) mmol/L Potassium 3.4 L (3.5-5.1) mmol/L Chloride 91 L (98-107) mmol/L Carbon Dioxide 37 H (22-30) mmol/L BUN 21 H (9-20) mg/dL Creatinine 1.39 H (0.66-1.25) mg/dL Glucose 107 H (74-99) mg/dL POC Glucose (mg/dL) 115 H (70-110) mg/dL
[2024-09-16 11:17] LABS: Glucose,Whole Blood 120 mg/dL (70-110)
[2024-09-16 11:19] VITALS: BP 127/70; TEMP 98.5
[2024-09-16 12:12] VITALS: PULSE 74
--- NOTE | 2024-09-16 12:49 | P.PN ---
Subjective Progress Note Date: 09/16/24 74-year-old male who presented to the hospital, on September 03, via the emergency room. The patient presented with complaints of chest pain. The patient does have a history of atherosclerotic cardiovascular disease, and for a couple days prior to admission, was complaining of chest pressure. The chest pain/pressure, apparently radiated to both arms. He did not have any associated diaphoresis, or nausea. The patient apparently has had a heart attack in the past, and the pain that he was having, seemed similar. Today, we talked to Dr. Deluna about this patient, and apparently this patient will stay in the hospital, and have surgery, sometime early next week. The patient also has a history of s ignificant tobacco use for about 50 years. He was smoking up until the time he came into the hospital. His primary care physician is Dr. John Faulkner. He is currently on room air. The patient is getting IV heparin. The cardiac catheterization, showed severe triple-vessel disease, severe aortic stenosis and severe aortic regurgitation. The patient is currently in the process of being evaluated for open heart surgery. Laboratory data includes a white count 5.7, hemoglobin 10.8, macro 34.2, and a platelet count of 193,000. The patient's PTT is 45. Sodium 137, potassium 4.1, chlorides 105, CO2 29, BUN 16, creatinine 1.35. N-terminal proBNP was 1330. His troponin was 0.016. Chest CT showed no acute thoracic process, changes of mild COPD, and atherosclerotic calcification of thoracic aorta, with moderate coronary arterial calcifications, most prominent in the LAD. Progress note dated September 06, 2024. The patient is seen today in room 373. He is on room air. He is getting IV heparin. On his bedside spirometry, his FEV1 was 1.52 L, which would put him at low increased operative risk, for open heart surgery. Current labs include a white count 5.2, hemoglobin 11, hematocrit 35, and a normal platelet count. Sodium 136, potassium 3.9, chlorides 101, CO2 32, BUN 17, creatinine 1.45. Progress note dated and September 07, 2024. 74-year-old male seen today in room 373. He is currently on room air. He continues on IV heparin. The patient is likely to have a open heart procedure next week, may be on September 10Tuesday. Currently, he is resting comfortably, without any issues or problems. White count 6.9, hemoglobin 9.2, hematocrit 35.5, platelet count is normal. PTT is 42.2. Sodium 134, potassium 4, chlorides 103, CO2 26, BUN 28, creatinine 1.49. Progress note dated September 08, 2024. 74-year-old male with a history of coronary disease, and aortic stenosis. The patient is being evaluated for possible bypass grafting, and aortic valve replacement, early next week. Currently is on 2 L of oxygen. He is getting saline at 75 cc an hour. He is also on IV heparin. He has no specific complaints today. Current labs include a white count 6.6, hemoglobin 11.6, hematocrit 36.4, and a platelet count of 255,000. Sodium 135, potassium 3.8, chlorides 99, CO2 27, BUN 31, creatinine 1.93. His PTT is 49.6. His troponin is 0.028. The patient is seen today September 09, 2024 in follow-up on the selective care unit. He is currently resting comfortably in bed. Awake and alert in no acute distress. He is maintaining O2 saturations in the 90s on room air. He denies any shortness of breath, cough or congestion. He denies any chest pain. He is continued on a heparin drip. Practicing with the incentive spirometer. White count 4.9. Hemoglobin 10.2. Platelets 233. PTT 52.3. Sodium 135. Potassium 3.9. Bicarb 29. BUN 27. Creatinine 1.78. He had 09/10/2024, the patient is being seen immediately after evaluate to the intensive care unit. Currently intubated and mechanically ventilated. The patient underwent aortic valve replacement with a 23 mm Barcenas bovine pericardial valve and CABG x 4 with ARANA to LAD sequential left radial artery g raft to first and second obtuse marginal coronary arteries and PDA. The patient also underwent a ligation of the left atrial appendage. Intraoperatively, the patient received a total of 3 units have packed RBC and 1 unit of platelet. The patient is currently hemodynamically stable on milrinone which is running at 0.375 mcg/kg/min. Cardiac output is at 6.6 with an index of 3.7. PA pressures are 28/15. Urine output is adequate. The patient is well sedated on propofol which is running at 20 mcg/kg/min. He is on the mechanical ventilator assist- control mode with rate of 20, tidal volume of 500, FiO2 of 100% with a PEEP of 5. Blood gas and chest x-ray are still pending for now. The preop hemoglobin was 9.8. The patient also had a creatinine of 1.5 preoperatively. Afebrile. Has a left pleural and mediastinal chest tube without any evidence of air leak and output is minimal at this point. 74-year-old male who presented to the hospital, on September 03, via the emergency room. The patient presented with complaints of chest pain. The patient does have a history of atherosclerotic cardiovascular disease, and for a couple days prior to admission, was complaining of chest pressure. The chest pain/pressure, apparently radiated to both arms. He did not have any associated diaphoresis, or nausea. The patient apparently has had a heart attack in the past, and the pain that he was having, seemed similar. Today, we talked to Dr. Deluna about this patient, and apparently this patient will stay in the hospital, and have surgery, sometime early next week. The patient also has a history of significant tobacco use for about 50 years. He was smoking up until the time he came into the hospital. His primary care physician is Dr. John Faulkner. He is currently on room air. The patient is getting IV heparin. The cardiac catheterization, showed severe triple-vessel disease, severe aortic stenosis and severe aortic regurgitation. The patient is currently in the process of being evaluated for open heart surgery. Laboratory data includes a white count 5.7, hemoglobin 10.8, macro 34.2, and a platelet count of 193,000. The patient's PTT is 45. Sodium 137, potassium 4.1, chlorides 105, CO2 29, BUN 16, creatinine 1.35. N-terminal proBNP was 1330. His troponin was 0.016. Chest CT showed no acute thoracic process, changes of mild COPD, and atherosclerotic calcification of thoracic aorta, with moderate coronary arterial calcifications, most prominent in the LAD. Progress note dated September 06, 2024. The patient is seen today in room 373. He is on room air. He is getting IV heparin. On his bedside spirometry, his FEV1 was 1.52 L, which would put him at low increased operative risk, for open heart surgery. Current labs include a white count 5.2, hemoglobin 11, hematocrit 35, and a normal platelet count. Sodium 136, potassium 3.9, chlorides 101, CO2 32, BUN 17, creatinine 1.45. Progress note dated and September 07, 2024. 74-year-old male seen today in room 373. He is currently on room air. He continues on IV heparin. The patient is likely to have a open heart procedure next week, may be on September 10Tuesday. Currently, he is resting comfortably, without any issues or problems. White count 6.9, hemoglobin 9.2, hematocrit 35.5, platelet count is normal. PTT is 42.2. Sodium 134, potassium 4, chlorides 103, CO2 26, BUN 28, creatinine 1.49. Progress note dated September 08, 2024. 74-year-old male with a history of coronary disease, and aortic stenosis. The patient is being evaluated for possible bypass grafting, and aortic valve repl acement, early next week. Currently is on 2 L of oxygen. He is getting saline at 75 cc an hour. He is also on IV heparin. He has no specific complaints today. Current labs include a white count 6.6, hemoglobin 11.6, hematocrit 36.4, and a platelet count of 255,000. Sodium 135, potassium 3.8, chlorides 99, CO2 27, BUN 31, creatinine 1.93. His PTT is 49.6. His troponin is 0.028. The patient is seen today September 09, 2024 in follow-up on the selective care unit. He is currently resting comfortably in bed. Awake and alert in no acute distress. He is maintaining O2 saturations in the 90s on room air. He denies any shortness of breath, cough or congestion. He denies any chest pain. He is continued on a heparin drip. Practicing with the incentive spirometer. White count 4.9. Hemoglobin 10.2. Platelets 233. PTT 52.3. Sodium 135. Potassium 3.9. Bicarb 29. BUN 27. Creatinine 1.78. He had 09/10/2024, the patient is being seen immediately after evaluate to the intensive care unit. Currently intubated and mechanically ventilated. The patient underwent aortic valve replacement with a 23 mm Barcenas bovine pericardial valve and CABG x 4 with ARANA to LAD sequential left radial artery graft to first and second obtuse marginal coronary arteries and PDA. The patient also underwent a ligation of the left atrial appendage. Intraoperatively, the patient received a total of 3 units have packed RBC and 1 unit of platelet. The patient is currently hemodynamically stable on milrinone which is running at 0.375 mcg/kg/min. Cardiac output is at 6.6 with an index of 3.7. PA pressures are 28/15. Urine output is adequate. The patient is well sedated on propofol which is running at 20 mcg/kg/min. He is on the mechanical ventilator assist-control mode with rate of 20, tidal volume of 500, FiO2 of 100% with a PEEP of 5. Blood gas and chest x-ray are still pending for now. The preop hemoglobin was 9.8. The patient also had a creatinine of 1.5 preoperatively. Afebrile. Has a left pleural and mediastinal chest tube without any evidence of air leak and output is minimal at this point. On 09/11/2024, the patient is postop day #1. Overnight, the patient had some increased bleeding from his chest tubes. Based on that, the extubation process was delayed till early this morning. The patient is currently postop day #1. The patient underwent aortic valve replacement and four-vessel bypass surgery. The patient currently is hemodynamically stable. There was a drop in hemoglobin down to 6.1 along with bleeding from the chest tubes. The patient got trans fused with a unit of packed RBC and hemoglobin currently is at 6.7 and he will receive another unit of packed RBC. Meanwhile, he is hemodynamically stable. Cardiac output from this morning is at 5.7 with an index of 3.2. PA pressures are 30/10. Milrinone is running at 0.1 mcg/kg/min. Blood pressure was elevated and the patient was started on Cleviprex drip at 1 mg an hour. Output from the mediastinal chest tube has been 160 cc over the past 8 hours and 450 cc since surgery. Output from the left lower chest tube has been 350 cc over the past 8 hours and 500 cc since surgery. The patient was extubated this morning and currently is on oxygen at 4 L/min nasal cannula. Chest x-ray shows adequate positioning of the left-sided and mediastinal chest tube. Whitehall-Soraya catheter remains in place. Postsurgical changes are noted. No evidence of any pneumothorax. And no other significant abnormalities have been noted. The patient's hemoglobin currently is at 8.5 following the transfusion of second unit of packed RBC. Hemoglobin is at 8.9, white cell count is 6.4, the electrolytes from earlier today showed a BUN of 19 with a creatinine of 1.5 and a sodium level of 137 with a potassium level of 4.2 and a bicarb of 24. Communicating. No significant respiratory distress. Chest pain is under adequate control. No focal neurological deficits. On 09/12/2024, the patient is awake and alert and the patient is currently postop day #2 following an aortic valve replacement and four-vessel bypass surgery. The patient has been already extubated and the patient is currently on oxygen at 3 L/min nasal cannula. Chest x-ray from today showing some mild pulm vas congestion. The patient has a mediastinal left pleural chest tube in place. The patient was given a dose of Lasix with adequate diuresis. The patient's cardiac output is at 4.7 with an index of 2.6. The patient is currently off milrinone.. Cleviprex has been discontinued and the patient's blood pressure is stable and the patient remains on insulin 2 unit an hour. The patient's mediastinal chest tube has produced around 230 cc over the past 8 hours and the left pleural chest tube was produced around 210 cc over the past 8 hours. The white cell count 7.8 with a hemoglobin 8.7 and a platelet count of 119. BUN is 18 with a creatinine of 1.5 and a sodium less than 135 and a potassium levels of 4.4 with a bicarb of 22. LFTs are normal. Afebrile. Communicating. Sitting up in a chair. Ambulating. Using the incentive spirometer. Neurologically intact. No other significant events overnight. On 09/13/2024, the patient is doing well. The patient is calm and comfortable. The chest x-ray from today shows no evidence of any pneumothorax. The chest tubes have been removed. The patient is not having any respiratory distress. Whitehall-Soraya catheter is removed and the patient is currently on no pressors. Stubbs catheter was also removed. Using incentive spirometer. No issues with pain or chest discomfort for now. The patient is awake and alert and communicating. Is ambulating. Cardiac rhythm remains sinus. The white cell count is at 7.8 with hemoglobin 8.6, BUN is 23 with a creatinine 1.3 and a sodium levels at 131. LFTs are normal. On 09/14/2024, the patient on the medical floor following his cardiac surgery. The patient is doing well for now. The patient is postop day #4. Chest tubes were removed and the patient is currently on oxygen at 2 L/min nasal cannula. Repeat chest x-ray from today shows no evidence of pneumothorax. The patient has postthoracotomy changes and trace bilateral pleural effusions. He did encounter a episode of atrial fibrillation overnight and the patient's cardiac rhythm is back to sinus and the patient is currently on amiodarone. Some increased anxiety and the patient is requesting Xanax. Otherwise, no other significant events overnight. The white cell count is at 7 with a hemoglobin of 8 and a platelet count of 122. BUN 24 with a creatinine of 1.2 and a sodium levels at 132 with a potassium level of 3.4 that needs to be further replaced. Acute kidney injury is improving and the creatinine is on the decline. 09/15/2024, the patient is being seen for a follow-up. Patient is currently calm and comfortable. No new complaints for now. The patient is postop day #5. Sitting up in a chair. He is in sinus rhythm. He did have a brief episode of 2 hours of atrial fibrillation and he was loaded together with IV amiodarone and he converted back into normal sinus rhythm. He is also on beta-blockers and the patient is currently on metoprolol 50 mg p.o. twice a day. The follow-up chest x-ray from today shows left lower lobe atelectasis and tiny effusions. The patient is currently on 2 L of oxygen by nasal cannula with a pulse ox of 97%. BUN is 24 with a creatinine 1.4 and sodium levels at 133. Hemoglobin is at 9.4 with a white cell count of 5.8. No other significant events overnight. Ambulating. Using incentive spirometer. 09/16/2024, patient is calm and comfortable. Maintained on diuretics with excellent urine output. He is on room air oxygen with a pulse ox of 91%. Chest tube will be removed. The chest x-ray from today is not showing any acute abnormalities. There are some small bilateral pleural effusion with postthoracotomy changes including atelectatic changes in lung bases. BUN 21 with a creatinine of 1.3. Sodium is 132, potassium level is replacement 3.4. Hemoglobin stable at 8.9 with a white cell count of 6.4. Remains on aspirin and Plavix. Remains on anticoagulation. History of hypertension. Remains on amiodarone 4 mg p.o. twice a day and metoprolol 50 mg p.o. twice a day. He is also on IV Lasix. Objective - Vital Signs Vital signs: Vital Signs Temp 98.5 F 09/16/24 11:17 Pulse 74 09/16/24 12:11 Resp 16 09/16/24 11:17 BP 127/70 09/16/24 11:17 Pulse Ox 91 L 09/16/24 11:17 FiO2 40 09/11/24 08:00 Intake & Output 09/15/24 09/16/24 09/16/24 18:59 06:59 18:59 Intake Total 727.505 58.057 10 Output Total 600 650 475 Balance 127.505 -591.943 -465 Weight 66.8 kg Intake: IV 10 Invasive Line 6 10 Intake, IV Titration 247.505 58.057 Amount Amiodarone 450 mg In 247.505 58.057 Dextrose 5% in Water 250 ml @ 0.5 MG/MIN 16.667 mls/hr IV .Q15H PENDING SALE TO [facility] Rx#: [id number] Oral 480 Output: Urine 600 650 475 Other: Voiding Method Urinal Urinal Urinal ABP, PAP, CO, CI - Last Documented Arterial Blood Pressure 118/43 Pulmonary Artery Pressure 31/4 Cardiac Output 4.7 Cardiac Index 2.6 - Exam GENERAL EXAM: Alert, active, 74-year-old male, awake and alert and 2L of oxygen by nasal cannula HEAD: Normocephalic. EYES: Normal reaction of pupils, equal size. NOSE: Clear with pink turbinates. THROAT: No erythema or exudates. NECK: No masses, no JVD. CHEST: No chest wall deformity. LUNGS: Equal air entry with no crackles, wheeze, rhonchi or dullness. CVS: S1 and S2 normal with no audible murmur, regular rhythm. ABDOMEN: No hepatosplenomegaly, normal bowel sounds, no guarding or rigidity. SPINE: No scoliosis or deformity SKIN: No rashes CENTRAL NERVOUS SYSTEM: No focal deficits, tone is normal in all 4 extremities. EXTREMITIES: There is no peripheral edema. No clubbing, no cyanosis. Peripheral pulses are intact. - Labs CBC & Chem 7: 09/16/24 07:22 09/16/24 07:22 Labs: Abnormal Lab Results - Last 24 Hours (Table) 09/15/24 09/15/24 09/16/24 Range/Units 16:06 20:34 06:12 RBC (4.30-5.90) m/uL Hgb (13.0-17.5) gm/dL Hct (39.0-53.0) % RDW (11.5-15.5) % Sodium (137-145) mmol/L Potassium (3.5-5.1) mmol/L Chloride (98-107) mmol/L Carbon Dioxide (22-30) mmol/L BUN (9-20) mg/dL Creatinine (0.66-1.25) mg/dL Glucose (74-99) mg/dL POC Glucose (mg/dL) 121 H 132 H 115 H (70-110) mg/dL 09/16/24 09/16/24 09/16/24 Range/Units 07:22 07:22 11:15 RBC 2.96 L (4.30-5.90) m/uL Hgb 8.9 L (13.0-17.5) gm/dL Hct 27.6 L (39.0-53.0) % RDW 16.0 H (11.5-15.5) % Sodium 132 L (137-145) mmol/L Potassium 3.4 L (3.5-5.1) mmol/L Chloride 91 L (98-107) mmol/L Carbon Dioxide 37 H (22-30) mmol/L BUN 21 H (9-20) mg/dL Creatinine 1.39 H (0.66-1.25) mg/dL Glucose 107 H (74-99) mg/dL POC Glucose (mg/dL) 120 H (70-110) mg/dL Assessment and Plan Plan: The patient underwent four-vessel bypass surgery. The patient is post ARANA to LAD status and sequential radial to first and second obtuse marginal branch and PDA. Currently postop day # 6. The patient is currently on milrinone for hemodynamic and blood pressure support the current cardiac rhythm is sinus. The patient did encountered an episode of atrial fibrillation overnight and the patient's cardiac rhythm is back to sinus. Severe aortic stenosis status post aortic valve replacement, postop day # 6 Postthoracotomy, following cardiac surgery. Currently on room air oxygen. Small bilateral pleural effusions noted. Chest tubes have been removed. Postoperative hemoglobin drop/anemia, expected outcome of surgery and there is blood loss through the chest tube drainage. Patient has been transfused with a total of units of packed RBC and hemoglobin currently stable Status post Non-ST segment elevation myocardial infarction. Paroxysmal atrial fibrillation the patient is currently on amiodarone Hypertension Chronic nicotine dependence, rule out COPD. FEV1 shows 1.53 L, 49% of predicted Acute on chronic kidney injury, with acute component improving preoperatively. Renal functions continues to improve Hyperlipidemia Hypothyroidism Right popliteal artery aneurysm History of peripheral arterial disease with endovascular abdominal aneurysm repair approximately 2 years ago at [facility] Angioplasty in the right leg Current chronic tobacco dependence Occasional marijuana use Medication noncompliance Plan: Patient is currently on room air oxygen Chest x-ray was reviewed and shows some small bilateral pleural effusions Continue aspirin and Plavix Metoprolol 50 mg p.o. twice a day Lasix 20 mg IV every 12 hours oral amiodarone 400 mg p.o. twice a day as the patient's current cardiac rhythm is sinus We will continue to follow
[2024-09-16] MEDS ORDERED: hydrALAZINE HCL 50 MG TAB PO SCH (21:00)
--- NOTE | 2024-09-17 11:21 | P.DS ---
Providers Date of admission: 09/05/24 09:47 Expected date of discharge: 09/16/24 Attending physician: Vitaliy Deluna Consults: 09/04/24 00:17 Consult Physician Urgent Consulting Provider: Tuan Villar Consult Reason/Comments: chest pain Do you want consulting provider notified?: Yes 09/04/24 13:18 Consult Physician Routine Consulting Provider: Vitaliy Deluna Consult Reason/Comments: cabg Do you want consulting provider notified?: Already Contacted 09/05/24 10:30 Consult Physician Routine Consulting Provider: Pato Munson Consult Reason/Comments: pulm clearence Do you want consulting provider notified?: Already Contacted 09/05/24 14:59 Consult Physician Routine Consulting Provider: Tawnya Lugo Consult Reason/Comments: valve surgery dental clearance;panorex completed Do you want consulting provider notified?: Yes 09/09/24 08:00 Consult to Anesthesia Routine Consulting Provider: Anesthesia,Services Consult Reason/Comments: Cardiac Surgery Pre-Op 09/10/24 16:52 Consult Physician Routine Consulting Provider: Vignesh Joe Consult Reason/Comments: Medical Management Do you want consulting provider notified?: Already Contacted Primary care physician: John [facility] Hospital Course: FINAL DIAGNOSIS: Coronary artery disease with myocardial infarction and multiple stenting with the last stent greater than 10 years ago, non-STEMI this admission Chest pain secondary to above Severe aortic stenosis with severe aortic insufficiency Postoperative acute blood loss anemia, expected given hemodilution, cardiopulmonary bypass and given his preoperative anemia Paroxysmal atrial fibrillation, currently sinus Newly diagnosed hypothyroid, TSH 14.6, free T4 0.76 History of peripheral arterial disease with endovascular abdominal aneurysm repair approximately 2 years ago at [facility] Angioplasty in the right leg Hypertension although patient denies Hyperlipidemia Remote history of pneumonia Current chronic tobacco dependence Occasional marijuana use Medication noncompliance PRINCIPAL PROCEDURE: Aortic valve replacement with 23 mm Barcenas Inspiris bovine pericardial valve CABG x 4 with ARANA to LAD, sequential left radial artery graft to first and second obtuse marginal coronary arteries, saphenous vein graft to posterior descending coronary artery Ligation of the left atrial appendage with 35 mm AtriCure clip Endovascular harvest bilateral greater saphenous veins Open harvest left radial artery Intraoperative transesophageal echocardiogram performed by anesthesia HISTORY OF PRESENT ILLNESS: This is a 74-year-old gentleman who follows outpatient with Dr. Faulkner for primary care, Dr. Byrd for cardiology, and Dr. Rawls for vascular. He presented to [facility] with complaints of intermittent chest pressure with radiation to his arms and back, denies of breath, nausea, diaphoresis, or any other symptomatology. He did self administer aspirin prior to arrival, his chest pain was relieved with sublingual nitro in the emergency department. EKG demonstrated sinus rhythm. Chest x-ray demonstrated no acute process. Lab work revealed WBC 6.1, hemoglobin 11.3, creatinine 1.35, third troponin was positive at 0.041 and patient was ruled in for NSTEMI. He was takent to the Super[facility] revealing severe triple-vessel coronary artery disease. In addition echocardiogram was completed demonstrating normal left ventricular systolic function with EF 55 to 60%, severe aortic stenosis with aortic valve area 0.5 cm, peak/mean gradient 98/55 mmHg, and peak velocity 4.95 m/s. Due to these findings consultation was placed to Dr. Deluna from cardiothoracic surgery. He was recommended to undergo aortic valve replacement and coronary artery bypass surgery. The usual perioperative course was discussed in detail with the patient and his family, all risks and benefits were explained, all questions were answered, and consent was obtained to proceed with surgery. The patient was kept inpatient due to the nature of his disease process, his newly diagnosed hypothyroidism was addressed, and dental clearance was obtained. HOSPITAL COURSE: The patient was brought to the preoperative area 09/10/24, p repared in the usual fashion, and subsequently taken to the operating room where Dr. Deluna performed four-vessel CABG and aortic valve replacement. Upon completion of surgery the patient was transferred to the cardiovascular intensive care unit where he was recovered and monitored hemodynamically. He was extubated, all lines, tubes, and drips were discontinued when appropriate, and he was transferred to [facility] cardiac stepdown unit for further monitoring and rehabilitation. He did experience paroxysmal atrial fibrillation briefly and was treated with amiodarone and Eliquis. His oxygen was titrated down, he continued to work with physical and occupational therapy, he was tolerating oral diet, his pain was controlled, and he was ready to be discharged to home with [facility] care on postoperative day #6. He received written and verbal instruction regarding his medications, activity restrictions, signs and symptoms requiring physician notification, and follow-up appointments. Patient Condition at Discharge: Stable Plan - Discharge Summary Discharge Rx Participant: No New Discharge Prescriptions: New Amiodarone [Cordarone] 400 mg PO BID #50 tab Apixaban [Eliquis] 5 mg PO BID #60 tab Furosemide [Lasix] 40 mg PO DAILY #30 tablet Atorvastatin [Lipitor] 40 mg PO DAILY #30 tab Metoprolol Tartrate [Lopressor] 50 mg PO BID #60 tab Levothyroxine Sodium [Synthroid] 100 mcg PO DAILY@0630 #30 tab Acetaminophen Tab [Tylenol] 1,000 mg PO Q6HR PRN tab PRN Reason: Fever And/ Or Mild Pain (1-3) hydrALAZINE HCL [Apresoline] 50 mg PO BID #60 tab Potassium Chloride ER [K-Dur 20] 20 meq PO BID #60 tab amLODIPine [Norvasc] 5 mg PO DAILY@1200 #30 tab Pantoprazole [Protonix] 40 mg PO AC-BRKFST #30 tab Sennosides-Docusate Sodium [Senokot-S] 2 each PO HS PRN tab PRN Reason: Constipation Continue Aspirin EC [Ecotrin Low Dose] 81 mg PO DAILY Discontinued Metoprolol Tartrate [Lopressor] 50 mg PO DAILY Discharge Medication List Aspirin EC [Ecotrin Low Dose] 81 mg PO DAILY 09/04/24 [History] Acetaminophen Tab [Tylenol] 1,000 mg PO Q6HR PRN tab 09/16/24 [Rx] Amiodarone [Cordarone] 400 mg PO BID #50 tab 09/16/24 [Rx] Apixaban [Eliquis] 5 mg PO BID #60 tab 09/16/24 [Rx] Atorvastatin [Lipitor] 40 mg PO DAILY #30 tab 09/16/24 [Rx] Furosemide [Lasix] 40 mg PO DAILY #30 tablet 09/16/24 [Rx] Levothyroxine Sodium [Synthroid] 100 mcg PO DAILY@0630 #30 tab 09/16/24 [Rx] Metoprolol Tartrate [Lopressor] 50 mg PO BID #60 tab 09/16/24 [Rx] Pantoprazole [Protonix] 40 mg PO AC-BRKFST #30 tab 09/16/24 [Rx] Potassium Chloride ER [K-Dur 20] 20 meq PO BID #60 tab 09/16/24 [Rx] Sennosides-Docusate Sodium [Senokot-S] 2 each PO HS PRN tab 09/16/24 [Rx] amLODIPine [Norvasc] 5 mg PO DAILY@1200 #30 tab 09/16/24 [Rx] hydrALAZINE HCL [Apresoline] 50 mg PO BID #60 tab 09/16/24 [Rx] Follow up Appointment(s)/Referral(s): Peyman Falcon MD [STAFF PHYSICIAN] - 09/27/24 10:45 am Rehab [facility] IGNACIO,Cardiac [NON-STAFF] - 4 Weeks (You will receive a phone call in approximately 4-6 weeks for evaluation for cardiac rehab) [facility] [NON-STAFF] - 1-2 Days (You should be seen the day after discharge by home care rn, then 2-3 times per week until you start cardiac rehab. Physical and occupational therapy will also visit at least once, and will continue to come if necessary) John Faulkner MD [Primary Care Provider] - 09/26/24 1:00 pm Vitaliy Deluna MD [STAFF PHYSICIAN] - 10/11/24 2:00 pm Lee Batista NPC [Nurse Practitioner] - 09/21/24 12:00 pm (You will be seen in the surgeon's office behind the hospital in [facility] [place], [address]. Office phone number is ) Pato Munson DO [Doctor of Osteopathic Medicine] - 10/09/24 10:00 am Ambulatory/Diagnostic Orders: Complete Blood Count w/diff [LAB.AMB] Time Frame: 3 Days, Location: None Selected Comprehensive Metabolic Panel [LAB.AMB] Time Frame: 3 Days, Location: None Selected Activity/Diet/Wound Care/Special Instructions: DISCHARGE INSTRUCTIONS: 1. No driving for 4 weeks, or until physician gives their ok. 2. The patient should sleep in their own bed, no medical bed needed. 3. Stairs are not an issue. If the bedroom is upstairs, it is advised that the patient go up at night and down in the morning for the first week. Go slowly, using handrail and take 1 step at a time. 4. FIDELIA hose are to be worn for 30 days post surgery or until physician discontinues. 5. Heart hugger is to be worn 100% of the time until physician discontinues.(except when showering) 6. No lifting, pushing, or pulling more than 10 pounds for 12 weeks. The physician will advise of any restriction changes. 7. The patient is expected to continue the prescribed walking program. 8. Continue pain control per as needed orders. 9. Continue with incentive spirometry and splinting/heart hugger until otherwise directed by the physician. 10. Must shower daily using liquid antibacterial soap 11. Routine sternal incision care. No powders, lotions, ointments on incisions. No dressings are necessary on incisions unless they are draining. Dermabond tape is to remain on sternal incision until surgeon follow-up. 12. Please call surgeon/EDGE DRUMMER for temp greater than 101 F or purulent drainage from incisions. 13. You should weigh yourself daily, record and bring log with you to follow up appointments. 14. All prescriptions given by surgeon for 30 days. Refills need to be filled through medical insurance clerk/primary care physician. 15. A Red armband has been placed on the patient. It should be worn for 30 days post discharge from surgery and will be removed by the cardiac surgeons. If an ER visit is necessary, please make sure the number on the Red armband is called before going to ER. 16. You have been referred to and are expected to begin Cardiac Rehab in approximately 4-6 weeks. 17. Quitting smoking is the most important step you can take to improve your health. For additional information and assistance to quit smoking, please call the [place] tobacco quit line (2-336-RHVI-NOW/ ) or online: https://www.[place].gov/[facility]/wlsp-fr-juehcsn/chronicdiseases/tobacco/how-to-qu it-tobacco HOME HEALTH SERVICES TO PROVIDE: RN SKILLED HOME CARE SERVICES FOR POST-OP SURGICAL PATIENTS WITH THE FOLLOWING: Coronary Artery Bypass Surgery (CABG), Mitral Valve Replacement/Repair ( MVR), Aortic Valve Replacement/Repair (AVR) RN TO CONTINUE EDUCATION FROM ``ROAD TO A HEALTH HEART PATIENT EDUCATION MANUAL (GIVEN TO PATIENT IN THE HOSPITAL) MEDICATION RECONCILIATION WITH EDUCATION NEEDED ON FIRST HOME VISIT EMPHASIZE IMPORTANCE OF WEARING BREAST SUPPORT/HEART HUGGER ENCOURAGE USE OF INCENTIVE SPIROMETER 10 X EVERY HOUR WHILE AWAKE ENCOURAGE UTILIZATION OF LOWER EXTREMITY COMPRESSION STOCKINGS/FIDELIA HOSE and ELEVATE LEGS ABOVE LEVEL OF HEART WHILE AT REST. ENCOURAGE AMBULATION 3-5x/day INCREASING TOLERATES, WHILE AVOIDING EXTREMES IN TEMPERATURE FREQUENCY: RN TO OPEN THE PATIENT WITHIN 24 HOURS OF DISCHARGE FROM THE HOSPITAL WITH TELEHEALTH INSTALLED AT [facility], RN TO VISIT 2-3 X A WEEK FOR 4 WEEKS ESTABLISHED BY PATIENT NEEDS. LABORATORY: CBC, CMP TO BE DRAWN ON THE THIRD DAY HOME, (RAN STAT) FAX RESULTS TO [phone]. TELEHEALTH PARAMETERS: WEIGHT: NOTIFY MD OF WEIGHT GAIN OF 2 LBS IN 24 HOURS OR 5 LBS IN ONE WEEK HR: NOTIFY MD OF HR <55 BPM OR HR>100 BPM BP: NOTIFY MD IF BP <90/55 OR BP>140/100 O2 SAT: NOTIFY MD IF PO2<93% ON ROOM AIR SEND TELEHEALTH REPORT TO PROCESS INSPECTOR AND CARDIOVASCULAR SURGEON THE FIRST WEEK OF CARE AND THEN BI-WEEKLY. PLEASE ADDITIONALLY COMMUNICATE ANY ABNORMALS AND NEW FINDINGS TO THE SURGEONS OFFICE. Discharge Disposition: HOME WITH HOME HEALTH SERVICES
== END 2024-09-16 13:08 | disposition home health service (06) | DRG 216 ==
LOC: EC 21:43 → 6NMEDSUR 09-04 00:18 → 3SCARD 09-04 07:09 → OBSVTOIN 09-05 09:47 → 2SICU 09-10 07:29 → 3SCARD 09-13 12:53 → 3NCARDOBS 09-13 21:55 → 3SCARD 09-13 21:55 → 3NCARDOBS 09-14 10:39 → 3SCARD 09-14 10:39
PROVIDERS: ADMIT Thoracic Surgery (Cardiothoracic Vascular Surgery); ATTEND Thoracic Surgery (Cardiothoracic Vascular Surgery)
PROC: 4A023N7 Measurement of Cardiac Sampling and Pressure, Left Heart, Percutaneous Approach (ICD-10-PCS; 2024-09-04)
PROC: B2111ZZ Fluoroscopy of Multiple Coronary Arteries using Low Osmolar Contrast (ICD-10-PCS; 2024-09-04)
PROC: B24BZZ4 Ultrasonography of Heart with Aorta, Transesophageal (ICD-10-PCS; 2024-09-10)
PROC: 30233N1 Transfusion of Nonautologous Red Blood Cells into Peripheral Vein, Percutaneous Approach (ICD-10-PCS; 2024-09-10)
PROC: 30233R1 Transfusion of Nonautologous Platelets into Peripheral Vein, Percutaneous Approach (ICD-10-PCS; 2024-09-10)
PROC: 02RF08Z Replacement of Aortic Valve with Zooplastic Tissue, Open Approach (ICD-10-PCS; principal; 2024-09-10 08:00)
PROC: 02100Z9 Bypass Coronary Artery, One Artery from Left Internal Mammary, Open Approach (ICD-10-PCS; 2024-09-10 08:00)
PROC: 06BP4ZZ Excision of Right Saphenous Vein, Percutaneous Endoscopic Approach (ICD-10-PCS; 2024-09-10 08:00)
PROC: 0211093 Bypass Coronary Artery, Two Arteries from Coronary Artery with Autologous Venous Tissue, Open Approach (ICD-10-PCS; 2024-09-10 08:00)
PROC: 06BQ4ZZ Excision of Left Saphenous Vein, Percutaneous Endoscopic Approach (ICD-10-PCS; 2024-09-10 08:00)
PROC: 02100A3 Bypass Coronary Artery, One Artery from Coronary Artery with Autologous Arterial Tissue, Open Approach (ICD-10-PCS; 2024-09-10 08:00)
PROC: 03BC4ZZ Excision of Left Radial Artery, Percutaneous Endoscopic Approach (ICD-10-PCS; 2024-09-10 08:00)
PROC: 02L70CK Occlusion of Left Atrial Appendage with Extraluminal Device, Open Approach (ICD-10-PCS; 2024-09-10 08:00)
PROC: 5A1221Z Performance of Cardiac Output, Continuous (ICD-10-PCS; 2024-09-10 08:00)
DX: T82.855A Stenosis of coronary artery stent, initial encounter (principal); I21.4 Non-ST elevation (NSTEMI) myocardial infarction; D61.818 Other pancytopenia; N17.9 Acute kidney failure, unspecified; D62 Acute posthemorrhagic anemia; I73.9 Peripheral vascular disease, unspecified; J44.9 Chronic obstructive pulmonary disease, unspecified; I35.8 Other nonrheumatic aortic valve disorders; I35.2 Nonrheumatic aortic (valve) stenosis with insufficiency; I12.9 Hypertensive chronic kidney disease with stage 1 through stage 4 chronic kidney disease, or unspecified chronic kidney disease; E03.9 Hypothyroidism, unspecified; Z95.820 Peripheral vascular angioplasty status with implants and grafts; N18.31 Chronic kidney disease, stage 3a; I48.0 Paroxysmal atrial fibrillation; I25.10 Atherosclerotic heart disease of native coronary artery without angina pectoris; F17.210 Nicotine dependence, cigarettes, uncomplicated; E78.00 Pure hypercholesterolemia, unspecified; R73.9 Hyperglycemia, unspecified; E87.6 Hypokalemia; F41.9 Anxiety disorder, unspecified; H54.8 Legal blindness, as defined in USA; E16.2 Hypoglycemia, unspecified; Y71.1 Therapeutic (nonsurgical) and rehabilitative cardiovascular devices associated with adverse incidents; Z91.148 Patient's other noncompliance with medication regimen for other reason; Z91.198 Patient's noncompliance with other medical treatment and regimen for other reason; I25.2 Old myocardial infarction; Z86.718 Personal history of other venous thrombosis and embolism; Z86.79 Personal history of other diseases of the circulatory system; Z79.82 Long term (current) use of aspirin
CPT/HCPCS: 36415; 70486; 71045; 71046; 71250; 76770; 80048; 80053; 80061; 80074; 81003; 82330; 82570; 82805; 83036; 83735; 83880; 84132; 84300; 84439; 84443; 84484; 85025; 85027; 85610; 85730; 86850; 86891; 86900; 86901; 86920; 87070; 88305; 93005; 93306; 93458; 93567; 93880; 93922; 93930; 93970; 94002; 94150; 94640; 94760; 96365; 96366; 99291

== ENCOUNTER 2024-11-30 18:35 | Inpatient (IN) | payer MEDICARE ==
[2024-11-30 19:25] LABS: Basophils % (A) 0 %; Eosinophils % (A) 0 %; HGB 13.5 gm/dL (13.0-17.5); Lymphocytes # (A) 0.8 k/uL (1.0-4.8); Lymphocytes % (A) 10 %; MCH 30.3 pg (25.0-35.0); MCV 92.1 fL (80.0-100.0); Mean Platelet Volume 7.6; Monocytes # (A) 0.5 k/uL (0-1.0); Monocytes % (A) 6 %; Neutrophils # (A) 6.1 k/uL (1.3-7.7); Neutrophils % (A) 82 %; Platelet Count 205 k/uL (150-450); RBC 4.46 m/uL (4.30-5.90); RDW 15.3 % (11.5-15.5); WBC 7.4 k/uL (3.8-10.6)
[2024-11-30 19:33] LABS: Partial Thromboplastin Time 23.9 sec (22.0-30.0); Prothrombin Time 10.9 sec (10.0-12.5)
[2024-11-30 19:43] LABS: ALT 18 U/L (4-49); AST 40 U/L (17-59); African American GFR (CKD) 39 (>60 ml/min/1.73 sqM); Albumin 4.5 g/dL (3.5-5.0); Alkaline Phosphatase 115 U/L (38-126); Anion Gap 10 mmol/L; Blood Urea Nitrogen 34 mg/dL (9-20); Calcium 9.8 mg/dL (8.4-10.2); Carbon Dioxide 33 mmol/L (22-30); Chloride 92 mmol/L (98-107); Glucose 122 mg/dL (74-99); Magnesium 2.1 mg/dL (1.6-2.3); Non-African American GFR(CKD) 33 (>60 ml/min/1.73 sqM); Potassium 3.4 mmol/L (3.5-5.1); Sodium 135 mmol/L (137-145); Total Bilirubin 1.5 mg/dL (0.2-1.3)
[2024-11-30] MEDS: ACET/COD 300 MG/30 MG STARTER PACK 6 TAB BTL PO STA (19:50)
--- NOTE | 2024-11-30 19:57 | XR ---
EXAMINATION TYPE: XR chest 2V DATE OF EXAM: 11/30/2024 CLINICAL HISTORY: Weakness TECHNIQUE: Frontal and lateral views of the chest are obtained. COMPARISON: Prior chest x-ray September 16, 2024 FINDINGS: Overlying sternal wires are redemonstrated. Cardiac valve surgical changes again seen. Lef t atrial appendage clip redemonstrated. Suspect mild underlying emphysematous change. There is no ismael picious new focal air space opacity, pleural effusion, or pneumothorax seen. The cardiac silhouette size is within normal limits. The osseous structures are intact. Surgical stent to the abdominal ao rta is partially imaged. IMPRESSION: No acute cardiopulmonary process. [facility], , 11/30/2024 7:55 PM
--- NOTE | 2024-11-30 19:59 | CT ---
EXAMINATION TYPE: CT brain wo con DATE OF EXAM: 11/30/2024 HISTORY: ams and frequent falls CT DLP: 1168.4 mGycm. Automated Exposure Control for Dose Reduction was Utilized. TECHNIQUE: CT scan of the head is performed without contrast. COMPARISON: None. FINDINGS: There is no acute intracranial hemorrhage or midline shift identified. There is mild diff use ventricular and sulcal prominence consistent with diffuse age-related cerebral atrophy. There is severe low-attenuation in the deep and periventricular white matter most likely consistent with chronometer repairer reese small vessel ischemic change in patient of this age. The calvarium is intact. Bilateral aphakia is present. The visualized sinuses are clear. IMPRESSION: No acute intracranial hemorrhage or midline shift. There severe nonspecific white matte r change favor product of chronic small vessel ischemia. Patient may benefit with nonemergent MRI fo llow-up to better evaluate and characterize. [facility], , 11/30/2024 7:57 PM
[2024-11-30] MEDS: SODIUM CHLORIDE 0.9% 1,000 ML IV STA (20:29)
--- NOTE | 2024-11-30 20:34 | ED ---
General Adult HPI - General Chief complaint: Weakness Stated complaint: Weakness Time Seen by Provider: 11/30/24 19:00 Source: patient, EMS, RN notes reviewed, old records reviewed Mode of arrival: EMS Limitations: altered mental status - History of Present Illness Initial comments: This is a 74-year-old male who presents to the emergency department stating that ever since he had surgery he has been getting weaker and weaker. Patient states his surgery was 3 weeks ago even that was about 3 months ago. Patient had bypass surgery. Patient denies any current chest pain difficulty breathing shortness of breath. Patient states he just feels weaker and weaker the states he has not been eating or drinking much and she thinks he is becoming mal nutrition. thought he was taking all of his medications however all the bottles that he was given in August after the surgery are almost full so he is clearly not taking his medications as prescribed. Patient denies any fever chills or cough. Patient denies abdominal pain patient has nausea or vomiting. Patient states he is just extremely weak to the point where he has had multiple multiple falls he does not believe he has done any significant damage she has not hit his head he has no neck pain he has no specific extremity pain but he states he gets so weak he cannot stand. - Related Data Home Medications Medication Instructions Recorded Confirmed Aspirin EC [Ecotrin Low Dose] 81 mg PO DAILY 09/04/24 09/04/24 Previous Rx's Medication Instructions Recorded Acetaminophen Tab [Tylenol] 1,000 mg PO Q6HR PRN tab 09/16/24 Amiodarone [Cordarone] 400 mg PO BID #50 tab 09/16/24 Apixaban [Eliquis] 5 mg PO BID #60 tab 09/16/24 Atorvastatin [Lipitor] 40 mg PO DAILY #30 tab 09/16/24 Furosemide [Lasix] 40 mg PO DAILY #30 tablet 09/16/24 Levothyroxine Sodium [Synthroid] 100 mcg PO DAILY@0630 #30 tab 09/16/24 Metoprolol Tartrate [Lopressor] 50 mg PO BID #60 tab 09/16/24 Pantoprazole [Protonix] 40 mg PO AC-BRKFST #30 tab 09/16/24 Potassium Chloride ER [K-Dur 20] 20 meq PO BID #60 tab 09/16/24 Sennosides-Docusate Sodium 2 each PO HS PRN tab 09/16/24 [Senokot-S] amLODIPine [Norvasc] 5 mg PO DAILY@1200 #30 tab 09/16/24 hydrALAZINE HCL [Apresoline] 50 mg PO BID #60 tab 09/16/24 Allergies Allergy/AdvReac Type Severity Reaction Status Date / Time No Known Allergies Allergy Verified 11/30/24 18:46 Review of Systems ROS Statement: Those systems with pertinent positive or pertinent negative responses have been documented in the HPI. ROS Other: All systems not noted in ROS Statement are negative. 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 , SC Last Myocardial Infarction Date:: 11/28/2013 History of Any Multi-Drug Resistant Organisms: None Reported Past Surgical History: Heart Catheterization With Stent, Orthopedic Surgery Additional Past Surgical History / Comment(s): ATHERECTOMY TO BOTH LEGS Past Anesthesia/Blood Transfusion Reactions: No Reported Reaction Date of Last Stent Placement:: Greater than 10 years ago Past Psychological History: No Psychological Hx Reported Smoking Status: Current every day smoker - Past Family History Mother Family Medical History: Cancer Additional Family Medical History / Comment(s): from bone cancer Father Family Medical History: Cancer Additional Family Medical History / Comment(s): from brain cancer General Exam - General Exam Comments Initial Comments: GENERAL: Patient is well-developed and well-nourished. Patient is nontoxic and well- hydrated and is in an mild distress. ENT: Neck is soft and supple. No significant lymphadenopathy is noted. Oropharynx is clear. Moist mucous membranes. Neck has full range of motion without eliciting any pain. EYES: The sclera were anicteric and conjunctiva were pink and moist. Extraocular movements were intact and pupils were equal round and reactive to light. Eyelids were unremarkable. PULMONARY: Unlabored respirations. Good breath sounds bilaterally. No audible rales rhonchi or wheezing was noted. CARDIOVASCULAR: There is a regular rate and rhythm without any murmurs gallops or rubs. ABDOMEN: Soft and nontender with normal bowel sounds. SKIN: Skin is clear with no lesions or rashes and otherwise unremarkable. NEUROLOGIC: Patient is alert and oriented x 2 patient seems to think his surgery was 3 weeks ago and it was almost 3 months ago. Cranial nerves II through XII are grossly intact. Motor and sensory are also intact. Normal speech, volume and content. Symmetrical smile. MUSCULOSKELETAL: Normal extremities with adequate strength and full range of motion. LYMPHATICS: No significant lymphadenopathy is noted PSYCHIATRIC: Normal psychiatric evaluation. Limitations: altered mental status Course Vital Signs 11/30/24 18:43 Temperature 98.1 F Pulse Rate 85 Respiratory 18 Rate Blood Pressure 134/86 O2 Sat by Pulse 96 Oximetry Medical Decision Making - Medical Decision Making EKG is interpreted by myself. EKG shows a sinus rhythm at 82 bpm IL was under 44 QRS is 111 QT interval 4 4 QTc is 442. Patient's EKG shows no significant ST segment elevation Was pt. sent in by a medical professional or institution (BARBRA Dillon, REVENUE STAMP CLERK, urgent care, hospital, or [place] health care facility...) When possible be specific @ -No Did you speak to anyone other than the patient for history (EMS, parent, family, police, friend...)? What history was obtained from this source @ -No Did you review nursing and triage notes (agree or disagree)? Why? @ -I reviewed and agree with nursing and triage notes Were old charts reviewed (outside hosp., previous admission, EMS record, old EKG, old radiological studies, urgent care reports/EKG's, [place] [facility] facility records)? Report findings @ -No old charts were reviewed Differential Diagnosis? @ -Differential Weakness: Hypoglycemia, shock, sepsis, hyponatremia, anemia, infection, SC, ETOH, adverse medicine reaction, overdose, stroke, this is not meant to be an all-inclusive list. EKG interpreted by me (3pts min.). @ -As above X-rays interpreted by me (1pt min.). @ -Chest x-ray shows no acute normality CT interpreted by me (1pt min.). @ -CT of the brain shows no acute abnormality U/S interpreted by me (1pt. min.). @ -None done What testing was considered but not performed or refused? (CT, X-rays, U/S, labs)? Why? @ -None What meds were considered but not given or refused? Why? @ -None Did you discuss the management of the patient with other professionals (professionals i.e. BARBRA Dillon, REVENUE STAMP CLERK, lab, RT, psych nurse, clinical social worker, dispensing audiologist, teacher, plant protection officer, director of casework services)? Give summary @ -I spoke with Dr. Kaminski he agreed to admit the patient Was smoking cessation discussed for >3mins.? @ -No Was critical care preformed (if so, how long)? @ -35 minutes Were there social determinants of health that impacted care today? How? (Homelessness, low income, unemployed, alcoholism, drug addiction, trans portation, low edu. Level, literacy, decrease access to med. care, skilled nursing, rehab)? @ -No Was there de-escalation of care discussed even if they declined (Discuss DNR or withdrawal of care, Hospice)? DNR status @ -No What co-morbidities impacted this encounter? (DM, HTN, Smoking, COPD, CAD, Cancer, CVA, ARF, Chemo, Hep., AIDS, mental health diagnosis, sleep apnea, morbid obesity)? @ -None Was patient admitted / discharged? Hospital course, mention meds given and route, prescriptions, significant lab abnormalities, going to OR and other pertinent info. @ -Patient was started on heparin because of the troponin was 0.9. Patient had no chest pain or difficulty breathing. Patient CT of the brain was normal x-ray is normal lab work otherwise was normal. Patient will be admitted to Dr. Kaminski and consult was placed to cardiology. Patient was prescribed medicines in August when he left after his bypass surgery and he still has quite a bit of those medicines left and has not refilled them. It appears that the patient is not taking his medications properly Undiagnosed new problem with uncertain prognosis? @ -No Drug Therapy requiring intensive monitoring for toxicity (Heparin, Nitro, Insuli n, Cardizem)? @ -No Were any procedures done? @ -No Diagnosis /symptom? @ -NSTEMI Acute, or Chronic, or Acute on Chronic? @ -Acute Uncomplicated (without systemic symptoms) or Complicated (systemic symptoms)? @ -Complicated Side effects of treatment? @ -No Exacerbation, Progression, or Severe Exacerbation? @ -No Poses a threat to life or bodily function? How? (Chest pain, USA, SC, pneumonia, PE, COPD, DKA, ARF, appy, cholecystitis, CVA, Diverticulitis, Homicidal, Suicidal, threat to staff... and all critical care pts) @ -Yes this could lead to an SC cardiac damage and endorgan dysfunction Diagnosis/symptom? @ -Generalized weakness Acute, or Chronic, or Acute on Chronic? @ -Acute on chronic Uncomplicated (without systemic symptoms) or Complicated (systemic symptoms)? @ -Complicated Side effects of treatment? @ -None Exacerbation, Progression, or Severe Exacerbation] @ -No Poses a threat to life or bodily function? @ -No Diagnosis/symptom? @ -Noncompliant with medications Acute, or Chronic, or Acute on Chronic? @ -Chronic Uncomplicated (without systemic symptoms) or Complicated (systemic symptoms)? @ -Complicated Side effects of treatment? @ -None Exacerbation, Progression, or Severe Exacerbation] @ -No Poses a threat to life or bodily function? @ -No - Lab Data Result diagrams: 11/30/24 19:18 11/30/24 19:18 Lab Results 11/30/24 11/30/24 11/30/24 Range/Units 19:18 19:18 19:18 WBC 7.4 (3.8-10.6) k/uL RBC 4.46 (4.30-5.90) m/uL Hgb 13.5 (13.0-17.5) gm/dL Hct 41.0 (39.0-53.0) % MCV 92.1 (80.0-100.0) fL MCH 30.3 (25.0-35.0) pg MCHC 33.0 (31.0-37.0) g/dL RDW 15.3 (11.5-15.5) % Plt Count 205 (150-450) k/uL MPV 7.6 Neutrophils % 82 % Lymphocytes % 10 % Monocytes % 6 % Eosinophils % 0 % Basophils % 0 % Neutrophils # 6.1 (1.3-7.7) k/uL Lymphocytes # 0.8 L (1.0-4.8) k/uL Monocytes # 0.5 (0-1.0) k/uL Eosinophils # 0.0 (0-0.7) k/uL Basophils # 0.0 (0-0.2) k/uL PT 10.9 (10.0-12.5) sec INR 1.0 (<1.2) APTT 23.9 (22.0-30.0) sec Sodium 135 L (137-145) mmol/L Potassium 3.4 L (3.5-5.1) mmol/L Chloride 92 L (98-107) mmol/L Carbon Dioxide 33 H (22-30) mmol/L Anion Gap 10 mmol/L BUN 34 H (9-20) mg/dL Creatinine 1.94 H (0.66-1.25) mg/dL Est GFR (CKD-EPI)AfAm 39 (>60 ml/min/1.73 sqM) Est GFR (CKD-EPI)NonAf 33 (>60 ml/min/1.73 sqM) Glucose 122 H (74-99) mg/dL Plasma Lactic Acid Yoandy (0.7-2.0) mmol/L Calcium 9.8 (8.4-10.2) mg/dL Magnesium 2.1 (1.6-2.3) mg/dL Total Bilirubin 1.5 H (0.2-1.3) mg/dL AST 40 (17-59) U/L ALT 18 (4-49) U/L Alkaline Phosphatase 115 (38-126) U/L Troponin I (0.000-0.034) ng/mL Total Protein 8.0 (6.3-8.2) g/dL Albumin 4.5 (3.5-5.0) g/dL 11/30/24 11/30/24 Range/Units 19:18 19:18 WBC (3.8-10.6) k/uL RBC (4.30-5.90) m/uL Hgb (13.0-17.5) gm/dL Hct (39.0-53.0) % MCV (80.0-100.0) fL MCH (25.0-35.0) pg MCHC (31.0-37.0) g/dL RDW (11.5-15.5) % Plt Count (150-450) k/uL MPV Neutrophils % % Lymphocytes % % Monocytes % % Eosinophils % % Basophils % % Neutrophils # (1.3-7.7) k/uL Lymphocytes # (1.0-4.8) k/uL Monocytes # (0-1.0) k/uL Eosinophils # (0-0.7) k/uL Basophils # (0-0.2) k/uL PT (10.0-12.5) sec INR (<1.2) APTT (22.0-30.0) sec Sodium (137-145) mmol/L Potassium (3.5-5.1) mmol/L Chloride (98-107) mmol/L Carbon Dioxide (22-30) mmol/L Anion Gap mmol/L BUN (9-20) mg/dL Creatinine (0.66-1.25) mg/dL Est GFR (CKD-EPI)AfAm (>60 ml/min/1.73 sqM) Est GFR (CKD-EPI)NonAf (>60 ml/min/1.73 sqM) Glucose (74-99) mg/dL Plasma Lactic Acid Yoandy 2.3 H* (0.7-2.0) mmol/L Calcium (8.4-10.2) mg/dL Magnesium (1.6-2.3) mg/dL Total Bilirubin (0.2-1.3) mg/dL AST (17-59) U/L ALT (4-49) U/L Alkaline Phosphatase (38-126) U/L Troponin I 0.946 H* (0.000-0.034) ng/mL Total Protein (6.3-8.2) g/dL Albumin (3.5-5.0) g/dL Critical Care Time Critical Care Time: Yes Total Critical Care Time: 35 Disposition Clinical Impression: NSTEMI (non-ST elevated myocardial infarction), Noncompliance with medications, Generalized weakness Disposition: ADMITTED IP TO THIS HOSP Referrals: John Faulkner MD [Primary Care Provider] - 1-2 days Time of Disposition: 20:39
[2024-11-30] MEDS ORDERED: NITROGLYCERIN SL TABS 0.4 MG TAB SUBLINGUAL PRN (20:41)
[2024-11-30 21:02] LABS: Appearance,Urine Clear (Clear); Bilirubin,Urine Negative (Negative); Blood,Urine Moderate (Negative); Color,Urine Yellow; Glucose,Urine (UA) Negative (Negative); Ketones,Urine 1+ (Negative); Leukocyte Esterase,Urine Negative (Negative); Mucus,Urine Rare /hpf; Nitrite,Urine Negative (Negative); Protein,Urine 2+ (Negative); RBC,Urine 3 /hpf (0-5); Specific Gravity,Urine 1.024 (1.001-1.035); Urobilinogen,Urine <2.0 mg/dL (<2.0); WBC,Urine 1 /hpf (0-5)
[2024-11-30] MEDS: ASPIRIN 81 MG PO STA (21:36)
[2024-11-30] MEDS: LABETALOL 5 MG/ML VIAL MDV IVP STA (21:58)
[2024-11-30] MEDS: SODIUM CHLORIDE 0.9% 1,000 ML IV ONE (22:02)
[2024-11-30] MEDS: HEPARIN SODIUM 1,000 UN/ML (10ML VL) IV ONE (22:03)
[2024-11-30] MEDS: HEPARIN SOD,PORK IN 0.45% NACL 25,000 UNIT in 0.45% NACL 1 250ML.BAG IV SCH (22:04)
[2024-11-30] MEDS: SODIUM CHLORIDE 0.9% 1,000 ML IV SCH (22:38)
[2024-11-30] MEDS: hydrALAZINE HCL 50 MG TAB PO STA (23:51)
[2024-11-30] MEDS: LABETALOL 200 MG TAB PO STA (23:51)
[2024-12-01] MEDS: NITROGLYCERIN OINT 1 INCH/GM PACKET TOPICAL SCH (00:18)
[2024-12-01 00:47] LABS: Glucose,Whole Blood 159 mg/dL (70-110)
[2024-12-01] MEDS ORDERED: ONDANSETRON 4 MG/2 ML VIAL IVP PRN (00:57)
--- NOTE | 2024-12-01 03:28 | P.HPIM ---
History of Present Illness H&P Date: 11/30/24 Patient is a 74-year-old male with a PMH of recent CABG x 4 on 09/10/2024, CKD stage III hypertension, hyperlipidemia, and hypothyroidism who who was brought into the emergency room via EMS for generalized weakness and failure to thrive. History is supplemented by the patient's son at the bedside. The patient lives with the son who reports that over the past several weeks, the patient's oral intake has gradually diminished. The patient has also been far weaker than usual and has been unable to ambulate as he used to previously. He also reported the patient has been confused at times and slow to answer which is also new for him. The patient did endorse weakness at the time of interview but had no additional complaints. He denied any pain including chest discomfort. Denied experiencing shortness of breath, fever, chills, cough, nausea, vomiting, abdominal pain, diarrhea. In the emergency room a CT brain and chest x-ray were unremarkable with EKG showing sinus rhythm at 82 bpm with an incomplete right bundle branch block and LVH as reviewed by me. Laboratory evaluation was remarkable for troponin 0.946, lactic acid 2.3, sodium 135, potassium 3.4, chloride 92, CO2 33, BUN 34, creatinine 1.94, with total bilirubin 1.5. ED documentation reviewed and case discussed with ED provider. Review of systems: Pertinent positives and negatives as discussed in HPI, a complete review of systems was performed and all other systems are negative. Physical examination: Vital signs reviewed General: non toxic, no distress, appears at stated age, frail Derm: no unusual rashes/lesions, warm Head: atraumatic, normocephalic, symmetric Eyes: EOMI, no lid lag, anicteric sclera, pupils equal round reactive to light ENT: Nose and ears atraumatic Neck: No cervical lymphadenopathy, trachea midline, supple Mouth: no lip lesion, mucus membranes moist Cardiovascular: S1S2 reg, no murmur, positive dorsalis pedis pulse bilateral, no edema, well-healed sternotomy scar Lungs: CTA bilateral, no rhonchi, no rales, no accessory muscle use Abdominal: soft, nontender to palpation, no guarding Ext: muscle strength 3 out of 5 in all 4 extremities grossly, no gross muscle atrophy, no contractures, Neuro: CN II-XI grossly intact, no gross focal neuro deficits Psych: Alert, oriented, appropriate affect Assessment: Non-ST elevation MT Failure to thrive CARMELO on CKD stage III Hyponatremia Hypokalemia Imaging: In the emergency room a CT brain and chest x-ray were unremarkable with EKG showing sinus rhythm at 82 bpm with an incomplete right bundle branch block and LVH as reviewed by me. Data Review: Laboratory evaluation was remarkable for troponin 0.946, lactic acid 2.3, sodium 135, potassium 3.4, chloride 92, CO2 33, BUN 34, creatinine 1.94, with total bilirubin 1.5. Plan: Continue with heparin infusion Continue aspirin and statin Cardiology consulted Cardiac monitoring Trend troponin PT consult Monitor BMP Continue with IV fluid normal saline 75 cc/h Replace potassium Monitor BMP Fall precautions DVT prophylaxis: Heparin infusion The patient is admitted with an anticipated greater than than 2 midnight stay for evaluation of non-ST elation MT CODE STATUS: Full Code Discussed with: Patient, son Anticipated discharge place: Home Past Medical History Past Medical History: Coronary Artery Disease (CAD), Deep Vein Thrombosis (DVT), Hyperlipidemia, Hypertension, Myocardial Infarction (MT) Additional Past Medical History / Comment(s): 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 , MT Last Myocardial Infarction Date:: 11/28/2013 History of Any Multi-Drug Resistant Organisms: None Reported Past Surgical History: Heart Catheterization With Stent, Orthopedic Surgery Additional Past Surgical History / Comment(s): ATHERECTOMY TO BOTH LEGS Past Anesthesia/Blood Transfusion Reactions: No Reported Reaction Date of Last Stent Placement:: Greater than 10 years ago Past Psychological History: No Psychological Hx Reported Smoking Status: Current every day smoker - Past Family History Mother Family Medical History: Cancer Additional Family Medical History / Comment(s): from bone cancer Father Family Medical History: Cancer Additional Family Medical History / Comment(s): from brain cancer Medications and Allergies Home Medications Medication Instructions Recorded Confirmed Type Aspirin EC [Ecotrin Low Dose] 81 mg PO HS 09/04/24 11/30/24 History Amiodarone [Cordarone] 200 mg PO HS 11/30/24 11/30/24 History Atorvastatin [Lipitor] 40 mg PO HS 11/30/24 11/30/24 History Furosemide [Lasix] 40 mg PO HS 11/30/24 11/30/24 History Levothyroxine Sodium [Synthroid] 100 mcg PO HS 11/30/24 11/30/24 History Pantoprazole [Protonix] 40 mg PO HS 11/30/24 11/30/24 History Potassium Chloride ER [K-Dur 20] 20 meq PO HS 11/30/24 11/30/24 History amLODIPine [Norvasc] 5 mg PO HS 11/30/24 11/30/24 History hydrALAZINE HCL [Apresoline] 50 mg PO HS 11/30/24 11/30/24 History Allergies Allergy/AdvReac Type Severity Reaction Status Date / Time No Known Allergies Allergy Verified 11/30/24 20:25 Physical Exam Vitals: Vital Signs Temp Pulse Resp BP Pulse Ox 12/01/24 02:07 71 16 128/88 96 12/01/24 01:52 76 18 180/80 95 12/01/24 01:34 71 16 98/78 95 12/01/24 01:27 68 16 97/63 95 12/01/24 01:21 71 15 148/91 95 12/01/24 00:45 64 16 160/95 96 12/01/24 00:40 66 12 110/84 95 12/01/24 00:19 70 16 199/98 96 11/30/24 22:40 98.2 F 71 16 222/98 95 11/30/24 21:12 88 18 228/105 97 11/30/24 18:43 98.1 F 85 18 134/86 96 Intake and Output 11/30/24 11/30/24 12/01/24 14:59 22:59 06:59 Other: Weight 56.699 kg Results CBC & Chem 7: 11/30/24 19:18 11/30/24 19:18 Labs: Abnormal Lab Results - Last 24 Hours (Table) 11/30/24 11/30/24 11/30/24 Range/Units 19:18 19:18 19:18 Lymphocytes # 0.8 L (1.0-4.8) k/uL Sodium 135 L (137-145) mmol/L Potassium 3.4 L (3.5-5.1) mmol/L Chloride 92 L (98-107) mmol/L Carbon Dioxide 33 H (22-30) mmol/L BUN 34 H (9-20) mg/dL Creatinine 1.94 H (0.66-1.25) mg/dL Glucose 122 H (74-99) mg/dL POC Glucose (mg/dL) (70-110) mg/dL Plasma Lactic Acid Yoandy 2.3 H* (0.7-2.0) mmol/L Total Bilirubin 1.5 H (0.2-1.3) mg/dL Troponin I (0.000-0.034) ng/mL Urine Protein (Negative) Urine Ketones (Negative) Urine Blood (Negative) Urine Mucus (None) /hpf 11/30/24 11/30/24 12/01/24 Range/Units 19:18 20:42 00:03 Lymphocytes # (1.0-4.8) k/uL Sodium (137-145) mmol/L Potassium (3.5-5.1) mmol/L Chloride (98-107) mmol/L Carbon Dioxide (22-30) mmol/L BUN (9-20) mg/dL Creatinine (0.66-1.25) mg/dL Glucose (74-99) mg/dL POC Glucose (mg/dL) (70-110) mg/dL Plasma Lactic Acid Yoandy (0.7-2.0) mmol/L Total Bilirubin (0.2-1.3) mg/dL Troponin I 0.946 H* 0.894 H* (0.000-0.034) ng/mL Urine Protein 2+ H (Negative) Urine Ketones 1+ H (Negative) Urine Blood Moderate H (Negative) Urine Mucus Rare H (None) /hpf 12/01/24 Range/Units 00:46 Lymphocytes # (1.0-4.8) k/uL Sodium (137-145) mmol/L Potassium (3.5-5.1) mmol/L Chloride (98-107) mmol/L Carbon Dioxide (22-30) mmol/L BUN (9-20) mg/dL Creatinine (0.66-1.25) mg/dL Glucose (74-99) mg/dL POC Glucose (mg/dL) 159 H (70-110) mg/dL Plasma Lactic Acid Yoandy (0.7-2.0) mmol/L Total Bilirubin (0.2-1.3) mg/dL Troponin I (0.000-0.034) ng/mL Urine Protein (Negative) Urine Ketones (Negative) Urine Blood (Negative) Urine Mucus (None) /hpf
[2024-12-01] MEDS: ATORVASTATIN 80 MG TAB PO STA (04:37)
[2024-12-01] MEDS: HEPARIN SODIUM 1,000 UN/ML (10ML VL) IV PRN (06:12)
[2024-12-01] MEDS: ASPIRIN 325 MG TAB PO SCH (09:24)
[2024-12-01] MEDS: hydrALAZINE HCL 50 MG TAB PO SCH (09:25)
[2024-12-01] MEDS: amLODIPine 5 MG TAB PO SCH (09:25)
[2024-12-01] MEDS: ASPIRIN 81 MG PO SCH (09:30)
[2024-12-01 10:08] LABS: Chol/HDL Ratio 3.19 Ratio; LDL Cholesterol,Calculated 118.6 mg/dL (0.0-131.0)
[2024-12-01] MEDS: METOPROLOL TARTRATE 50 MG TAB PO SCH (12:36)
--- NOTE | 2024-12-01 12:57 | P.CRDCN ---
History of Present Illness History of present illness: HISTORY OF PRESENT ILLNESS: This is a 74-year-old male with a past medical history significant for coronary artery disease with recent CABG, aortic stenosis with recent aortic valve repla cement, hypertension, hyperlipidemia, hypothyroidism, and atrial fibrillation post CABG. Patient follows in the office with Dr. Falcon. We have been asked to see the patient in consultation for elevated troponins. Patient examined at the bedside in the emergency room. The patient is a poor historian. There is no family present. According to documentation, the patient was brought into the hospital for increasing weakness, inability to ambulate, and decreased oral intake. The patient currently denies having any chest pain or pressure. She denies any shortness of breath. Patient was found to have worsening kidney function of 1.94, previously 1.39. Additionally, he was found to have elevated troponins and was started on IV heparin. Patient's blood pressures are elevated this morning with a systolic in the 180s. DIAGNOSTICS: - EKG reveals sinus mechanism with LVH. Baseline artifact. Repeat EKG reveals sinus mechanism, right bundle branch block, T wave inversions in anterior late ral leads. - Chest xray negative for acute process - Laboratory data: WBC 7.4. Hemoglobin 13.5. Platelet count 205. Sodium 135. Potassium 3.4. BUN 34. Creatinine 1.94. Lactic acid 2.3. Repeat 1.4. Troponin 0.946. 0. 894. 0.701. - Current home cardiac medications include amiodarone 200 mg at night, aspirin 81 mg daily, atorvastatin 40 mg at night, hydralazine 50 mg at night, Lasix 40 mg at night, amlodipine 5 mg at night - Most recent echocardiogram obtained in August 2024 revealing ejection fraction 55 to 60%, severe aortic stenosis with mean gradient 55 m of mercury and moderate aortic regurgitation - Patient underwent aortic valve replacement and CABG x 4 vessels (ARANA to LAD, radial artery graft to first and second obtuse marginal arteries, and SVG to PDA) on September 03, 2024 REVIEW OF SYSTEMS: At the time of my exam: CONSTITUTIONAL: Denies fever or chills. HEENT: Denies blurred vision, vision changes, or eye pain. Denies hemoptysis CARDIOVASCULAR: Denies chest pain. Denies orthopnea. Denies PND. Denies palpitations RESPIRATORY: Denies shortness of breath. GASTROINTESTINAL: Denies abdominal pain. Denies nausea or vomiting. HEMATOLOGIC: Denies bleeding disorders. GENITOURINARY: Denies any blood in urine. SKIN: Denies pruitis. Denies rash. PHYSICAL EXAM: VITAL SIGNS: Reviewed. GENERAL: Well-developed in no acute distress. HEENT: Head is normocephalic. Pupils are equal, round. Sclerae anicteric. Mucous membranes of the mouth are moist. Neck supple. No JVD or thyromegaly LUNGS: Respirations even and unlabored. Lungs essentially clear to auscultation bilaterally. HEART: Regular rate and rhythm. S1 and S2 heard. Systolic murmur noted ABDOMEN: Soft. Nondistended. Nontender. EXTREMITIES: Normal range of motion. No clubbing or cyanosis. Peripheral pul ses intact. No lower extremity edema NEUROLOGIC: Awake and alert. ASSESSMENT: Generalized weakness Decreased oral intake Acute on chronic kidney disease Non-STEMI, type I versus type II History of aortic stenosis status post aortic valve replacement, 09/03/2024 Coronary artery disease s/p CABG x 4 vessels (ARANA to LAD, radial artery graft to first and second obtuse marginal arteries, and SVG to PDA) Hypertension, uncontrolled 180s Hyperlipidemia Hypothyroidism History of atrial fibrillation post CABG PLAN: Repeat EKG in a.m. Obtain 2D echo to assess cardiac structure and function Continue IV heparin for an additional 24 hours Resume home cardiac medications Increase amlodipine to 10 mg daily for optimal blood pressure control Patient's hydralazine has also been increased to 50 mg twice a day per primary medicine Hold Lasix secondary to CARMELO. Repeat kidney function in a.m. Further recommendations pending patient course Nurse practitioner note has been reviewed by physician. Signing provider agrees with the documented findings, assessment, and plan of care documented by LANDSCAPE ARCHITECTURE PROFESSOR as a scribe. 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 , [place] Last Myocardial Infarction Date:: 11/28/2013 History of Any Multi-Drug Resistant Organisms: None Reported Past Surgical History: Heart Catheterization With Stent, Orthopedic Surgery Additional Past Surgical History / Comment(s): ATHERECTOMY TO BOTH LEGS Past Anesthesia/Blood Transfusion Reactions: No Reported Reaction Date of Last Stent Placement:: Greater than 10 years ago Past Psychological History: No Psychological Hx Reported Smoking Status: Current every day smoker - Past Family History Mother Family Medical History: Cancer Additional Family Medical History / Comment(s): from bone cancer Father Family Medical History: Cancer Additional Family Medical History / Comment(s): from brain cancer Medications and Allergies Home Medications Medication Instructions Recorded Confirmed Type Aspirin EC [Ecotrin Low Dose] 81 mg PO HS 09/04/24 11/30/24 History Amiodarone [Cordarone] 200 mg PO HS 11/30/24 11/30/24 History Atorvastatin [Lipitor] 40 mg PO HS 11/30/24 11/30/24 History Furosemide [Lasix] 40 mg PO HS 11/30/24 11/30/24 History Levothyroxine Sodium [Synthroid] 100 mcg PO HS 11/30/24 11/30/24 History Pantoprazole [Protonix] 40 mg PO HS 11/30/24 11/30/24 History Potassium Chloride ER [K-Dur 20] 20 meq PO 11/30/24 11/30/24 History amLODIPine [Norvasc] 5 mg PO HS 11/30/24 11/30/24 History hydrALAZINE HCL [Apresoline] 50 mg PO HS 11/30/24 11/30/24 History Allergies Allergy/AdvReac Type Severity Reaction Status Date / Time No Known Allergies Allergy Verified 11/30/24 20:25 Physical Exam Vitals: Vital Signs Temp Pulse Resp BP Pulse Ox 12/01/24 12:33 80 22 181/88 97 12/01/24 11:42 81 14 144/84 97 12/01/24 10:42 80 20 139/89 97 12/01/24 09:12 97.6 F 78 15 99 12/01/24 08:46 71 14 183/92 100 12/01/24 08:20 96 12/01/24 07:49 15 12/01/24 06:00 69 16 165/92 97 12/01/24 05:00 98 F 75 17 171/95 97 12/01/24 04:29 97.8 F 72 17 166/89 99 12/01/24 03:35 74 14 97 12/01/24 03:15 71 16 169/92 90 L 12/01/24 02:07 71 16 128/88 96 12/01/24 01:52 76 18 180/80 95 12/01/24 01:34 71 16 98/78 95 12/01/24 01:27 68 16 97/63 95 12/01/24 01:21 71 15 148/91 95 12/01/24 00:45 64 16 160/95 96 12/01/24 00:40 66 12 110/84 95 12/01/24 00:19 70 16 199/98 96 11/30/24 22:40 98.2 F 71 16 222/98 95 11/30/24 21:12 88 18 228/105 97 11/30/24 18:43 98.1 F 85 18 134/86 96 Intake and Output 11/30/24 12/01/24 12/01/24 22:59 06:59 14:59 Intake Total 55.566 Balance 55.566 Intake: Intake, IV Titration 55.566 Amount Heparin Sod,Pork in 0.45% 55.566 NaCl 25,000 unit In 0.45 % NaCl 1 250ml.bag @ 12 UNITS/KG/HR 6.804 mls/hr IV .Q24H [facility] Rx#: [id number] Other: Weight 56.699 kg Results 11/30/24 19:18 11/30/24 19:18 Cardiac Enzymes 11/30/24 11/30/24 12/01/24 Range/Units 19:18 19:18 00:03 AST 40 (17-59) U/L Troponin I 0.946 H* 0.894 H* (0.000-0.034) ng/mL 12/01/24 Range/Units 04:47 AST (17-59) U/L Troponin I 0.701 H* (0.000-0.034) ng/mL Coagulation 11/30/24 12/01/24 12/01/24 Range/Units 19:18 04:47 12:01 PT 10.9 (10.0-12.5) sec APTT 23.9 31.2 H 35.4 H (22.0-30.0) sec Lipids 12/01/24 Range/Units 04:47 Triglycerides 87.00 (0.00-149.00) mg/dL Cholesterol 198.00 (0.00-200.00) mg/dL HDL Cholesterol 62.00 H (40.00-60.00) mg/dL Cholesterol/HDL Ratio 3.19 Ratio CBC 11/30/24 Range/Units 19:18 WBC 7.4 (3.8-10.6) k/uL RBC 4.46 (4.30-5.90) m/uL Hgb 13.5 (13.0-17.5) gm/dL Hct 41.0 (39.0-53.0) % Plt Count 205 (150-450) k/uL Comprehensive Metabolic Panel 11/30/24 Range/Units 19:18 Sodium 135 L (137-145) mmol/L Potassium 3.4 L (3.5-5.1) mmol/L Chloride 92 L (98-107) mmol/L Carbon Dioxide 33 H (22-30) mmol/L BUN 34 H (9-20) mg/dL Creatinine 1.94 H (0.66-1.25) mg/dL Glucose 122 H (74-99) mg/dL Calcium 9.8 (8.4-10.2) mg/dL AST 40 (17-59) U/L ALT 18 (4-49) U/L Alkaline Phosphatase 115 (38-126) U/L Total Protein 8.0 (6.3-8.2) g/dL Albumin 4.5 (3.5-5.0) g/dL Current Medications Generic Name Dose Route Start Last Admin Trade Name Freq PRN Reason Stop Dose Admin Amiodarone HCl 200 mg 12/01/24 21:00 Amiodarone 200 Mg Tab PO HS [facility] Amlodipine Besylate 5 mg 12/01/24 09:00 12/01/24 09:25 Amlodipine 5 Mg Tab PO 5 mg DAILY [facility] Administration Aspirin 81 mg 12/01/24 09:00 12/01/24 09:30 Aspirin 81 Mg PO 81 mg DAILY [facility] Administration Atorvastatin Calcium 80 mg 12/01/24 21:00 Atorvastatin 80 Mg Tab PO HS [facility] Heparin Sodium (Porcine) 0 unit 12/01/24 06:01 12/01/24 06:12 Heparin Sodium 1,000 Un/Ml (10ml Vl) IV 1,417 unit Q6HR PRN Administration Low PTT Protocol Hydralazine HCl 50 mg 12/01/24 09:00 12/01/24 09:25 Hydralazine Hcl 50 Mg Tab PO 50 mg BID [facility] Administration Heparin Sodium/Sodium Chloride 250 mls @ 6.804 mls/hr 11/30/24 20:45 12/01/24 06:14 25,000 unit/ Sodium Chloride IV 14 units/kg/hr .Q24H [facility] 7.938 mls/hr Titration Protocol 12 UNITS/KG/HR Sodium Chloride 1,000 mls @ 75 mls/hr 11/30/24 20:45 12/01/24 09:22 Saline 0.9% IV 75 mls/hr .[id number] [facility] Administration Levothyroxine Sodium 100 mcg 12/01/24 21:00 Levothyroxine 100 Mcg Tab PO HS [facility] Metoprolol Tartrate 50 mg 12/01/24 09:00 12/01/24 12:36 Metoprolol Tartrate 50 Mg Tab PO 50 mg BID [facility] Administration Nitroglycerin 0.4 mg 11/30/24 20:41 Nitroglycerin Sl Tabs 0.4 Mg Tab SUBLINGUAL Q5M PRN Chest Pain Nitroglycerin 1 inch 12/01/24 00:00 12/01/24 06:15 Nitroglycerin Oint 1 Inch/Gm Packet TOPICAL 1 inch Q6HR [facility] Administration Ondansetron HCl 4 mg 12/01/24 00:57 Ondansetron 4 Mg/2 Ml Vial IVP Q6HR PRN Nausea And Vomiting Pantoprazole Sodium 40 mg 12/01/24 21:00 [address]op[address] [facility] Intake and Output 11/30/24 12/01/24 12/01/24 22:59 06:59 14:59 Intake Total 55.566 Balance 55.566 Intake: Intake, IV Titration 55.566 Amount Heparin Sod,Pork in 0.45% 55.566 NaCl 25,000 unit In 0.45 % NaCl 1 250ml.bag @ 12 UNITS/KG/HR 6.804 mls/hr IV .Q24H [facility] Rx#: [id number] Other: Weight 56.699 kg 11/30/24 19:18 11/30/24 19:18
[2024-12-01] MEDS: amLODIPine 5 MG TAB PO STA (13:27)
--- NOTE | 2024-12-01 16:20 | CA ---
Transthoracic Echo Report Name: Leonides Caldwell Age: 74 Gender: M : 1950 Exam Date: 12/01/2024 14:21 Exam Location: [facility] Ht (in): 62 Wt (lb): 115 Ordering Physician: Hakan Verduzco MD Attending/Referring Phys: Cook Apprentice Pastry Josie Addison RDCS Procedure CPT: Indications: trop elevation Cardiac Hx: AV replacement Technical Quality: Fair, Technically difficult study, pt noncompliant Contrast 1: Total Dose (mL): Contrast 2: Total Dose (mL): MEASUREMENTS (Male / Female) Normal Values 2D ECHO LV Diastolic Diameter PLAX 3.6 cm 4.2 - 5.9 / 3.9 - 5.3 cm LV Systolic Diameter PLAX 2.6 cm IVS Diastolic Thickness 1.1 cm 0.6 - 1.0 / 0.6 - 0.9 cm LVPW Diastolic Thickness 1.3 cm 0.6 - 1.0 / 0.6 - 0.9 cm LV Relative Wall Thickness 0.7 RV Internal Dim ED PLAX 1.4 cm LA Systolic Diameter LX 4.1 cm 3.0 - 4.0 / 2.7 - 3.8 cm LV Diastolic Volume MOD BP 62.0 cm??? 67 - 155 / 56 - 104 cm??? LV Systolic Volume MOD BP 24.5 cm??? 22 - 58 / 19 - 49 cm??? LV Ejection Fraction MOD BP 60.4 % >= 55 % LV Cardiac Index MOD BP 1558.7 cm???/min???m??? LV Diastolic Volume MOD 4C 66.6 cm??? LV Systolic Volume MOD 4C 28.9 cm??? LV Ejection Fraction MOD 4C 56.6 % LV Cardiac Index MOD 4C 1571.2 cm???/min???m??? LV Diastolic Length 4C 8.1 cm LV Systolic Length 4C 6.9 cm LV Diastolic Volume MOD 2C 48.7 cm??? LV Systolic Volume MOD 2C 18.5 cm??? LV Ejection Fraction MOD 2C 61.9 % LV Cardiac Index MOD 2C 1255.7 cm???/min???m??? LV Diastolic Length 2C 6.7 cm LV Systolic Length 2C 6.0 cm M-MODE Aortic Root Diameter MM 1.9 cm LA Systolic Diameter MM 4.4 cm LA Ao Ratio MM 2.3 DOPPLER AV Peak Velocity 236.6 cm/s AV Peak Gradient 22.4 mmHg AV Mean Velocity 162.9 cm/s AV Mean Gradient 12.0 mmHg AV Velocity Time Integral 45.9 cm LVOT Peak Velocity 105.9 cm/s LVOT Peak Gradient 4.5 mmHg LVOT Velocity Time Integral 24.7 cm FINDINGS Left Ventricle Left ventricular ejection fraction is estimated at 55-60 %. Normal left ventricular systolic function with no obvious regional wall motion abnormalities. Left ventricular cavity size normal.Mildly increased left ventricular wall thickness. Right Ventricle Normal right ventricular size and function. Right Atrium Normal right atrial size. Left Atrium Mildly increased left atrial diameter. Mitral Valve Moderate mitral annular calcification.mild mitral regurgitation. Aortic Valve Normally functioning bioprosthetic aortic valve with a peak velocity of 2.36 m/s, peak gradient 22 mmHg, mean gradient 12mmHg. Trace aortic regurgitation. The valve was not well-visualized Tricuspid Valve Pulmonic Valve Pericardium No pericardial or pleural effusion. Aorta Normal size aortic root and proximal ascending aorta. CONCLUSIONS Technically difficult study. Normal ventricle size and systolic function Bioprosthetic aortic valve, not well-visualized with a mean gradient of 12 mmHg Mild mitral regurgitation Previewed by: Dr. Pawel Byrd MD (Electronically Signed) Final Date: 01 December 2024 16:19
[2024-12-01] MEDS: LEVOTHYROXINE 100 MCG TAB PO SCH (20:17)
[2024-12-01] MEDS: AMIODARONE 200 MG TAB PO SCH (20:17)
[2024-12-01] MEDS: ATORVASTATIN 80 MG TAB PO SCH (20:17)
[2024-12-01] MEDS: PANTOPRAZOLE 40 MG TABLET PO SCH (20:17)
[2024-12-01] MEDS ORDERED: hydrALAZINE HCL 50 MG TAB PO SCH (21:00)
[2024-12-01] MEDS ORDERED: amLODIPine 5 MG TAB PO SCH (21:00)
[2024-12-02] MEDS: amLODIPine 10 MG TAB PO SCH (09:05)
[2024-12-02 09:28] LABS: African American GFR (CKD) 40 (>60 ml/min/1.73 sqM); Anion Gap 6 mmol/L; Blood Urea Nitrogen 36 mg/dL (9-20); Calcium 8.8 mg/dL (8.4-10.2); Carbon Dioxide 26 mmol/L (22-30); Chloride 102 mmol/L (98-107); Glucose 84 mg/dL (74-99); Magnesium 2.1 mg/dL (1.6-2.3); Non-African American GFR(CKD) 34 (>60 ml/min/1.73 sqM); Sodium 134 mmol/L (137-145)
[2024-12-02] MEDS: POTASSIUM CHLORIDE ER 20 MEQ TAB.ER PO STA (09:52)
--- NOTE | 2024-12-02 12:32 | P.PN ---
Subjective Progress Note Date: 12/02/24 4-year-old male with a PMH of recent CABG x 4 on 09/10/2024, CKD stage III, hypertension, hyperlipidemia, and hypothyroidism who who was brought into the emergency room via EMS for generalized weakness, poor appetite, and failure to thrive. In the emergency room a CT brain and chest x-ray were unremarkable with EKG showing sinus rhythm at 82 bpm with an incomplete right bundle branch block and LVH. Laboratory evaluation was remarkable for troponin 0.946, lactic acid 2.3, sodium 135, potassium 3.4, chloride 92, CO2 33, BUN 34, creatinine 1.94, with total bilirubin 1.5. Blood pressure was elevated as high as 228/105. Patient was started on a heparin infusion + ASA + Labetalol IV + Hydralazine PO and admitted for Cardiology evaluation. Troponins trended 0.946, 0.894, 0.701. Antihypertensive medications were titrated. Cardiology consulted, recommended repeat EKG in AM, continue IV heparin for 48H, obtain Echo, hold Lasix and increase Amlodipine. 12/02 Patient was seen and examined. Denies chest pain, SOB, palpitations or lightheadedness. Maintained on heparin drip at 16 units/kg/hr. Echo shows EF 55- 60% with no regional wall motion abnormalities. Lactic acid 1.4. Lipid panel T. Chol 198, LDL 118.6, HDL 62. APTT 46.6. BMP Na 134, K 3, BUN 36, Cr 1.89. Mag 2.1. EKG done today shows sinus bradycardia with rate of 51. General: non toxic, no distress, appears at stated age Derm: warm, dry Head: atraumatic, normocephalic, symmetric Eyes: EOMI, no lid lag, anicteric sclera Mouth: no lip lesion, mucus membranes moist Cardiovascular: S1S2 cisco, no murmur Lungs: CTA bilateral, no rhonchi, no rales , no accessory muscle use Ext: no gross muscle atrophy, no edema, no contractures Neuro: no focal neuro deficits Psych: Alert, oriented, appropriate affect Based on my assessment of this patient, this patient meets a high complexity level of care. NSTEMI with h/o CAD post CABG 08/2024: ASA 81 mg PO QD. Lipitor 80 mg PO QHS. Metoprolol as below. Status post 48H heparin drip. Cardiology on board. Hypertensive emergency: Amlodipine 10 mg PO QD. Hydralazine 50 mg PO BID. Metoprolol 50 mg PO BID. CARMELO on CKD stage III: Likely prerenal due to dehydration. Hold Lasix. NS at 75 cc/hr. Repeat BMP in the AM. Hypochloremic hyponatremia with metabolic alkalosis: Likely due to dehydration and poor PO intake. Hypokalemia: KCl 60 meq PO x 1 ordered. Repeat BMP in the AM. Paroxysmal A-Fib: Stop Amiodarone due to bradycardia. HLD: Lipitor as above. Hypothyroid: Synthroid 100 mcg PO QHS. Resolved: Lactic acidosis. CODE STATUS: FULL CODE DVT Prophylaxis: Heparin drip GI Prophylaxis: Protonix PO Designated medical POA if patient is not able to make medical decisions for themselves: I have reviewed the following ux consultant notes: Cardiology note I have reviewed the results of the following tests: Lactic acid. Lipid panel. APTT. BMP. Mag. I have ordered the following tests: BMP in the AM. I have discussed the care of this patient with the following independent historian: I have independently interpreted the following test below: EKG. I have discussed the management of this patient with the following physician: Objective - Vital Signs Vital signs: Vital Signs Temp 98.0 F 12/02/24 07:53 Pulse 63 12/02/24 07:53 Resp 18 12/02/24 07:53 BP 163/66 12/02/24 07:53 Pulse Ox 97 12/02/24 07:53 FiO2 Intake & Output 12/01/24 12/02/24 12/02/24 18:59 06:59 18:59 Intake Total 61.784 131.09 Output Total 400 Balance 61.784 -268.91 Weight 63.5 kg Intake: Intake, IV Titration 61.784 131.09 Amount Heparin Sod,Pork in 0.45% 61.784 131.09 NaCl 25,000 unit In 0.45 % NaCl 1 250ml.bag @ 12 UNITS/KG/HR 6.804 mls/hr IV .Q24H [facility] Rx#: [id number] Output: Urine 400 Other: Voiding Method External Catheter - Labs CBC & Chem 7: 11/30/24 19:18 12/02/24 08:00 Labs: Abnormal Lab Results - Last 24 Hours (Table) 12/01/24 12/01/24 12/01/24 Range/Units 04:47 12:01 20:18 APTT 35.4 H 46.6 H (22.0-30.0) sec HDL Cholesterol 62.00 H (40.00-60.00) mg/dL
--- NOTE | 2024-12-02 13:27 | P.PN ---
Subjective HISTORY OF PRESENT ILLNESS: This is a 74-year-old male with a past medical history significant for coronary artery disease with recent CABG, aortic stenosis with recent aortic valve replacement, hypertension, hyperlipidemia, hypothyroidism, and atrial fibrillation post CABG. Patient follows in the office with Dr. Falcon. We have been asked to see the patient in consultation for elevated troponins. Patient examined at the bedside in the emergency room. The patient is a poor historian. There is no family present. According to documentation, the patient was brought into the hospital for increasing weakness, inability to ambulate, and de creased oral intake. The patient currently denies having any chest pain or pressure. She denies any shortness of breath. Patient was found to have worsening kidney function of 1.94, previously 1.39. Additionally, he was found to have elevated troponins and was started on IV heparin. Patient's blood pressures are elevated this morning with a systolic in the 180s. DIAGNOSTICS: - EKG reveals sinus mechanism with LVH. Baseline artifact. Repeat EKG reveals sinus mechanism, right bundle branch block, T wave inversions in anterior lateral leads. - Chest xray negative for acute process - Laboratory data: WBC 7.4. Hemoglobin 13.5. Platelet count 205. Sodium 135. Potassium 3.4. BUN 34. Creatinine 1.94. Lactic acid 2.3. Repeat 1.4. Troponin 0.946. 0. 894. 0.701. - Current home cardiac medications include amiodarone 200 mg at night, aspirin 81 mg daily, atorvastatin 40 mg at night, hydralazine 50 mg at night, Lasix 40 mg at night, amlodipine 5 mg at night - Most recent echocardiogram obtained in August 2024 revealing ejection fraction 55 to 60%, severe aortic stenosis with mean gradient 55 m of mercury and moderate aortic regurgitation - Patient underwent aortic valve replacement and CABG x 4 vessels (ARANA to LAD, radial artery graft to first and second obtuse marginal arteries, and SVG to PDA) on September 03, 2024 12/02/2023 Patient examined this morning at the bedside. Patient currently denies chest pain or pressure. He denies shortness of breath. He states that he feels tired this morning. Echocardiogram completed revealing ejection fraction 55 to 60%, he remains on IV heparin. Creatinine remains elevated today at 1.89. He remains on IV fluids at 75 cc an hour. Blood pressures also remain elevated with a systolic in the 160s. PHYSICAL EXAM: VITAL SIGNS: Reviewed. GENERAL: Well-developed in no acute distress. HEENT: Head is normocephalic. Pupils are equal, round. Sclerae anicteric. Mucous membranes of the mouth are moist. Neck supple. No JVD or thyromegaly LUNGS: Respirations even and unlabored. Lungs essentially clear to auscultation bilaterally. HEART: Regular rate and rhythm. S1 and S2 heard. Systolic murmur noted ABDOMEN: Soft. Nondistended. Nontender. EXTREMITIES: Normal range of motion. No clubbing or cyanosis. Peripheral pulses intact. No lower extremity edema NEUROLOGIC: Awake and alert. ASSESSMENT: Generalized weakness Decreased oral intake Acute on chronic kidney disease Non-STEMI History of aortic stenosis status post aortic valve replacement, 09/03/2024 Coronary artery disease s/p CABG x 4 vessels (ARANA to LAD, radial artery graft to first and second obtuse marginal arteries, and SVG to PDA) Hypertension, uncontrolled 180s Hyperlipidemia Hypothyroidism History of atrial fibrillation post CABG Hypokalemia PLAN: Repeat EKG now and in AM Discontinue IV heparin Discontinue amiodarone Increase hydralazine to 75 mg twice a day for optimal blood pressure control Consider adding Imdur tomorrow Hold Lasix secondary to CARMELO. Repeat kidney function in a.m. Replace potassium Further recommendations pending patient course Nurse practitioner note has been reviewed by physician. Signing provider agrees with the documented findings, assessment, and plan of care documented by TECHNICAL OPERATIONS VICE PRESIDENT as a scribe. Objective - Vital Signs Vital signs: Vital Signs Temp 98.0 F 12/02/24 07:53 Pulse 63 12/02/24 07:53 Resp 18 12/02/24 07:53 BP 163/66 12/02/24 07:53 Pulse Ox 97 12/02/24 07:53 FiO2 Intake & Output 12/01/24 12/02/24 12/02/24 18:59 06:59 18:59 Intake Total 61.784 131.09 160.824 Output Total 400 Balance 61.784 -268.91 160.824 Weight 63.5 kg Intake: Intake, IV Titration 61.784 131.09 40.824 Amount Heparin Sod,Pork in 0.45% 61.784 131.09 40.824 NaCl 25,000 unit In 0.45 % NaCl 1 250ml.bag @ 12 UNITS/KG/HR 6.804 mls/hr IV .Q24H [facility] Rx#: [id number] Oral 120 Output: Urine 400 Other: Voiding Method External Catheter External Catheter - Labs CBC & Chem 7: 11/30/24 19:18 12/02/24 08:00 Labs: Abnormal Lab Results - Last 24 Hours (Table) 12/01/24 12/02/24 12/02/24 Range/Units 20:18 08:00 08:00 APTT 46.6 H 43.3 H (22.0-30.0) sec Sodium 134 L (137-145) mmol/L Potassium 3.0 L (3.5-5.1) mmol/L BUN 36 H (9-20) mg/dL Creatinine 1.89 H (0.66-1.25) mg/dL
[2024-12-02] MEDS: POTASSIUM CHLORIDE ER 20 MEQ TAB.ER PO ONE (16:03)
[2024-12-02] MEDS: hydrALAZINE HCL 50 MG TAB PO SCH (20:06)
[2024-12-02] MEDS: HEPARIN SODIUM,PORCINE 5,000 UNIT/ML 1 ML VIAL SQ SCH (20:06)
[2024-12-03 07:10] LABS: HCT 33.4 % (39.0-53.0); HGB 10.8 gm/dL (13.0-17.5); Hypochromasia Slight; MCH 30.7 pg (25.0-35.0); MCHC 32.4 g/dL (31.0-37.0); MCV 94.8 fL (80.0-100.0); Mean Platelet Volume 7.8; Platelet Count 175 k/uL (150-450); RBC 3.53 m/uL (4.30-5.90); RDW 15.9 % (11.5-15.5)
[2024-12-03 07:36] LABS: African American GFR (CKD) 35 (>60 ml/min/1.73 sqM); Anion Gap 4 mmol/L; Blood Urea Nitrogen 35 mg/dL (9-20); Calcium 8.8 mg/dL (8.4-10.2); Carbon Dioxide 25 mmol/L (22-30); Chloride 105 mmol/L (98-107); Glucose 111 mg/dL (74-99); Non-African American GFR(CKD) 30 (>60 ml/min/1.73 sqM); Potassium 3.8 mmol/L (3.5-5.1); Sodium 134 mmol/L (137-145)
--- NOTE | 2024-12-03 10:25 | US ---
EXAMINATION TYPE: US kidneys/renal and bladder DATE OF EXAM: 12/03/2024 COMPARISON: CTA aorta August 03, 2024 CLINICAL INDICATION: Male, 74 years old with history of CARMELO on CKD; CARMELO TECHNIQUE: Grayscale imaging of the bilateral kidneys : FINDINGS: EXAM MEASUREMENTS: Right Kidney: 8.5 x 3.3 x 3.9 cm Left Kidney: 9.7 x 4.4 x 4.3 cm Right Kidney: Small in size with cortical thinning, no evidence of hydro, echogenic focus mid/medial= 0.6 cm Left Kidney: No evidence of hydro, multiple (up to 3) cystic lesions, largest upper pole with possibl e septation= 2.9 x 3.0 x 2.1 cm Bladder: Pt has cath in place There is no evidence for hydronephrosis at this point in time. Persistent 6 mm nonobstructing calculu s in the right kidney. Approximately 3 Thin-walled cysts in the left kidney are redemonstrated. The urinary bladder is suboptimally evaluated with Stubbs catheter in place. IMPRESSION: No hydronephrosis is seen bilaterally. [facility], , 12/03/2024 10:23 AM
--- NOTE | 2024-12-03 11:44 | P.PN ---
Subjective HISTORY OF PRESENT ILLNESS: This is a 74-year-old male with a past medical history significant for coronary artery disease with recent CABG, aortic stenosis with recent aortic valve replacement, hypertension, hyperlipidemia, hypothyroidism, and atrial fibrillation post CABG. Patient follows in the office with Dr. Falcon. We have been asked to see the patient in consultation for elevated troponins. Patient examined at the bedside in the emergency room. The patient is a poor historian. There is no family present. According to documentation, the patient was brought into the hospital for increasing weakness, inability to ambulate, and de creased oral intake. The patient currently denies having any chest pain or pressure. She denies any shortness of breath. Patient was found to have worsening kidney function of 1.94, previously 1.39. Additionally, he was found to have elevated troponins and was started on IV heparin. Patient's blood pressures are elevated this morning with a systolic in the 180s. DIAGNOSTICS: - EKG reveals sinus mechanism with LVH. Baseline artifact. Repeat EKG reveals sinus mechanism, right bundle branch block, T wave inversions in anterior lateral leads. - Chest xray negative for acute process - Laboratory data: WBC 7.4. Hemoglobin 13.5. Platelet count 205. Sodium 135. Potassium 3.4. BUN 34. Creatinine 1.94. Lactic acid 2.3. Repeat 1.4. Troponin 0.946. 0. 894. 0.701. - Current home cardiac medications include amiodarone 200 mg at night, aspirin 81 mg daily, atorvastatin 40 mg at night, hydralazine 50 mg at night, Lasix 40 mg at night, amlodipine 5 mg at night - Most recent echocardiogram obtained in August 2024 revealing ejection fraction 55 to 60%, severe aortic stenosis with mean gradient 55 m of mercury and moderate aortic regurgitation - Patient underwent aortic valve replacement and CABG x 4 vessels (ARANA to LAD, radial artery graft to first and second obtuse marginal arteries, and SVG to PDA) on September 03, 2024 12/02/2023 Patient examined this morning at the bedside. Patient currently denies chest pain or pressure. He denies shortness of breath. He states that he feels tired this morning. Echocardiogram completed revealing ejection fraction 55 to 60%, he remains on IV heparin. Creatinine remains elevated today at 1.89. He remains on IV fluids at 75 cc an hour. Blood pressures also remain elevated with a systolic in the 160s. 12/03/24 Patient examined this morning. He is sitting up in the chair. Patient currently denies chest pain or pressure. He denies shortness of breath. Blood pressures elevated in the 150-160s. EKG performed this morning with improvement in EKG changes compared to EKG on admission. PHYSICAL EXAM: VITAL SIGNS: Reviewed. GENERAL: Well-developed in no acute distress. HEENT: Head is normocephalic. Pupils are equal, round. Sclerae anicteric. Mucous membranes of the mouth are moist. Neck supple. No JVD or thyromegaly LUNGS: Respirations even and unlabored. Lungs essentially clear to auscultation bilaterally. HEART: Regular rate and rhythm. S1 and S2 heard. Systolic murmur noted ABDOMEN: Soft. Nondistended. Nontender. EXTREMITIES: Normal range of motion. No clubbing or cyanosis. Peripheral pulses intact. No lower extremity edema NEUROLOGIC: Awake and alert. ASSESSMENT: Generalized weakness Decreased oral intake Acute on chronic kidney disease Non-STEMI History of aortic stenosis status post aortic valve replacement, 09/03/2024 Coronary artery disease s/p CABG x 4 vessels (ARANA to LAD, radial artery graft to first and second obtuse marginal arteries, and SVG to PDA) Hypertension, uncontrolled 180s Hyperlipidemia Hypothyroidism History of atrial fibrillation post CABG Hypokalemia PLAN: Continue current cardiac medications Obtain orthostatic blood pressures Hold Lasix secondary to CARMELO. Repeat kidney function in a.m. Increase activity as tolerated Further recommendations pending patient course Nurse practitioner note has been reviewed by physician. Signing provider agrees with the documented findings, assessment, and plan of care documented by TELECOMMUNICATIONS LINE INSTALLER as a scribe. Objective - Vital Signs Vital signs: Vital Signs Temp 98.1 F 12/03/24 11:20 Pulse 57 L 12/03/24 11:20 Resp 16 12/03/24 11:20 BP 176/82 12/03/24 11:20 Pulse Ox 95 12/03/24 11:20 FiO2 Intake & Output 12/02/24 12/03/24 12/03/24 18:59 06:59 18:59 Intake Total 400.824 240 240 Output Total 350 300 0 Balance 50.824 -60 240 Weight 63.5 kg 63.5 kg Intake: Intake, IV Titration 40.824 Amount Heparin Sod,Pork in 0.45% 40.824 NaCl 25,000 unit In 0.45 % NaCl 1 250ml.bag @ 12 UNITS/KG/HR 6.804 mls/hr IV .Q24H [facility] Rx#: [id number] Oral 360 240 240 Output: Gastric Drainage 0 Urine 350 300 Uretheral (Stubbs) 350 Stool 0 0 Urine/Stool Mix 0 Emesis 0 Oral Regurgitation 0 Other 0 Other: Voiding Method External Catheter Indwelling Catheter Indwelling Catheter # Voids 0 # Bowel Movements 0 - Labs CBC & Chem 7: 12/03/24 06:54 12/03/24 06:54 Labs: Abnormal Lab Results - Last 24 Hours (Table) 12/03/24 12/03/24 Range/Units 06:54 06:54 RBC 3.53 L (4.30-5.90) m/uL Hgb 10.8 L (13.0-17.5) gm/dL Hct 33.4 L (39.0-53.0) % RDW 15.9 H (11.5-15.5) % Sodium 134 L (137-145) mmol/L BUN 35 H (9-20) mg/dL Creatinine 2.13 H (0.66-1.25) mg/dL Glucose 111 H (74-99) mg/dL
--- NOTE | 2024-12-03 12:26 | P.PN ---
Subjective Progress Note Date: 12/03/24 4-year-old male with a PMH of recent CABG x 4 on 09/10/2024, CKD stage III, hypertension, hyperlipidemia, and hypothyroidism who who was brought into the emergency room via EMS for generalized weakness, poor appetite, and failure to thrive. In the emergency room a CT brain and chest x-ray were unremarkable with EKG showing sinus rhythm at 82 bpm with an incomplete right bundle branch block and LVH. Laboratory evaluation was remarkable for troponin 0.946, lactic acid 2.3, sodium 135, potassium 3.4, chloride 92, CO2 33, BUN 34, creatinine 1.94, with total bilirubin 1.5. Blood pressure was elevated as high as 228/105. Patient was started on a heparin infusion + ASA + Labetalol IV + Hydralazine PO and admitted for Cardiology evaluation. Troponins trended 0.946, 0.894, 0.701. Antihypertensive medications were titrated. Cardiology consulted, recommended continuing IV heparin for 48H, obtain Echo, hold Lasix and increase Amlodipine. Echo showed EF 55-60% with no regional wall motion abnormalities. He is status post 48H heparin infusion. 12/03 Patient was seen and examined. Denies chest pain, SOB, palpitations or lightheadedness. Per RN mentation waxes and wanes. CBC and BMP shows RBC 3.53, Hg 10.8, Hct 33.4, Na 134, BUN 35, Cr 2.13. Patient with urinary retention ~ 300 yesterday, Stubbs catheter inserted. General: non toxic, no distress, appears at stated age Derm: warm, dry Head: atraumatic, normocephalic, symmetric Eyes: EOMI, no lid lag, anicteric sclera Mouth: no lip lesion, mucus membranes moist Cardiovascular: S1S2 cisco, no murmur Lungs: CTA bilateral, no rhonchi, no rales , no accessory muscle use Ext: no gross muscle atrophy, no edema, no contractures Neuro: no focal neuro deficits Psych: Alert, oriented, appropriate affect Based on my assessment of this patient, this patient meets a high complexity level of care. NSTEMI with h/o CAD post CABG 08/2024: ASA 81 mg PO QD. Lipitor 80 mg PO QHS. Metoprolol as below. Status post 48H heparin drip. Cardiology on board. CARMELO on CKD stage III: Likely prerenal due to dehydration. Status post Stubbs for urinary retention. Hold Lasix. NS at 75 cc/hr. Renal US ordered. Repeat BMP in the AM. Nephrology consulted. Generalized weakness and FTT: Since CABG. PT and OT consulted. Fall precautions. Case management consulted. Hypertensive emergency, resolved: Amlodipine 10 mg PO QD. Hydralazine 75 mg PO BID. Metoprolol 50 mg PO BID. Hyponatremia: Likely due to dehydration and poor PO intake. Paroxysmal A-Fib: Stop Amiodarone due to bradycardia. HLD: Lipitor as above. Hypothyroid: Synthroid 100 mcg PO QHS. Resolved: Lactic acidosis. HypoK CODE STATUS: FULL CODE DVT Prophylaxis: Heparin SQ GI Prophylaxis: Protonix PO Designated medical POA if patient is not able to make medical decisions for themselves: I have reviewed the following business information consultant notes: Cardiology. I have reviewed the results of the following tests: CBC, BMP. I have ordered the following tests: BMP in the AM. Renal US. I have discussed the care of this patient with the following independent historian: NELI. I have independently interpreted the following test below: I have discussed the management of this patient with the following physician: Objective - Vital Signs Vital signs: Vital Signs Temp 98.2 F 12/03/24 08:00 Pulse 65 12/03/24 08:00 Resp 16 12/03/24 08:00 BP 169/76 12/03/24 08:00 Pulse Ox 96 12/03/24 08:00 FiO2 Intake & Output 12/02/24 12/03/24 12/03/24 18:59 06:59 18:59 Intake Total 400.824 240 240 Output Total 350 300 Balance 50.824 -60 240 Weight 63.5 kg Intake: Intake, IV Titration 40.824 Amount Heparin Sod,Pork in 0.45% 40.824 NaCl 25,000 unit In 0.45 % NaCl 1 250ml.bag @ 12 UNITS/KG/HR 6.804 mls/hr IV .Q24H [facility] Rx#: [id number] Oral 360 240 240 Output: Gastric Drainage 0 Urine 350 300 Uretheral (Stubbs) 350 Stool 0 Urine/Stool Mix 0 Emesis 0 Oral Regurgitation 0 Other 0 Other: Voiding Method External Catheter Indwelling Catheter # Voids 0 # Bowel Movements 0 - Labs CBC & Chem 7: 12/03/24 06:54 12/03/24 06:54 Labs: Abnormal Lab Results - Last 24 Hours (Table) 12/03/24 12/03/24 Range/Units 06:54 06:54 RBC 3.53 L (4.30-5.90) m/uL Hgb 10.8 L (13.0-17.5) gm/dL Hct 33.4 L (39.0-53.0) % RDW 15.9 H (11.5-15.5) % Sodium 134 L (137-145) mmol/L BUN 35 H (9-20) mg/dL Creatinine 2.13 H (0.66-1.25) mg/dL Glucose 111 H (74-99) mg/dL
--- NOTE | 2024-12-03 12:43 | P.NPCON ---
History of Present Illness - Reason for Consult acute renal failure - History of Present Illness Patient is a 74-year-old male with history of coronary artery disease, hypertension, chronic kidney disease, stage III A, who is admitted to the hospital with complaints of weakness, decreased ambulation along with decreased oral intake. Blood pressure is not low Currently maintained on IV fluids. Serum creatinine was 1.9 on admission and is 2.1 today. Baseline creatinine 1.2 to 1.4 mg/dL as of August 2024. It appears that a Stubbs catheter was placed with concern for urine retention. I see 350 mL of urine charted on Stubbs catheter placement. No NSAIDs noted. 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 , [place], bilateral LE neuropathy Last Myocardial Infarction Date:: 11/28/2013 History of Any Multi-Drug Resistant Organisms: None Reported Past Surgical History: Cardiac Valve Replacement, Coronary Bypass/CABG, Heart Catheterization With Stent, Orthopedic Surgery Additional Past Surgical History / Comment(s): ATHERECTOMY TO BOTH LEGS, 3x vessel CABG and aortic valve replacement August 2024 Past Anesthesia/Blood Transfusion Reactions: No Reported Reaction Date of Last Stent Placement:: Greater than 10 years ago Past Psychological History: No Psychological Hx Reported Smoking Status: Current every day smoker Past Alcohol Use History: None Reported Past Drug Use History: Marijuana - Past Family History Mother Family Medical History: Cancer Additional Family Medical History / Comment(s): from bone cancer Father Family Medical History: Cancer Additional Family Medical History / Comment(s): from brain cancer Medications and Allergies Home Medications Medication Instructions Recorded Confirmed Type Aspirin EC [Ecotrin Low Dose] 81 mg PO HS 09/04/24 11/30/24 History Amiodarone [Cordarone] 200 mg PO HS 11/30/24 11/30/24 History Atorvastatin [Lipitor] 40 mg PO HS 11/30/24 11/30/24 History Furosemide [Lasix] 40 mg PO HS 11/30/24 11/30/24 History Levothyroxine Sodium [Synthroid] 100 mcg PO HS 11/30/24 11/30/24 History Pantoprazole [Protonix] 40 mg PO HS 11/30/24 11/30/24 History Potassium Chloride ER [K-Dur 20] 20 meq PO HS 11/30/24 11/30/24 History amLODIPine [Norvasc] 5 mg PO HS 11/30/24 11/30/24 History hydrALAZINE HCL [Apresoline] 50 mg PO HS 11/30/24 11/30/24 History Allergies Allergy/AdvReac Type Severity Reaction Status Date / Time No Known Allergies Allergy Verified 11/30/24 20:25 Physical Exam Vitals: Vital Signs Temp Pulse Pulse Resp BP Pulse Ox 12/03/24 11:20 98.1 F 57 L 16 176/82 95 12/03/24 08:00 98.2 F 65 60 16 169/76 96 12/03/24 03:58 97.9 F 60 16 148/66 94 L 12/02/24 23:35 54 L 14 169/68 97 12/02/24 19:34 97.2 F L 51 L 18 163/72 97 12/02/24 16:00 50 L 18 143/68 96 Intake and Output 12/02/24 12/03/24 12/03/24 22:59 06:59 14:59 Intake Total 240 240 Output Total 450 200 0 Balance -210 -200 240 Intake: Oral 240 240 Output: Urine 450 200 Uretheral (Stubbs) 350 Stool 0 Other: Voiding Method Indwelling Catheter Indwelling Catheter Indwelling Catheter Weight 63.5 kg 63.5 kg Patient is awake, comfortable, no acute distress Examination of the heart S1 and S2 Examination of the lungs bilateral breath sounds are heard Abdomen is soft nontender Examination of the lower extremities shows no significant edema SECURITY AND COMPLIANCE ANALYST exam shows patient is able to move all 4 extremities. Results - Lab Results Most recent lab results Calcium 8.8 mg/dL (8.4-10.2) 12/03/24 06:54 Magnesium 2.1 mg/dL (1.6-2.3) 12/02/24 08:00 12/03/24 06:54 12/03/24 06:54 Assessment and Plan Assessment: 1. Acute kidney injury most likely ATN and a component of urine retention altho ugh no significant urine amounts documented. No evidence of obstruction on ultrasound. UA shows 2+ protein moderate blood. Currently maintained on IV fluids 2. Chronic kidney disease stage IIIa with baseline creatinine 1.2 to 1.4 mg/dL etiology is likely nephrosclerosis however UA shows evidence of proteinuria. Basic serological workup will be ordered. 3. Hypokalemia associated with decreased oral intake 4. Elevated troponins, ruled in for non-ST elevation [place]. Being followed by cardiology. History of coronary artery bypass surgery Plan: Continue with IV fluids Check serologies for workup of proteinuria. Repeat labs in a.m. Avoid nephrotoxic agents. Thank you for the consultation. We will continue to follow the patient with you during his hospitalization.
[2024-12-03 15:51] LABS: Hepatitis B Surface Antigen Nonreactive (Nonreactive); Hepatitis C IgG Antibody Nonreactive (Nonreactive)
[2024-12-03 16:27] LABS: Hepatitis B Surface AB- Quant 3.5 mIU/mL
[2024-12-03 19:48] LABS: Creatinine,Urine Random 249.6 mg/dL; Protein/Creatinine Ratio,Urine 0.204
[2024-12-04 08:58] LABS: African American GFR (CKD) 37 (>60 ml/min/1.73 sqM); Anion Gap 8 mmol/L; Blood Urea Nitrogen 36 mg/dL (9-20); Carbon Dioxide 26 mmol/L (22-30); Chloride 101 mmol/L (98-107); Glucose 133 mg/dL (74-99); Magnesium 1.9 mg/dL (1.6-2.3); Non-African American GFR(CKD) 32 (>60 ml/min/1.73 sqM); Potassium 3.7 mmol/L (3.5-5.1); Sodium 135 mmol/L (137-145)
[2024-12-04 09:04] LABS: Basophils % (A) 0 %; Eosinophils # (A) 0.1 k/uL (0-0.7); Eosinophils % (A) 2 %; HGB 11.4 gm/dL (13.0-17.5); Hypochromasia Slight; Lymphocytes # (A) 0.9 k/uL (1.0-4.8); Lymphocytes % (A) 15 %; MCH 30.3 pg (25.0-35.0); MCHC 31.7 g/dL (31.0-37.0); MCV 95.5 fL (80.0-100.0); Mean Platelet Volume 7.2; Monocytes # (A) 0.4 k/uL (0-1.0); Monocytes % (A) 6 %; Neutrophils # (A) 4.5 k/uL (1.3-7.7); Neutrophils % (A) 75 %; Platelet Count 177 k/uL (150-450); RBC 3.77 m/uL (4.30-5.90)
[2024-12-04 09:59] VITALS: TEMP 98
[2024-12-04 11:46] VITALS: BP 168/84; PULSE 70; RESP 17
--- NOTE | 2024-12-04 12:28 | P.DS ---
Providers Date of admission: 11/30/24 20:42 Expected date of discharge: 12/04/24 Attending physician: Griselda Kaminski MD Consults: 11/30/24 20:41 Consult Physician Urgent Consulting Provider: [facility] Consult Reason/Comments: NSTEMI Do you want consulting provider notified?: Yes 12/03/24 09:36 Consult Physician Routine Consulting Provider: Bereket Ibanez Consult Reason/Comments: CARMELO on CKD Do you want consulting provider notified?: Yes Primary care physician: [facility] Course: Discharge Diagnosis: Acute NSTEMI Hypertensive emergency CARMELO on CKD stage III History of CAD status post CABG Generalized weakness, failure to thrive Paroxysmal atrial fibrillation Dyslipidemia Hypothyroidism Lactic acidosis Hypokalemia Mild hyponatremia Hospital Course: 74-year-old male with a PMH of recent CABG x 4 on 09/10/2024, CKD stage III, paroxysmal atrial fibrillation hypertension, hyperlipidemia, and hypothyroidism who who was brought into the emergency room via EMS for generalized weakness, poor appetite, and failure to thrive. In the emergency room a CT brain and chest x-ray were unremarkable with EKG showing sinus rhythm at 82 bpm with an incomplete right bundle branch block and LVH. Laboratory evaluation was remarkable for troponin 0.946, lactic acid 2.3, sodium 135, potassium 3.4, chloride 92, CO2 33, BUN 34, creatinine 1.94, with total bilirubin 1.5. Blood pressure was elevated as high as 228/105. Patient was started on a heparin infusion + ASA + Labetalol IV + Hydralazine PO and admitted for Cardiology evaluation. Troponins trended 0.946, 0.894, 0.701. Antihypertensive medications were titrated. Cardiology consulted, recommended continuing IV heparin for 48H, obtain Echo, hold Lasix and increase Amlodipine. Echo showed EF 55-60% with no regional wall motion abnormalities. He is status post 48H heparin infusion. Patient did have slightly worsened kidney function, CARMELO on CKD stage III. Nephrology also consulted. Patient was bradycardic, amiodarone stopped. Renal ultrasound did not show any hydronephrosis. Renal function slightly improved at the time of discharge. Outpatient follow-up with nephrology. He does have orthostatic hypotension, was recommended to go to rehab. However, patient improved over the course of his hospitalization, able to go home with home care. Outpatient follow-up with cardiology and PCP. Patient seen and examined at bedside. Vital signs reviewed and stable. General: Nontoxic, no distress, appears at stated age Derm: Warm, dry Head: Atraumatic, normocephalic, symmetric Eyes: EOMI, no lid lag, anicteric sclera Mouth: No lip lesion, mucus membranes moist Cardiovascular: S1S2 reg, no murmur Lungs: CTA bilateral, no rhonchi, no rales, no accessory muscle use Abdominal: Soft, nontender to palpation, no guarding, no appreciable organomegaly Ext: No gross muscle atrophy, no edema, no contractures Neuro: CN II-XI grossly intact, no focal neuro deficits Psych: Alert, oriented, appropriate affect A total of 38 minutes of time were spent preparing this complex discharge summary. Patient was discharged on 12/04/2024 at 1221. Patient Condition at Discharge: Stable Plan - Discharge Summary Discharge Rx Participant: No New Discharge Prescriptions: New hydrALAZINE HCL [Apresoline] 75 mg PO BID #90 tab Metoprolol Tartrate [Lopressor] 50 mg PO BID #90 tab Atorvastatin [Lipitor] 80 mg PO HS #90 tab amLODIPine [Norvasc] 10 mg PO DAILY #90 tab Continue Pantoprazole [Protonix] 40 mg PO HS Aspirin EC [Ecotrin Low Dose] 81 mg PO HS Levothyroxine Sodium [Synthroid] 100 mcg PO HS Discontinued hydrALAZINE HCL [Apresoline] 50 mg PO HS Amiodarone [Cordarone] 200 mg PO HS amLODIPine [Norvasc] 5 mg PO HS Furosemide [Lasix] 40 mg PO HS Atorvastatin [Lipitor] 40 mg PO HS Potassium Chloride ER [K-Dur 20] 20 meq PO HS Discharge Medication List Aspirin EC [Ecotrin Low Dose] 81 mg PO HS 09/04/24 [History] Levothyroxine Sodium [Synthroid] 100 mcg PO HS 11/30/24 [History] Pantoprazole [Protonix] 40 mg PO HS 11/30/24 [History] Atorvastatin [Lipitor] 80 mg PO HS #90 tab 12/04/24 [Rx] Metoprolol Tartrate [Lopressor] 50 mg PO BID #90 tab 12/04/24 [Rx] amLODIPine [Norvasc] 10 mg PO DAILY #90 tab 12/04/24 [Rx] hydrALAZINE HCL [Apresoline] 75 mg PO BID #90 tab 12/04/24 [Rx] Follow up Appointment(s)/Referral(s): Francine Curry MD [STAFF PHYSICIAN] - 1 Week Tuan Villar DO [STAFF PHYSICIAN] - 1 Week John Faulkner MD [Primary Care Provider] - 1-2 days Patient Instructions/Handouts: Acute Kidney Injury (DC), Hypertensive Crisis (DC) Activity/Diet/Wound Care/Special Instructions: Please see PCP, cardiology and nephrology. Discharge Disposition: HOME WITH HOME HEALTH SERVICES
--- NOTE | 2024-12-04 13:08 | P.PN ---
Subjective HISTORY OF PRESENT ILLNESS: This is a 74-year-old male with a past medical history significant for coronary artery disease with recent CABG, aortic stenosis with recent aortic valve replacement, hypertension, hyperlipidemia, hypothyroidism, and atrial fibrillation post CABG. Patient follows in the office with Dr. Falcon. We have been asked to see the patient in consultation for elevated troponins. Patient examined at the bedside in the emergency room. The patient is a poor historian. There is no family present. According to documentation, the patient was brought into the hospital for increasing weakness, inability to ambulate, and de creased oral intake. The patient currently denies having any chest pain or pressure. She denies any shortness of breath. Patient was found to have worsening kidney function of 1.94, previously 1.39. Additionally, he was found to have elevated troponins and was started on IV heparin. Patient's blood pressures are elevated this morning with a systolic in the 180s. DIAGNOSTICS: - EKG reveals sinus mechanism with LVH. Baseline artifact. Repeat EKG reveals sinus mechanism, right bundle branch block, T wave inversions in anterior lateral leads. - Chest xray negative for acute process - Laboratory data: WBC 7.4. Hemoglobin 13.5. Platelet count 205. Sodium 135. Potassium 3.4. BUN 34. Creatinine 1.94. Lactic acid 2.3. Repeat 1.4. Troponin 0.946. 0. 894. 0.701. - Current home cardiac medications include amiodarone 200 mg at night, aspirin 81 mg daily, atorvastatin 40 mg at night, hydralazine 50 mg at night, Lasix 40 mg at night, amlodipine 5 mg at night - Most recent echocardiogram obtained in August 2024 revealing ejection fraction 55 to 60%, severe aortic stenosis with mean gradient 55 m of mercury and moderate aortic regurgitation - Patient underwent aortic valve replacement and CABG x 4 vessels (ARANA to LAD, radial artery graft to first and second obtuse marginal arteries, and SVG to PDA) on September 03, 2024 12/02/2023 Patient examined this morning at the bedside. Patient currently denies chest pain or pressure. He denies shortness of breath. He states that he feels tired this morning. Echocardiogram completed revealing ejection fraction 55 to 60%, he remains on IV heparin. Creatinine remains elevated today at 1.89. He remains on IV fluids at 75 cc an hour. Blood pressures also remain elevated with a systolic in the 160s. 12/03/24 Patient examined this morning. He is sitting up in the chair. Patient currently denies chest pain or pressure. He denies shortness of breath. Blood pressures elevated in the 150-160s. EKG performed this morning with improvement in EKG changes compared to EKG on admission. 12/04/2024 Patient examined this morning at the bedside. Patient denies chest pain or pressure. He denies shortness of breath. He denies any dizziness or lightheadedness. Vital signs are stable. Orthostatic blood pressures obtained and are unremarkable. PHYSICAL EXAM: VITAL SIGNS: Reviewed. GENERAL: Well-developed in no acute distress. HEENT: Head is normocephalic. Pupils are equal, round. Sclerae anicteric. Mucous membranes of the mouth are moist. Neck supple. No JVD or thyromegaly LUNGS: Respirations even and unlabored. Lungs essentially clear to auscultation bilaterally. HEART: Regular rate and rhythm. S1 and S2 heard. Systolic murmur noted ABDOMEN: Soft. Nondistended. Nontender. EXTREMITIES: Normal range of motion. No clubbing or cyanosis. Peripheral pulses intact. No lower extremity edema NEUROLOGIC: Awake and alert. ASSESSMENT: Generalized weakness Decreased oral intake Acute on chronic kidney disease Non-STEMI History of aortic stenosis status post aortic valve replacement, 09/03/2024 Coronary artery disease s/p CABG x 4 vessels (ARANA to LAD, radial artery graft to first and second obtuse marginal arteries, and SVG to PDA) Hypertension, uncontrolled 180s Hyperlipidemia Hypothyroidism History of atrial fibrillation post CABG Hypokalemia PLAN: Continue current cardiac medications Hold Lasix secondary to CARMELO. Reassess on an outpatient basis Increase activity as tolerated Patient may be discharged home today from a cardiac standpoint Further recommendations pending patient course Nurse practitioner note has been reviewed by physician. Signing provider agrees with the documented findings, assessment, and plan of care documented by PROJECT MANAGER SENIOR as a scribe. Objective - Vital Signs Vital signs: Vital Signs Temp 98.3 F 12/04/24 04:00 Pulse 66 12/04/24 04:00 Resp 16 12/04/24 04:00 BP 158/62 12/04/24 04:00 Pulse Ox 93 L 12/04/24 04:00 FiO2 Intake & Output 12/03/24 12/04/24 12/04/24 18:59 06:59 18:59 Intake Total 1040 Output Total 500 700 Balance 540 -700 Weight 63.5 kg 63.5 kg Intake: Intake, IV Titration 600 Amount Sodium Chloride 0.9% 1, 600 000 ml @ 75 mls/hr IV . [id number] [facility] Rx#:[id number] Oral 440 Output: Urine 500 700 Stool 0 0 Other: Voiding Method Indwelling Catheter Indwelling Catheter - Labs CBC & Chem 7: 12/04/24 08:28 12/04/24 08:28
[2024-12-04 13:09] LABS: C-ANCA <1:20 Titer (<1:20)
[2024-12-04 16:30] LABS: DNA Double-Stranded Negative (Negative)
--- NOTE | 2024-12-04 20:56 | P.PN ---
Subjective Patient is seen for follow-up for acute kidney injury. Serum creatinine about the same at 2.0. Patient has been voiding. Patient is adamant that he wants to go home today. No other complaints today. Objective - Vital Signs Vital signs: Vital Signs Temp 98 F 12/04/24 08:45 Pulse 70 12/04/24 11:45 Resp 17 12/04/24 11:45 BP 168/84 12/04/24 11:45 Pulse Ox 95 12/04/24 11:45 FiO2 Intake & Output 12/04/24 12/04/24 12/05/24 06:59 18:59 06:59 Intake Total 360 Output Total 700 Balance -700 360 Weight 63.5 kg Intake: Oral 360 Output: Urine 700 Stool 0 Other: Voiding Method Indwelling Catheter Urinal # Voids 2 - Exam Patient is awake, comfortable, no acute distress Examination of the heart S1 and S2 Examination of the lungs bilateral breath sounds are heard Abdomen is soft nontender Examination of the lower extremities shows no significant edema DIRECTORY CARRIER exam shows patient is able to move all 4 extremities. - Labs CBC & Chem 7: 12/04/24 08:28 12/04/24 08:28 Labs: Abnormal Lab Results - Last 24 Hours (Table) 12/04/24 12/04/24 Range/Units 08:28 08:28 RBC 3.77 L (4.30-5.90) m/uL Hgb 11.4 L (13.0-17.5) gm/dL Hct 36.0 L (39.0-53.0) % RDW 16.0 H (11.5-15.5) % Lymphocytes # 0.9 L (1.0-4.8) k/uL Sodium 135 L (137-145) mmol/L BUN 36 H (9-20) mg/dL Creatinine 2.02 H (0.66-1.25) mg/dL Glucose 133 H (74-99) mg/dL Assessment and Plan Assessment: 1. Acute kidney injury most likely ATN and a component of urine retention although no significant urine amounts documented. No evidence of obstruction on ultrasound. UA shows 2+ protein moderate blood. Currently maintained on IV fluids 2. Chronic kidney disease stage IIIa with baseline creatinine 1.2 to 1.4 mg/dL etiology is likely nephrosclerosis however UA shows evidence of proteinuria. Basic serological workup will be ordered. 3. Hypokalemia associated with decreased oral intake 4. Elevated troponins, ruled in for non-ST elevation ND. Being followed by cardiology. History of coronary artery bypass surgery Plan: Patient can be discharged and he will follow-up as outpatient in 1 to 2 weeks.
== END 2024-12-04 14:48 | disposition home health service (06) | DRG 280 ==
LOC: EC 18:35 → 3SCARD 20:42
PROVIDERS: ADMIT Internal Medicine; ATTEND Internal Medicine
DX: I21.4 Non-ST elevation (NSTEMI) myocardial infarction (principal); N17.0 Acute kidney failure with tubular necrosis; I16.1 Hypertensive emergency; E87.4 Mixed disorder of acid-base balance; E87.1 Hypo-osmolality and hyponatremia; R62.7 Adult failure to thrive; E86.0 Dehydration; I45.10 Unspecified right bundle-branch block; Z95.2 Presence of prosthetic heart valve; Z95.1 Presence of aortocoronary bypass graft; I48.0 Paroxysmal atrial fibrillation; N18.31 Chronic kidney disease, stage 3a; E03.9 Hypothyroidism, unspecified; I12.9 Hypertensive chronic kidney disease with stage 1 through stage 4 chronic kidney disease, or unspecified chronic kidney disease; I25.10 Atherosclerotic heart disease of native coronary artery without angina pectoris; E78.5 Hyperlipidemia, unspecified; E87.6 Hypokalemia; E87.8 Other disorders of electrolyte and fluid balance, not elsewhere classified; F17.200 Nicotine dependence, unspecified, uncomplicated; G57.93 Unspecified mononeuropathy of bilateral lower limbs; R29.6 Repeated falls; I25.2 Old myocardial infarction; Z79.82 Long term (current) use of aspirin; Z79.890 Hormone replacement therapy; Z79.899 Other long term (current) drug therapy; Z80.8 Family history of malignant neoplasm of other organs or systems
CPT/HCPCS: 36415; 70450; 71046; 76770; 80048; 80053; 80061; 81001; 82570; 83516; 83605; 83735; 84156; 84484; 85025; 85027; 85610; 85730; 86038; 86225; 86255; 86334; 86335; 86706; 86803; 87340; 93005; 93308; 94760; 96361; 96365; 96366; 96375; 99291

== ENCOUNTER 2024-12-11 16:13 | Emergency (ER) | payer MEDICARE ==
--- NOTE | 2024-12-11 16:39 | ED ---
General Adult HPI - General Chief complaint: Psychiatric Symptoms Stated complaint: Suicidal Time Seen by Provider: 12/11/24 16:15 Source: patient, RN notes reviewed, old records reviewed Mode of arrival: EMS Limitations: no limitations - History of Present Illness Initial comments: 74-year-old male presenting for psychiatric evaluation. Patient states he has had issues with his marriage current he does report suicidal thoughts and suicide attempt by cutting his left upper extremity with a knife. Patient was brought in by PD and paramedics. Patient is calm and cooperative at the time my evaluation and is requesting psychiatric evaluation. - Related Data Home Medications Medication Instructions Recorded Confirmed Aspirin EC [Ecotrin Low Dose] 81 mg PO HS 09/04/24 12/11/24 Levothyroxine Sodium [Synthroid] 100 mcg PO HS 11/30/24 12/11/24 Pantoprazole [Protonix] 40 mg PO HS 11/30/24 12/11/24 Previous Rx's Medication Instructions Recorded Atorvastatin [Lipitor] 80 mg PO HS #90 tab 12/04/24 Metoprolol Tartrate [Lopressor] 50 mg PO BID #90 tab 12/04/24 amLODIPine [Norvasc] 10 mg PO DAILY #90 tab 12/04/24 hydrALAZINE HCL [Apresoline] 75 mg PO BID #90 tab 12/04/24 Allergies Allergy/AdvReac Type Severity Reaction Status Date / Time No Known Allergies Allergy Verified 12/11/24 18:19 Review of Systems ROS Statement: Those systems with pertinent positive or pertinent negative responses have been documented in the HPI. ROS Other: All systems not noted in ROS Statement are negative. 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 , PA, bilateral LE neuropathy Last Myocardial Infarction Date:: 11/28/2013 History of Any Multi-Drug Resistant Organisms: None Reported Past Surgical History: Cardiac Valve Replacement, Coronary Bypass/CABG, Heart Catheterization With Stent, Orthopedic Surgery Additional Past Surgical History / Comment(s): ATHERECTOMY TO BOTH LEGS, 3x vessel CABG and aortic valve replacement August 2024 Past Anesthesia/Blood Transfusion Reactions: No Reported Reaction Date of Last Stent Placement:: Greater than 10 years ago Past Psychological History: No Psychological Hx Reported Smoking Status: Current every day smoker Past Alcohol Use History: None Reported Past Drug Use History: Marijuana - Past Family History Mother Family Medical History: Cancer Additional Family Medical History / Comment(s): from bone cancer Father Family Medical History: Cancer Additional Family Medical History / Comment(s): from brain cancer General Exam Limitations: no limitations General appearance: alert, in no apparent distress Head exam: Present: atraumatic, normocephalic Eye exam: Present: normal appearance, PERRL ENT exam: Present: normal exam Neck exam: Present: normal inspection. Absent: tenderness, meningismus Respiratory exam: Present: normal lung sounds bilaterally. Absent: respiratory distress, wheezes Cardiovascular Exam: Present: regular rate, normal rhythm GI/Abdominal exam: Present: soft. Absent: distended, tenderness Extremities exam: Present: other (Superficial laceration to the left forearm no active bleeding) Neurological exam: Present: alert, oriented X3 Psychiatric exam: Present: depressed, anxious, suicidal ideation Skin exam: Present: warm, dry Course Vital Signs 12/11/24 12/11/24 12/12/24 16:18 16:28 03:43 Temperature 97.8 F Pulse Rate 70 78 70 Respiratory 20 20 17 Rate Blood Pressure 182/78 128/75 148/66 O2 Sat by Pulse 98 98 95 Oximetry 12/12/24 12/12/24 15:30 19:58 Temperature 98.6 F Pulse Rate 68 77 Respiratory 18 18 Rate Blood Pressure 148/70 167/83 O2 Sat by Pulse 98 99 Oximetry Medical Decision Making - Medical Decision Making Was pt. sent in by a medical professional or institution (, PA, ULTRASONIC SEAMING MACHINE OPERATOR, urgent care, hospital, or fpc...) When possible be specific @ -No Did you speak to anyone other than the patient for history (EMS, parent, family, police, friend...)? What history was obtained from this source @ -No Did you review nursing and triage notes (agree or disagree)? Why? @ -I reviewed and agree with nursing and triage notes Were old charts reviewed (outside hosp., previous admission, EMS record, old EKG, old radiological studies, urgent care reports/EKG's, fpc records)? Report findings @ -No old charts were reviewed Differential Mental Health Depression, anxiety, bipolar, psychosis, schizophrenia, borderline personality, situational depression, adjustment disorder, behavioral disorder, brain tumor, malingering, substance abuse, encephalopathy, medication reaction, dementia, hypothyroidism, degenerative neurologic disorder, lupus.... This is not meant to be all-inclusive list EKG interpreted by me (3pts min.). @ -As above X-rays interpreted by me (1pt min.). @ -None done CT interpreted by me (1pt min.). @ -None done U/S interpreted by me (1pt. min.). @ -None done What testing was considered but not performed or refused? (CT, X-rays, U/S, labs)? Why? @ -None What meds were considered but not given or refused? Why? @ -None Did you discuss the management of the patient with other professionals (julian scott i.e. , PA, ULTRASONIC SEAMING MACHINE OPERATOR, lab, RT, psych nurse, social services analyst, benefits consulting analyst, teacher, promotion officer, case maker)? Give summary @ -No Was smoking cessation discussed for >3mins.? @ -No Was critical care preformed (if so, how long)? @ -No Were there social determinants of health that impacted care today? How? (Homelessness, low income, unemployed, alcoholism, drug addiction, transportation, low edu. Level, literacy, decrease access to med. care, usp, rehab)? @ -No Was there de-escalation of care discussed even if they declined (Discuss DNR or withdrawal of care, Hospice)? DNR status @ -No What co-morbidities impacted this encounter? (DM, HTN, Smoking, COPD, CAD, Cancer, CVA, ARF, Chemo, Hep., AIDS, mental health diagnosis, sleep apnea, morbid obesity)? @ -None Was patient admitted / discharged? Hospital course, mention meds given and route, prescriptions, significant lab abnormalities, going to OR and other pertinent info. @Patient medically cleared and evaluated by EPS. It appears this patient was transferred for further psychiatric care. Undiagnosed new problem with uncertain prognosis? @ -No Drug Therapy requiring intensive monitoring for toxicity (Heparin, Nitro, Insulin, Cardizem)? @ -No Were any procedures done? @ -No Diagnosis/symptom? @Depression, suicidal ideation Acute, or Chronic, or Acute on Chronic? @Acute Uncomplicated (without systemic symptoms) or Complicated (systemic symptoms)? @ -Default Side effects of treatment? @ -No Exacerbation, Progression, or Severe Exacerbation? @ -No Poses a threat to life or bodily function? How? (Chest pain, USA, PA, pneumonia, PE, COPD, DKA, ARF, appy, cholecystitis, CVA, Diverticulitis, Homicidal, Suicidal, threat to staff... and all critical care pts) @ yes, self-harm threat to self - Lab Data Result diagrams: 12/11/24 19:32 12/11/24 19:32 Lab Results 12/11/24 12/11/24 12/11/24 Range/Units 16:24 16:51 19:30 WBC (3.8-10.6) k/uL RBC (4.30-5.90) m/uL Hgb (13.0-17.5) gm/dL Hct (39.0-53.0) % MCV (80.0-100.0) fL MCH (25.0-35.0) pg MCHC (31.0-37.0) g/dL RDW (11.5-15.5) % Plt Count (150-450) k/uL MPV Neutrophils % % Lymphocytes % % Monocytes % % Eosinophils % % Basophils % % Neutrophils # (1.3-7.7) k/uL Lymphocytes # (1.0-4.8) k/uL Monocytes # (0-1.0) k/uL Eosinophils # (0-0.7) k/uL Basophils # (0-0.2) k/uL Anisocytosis Sodium (137-145) mmol/L Potassium (3.5-5.1) mmol/L Chloride (98-107) mmol/L Carbon Dioxide (22-30) mmol/L Anion Gap mmol/L BUN (9-20) mg/dL Creatinine (0.66-1.25) mg/dL Est GFR (CKD-EPI)AfAm (>60 ml/min/1.73 sqM) Est GFR (CKD-EPI)NonAf (>60 ml/min/1.73 sqM) Glucose (74-99) mg/dL Calcium (8.4-10.2) mg/dL Total Bilirubin (0.2-1.3) mg/dL AST (17-59) U/L ALT (4-49) U/L Alkaline Phosphatase (38-126) U/L Total Protein (6.3-8.2) g/dL Albumin (3.5-5.0) g/dL Urine Color Light Yellow Urine Appearance Clear (Clear) Urine pH 5.5 (5.0-8.0) Ur Specific [place]anson 1.013 (1.001-1.035) Urine Protein 1+ H (Negative) Urine Glucose (UA) Negative (Negative) Urine Ketones Negative (Negative) Urine Blood Trace H (Negative) Urine Nitrite Negative (Negative) Urine Bilirubin Negative (Negative) Urine Urobilinogen <2.0 (<2.0) mg/dL Ur Leukocyte Esterase Negative (Negative) Urine RBC 1 (0-5) /hpf Urine WBC 2 (0-5) /hpf Urine Mucus Rare H (None) /hpf Urine Opiates Screen Not Detected (NotDetected) Ur Oxycodone Screen Not Detected (NotDetected) Urine Methadone Screen Not Detected (NotDetected) Ur Barbiturates Screen Not Detected (NotDetected) U Tricyclic Antidepress Not Detected (NotDetected) Ur Phencyclidine Scrn Not Detected (NotDetected) Ur Amphetamines Screen Not Detected (NotDetected) U Methamphetamines Scrn Not Detected (NotDetected) U Benzodiazepines Scrn Not Detected (NotDetected) Urine Cocaine Screen Not Detected (NotDetected) U Marijuana (THC) Screen Detected H (NotDetected) SARS-CoV-2 (PCR) Not Detected (Not Detectd) 12/11/24 12/11/24 Range/Units 19:32 19:32 WBC 6.4 (3.8-10.6) k/uL RBC 3.88 L (4.30-5.90) m/uL Hgb 12.0 L (13.0-17.5) gm/dL Hct 36.5 L (39.0-53.0) % MCV 94.0 (80.0-100.0) fL MCH 31.0 (25.0-35.0) pg MCHC 33.0 (31.0-37.0) g/dL RDW 16.6 H (11.5-15.5) % Plt Count 255 (150-450) k/uL MPV 7.5 Neutrophils % 77 % Lymphocytes % 16 % Monocytes % 5 % Eosinophils % 1 % Basophils % 0 % Neutrophils # 4.9 (1.3-7.7) k/uL Lymphocytes # 1.0 (1.0-4.8) k/uL Monocytes # 0.3 (0-1.0) k/uL Eosinophils # 0.1 (0-0.7) k/uL Basophils # 0.0 (0-0.2) k/uL Anisocytosis Slight Sodium 135 L (137-145) mmol/L Potassium 5.0 (3.5-5.1) mmol/L Chloride 100 (98-107) mmol/L Carbon Dioxide 29 (22-30) mmol/L Anion Gap 6 mmol/L BUN 28 H (9-20) mg/dL Creatinine 2.52 H (0.66-1.25) mg/dL Est GFR (CKD-EPI)AfAm 28 (>60 ml/min/1.73 sqM) Est GFR (CKD-EPI)NonAf 24 (>60 ml/min/1.73 sqM) Glucose 101 H (74-99) mg/dL Calcium 9.6 (8.4-10.2) mg/dL Total Bilirubin 1.0 (0.2-1.3) mg/dL AST 18 (17-59) U/L ALT 16 (4-49) U/L Alkaline Phosphatase 104 (38-126) U/L Total Protein 7.8 (6.3-8.2) g/dL Albumin 4.2 (3.5-5.0) g/dL Urine Color Urine Appearance (Clear) Urine pH (5.0-8.0) Ur Specific [place] (1.001-1.035) Urine Protein (Negative) Urine Glucose (UA) (Negative) Urine Ketones (Negative) Urine Blood (Negative) Urine Nitrite (Negative) Urine Bilirubin (Negative) Urine Urobilinogen (<2.0) mg/dL Ur Leukocyte Esterase (Negative) Urine RBC (0-5) /hpf Urine WBC (0-5) /hpf Urine Mucus (None) /hpf Urine Opiates Screen (NotDetected) Ur Oxycodone Screen (NotDetected) Urine Methadone Screen (NotDetected) Ur Barbiturates Screen (NotDetected) U Tricyclic Antidepress (NotDetected) Ur Phencyclidine Scrn (NotDetected) Ur Amphetamines Screen (NotDetected) U Methamphetamines Scrn (NotDetected) U Benzodiazepines Scrn (NotDetected) Urine Cocaine Screen (NotDetected) U Marijuana (THC) Screen (NotDetected) SARS-CoV-2 (PCR) (Not Detectd) Disposition Clinical Impression: Suicidal ideation, Depression Disposition: TRANSFER TO PSYCH HOSP/UNIT Condition: Stable Is patient prescribed a controlled substance at d/c from ED?: No Referrals: John Faulkner MD [Primary Care Provider] - 1-2 days
[2024-12-11 17:12] LABS: Amphetamine Screen,Urine Not Detected (NotDetected); Barbiturate Screen,Urine Not Detected (NotDetected); Benzodiazepines Screen,Urine Not Detected (NotDetected); Cocaine Screen,Urine Not Detected (NotDetected); Methadone Screen, Urine Not Detected (NotDetected); Opiate Screen,Urine Not Detected (NotDetected); Oxycodone Screen, Urine Not Detected (NotDetected); Phencyclidine Screen,Urine Not Detected (NotDetected); Tricyclic Antidepressant,Urine Not Detected (NotDetected); Urn Cannabinoid Scrn Detected (NotDetected)
[2024-12-11 19:34] LABS: Appearance,Urine Clear (Clear); Bilirubin,Urine Negative (Negative); Blood,Urine Trace (Negative); Color,Urine Light Yellow; Glucose,Urine (UA) Negative (Negative); Ketones,Urine Negative (Negative); Leukocyte Esterase,Urine Negative (Negative); Mucus,Urine Rare /hpf; Nitrite,Urine Negative (Negative); PH, Urine 5.5 (5.0-8.0); Protein,Urine 1+ (Negative); RBC,Urine 1 /hpf (0-5); Specific Gravity,Urine 1.013 (1.001-1.035); Urobilinogen,Urine <2.0 mg/dL (<2.0); WBC,Urine 2 /hpf (0-5)
[2024-12-11 19:59] LABS: Anisocytosis Slight; Basophils % (A) 0 %; Eosinophils # (A) 0.1 k/uL (0-0.7); Eosinophils % (A) 1 %; HCT 36.5 % (39.0-53.0); Lymphocytes % (A) 16 %; Mean Platelet Volume 7.5; Monocytes # (A) 0.3 k/uL (0-1.0); Monocytes % (A) 5 %; Neutrophils # (A) 4.9 k/uL (1.3-7.7); Neutrophils % (A) 77 %; Platelet Count 255 k/uL (150-450); RBC 3.88 m/uL (4.30-5.90); RDW 16.6 % (11.5-15.5); WBC 6.4 k/uL (3.8-10.6)
[2024-12-11 20:17] LABS: ALT 16 U/L (4-49); AST 18 U/L (17-59); African American GFR (CKD) 28 (>60 ml/min/1.73 sqM); Albumin 4.2 g/dL (3.5-5.0); Alkaline Phosphatase 104 U/L (38-126); Anion Gap 6 mmol/L; Blood Urea Nitrogen 28 mg/dL (9-20); Calcium 9.6 mg/dL (8.4-10.2); Carbon Dioxide 29 mmol/L (22-30); Chloride 100 mmol/L (98-107); Glucose 101 mg/dL (74-99); Non-African American GFR(CKD) 24 (>60 ml/min/1.73 sqM); Sodium 135 mmol/L (137-145); Total Protein 7.8 g/dL (6.3-8.2)
[2024-12-12 15:35] VITALS: RESP 18; TEMP 98.6
[2024-12-12 20:00] VITALS: BP 167/83; PULSE 77
== END 2024-12-12 20:05 ==
LOC: EC 16:13
DX: R45.851 Suicidal ideations (principal); F32.A Depression, unspecified; F17.200 Nicotine dependence, unspecified, uncomplicated; Z11.52 Encounter for screening for COVID-19; X78.1XXA Intentional self-harm by knife, initial encounter
CPT/HCPCS: 36415; 80053; 80306; 81001; 82075; 85025; 87635; 99285

== ENCOUNTER 2024-12-23 08:39 | Emergency (ER) | payer MEDICARE ==
[2024-12-23 08:48] VITALS: BP 215/99; PULSE 80; RESP 18; TEMP 98.9
[2024-12-23] MEDS: METOPROLOL TARTRATE 50 MG TAB PO STA (09:01)
--- NOTE | 2024-12-23 09:16 | ED ---
General Adult HPI - General Chief complaint: Dizziness Stated complaint: Dizziness Time Seen by Provider: 12/23/24 08:51 Source: patient, EMS, RN notes reviewed Mode of arrival: EMS Limitations: no limitations - History of Present Illness Initial comments: Patient is a 74-year-old male presenting to the emergency department with lightheadedness. Patient states he had a slip and fall on ice 3 to 4 days ago and did strike the right side of his forehead. Patient has had bruising since that time. No loss of consciousness. No headache or weakness or confusion. Patient does not believe he takes blood thinners. Patient also had a fall the day before when he landed on his right hip. Patient has been able to ambulate however has discomfort. Patient believes the fall on the right hip was secondary to his chronic balance problems that he has from previous strokes. Patient states when he woke this morning he felt lightheaded. Patient otherwise feels normal at this time and has no complaints. - Related Data Home Medications Medication Instructions Recorded Confirmed Aspirin EC [Ecotrin Low Dose] 81 mg PO HS 09/04/24 12/11/24 Levothyroxine Sodium [Synthroid] 100 mcg PO HS 11/30/24 12/11/24 Pantoprazole [Protonix] 40 mg PO HS 11/30/24 12/11/24 Previous Rx's Medication Instructions Recorded Atorvastatin [Lipitor] 80 mg PO HS #90 tab 12/04/24 Metoprolol Tartrate [Lopressor] 50 mg PO BID #90 tab 12/04/24 amLODIPine [Norvasc] 10 mg PO DAILY #90 tab 12/04/24 hydrALAZINE HCL [Apresoline] 75 mg PO BID #90 tab 12/04/24 Allergies Allergy/AdvReac Type Severity Reaction Status Date / Time No Known Allergies Allergy Verified 12/11/24 18:19 Review of Systems ROS Statement: Those systems with pertinent positive or pertinent negative responses have been documented in the HPI. ROS Other: All systems not noted in ROS Statement are negative. 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 , [place], bilateral LE neuropathy, legally blind from macular degeneration Last Myocardial Infarction Date:: 11/28/2013 History of Any Multi-Drug Resistant Organisms: None Reported Past Surgical History: Cardiac Valve Replacement, Coronary Bypass/CABG, Heart Catheterization With Stent, Orthopedic Surgery Additional Past Surgical History / Comment(s): ATHERECTOMY TO BOTH LEGS, 3x vessel CABG and aortic valve replacement August 2024 Past Anesthesia/Blood Transfusion Reactions: No Reported Reaction Date of Last Stent Placement:: Greater than 10 years ago Past Psychological History: No Psychological Hx Reported Smoking Status: Current every day smoker Past Alcohol Use History: None Reported Past Drug Use History: Marijuana - Past Family History Mother Family Medical History: Cancer Additional Family Medical History / Comment(s): from bone cancer Father Family Medical History: Cancer Additional Family Medical History / Comment(s): from brain cancer General Exam Limitations: no limitations General appearance: alert, in no apparent distress Head exam: Present: other (Right forehead soft tissue swelling with extensive facial ecchymosis without any bony tenderness.) Eye exam: Present: PERRL, EOMI, other (Right subconjunctival hemorrhage) ENT exam: Present: normal oropharynx Neck exam: Present: normal inspection. Absent: tenderness Respiratory exam: Present: normal lung sounds bilaterally Cardiovascular Exam: Present: regular rate, normal rhythm GI/Abdominal exam: Present: soft. Absent: tenderness Extremities exam: Present: tenderness (Right lateral hip) Back exam: Present: normal inspection. Absent: tenderness, vertebral tenderness Neurological exam: Present: alert, oriented X3, CN II-XII intact. Absent: motor sensory deficit Psychiatric exam: Present: normal affect, normal mood Skin exam: Present: other (Facial ecchymosis) Course Vital Signs 12/23/24 08:40 Temperature 98.9 F Pulse Rate 80 Respiratory 18 Rate Blood Pressure 215/99 O2 Sat by Pulse 96 Oximetry EKG Findings - EKG Results: EKG: interpreted by ERMD (LVH.), sinus rhythm, normal axis, normal ST/T Medical Decision Making - Medical Decision Making Was pt. sent in by a medical professional or institution (Dr., PA, SENIOR PASTOR, urgent care, hospital, or fci...) When possible be specific @ -No Did you speak to anyone other than the patient for history (EMS, parent, family, police, friend...)? What history was obtained from this source @ -No Did you review nursing and triage notes (agree or disagree)? Why? @ -I reviewed and agree with nursing and triage notes Were old charts reviewed (outside hosp., previous admission, EMS record, old EKG, old radiological studies, urgent care reports/EKG's, fci records)? Report findings @ -No old charts were reviewed Differential Diagnosis (chest pain, altered mental status, abdominal pain women, abdominal pain men, vaginal bleeding, weakness, fever, dyspnea, syncope, headache, dizziness, GI bleed, back pain, seizure, CVA, palpatations, mental health, musculoskeletal)? @ -Differential Dizziness: Benign paroxysmal positional Vertigo, Meniere's disease, otitis media, acoustic neuroma, vertebrobasilar insufficiency, cerebellar stroke, encephalitis, hypovolemic, arrhythmia, coronary artery syndrome, anemia, this is not meant to be an all-inclusive list EKG interpreted by me (3pts min.). @ -As above X-rays interpreted by me (1pt min.). @ -Chest x-ray shows small right effusion. Right hip and pelvis x-ray show questionable right greater trochanter fracture. CT brain shows chronic changes, no acute abnormality CT interpreted by me (1pt min.). @ -None done U/S interpreted by me (1pt. min.). @ -None done What testing was considered but not performed or refused? (CT, X-rays, U/S, labs)? Why? @ -Recommended CT scan of hip however patient refuses What meds were considered but not given or refused? Why? @ -None Did you discuss the management of the patient with other professionals (professionals i.e. BARBRA Dillon, SENIOR PASTOR, lab, RT, psych nurse, manager social media, casino floorperson, teacher, human resource officer, test case developer)? Give summary @ -No Was smoking cessation discussed for >3mins.? @ -No Was critical care preformed (if so, how long)? @ -No Were there social determinants of health that impacted care today? How? (Homelessness, low income, unemployed, alcoholism, drug addiction, transportation, low edu. Level, literacy, decrease access to med. care, usp, rehab)? @ -No Was there de-escalation of care discussed even if they declined (Discuss DNR or withdrawal of care, Hospice)? DNR status @ -Recommended CT scan of the hip however patient refuses. In addition I did recommend admission and patient also refuses this. See below. What co-morbidities impacted this encounter? (DM, HTN, Smoking, COPD, CAD, Cancer, CVA, ARF, Chemo, Hep., AIDS, mental health diagnosis, sleep apnea, morbid obesity)? @ -History of renal insufficiency Was patient admitted / discharged? Hospital course, mention meds given and route, prescriptions, significant lab abnormalities, going to OR and other pertinent info. @ -Patient presents with [address] unremarkable. Hip x-ray concerning for possible fracture. Recommended CT scan and further evaluation. Recommended admission secondary to electrolyte abnormalities and elevation of troponin. Despite this and long conversation with the patient he refuses. Patient does demonstrate medical decision making. Patient is aware that this could result in or permanent disability however still refuses further care. Patient is receptive to potassium replacement prior to discharge with a single oral dose. Undiagnosed new problem with uncertain prognosis? @ -No Drug Therapy requiring intensive monitoring for toxicity (Heparin, Nitro, Insulin, Cardizem)? @ -No Were any procedures done? @ -No Diagnosis/symptom? @ -Fall, hip pain, head contusion Acute, or Chronic, or Acute on Chronic? @ -Acute, acute, acute Uncomplicated (without systemic symptoms) or Complicated (systemic symptoms)? @ -Complicated with mild change in troponin and renal insufficiency Side effects of treatment? @ -No Exacerbation, Progression, or Severe Exacerbation? @ -No Poses a threat to life or bodily function? How? (Chest pain, [place], [place], pneumonia, PE, COPD, DKA, ARF, appy, cholecystitis, CVA, Diverticulitis, Homicidal, Suicidal, threat to staff... and all critical care pts) @ -Threat to cardiac and musculoskeletal function - Lab Data Result diagrams: 12/23/24 09:30 12/23/24 09:30 Lab Results 12/23/24 12/23/24 12/23/24 Range/Units 09:30 09:30 09:30 WBC 6.0 (3.8-10.6) k/uL RBC 3.44 L (4.30-5.90) m/uL Hgb 10.8 L (13.0-17.5) gm/dL Hct 32.2 L (39.0-53.0) % MCV 93.4 (80.0-100.0) fL MCH 31.4 (25.0-35.0) pg MCHC 33.6 (31.0-37.0) g/dL RDW 16.0 H (11.5-15.5) % Plt Count 179 (150-450) k/uL MPV 6.8 Neutrophils % 80 % Lymphocytes % 13 % Monocytes % 4 % Eosinophils % 1 % Basophils % 0 % Neutrophils # 4.8 (1.3-7.7) k/uL Lymphocytes # 0.8 L (1.0-4.8) k/uL Monocytes # 0.3 (0-1.0) k/uL Eosinophils # 0.1 (0-0.7) k/uL Basophils # 0.0 (0-0.2) k/uL Anisocytosis Slight PT 9.9 L (10.0-12.5) sec INR 0.9 (<1.2) APTT 19.6 L (22.0-30.0) sec Sodium 135 L (137-145) mmol/L Potassium 3.1 L (3.5-5.1) mmol/L Chloride 99 (98-107) mmol/L Carbon Dioxide 30 (22-30) mmol/L Anion Gap 6 mmol/L BUN 36 H (9-20) mg/dL Creatinine 2.07 H (0.66-1.25) mg/dL Est GFR (CKD-EPI)AfAm 36 (>60 ml/min/1.73 sqM) Est GFR (CKD-EPI)NonAf 31 (>60 ml/min/1.73 sqM) Glucose 102 H (74-99) mg/dL Calcium 8.5 (8.4-10.2) mg/dL Magnesium 2.4 H (1.6-2.3) mg/dL Total Bilirubin 0.5 (0.2-1.3) mg/dL AST 16 L (17-59) U/L ALT 14 (4-49) U/L Alkaline Phosphatase 82 (38-126) U/L Troponin I (0.000-0.034) ng/mL Total Protein 6.4 (6.3-8.2) g/dL Albumin 3.6 (3.5-5.0) g/dL 12/23/24 Range/Units 09:30 WBC (3.8-10.6) k/uL RBC (4.30-5.90) m/uL Hgb (13.0-17.5) gm/dL Hct (39.0-53.0) % MCV (80.0-100.0) fL MCH (25.0-35.0) pg MCHC (31.0-37.0) g/dL RDW (11.5-15.5) % Plt Count (150-450) k/uL MPV Neutrophils % % Lymphocytes % % Monocytes % % Eosinophils % % Basophils % % Neutrophils # (1.3-7.7) k/uL Lymphocytes # (1.0-4.8) k/uL Monocytes # (0-1.0) k/uL Eosinophils # (0-0.7) k/uL Basophils # (0-0.2) k/uL Anisocytosis PT (10.0-12.5) sec INR (<1.2) APTT (22.0-30.0) sec Sodium (137-145) mmol/L Potassium (3.5-5.1) mmol/L Chloride (98-107) mmol/L Carbon Dioxide (22-30) mmol/L Anion Gap mmol/L BUN (9-20) mg/dL Creatinine (0.66-1.25) mg/dL Est GFR (CKD-EPI)AfAm (>60 ml/min/1.73 sqM) Est GFR (CKD-EPI)NonAf (>60 ml/min/1.73 sqM) Glucose (74-99) mg/dL Calcium (8.4-10.2) mg/dL Magnesium (1.6-2.3) mg/dL Total Bilirubin (0.2-1.3) mg/dL AST (17-59) U/L ALT (4-49) U/L Alkaline Phosphatase (38-126) U/L Troponin I 0.052 H* (0.000-0.034) ng/mL Total Protein (6.3-8.2) g/dL Albumin (3.5-5.0) g/dL Disposition Clinical Impression: Lightheadedness Disposition: LEFT AGAINST MEDICAL ADVICE Instructions (If sedation given, give patient instructions): Dizziness (ED), High Troponin Levels (ED) Additional Instructions: You are leaving AGAINST MEDICAL ADVICE. Please follow-up with your primary care physician Tuesday. Please return at anytime for change in decision, increased pain, weakness, chest pain, confusion, dizziness, falling, worsening symptoms or any other concerns. Is patient prescribed a controlled substance at d/c from ED?: No Referrals: John Faulkner MD [Primary Care Provider] - 1-2 days Time of Disposition: 11:05
--- NOTE | 2024-12-23 10:02 | CT ---
EXAMINATION TYPE: CT brain wo con DATE OF EXAM: 12/23/2024 COMPARISON: 11/30/2024 CLINICAL INDICATION: Male, 74 years old with history of weakness; PHH, weakness, dizziness and recent falls. pt has obvious facial bruising that is healing CT DLP: 1096.4 mGycm Automated exposure control for dose reduction was used. Findings: The ventricles, basal cisterns and sulci over the convexities are moderately enlarged. There is moder ate decreased density in the periventricular white matter consistent with chronic ischemic white sedrick er demyelination. There is no mass effect or shift of the midline structures. There is no acute intra or extra-axial hemorrhage. The posterior fossa including the brainstem, fourth ventricle and cerebellar pontine angles appear no rmal. Intraorbital contents appear normal and symmetric. Visualized paranasal sinuses and mastoid air cells are well aerated. There is a scalp hematoma overlying the right frontal bone. The calvarium is intact. IMPRESSION: 1. No acute bleed or mass effect. 2. Senescent atrophy and ischemic white matter changes as described above. 3. Scalp hematoma overlying the right frontal bone. The calvarium is intact. [facility], , 12/23/2024 10:00 AM
[2024-12-23 10:04] LABS: ALT 14 U/L (4-49); AST 16 U/L (17-59); African American GFR (CKD) 36 (>60 ml/min/1.73 sqM); Albumin 3.6 g/dL (3.5-5.0); Alkaline Phosphatase 82 U/L (38-126); Anion Gap 6 mmol/L; Blood Urea Nitrogen 36 mg/dL (9-20); Calcium 8.5 mg/dL (8.4-10.2); Carbon Dioxide 30 mmol/L (22-30); Chloride 99 mmol/L (98-107); Glucose 102 mg/dL (74-99); Magnesium 2.4 mg/dL (1.6-2.3); Non-African American GFR(CKD) 31 (>60 ml/min/1.73 sqM); Potassium 3.1 mmol/L (3.5-5.1); Sodium 135 mmol/L (137-145); Total Bilirubin 0.5 mg/dL (0.2-1.3); Total Protein 6.4 g/dL (6.3-8.2)
[2024-12-23 10:05] LABS: Anisocytosis Slight; Basophils % (A) 0 %; Eosinophils # (A) 0.1 k/uL (0-0.7); Eosinophils % (A) 1 %; HCT 32.2 % (39.0-53.0); HGB 10.8 gm/dL (13.0-17.5); Lymphocytes # (A) 0.8 k/uL (1.0-4.8); Lymphocytes % (A) 13 %; MCH 31.4 pg (25.0-35.0); MCHC 33.6 g/dL (31.0-37.0); MCV 93.4 fL (80.0-100.0); Mean Platelet Volume 6.8; Monocytes # (A) 0.3 k/uL (0-1.0); Monocytes % (A) 4 %; Neutrophils # (A) 4.8 k/uL (1.3-7.7); Neutrophils % (A) 80 %; Platelet Count 179 k/uL (150-450); RBC 3.44 m/uL (4.30-5.90)
--- NOTE | 2024-12-23 10:08 | XR ---
Chest, 2 view. HISTORY: Weakness COMPARISON: 11/30/2024 TECHNIQUE: PA and lateral views the chest are obtained. FINDINGS: There are postsurgical changes of aortic valve replacement.. There are aortic stent grafts in the dis noris thoracic aorta and proximal abdominal aorta. There has been interval development of a small right pleural effusion. There is no pneumothorax or left pleural effusion. There is no airspace consolidation. The heart is normal and the pulmonary vasculature is not congested. The osseous structures are intact. IMPRESSION: Interval development of a small right pleural effusion. [facility], , 12/23/2024 10:05 AM
--- NOTE | 2024-12-23 10:11 | XR ---
EXAMINATION TYPE: XR Hip RT and AP Pelvis DATE OF EXAM: 12/23/2024 COMPARISON: NONE CLINICAL INDICATION: Male, 74 years old with history of fall; TECHNIQUE: A single AP view of the pelvis is obtained. Two views of the right hip are obtained. FINDINGS: Cannot exclude a fracture of the greater trochanter of the right hip. CT of the right hip would be us eful for further evaluation. The pelvis is intact. There are aortic and iliac stent grafts. IMPRESSION: Cannot exclude right hip fracture. CT of the right hip is recommended. [facility], Workstation: [facility], 12/23/2024 10:09 AM
[2024-12-23 10:17] LABS: INR 0.9 (<1.2); Prothrombin Time 9.9 sec (10.0-12.5)
[2024-12-23 10:33] LABS: Partial Thromboplastin Time 19.6 sec (22.0-30.0)
[2024-12-23] MEDS: POTASSIUM CHLORIDE ER 20 MEQ TAB.ER PO STA (11:08)
[2024-12-23] MEDS: ACETAMINOPHEN TAB 500 MG TAB PO STA (11:08)
== END 2024-12-23 11:31 | disposition left against medical advice (07) ==
LOC: EC 08:39
DX: S00.03XA Contusion of scalp, initial encounter (principal); R42 Dizziness and giddiness; M25.551 Pain in right hip; Z86.73 Personal history of transient ischemic attack (TIA), and cerebral infarction without residual deficits; F17.200 Nicotine dependence, unspecified, uncomplicated; W00.0XXA Fall on same level due to ice and snow, initial encounter
CPT/HCPCS: 36415; 70450; 71046; 73502; 80053; 83735; 84484; 85025; 85610; 85730; 93005; 99284

== ENCOUNTER 2024-12-25 01:13 | Emergency (ER) | payer MEDICARE ==
[2024-12-25 01:29] VITALS: RESP 18; TEMP 98.4
--- NOTE | 2024-12-25 02:20 | ED ---
General Adult HPI - General Chief complaint: Extremity Injury, Lower Stated complaint: hip pain Time Seen by Provider: 12/25/24 01:29 Source: patient, EMS, RN notes reviewed, old records reviewed Mode of arrival: EMS Limitations: no limitations - History of Present Illness Initial comments: 74-year-old male presents for evaluation of right hip pain. Patient states he rolled over in bed and felt a pop in the right hip. He was able to ambulate but this did cause moderate pain. Patient had a fall several days ago with head injury and had hematoma to the forehead resulting in facial ecchymosis. He states that he was seen for this and had CAT scan performed. - Related Data Home Medications Medication Instructions Recorded Confirmed Aspirin EC [Ecotrin Low Dose] 81 mg PO HS 09/04/24 12/11/24 Levothyroxine Sodium [Synthroid] 100 mcg PO HS 11/30/24 12/11/24 Pantoprazole [Protonix] 40 mg PO HS 11/30/24 12/11/24 Previous Rx's Medication Instructions Recorded Atorvastatin [Lipitor] 80 mg PO HS #90 tab 12/04/24 Metoprolol Tartrate [Lopressor] 50 mg PO BID #90 tab 12/04/24 amLODIPine [Norvasc] 10 mg PO DAILY #90 tab 12/04/24 hydrALAZINE HCL [Apresoline] 75 mg PO BID #90 tab 12/04/24 traMADol HCL 50 mg PO Q6H 3 Days #12 tab 12/25/24 Allergies Allergy/AdvReac Type Severity Reaction Status Date / Time No Known Allergies Allergy Verified 12/25/24 01:29 Review of Systems ROS Statement: Those systems with pertinent positive or pertinent negative responses have been documented in the HPI. ROS Other: All systems not noted in ROS Statement are negative. 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 , [place], bilateral LE neuropathy, legally blind from macular degeneration Last Myocardial Infarction Date:: 11/28/2013 History of Any Multi-Drug Resistant Organisms: None Reported Past Surgical History: Cardiac Valve Replacement, Coronary Bypass/CABG, Heart Catheterization With Stent, Orthopedic Surgery Additional Past Surgical History / Comment(s): ATHERECTOMY TO BOTH LEGS, 3x vessel CABG and aortic valve replacement August 2024 Past Anesthesia/Blood Transfusion Reactions: No Reported Reaction Date of Last Stent Placement:: Greater than 10 years ago Past Psychological History: No Psychological Hx Reported Smoking Status: Current every day smoker Past Alcohol Use History: None Reported Past Drug Use History: Marijuana - Past Family History Mother Family Medical History: Cancer Additional Family Medical History / Comment(s): from bone cancer Father Family Medical History: Cancer Additional Family Medical History / Comment(s): from brain cancer General Exam Limitations: no limitations General appearance: alert Head exam: Present: other (Right forehead hematoma with diffuse facial ecchymosis) Respiratory exam: Present: normal lung sounds bilaterally. Absent: respiratory distress, wheezes Cardiovascular Exam: Present: regular rate, normal rhythm GI/Abdominal exam: Present: soft. Absent: distended, tenderness, guarding Extremities exam: Present: full ROM, other. Absent: tenderness (No leg length discrepancy, no significant pain with range of motion of the right hip.) Neurological exam: Present: alert, oriented X3, CN II-XII intact. Absent: motor sensory deficit Psychiatric exam: Present: normal affect, normal mood Skin exam: Present: warm, dry Course Vital Signs 12/25/24 01:25 Temperature 98.4 F Pulse Rate 59 L Respiratory 18 Rate Blood Pressure 189/84 O2 Sat by Pulse 98 Oximetry Medical Decision Making - Medical Decision Making Was pt. sent in by a medical professional or institution (Dr. PA, SAWING AND ASSEMBLY SUPERVISOR, urgent care, hospital, or detention...) When possible be specific @ -No Did you speak to anyone other than the patient for history (EMS, parent, family, police, friend...)? What history was obtained from this source @ -No Did you review nursing and triage notes (agree or disagree)? Why? @ -I reviewed and agree with nursing and triage notes Were old charts reviewed (outside hosp., previous admission, EMS record, old EKG, old radiological studies, urgent care reports/EKG's, detention records)? Report findings @ -No old charts were reviewed Differential Musculoskeletal Muscular strain, contusion, ligament sprain, fracture, arthritis, septic arthritis, bursitis, cellulitis, muscle spasm, nerve compression, DVT, arterial occlusion, herpes zoster, electrolyte abnormality, tumor.... This is not meant to be in all inclusive list EKG interpreted by me (3pts min.). @ -As above X-rays interpreted by me (1pt min.). @ -X-ray of the right hip showing the possibility of a greater trochanteric fracture CT interpreted by me (1pt min.). @ -CT of the right hip shows a greater trochanteric fracture U/S interpreted by me (1pt. min.). @ -None done What testing was considered but not performed or refused? (CT, X-rays, U/S, labs)? Why? @ -None What meds were considered but not given or refused? Why? @ -None Did you discuss the management of the patient with other professionals (pr ofessionals i.e. , PA, SAWING AND ASSEMBLY SUPERVISOR, lab, RT, psych nurse, social worker masters, maintenance engineer, teacher, workplace rehabilitation officer, patient case coordinator)? Give summary @ -No Was smoking cessation discussed for >3mins.? @ -No Was critical care preformed (if so, how long)? @ -No Were there social determinants of health that impacted care today? How? (Homelessness, low income, unemployed, alcoholism, drug addiction, transportation, low edu. Level, literacy, decrease access to med. care, residential, rehab)? @ -No Was there de-escalation of care discussed even if they declined (Discuss DNR or withdrawal of care, Hospice)? DNR status @ -No What co-morbidities impacted this encounter? (DM, HTN, Smoking, COPD, CAD, Cancer, CVA, ARF, Chemo, Hep., AIDS, mental health diagnosis, sleep apnea, morbid obesity)? @ -None Was patient admitted / discharged? Hospital course, mention meds given and route, prescriptions, significant lab abnormalities, going to OR and other pertinent info. @ -[h 74-year-old male with right hip pain. Patient has been ambulating on it for the past several days. He does have a walker at home. X-ray showing possibility of fracture this is confirmed with CT. Patient is offered admission for pain control and orthopedic consultation. He states he would prefer to be discharged. He has been ambulating on this injury for the past several days without much difficulty according to the patient. He states he will follow-up with orthopedic as an outpatient. Undiagnosed new problem with uncertain prognosis? @ -No Drug Therapy requiring intensive monitoring for toxicity (Heparin, Nitro, Insulin, Cardizem)? @ -No Were any procedures done? @ -No Diagnosis/symptom? @ -Greater trochanteric fracture Acute, or Chronic, or Acute on Chronic? @ -Acute Uncomplicated (without systemic symptoms) or Complicated (systemic symptoms)? @ -Default Side effects of treatment? @ -No Exacerbation, Progression, or Severe Exacerbation? @ -No Poses a threat to life or bodily function? How? (Chest pain, [place], [place], pneumonia, PE, COPD, DKA, ARF, appy, cholecystitis, CVA, Diverticulitis, Homicidal, Suicidal, threat to staff... and all critical care pts) @ -No Disposition Clinical Impression: Greater trochanter fracture Disposition: HOME SELF-CARE Condition: Fair Instructions (If sedation given, give patient instructions): Hip Fracture (ED) Additional Instructions: Please use your walker, weight-bear on the right hip as tolerated. If pain worsens please return to the emergency department. Prescriptions: traMADol HCL 50 mg PO Q6H 3 Days #12 tab Is patient prescribed a controlled substance at d/c from ED?: No Referrals: John Faulkner MD [Primary Care Provider] - 1-2 days Cristobal Anderson DO [Doctor of Osteopathic Medicine] - 1-2 days Time of Disposition: 04:29
--- NOTE | 2024-12-25 02:28 | XR ---
EXAM: XR Right Hip With Pelvis When Performed, 2 or 3 Views CLINICAL HISTORY: XR Reason: pain TECHNIQUE: Two or three views of the right hip with pelvis when performed. COMPARISON: December 23, 2024 FINDINGS: Bones/joints: Unusual appearance of the interface between the greater tuberosity and proximal femur. Mild narrowing and osteophytosis of the hip joints. No acute fracture. No dislocation. Soft tissues: Unremarkable. Vasculature: Mild diffuse arterial calcification. Partial visualization of aortic stent graft. IMPRESSION: 1. Unusual appearance of the interface between the greater tuberosity and proximal femur. This is suspicious for fracture but may only involve the greater tuberosity. I do not see a fracture line extending across the femoral neck. Consider CT for further characterization. 2. Mild narrowing and osteophytosis of the hip joints. This is consistent with osteoarthritis.
--- NOTE | 2024-12-25 04:02 | CT ---
EXAM: CT Right Lower Extremity Without Intravenous Contrast, Hip CLINICAL HISTORY: Pt has right hip pain. Pt fell two days ago. Pt repositioned himself in bed and heard a pop followed by extreme pain. TECHNIQUE: Axial computed tomography images of the right hip without intravenous contrast. CTDI is 9 mGy and DLP is 316.2 mGy-cm. This CT exam was performed using one or more of the following dose reduction techniques: automated exposure control, adjustment of the mA and/or kV according to patient size, and/or use of iterative reconstruction technique. Coronal and sagittal reconstructions are performed. 449 images. COMPARISON: Right hip radiographs from today and 2 days ago. FINDINGS: Bones/joints: Comminuted right greater trochanteric fracture with 8 mm medial displacement. No dislocation. Osteopenia. Soft tissues: Mild overlying soft tissue swelling without gas. Vasculature: Moderate amount of atherosclerotic calcifications. IMPRESSION: Comminuted right greater trochanteric fracture
[2024-12-25 04:44] VITALS: BP 157/76; PULSE 74
== END 2024-12-25 04:43 | disposition home or self-care (01) ==
LOC: EC 01:13
DX: S72.111A Displaced fracture of greater trochanter of right femur, initial encounter for closed fracture (principal); F17.200 Nicotine dependence, unspecified, uncomplicated; W19.XXXA Unspecified fall, initial encounter
CPT/HCPCS: 73502; 99284